=== PATIENT | female | born 1945 | race Caucasian/White ===

== ENCOUNTER → 2017-01-05 | Outpatient (CLI) | payer MEDICARE ==
--- NOTE | 2017-01-07 08:24 | MM ---
Reason for exam: screening (asymptomatic). Last mammogram was performed 1 year ago. History: Patient is postmenopausal. Benign excisional biopsy of the left breast, August 15, 2005. Left Mammotome Panel of the left breast, August 13, 2005. Benign excisional biopsy of the right breast, January 25, 1998. Took hormonal contraceptives for 8 years. Physical Findings: A clinical breast exam by your physician is recommended on an annual basis and results should be correlated with mammographic findings. MG Screening Mammo w CAD Bilateral CC and MLO view(s) were taken. Prior study comparison: December 28, 2015, bilateral MG screening mammo w CAD. December 27, 2014, bilateral MG screening mammo w CAD. December 26, 2013, CAD bilateral diagnostic mammogram. December 08, 2012, bilateral digital screening mammo w/CAD. November 26, 2011, bilateral digital screening mammo w/CAD. There are scattered fibroglandular densities. There is chronic nodularity in the left breast. Nodularity on the right MLO view appears more defined but circumscribed. A benign etiology is suspected, 6 month follow up recommended. ASSESSMENT: Probably benign, BI-RAD 3 RECOMMENDATION: Follow-up diagnostic mammogram of the right breast in 6 months.
== END | disposition home or self-care (01) ==
LOC: RADMAMWWP 13:21
PROVIDERS: ATTEND Family Medicine
DX: Z12.31 Encounter for screening mammogram for malignant neoplasm of breast (principal)

== ENCOUNTER → 2017-05-06 | Outpatient (CLI) | payer MEDICARE ==
[2017-05-06 17:00] LABS: Creatine Kinase 82 U/L (30-135)
[2017-05-06 17:04] LABS: Rheumatoid Factor, Qnt <9 IU/mL (<12)
[2017-05-06 17:50] LABS: Vitamin B12 420 pg/mL
[2017-05-06 22:03] LABS: Hemoglobin A1C 6.4 % (4.2-6.1)
[2017-05-07 00:59] LABS: ANA w/Reflex to Titer NEGATIVE (NEGATIVE)
[2017-05-08 14:13] LABS: Lyme IgG/IgM 0.1 Index; Lyme IgG/IgM Interp NEGATIVE (NEGATIVE)
== END | disposition home or self-care (01) ==
LOC: LABWHC1 15:50
PROVIDERS: ATTEND Psychiatry & Neurology Neurology
DX: G62.9 Polyneuropathy, unspecified (principal)
CPT/HCPCS: 36415; 82550; 82607; 82747; 83036; 84165; 84439; 84443; 85652; 86038; 86431; 86618

== ENCOUNTER → 2017-05-06 | Outpatient (CLI) | payer MEDICARE ==
--- NOTE | 2017-05-07 09:08 | US ---
EXAMINATION TYPE: US thyroid st tissue head/neck DATE OF EXAM: 05/06/2017 COMPARISON: NONE CLINICAL HISTORY: E04.2 thyroid goiter. Multinodular goiter, history of thyroid biopsy GLAND SIZE: Right Lobe: 5.7 x 2.9 x 3.0 cm Overall Parenchyma: heterogenous Left Lobe: 5.5 x 2.6 x 2.0 cm Overall Parenchyma: heterogeneous Isthmus Thickness: 0.5 cm NODULES RIGHT: # of nodules measured on right: 1 1. 3.3 X 1.9 x 2.8 cm hypoechoic solid nodule at the lower pole with poorly defined margins. This n odule is wider than tall and shows intranodular vascularity. Prior size: 2.5 x 1.9 x 2.9 cm LEFT: # of nodules measured on left: 2 1. 1.3 X 1.0 x 1.3 cm hypoechoic solid nodule at the lower pole with poorly defined margins. This n odule is wider than tall and shows intranodular vascularity. Prior size: 1.4 x 2.0 x 0.9 cm 2. 0.9 X 0.7 x 0.8 cm hypoechoic cystic nodule at the mid pole with well-defined margins. This nodul e is wider than tall and shows no intranodular vascularity. Prior size: no previous ISTHMUS: # of nodules measured in the isthmus: 0 Bilateral neck scanned, no evidence of lymphadenopathy. Enlarged heterogeneous thyroid with bilateral nodules described above. IMPRESSION: 1. Bilateral thyroid nodules. 2. Right lobe thyroid nodules enlarged from prior study.
== END | disposition home or self-care (01) ==
LOC: RADUSWWP 16:22
PROVIDERS: ATTEND Internal Medicine Endocrinology, Diabetes & Metabolism
DX: E04.2 Nontoxic multinodular goiter (principal)
CPT/HCPCS: 76536

== ENCOUNTER → 2017-08-05 | Outpatient (CLI) | payer MEDICARE ==
--- NOTE | 2017-08-05 14:23 | MM ---
Reason for exam: follow-up at short interval from prior study. Last mammogram was performed 7 months ago. History: Patient is postmenopausal. Benign excisional biopsy of the left breast, August 15, 2005. Left Mammotome Panel of the left breast, August 13, 2005. Benign excisional biopsy of the right breast, January 25, 1998. Took hormonal contraceptives for 8 years. Physical Findings: Nurse did not find any significant physical abnormalities on exam. MG Diagnostic Mammo RT w CAD CC and MLO view(s) were taken of the right breast. Prior study comparison: January 05, 2017, bilateral MG screening mammo w CAD. December 28, 2015, bilateral MG screening mammo w CAD. December 27, 2014, bilateral MG screening mammo w CAD. The breast tissue is heterogeneously dense. This may lower the sensitivity of mammography. Finding: There are typically benign vascular, round, diffuse and grouped calcifications in the right breast. There is a chronic nodularity in the right breast. There is no new dominant lesion. Skin lesion in the right breast marked by tech. These results were verbally communicated with the patient and result sheet given to the patient on 08/05/17. ASSESSMENT: Benign, BI-RAD 2 RECOMMENDATION: Return to routine screening mammogram schedule for both breasts. Back on schedule.
--- NOTE | 2017-08-06 09:11 | BD ---
EXAMINATION TYPE: MG DEXA axial skeleton. DATE OF EXAM: 08/05/2017 COMPARISON: 2013 CLINICAL HISTORY: 71-year-old female screening osteoporosis Height: 5'4 3/4 Weight: 228 FRAX RISK QUESTIONS: Alcohol (3 or more units per day): no Family History (Parent hip fracture): no Glucocorticoids (More than 3mos): no (Ex: prednisone, prednisolone, methylprednisolone, dexamethasone, and hydrocortisone). History of Fracture in Adulthood: no Secondary Osteoporosis: 1. Type 1 Diabetes: no 2. Hyperthyroidism: no 3. Menopause before 45: yes 4. Malnutrition: no 5. Chronic liver disease: no Rheumatoid Arthritis: no Current Tobacco Use: no RISK FACTORS HISTORY OF: Surgery to Spine When: age 32 Family History of Osteoporosis: Active: Postmenopausal woman: MEDICATIONS: Additional Medications: blood pressure, cholesterol, Plavix Additional History: EXAM MEASUREMENTS: Bone mineral densitometry was performed using the [employer]. Bone mineral density as measured about the Lumbar spine is: ----- L1-L4(G/cm2): 1.566 T Score Values are as follows: ----- L2: 3.1 ----- L3: 4.1 ----- L4: 3.1 ----- L1-L4: 4:3.2 Bone mineral density about the R hip (g/cm2): 1.013 Bone mineral density about the L hip (g/cm2): 1.025 T Score values are as follows: -----R Neck: -0.2 -----L Neck: -0.1 -----R Total: 1.3 -----L Total: 1.5 Bone mineral density has: Increased 0.6% since study of: 10/21/2014 IMPRESSION: Normal (Values between +1 and -1 indicate normal bone mass). Consider repeating this study in 5 year s or sooner if there is some new clinical indication. NOTE: T-SCORE=SD OF THE YOUNG ADULT MEAN.
== END | disposition home or self-care (01) ==
LOC: RADMAMWWP 13:26
PROVIDERS: ATTEND Family Medicine
DX: R92.8 Other abnormal and inconclusive findings on diagnostic imaging of breast (principal); Z13.820 Encounter for screening for osteoporosis
CPT/HCPCS: 77080; G0206

== ENCOUNTER → 2017-12-15 | Outpatient (CLI) | payer MEDICARE ==
--- NOTE | 2017-12-15 15:15 | US ---
EXAMINATION TYPE: US thyroid st tissue head/neck DATE OF EXAM: 12/15/2017 COMPARISON: US 04/28/2017 CLINICAL HISTORY: E04.2 NONTOXIC MULTINODULAR GOITER. GLAND SIZE: Right Lobe: 7.0 x 3.3 x 3.2 cm Overall Parenchyma: heterogenous Left Lobe: 5.3 x 2.2 x 2.5 cm Overall Parenchyma: heterogeneous Isthmus Thickness: 0.6 cm NODULES RIGHT: # of nodules measured on right: 1 1. 3.1 X 2.1 x 2.9 cm isoechoic solid nodule at the lower pole with poorly defined margins; . This nodule is wider than tall and shows intranodular vascularity. Prior size: 3.3 x 1.9 x 2.8 cm LEFT: # of nodules measured on left: 0 gland is diffusely heterogeneous, unable to discern any definite nodules. ISTHMUS: # of nodules measured in the isthmus: 0 Bilateral neck scanned, no evidence of lymphadenopathy. gland is bilaterally heterogenous and enlarged. IMPRESSION: 1. Diffuse nonspecific glandular heterogeneity and nodularity.
== END | disposition home or self-care (01) ==
LOC: RADUSWWP 13:27
PROVIDERS: ATTEND Internal Medicine Endocrinology, Diabetes & Metabolism
DX: E04.2 Nontoxic multinodular goiter (principal)
CPT/HCPCS: 76536

== ENCOUNTER → 2018-01-06 | Outpatient (CLI) | payer MEDICARE ==
--- NOTE | 2018-01-07 09:12 | MM ---
Reason for exam: screening (asymptomatic). Last mammogram was performed 5 months ago. History: Patient is postmenopausal. Benign excisional biopsy of the left breast, August 15, 2005. Left Mammotome Panel of the left breast, August 13, 2005. Benign excisional biopsy of the right breast, January 25, 1998. Took hormonal contraceptives for 8 years. Physical Findings: A clinical breast exam by your physician is recommended on an annual basis and results should be correlated with mammographic findings. MG 3D Screening Mammo W/Cad Bilateral CC and MLO view(s) were taken. Prior study comparison: August 05, 2017, right breast MG diagnostic mammo RT w CAD. January 05, 2017, bilateral MG screening mammo w CAD. The breast tissue is heterogeneously dense. This may lower the sensitivity of mammography. Focal asymmetry upper outer right breast 7-8cm from nipple. This finding is changed when compared with previous exams. ASSESSMENT: Incomplete: need additional imaging evaluation, BI-RAD 0 RECOMMENDATION: Special view mammogram of the right breast. If lesion persists on supplemental views, image directed ultrasound is recommended. [facility] will attempt to contact patient to return for supplemental views and ultrasound if indicated.
== END | disposition home or self-care (01) ==
LOC: RADMAMWWP 07:21
PROVIDERS: ATTEND Family Medicine
DX: Z12.31 Encounter for screening mammogram for malignant neoplasm of breast (principal)
CPT/HCPCS: 77063; 77067

== ENCOUNTER → 2018-01-11 | Outpatient (CLI) | payer MEDICARE ==
--- NOTE | 2018-01-11 15:05 | MM ---
Reason for exam: additional evaluation requested from abnormal screening. Last mammogram was performed less than 1 month ago. History: Patient is postmenopausal. Benign excisional biopsy of the left breast, August 15, 2005. Left Mammotome Panel of the left breast, August 13, 2005. Benign excisional biopsy of the right breast, January 25, 1998. Took hormonal contraceptives for 8 years. Physical Findings: Nurse did not find any significant physical abnormalities on exam. MG 3D Work Up W/Cad RT Spot compression CC, spot compression MLO, and ML view(s) were taken of the right breast. Prior study comparison: January 06, 2018, bilateral MG 3d screening mammo w/cad. August 05, 2017, right breast MG diagnostic mammo RT w CAD. Finding: There is a 4 mm circumscribed oval mass in the upper outer quadrant of the right breast persists. These results were verbally communicated with the patient and result sheet given to the patient on 01/11/18. ASSESSMENT: Incomplete: need additional imaging evaluation, BI-RAD 0 RECOMMENDATION: Ultrasound of the right breast.
--- NOTE | 2018-01-11 15:06 | USB ---
Reason for exam: additional evaluation requested from abnormal screening. History: Patient is postmenopausal. Benign excisional biopsy of the left breast, August 15, 2005. Left Mammotome Panel of the left breast, August 13, 2005. Benign excisional biopsy of the right breast, January 25, 1998. Took hormonal contraceptives for 8 years. US Breast Workup Limited RT Right breast ultrasound demonstrates a 0.5 x 0.4 x 0.5cm lesion too small to characterize at 11 o'clock and a 1.3cm node at the axilla tail. These results were verbally communicated with the patient and result sheet given to the patient on 01/11/18. ASSESSMENT: Probably benign, BI-RAD 3 RECOMMENDATION: Follow-up diagnostic mammogram and ultrasound of the right breast in 6 months.
== END | disposition home or self-care (01) ==
LOC: RADMAMWWP 12:47
PROVIDERS: ATTEND Family Medicine
DX: R92.8 Other abnormal and inconclusive findings on diagnostic imaging of breast (principal)
CPT/HCPCS: 77065; 76642; G0279

== ENCOUNTER → 2018-05-19 | Outpatient (CLI) | payer MEDICARE | END | disposition home or self-care (01) | LOC: LABWHC1 08:46 | PROVIDERS: ATTEND Psychiatry & Neurology Neurology | DX: R53.82 Chronic fatigue, unspecified (principal) | CPT/HCPCS: 36415; 82306; 83036 ==

== ENCOUNTER → 2018-07-21 | Outpatient (CLI) | payer MEDICARE ==
--- NOTE | 2018-07-21 13:44 | MM ---
Reason for exam: follow-up at short interval from prior study. Last mammogram was performed 6 months ago. History: Patient is postmenopausal. Benign excisional biopsy of the left breast, August 15, 2005. Left Mammotome Panel of the left breast, August 13, 2005. Benign excisional biopsy of the right breast, January 25, 1998. Took hormonal contraceptives for 8 years. Physical Findings: Nurse did not find any significant physical abnormalities on exam. MG 3D Diag Mammo W/Cad RT CC, MLO, and ML view(s) were taken of the right breast. Prior study comparison: January 11, 2018, right breast MG 3d work up w/cad RT. January 06, 2018, bilateral MG 3d screening mammo w/cad. There are scattered fibroglandular densities. Previous mammotome biopsy in the right breast. Stable grouped punctate calcifications lower inner quadrant. The questioned asymmetric density laterally and posteriorly is less defined and has an appearance unchanged from 2016. These results were verbally communicated with the patient and result sheet given to the patient on 07/21/18. ASSESSMENT: Benign, BI-RAD 2 RECOMMENDATION: Return to routine screening mammogram schedule for both breasts.
== END | disposition home or self-care (01) ==
LOC: RADMAMWWP 13:08
PROVIDERS: ATTEND Family Medicine
DX: R92.8 Other abnormal and inconclusive findings on diagnostic imaging of breast (principal)
CPT/HCPCS: 77065; G0279; 77061

== ENCOUNTER → 2018-09-07 | Outpatient (CLI) | payer MEDICARE ==
[2018-09-07 19:31] LABS: Albumin 4.7 g/dL (3.80-4.90); Albumin/Globulin Ratio 2.47 (1.20-2.10); Anion Gap 12.5 mmol/L (4.00-12.00); Calcium 9.7 mg/dL (8.7-10.3); Carbon Dioxide 23.5 mmol/L (21.6-31.8); Globulin 1.9 g/dL (2.1-3.7); Potassium 4.4 mmol/L (3.5-5.5); Total Bilirubin 0.5 mg/dL (0.2-1.2); Total Protein 6.6 g/dL (6.2-8.2)
== END | disposition home or self-care (01) ==
LOC: LABWHC1 13:58
PROVIDERS: ATTEND Psychiatry & Neurology Neurology
DX: E11.40 Type 2 diabetes mellitus with diabetic neuropathy, unspecified (principal); R25.2 Cramp and spasm
CPT/HCPCS: 36415; 80053; 82550; 82607; 82747

== ENCOUNTER → 2018-12-22 | Outpatient (CLI) | payer MEDICARE ==
--- NOTE | 2019-01-10 10:31 | ENG ---
ELECTRONYSTAGMOGRAM REPORT VNG REPORT: INDICATION: Dizziness. VNG FINDINGS: Saccades shows intact peak velocities, accuracies, and latencies. Gaze with fixation shows no nystagmus in any of the directions of gaze including centrally with vision denied. Tracking shows mild break-ups. OPK not done due to patient unable to follow instructions. Static position testing in seated, supine, head right and head left position shows no nystagmus in any of the positions, eyes opened or with vision denied. Chriss-Hallpike is not able to be done due to patient's condition. Caloric testing shows a 14% unilateral right caloric weakness which is within normal limits. IMPRESSION: Mild break ups and tracking favor central nervous system etiology. There is partial redundancy with optokinetic nystagmus. However, patient unable to follow directions for 0PK. There is borderline bilateral caloric weakness. No evidence for vestibulopathy. Clinical correlation necessary. TOSHA / MAYTE: [id number] /
== END | disposition home or self-care (01) ==
LOC: NEUROMAIN 13:10
PROVIDERS: ATTEND Psychiatry & Neurology Neurology
DX: H55.09 Other forms of nystagmus (principal); R42 Dizziness and giddiness
CPT/HCPCS: 92537; 92540

== ENCOUNTER → 2019-01-26 | Outpatient (CLI) | payer MEDICARE ==
--- NOTE | 2019-01-28 10:10 | MM ---
Reason for exam: screening (asymptomatic). Last mammogram was performed 6 months ago. History: Patient is postmenopausal. Benign excisional biopsy of the left breast, August 15, 2005. Left Mammotome Panel of the left breast, August 13, 2005. Benign excisional biopsy of the right breast, January 25, 1998. Took hormonal contraceptives for 8 years. Physical Findings: A clinical breast exam by your physician is recommended on an annual basis and results should be correlated with mammographic findings. MG 3D Screening Mammo W/Cad Bilateral CC and MLO view(s) were taken. Prior study comparison: July 21, 2018, right breast MG 3d diag mammo w/cad RT. January 06, 2018, bilateral MG 3d screening mammo w/cad. January 05, 2017, bilateral MG screening mammo w CAD. There are scattered fibroglandular densities. There is chronic nodularity in the left breast. No significant changes when compared with prior studies. ASSESSMENT: Benign, BI-RAD 2 RECOMMENDATION: Routine screening mammogram of both breasts in 1 year.
== END | disposition home or self-care (01) ==
LOC: RADMAMWWP 14:46
PROVIDERS: ATTEND Family Medicine
DX: Z12.31 Encounter for screening mammogram for malignant neoplasm of breast (principal)
CPT/HCPCS: 77063; 77067

== ENCOUNTER → 2019-03-15 | Outpatient (CLI) | payer MEDICARE ==
--- NOTE | 2019-03-15 16:40 | US ---
EXAMINATION TYPE: US thyroid st tissue head/neck DATE OF EXAM: 03/15/2019 COMPARISON: 12/15/2017 CLINICAL HISTORY: E04.1 Thyroid Nodule. Goiter GLAND SIZE: Right Lobe: 5.6 x 3.3 x 3.3 cm Overall Parenchyma: heterogenous Left Lobe: 5.5 x 3.1 x 2.4 cm Overall Parenchyma: heterogeneous Isthmus Thickness: 0.9 cm NODULES RIGHT: # of nodules measured on right: 1 1. 2.4 X 1.8 x 3.0 cm isoechoic solid nodule at the lower pole with poorly defined margins; . This nodule is wider than tall and shows intranodular vascularity. Prior size: 3.1 x 2.1 x 2.9 cm LEFT: # of nodules measured on left: 0 ISTHMUS: # of nodules measured in the isthmus: 0 Bilateral neck scanned, no evidence of lymphadenopathy. IMPRESSION: 1. Right thyroid lobe nodules smaller than the comparison study.
== END | disposition home or self-care (01) ==
LOC: RADUSWWP 12:25
PROVIDERS: ATTEND Internal Medicine Endocrinology, Diabetes & Metabolism
DX: E04.1 Nontoxic single thyroid nodule (principal)
CPT/HCPCS: 76536

== ENCOUNTER → 2020-05-09 | Outpatient (CLI) | payer MEDICARE ==
--- NOTE | 2020-05-10 11:17 | MM ---
Reason for exam: screening (asymptomatic). Last mammogram was performed 1 year and 3 months ago. History: Patient is postmenopausal. Benign excisional biopsy of the left breast, August 15, 2005. Left Mammotome Panel of the left breast, August 13, 2005. Benign excisional biopsy of the right breast, January 25, 1998. Took hormonal contraceptives for 8 years. Physical Findings: A clinical breast exam by your physician is recommended on an annual basis and results should be correlated with mammographic findings. MG 3D Screening Mammo W/Cad Bilateral CC and MLO view(s) were taken. Prior study comparison: January 26, 2019, bilateral MG 3d screening mammo w/cad. July 21, 2018, right breast MG 3d diag mammo w/cad RT. The breast tissue is heterogeneously dense. This may lower the sensitivity of mammography. Stable benign calcifications. There is chronic nodularity bilaterally. No significant changes when compared with prior studies. ASSESSMENT: Benign, BI-RAD 2 RECOMMENDATION: Routine screening mammogram of both breasts in 1 year.
== END | disposition home or self-care (01) ==
LOC: RADMAMWWP 11:17
PROVIDERS: ATTEND Family Medicine
DX: Z12.39 Encounter for other screening for malignant neoplasm of breast (principal)
CPT/HCPCS: 77063; 77067

== ENCOUNTER 2020-10-12 13:21 | Emergency (ER) | payer MEDICARE ==
[2020-10-12 13:38] VITALS: RESP 18; TEMP 99.9
--- NOTE | 2020-10-12 14:44 | ED ---
General Adult HPI - General Chief complaint: Weakness Stated complaint: Altered Mental Status Time Seen by Provider: 10/12/20 14:25 Source: patient, family Mode of arrival: wheelchair Limitations: no limitations - History of Present Illness Initial comments: Dictation was produced using happyview dictation software. please excuse any grammatical, word or spelling errors. This patient was cared for during a federal and state declared state of emerg ency secondary to Covid 19 Chief Complaint: 74-year-old female presents with 5 days of cough, shortness of breath, sore throat, generalized weakness. History of Present Illness: She is 74-year-old female she was brought in by her . Patient states for the last 5 days she's been having worsening weakness, fatigue, cough, shortness of breath. Chest had one episode of diarrhea has not does not bloody. Patient does not know any obvious exposure to anybody with coronavirus. She has past medical history of stroke, diabetes, dyslipidemia and hypertension. Patient does have mild sore throat. She also has abdominal pain. The ROS documented in this emergency department record has been reviewed and confirmed by me. Those systems with pertinent positive or negative responses have been documented in the HPI. All other systems are other negative and/or noncontributory. PHYSICAL EXAM: General Impression: Alert and oriented x3, not in acute distress, coughing HEENT: Normocephalic atraumatic, extra-ocular movements intact, pupils equal and reactive to light bilaterally, mucous membranes moist. Cardiovascular: Heart regular rate and rhythm Chest: Able to complete full sentences, no retractions, no tachypnea Abdomen: abdomen soft, tenderness to the right abdomen, positive Laguerre sign, non-distended, no organomegaly Musculoskeletal: Pulses present and equal in all extremities, no peripheral edema Motor: no focal deficits noted Neurological: CN II-XII grossly intact, no focal motor or sensory deficits noted Skin: Intact with no visualized rashes Psych: Normal affect and mood ED course: 74-year-old female presents with URI-type symptoms and abdominal pain. Signs upon arrival shows temperature of 99.9, worse vital signs within acceptable limits. Patient is not hypoxic. Laboratory evaluation obtained. CBC unremarkable. Coag panel d-dimer is within acceptable limits. Metabolic panel is negative. CRP 60.1. Coronavirus testing is positive.Chest x-ray shows bibasilar density. Gallbladder ultrasound shows underlying hepatocellular disease, hepatic steatosis. Patient given Decadron. Patient observed in emergency department for 3 hours and 30 minutes with no acute changes. She's not showing any signs or respiratory distress. Patient closely stable for discharge. She is notified of her results. She is agreeable. She is given to Covid 19 return precautions. Patient is agreeable for discharge. - Related Data Home Medications Medication Instructions Recorded Confirmed Gabapentin 600 mg PO BID 01/02/15 10/12/20 Losartan Potassium 50 mg PO DAILY 01/02/15 10/12/20 Meloxicam 7.5 mg PO DAILY 01/02/15 10/12/20 Ascorbic Acid [Vitamin C] 500 mg PO DAILY 01/03/15 10/12/20 Calcium Carbonate/Vitamin D3 1 tab PO DAILY 01/03/15 10/12/20 [Calcium 600-Vit D3 400 Tablet] Calcium Polycarbophil [Fibercon] 625 mg PO DAILY 01/03/15 10/12/20 Docusate Sodium [Dulcolax Stool 100 mg PO BID 01/03/15 10/12/20 Softener] Multivitamins, Thera [Multivitamin 1 tab PO DAILY 01/03/15 10/12/20 (formulary)] Dierks-3 Fatty Acids/Fish Oil [Fish 1 cap PO DAILY 01/03/15 10/12/20 Oil 1,000 mg Softgel] metFORMIN HCL [Glucophage] 500 mg PO BID 07/06/18 10/12/20 Biotin 5 mg PO DAILY 10/12/20 10/12/20 Turmeric Root Extract [Turmeric] 500 mg PO DAILY 10/12/20 10/12/20 Previous Rx's Medication Instructions Recorded Atorvastatin Calcium [Lipitor] 40 mg PO DAILY #30 tab 01/03/15 Clopidogrel [Plavix] 75 mg PO DAILY tab 01/03/15 Allergies Allergy/AdvReac Type Severity Reaction Status Date / Time No Known Allergies Allergy Verified 10/12/20 15:04 Review of Systems ROS Statement: Those systems with pertinent positive or pertinent negative responses have been documented in the HPI. ROS Other: All systems not noted in ROS Statement are negative. Past Medical History Past Medical History: CVA/TIA, Diabetes Mellitus, Hyperlipidemia, Hypertension Additional Past Medical History / Comment(s): CVA one month ago symptoms=numbness in hand and arm History of Any Multi-Drug Resistant Organisms: None Reported Past Surgical History: Back Surgery, Orthopedic Surgery Additional Past Surgical History / Comment(s): both knees total, rotor cuff repair Past Anesthesia/Blood Transfusion Reactions: No Reported Reaction Past Psychological History: No Psychological Hx Reported Past Alcohol Use History: Occasional Past Drug Use History: None Reported - Past Family History Son(s) Additional Family Medical History / Comment(s): gout General Exam Limitations: no limitations Course Vital Signs 10/12/20 10/12/20 10/12/20 13:32 14:54 14:55 Temperature 99.9 F H Pulse Rate 84 84 Respiratory 18 18 18 Rate Blood Pressure 139/80 153/81 O2 Sat by Pulse 95 91 L Oximetry 10/12/20 16:18 Temperature Pulse Rate 86 Respiratory 18 Rate Blood Pressure 131/78 O2 Sat by Pulse 95 Oximetry Medical Decision Making - Lab Data Result diagrams: 10/12/20 14:18 10/12/20 14:18 Lab Results 10/12/20 10/12/20 10/12/20 Range/Units 14:18 14:18 14:18 WBC 5.2 (3.8-10.6) k/uL RBC 4.69 (3.80-5.40) m/uL Hgb 14.2 (11.4-16.0) gm/dL Hct 43.1 (34.0-46.0) % MCV 91.9 (80.0-100.0) fL MCH 30.3 (25.0-35.0) pg MCHC 32.9 (31.0-37.0) g/dL RDW 14.1 (11.5-15.5) % Plt Count 149 L (150-450) k/uL MPV 7.3 Neutrophils % 72 % Lymphocytes % 21 % Monocytes % 5 % Eosinophils % 1 % Basophils % 0 % Neutrophils # 3.8 (1.3-7.7) k/uL Lymphocytes # 1.1 (1.0-4.8) k/uL Monocytes # 0.3 (0-1.0) k/uL Eosinophils # 0.1 (0-0.7) k/uL Basophils # 0.0 (0-0.2) k/uL PT 9.8 (9.0-12.0) sec INR 0.9 (<1.2) APTT 25.3 (22.0-30.0) sec D-Dimer (<0.60) mg/L FEU Sodium 139 (137-145) mmol/L Potassium 4.3 (3.5-5.1) mmol/L Chloride 104 (98-107) mmol/L Carbon Dioxide 26 (22-30) mmol/L Anion Gap 9 mmol/L BUN 21 H (7-17) mg/dL Creatinine 0.78 (0.52-1.04) mg/dL Est GFR (CKD-EPI)AfAm 88 (>60 ml/min/1.73 sqM) Est GFR (CKD-EPI)NonAf 77 (>60 ml/min/1.73 sqM) Glucose 174 H (74-99) mg/dL Plasma Lactic Acid Charles (0.7-2.0) mmol/L Calcium 9.1 (8.4-10.2) mg/dL Magnesium (1.6-2.3) mg/dL Total Bilirubin 0.8 (0.2-1.3) mg/dL AST 101 H (14-36) U/L ALT 66 H (4-34) U/L Alkaline Phosphatase 46 (38-126) U/L Troponin I (0.000-0.034) ng/mL C-Reactive Protein (<10.0) mg/L Total Protein 7.4 (6.3-8.2) g/dL Albumin 4.1 (3.5-5.0) g/dL Lipase (23-300) U/L Coronavirus (PCR) (Not Detectd) 10/12/20 10/12/20 10/12/20 Range/Units 14:18 14:18 14:18 WBC (3.8-10.6) k/uL RBC (3.80-5.40) m/uL Hgb (11.4-16.0) gm/dL Hct (34.0-46.0) % MCV (80.0-100.0) fL MCH (25.0-35.0) pg MCHC (31.0-37.0) g/dL RDW (11.5-15.5) % Plt Count (150-450) k/uL MPV Neutrophils % % Lymphocytes % % Monocytes % % Eosinophils % % Basophils % % Neutrophils # (1.3-7.7) k/uL Lymphocytes # (1.0-4.8) k/uL Monocytes # (0-1.0) k/uL Eosinophils # (0-0.7) k/uL Basophils # (0-0.2) k/uL PT (9.0-12.0) sec INR (<1.2) APTT (22.0-30.0) sec D-Dimer (<0.60) mg/L FEU Sodium (137-145) mmol/L Potassium (3.5-5.1) mmol/L Chloride (98-107) mmol/L Carbon Dioxide (22-30) mmol/L Anion Gap mmol/L BUN (7-17) mg/dL Creatinine (0.52-1.04) mg/dL Est GFR (CKD-EPI)AfAm (>60 ml/min/1.73 sqM) Est GFR (CKD-EPI)NonAf (>60 ml/min/1.73 sqM) Glucose (74-99) mg/dL Plasma Lactic Acid Charles 1.2 (0.7-2.0) mmol/L Calcium (8.4-10.2) mg/dL Magnesium 1.8 (1.6-2.3) mg/dL Total Bilirubin (0.2-1.3) mg/dL AST (14-36) U/L ALT (4-34) U/L Alkaline Phosphatase (38-126) U/L Troponin I <0.012 (0.000-0.034) ng/mL C-Reactive Protein 60.1 H (<10.0) mg/L Total Protein (6.3-8.2) g/dL Albumin (3.5-5.0) g/dL Lipase 262 (23-300) U/L Coronavirus (PCR) (Not Detectd) 10/12/20 10/12/20 Range/Units 14:18 14:52 WBC (3.8-10.6) k/uL RBC (3.80-5.40) m/uL Hgb (11.4-16.0) gm/dL Hct (34.0-46.0) % MCV (80.0-100.0) fL MCH (25.0-35.0) pg MCHC (31.0-37.0) g/dL RDW (11.5-15.5) % Plt Count (150-450) k/uL MPV Neutrophils % % Lymphocytes % % Monocytes % % Eosinophils % % Basophils % % Neutrophils # (1.3-7.7) k/uL Lymphocytes # (1.0-4.8) k/uL Monocytes # (0-1.0) k/uL Eosinophils # (0-0.7) k/uL Basophils # (0-0.2) k/uL PT (9.0-12.0) sec INR (<1.2) APTT (22.0-30.0) sec D-Dimer 0.80 H (<0.60) mg/L FEU Sodium (137-145) mmol/L Potassium (3.5-5.1) mmol/L Chloride (98-107) mmol/L Carbon Dioxide (22-30) mmol/L Anion Gap mmol/L BUN (7-17) mg/dL Creatinine (0.52-1.04) mg/dL Est GFR (CKD-EPI)AfAm (>60 ml/min/1.73 sqM) Est GFR (CKD-EPI)NonAf (>60 ml/min/1.73 sqM) Glucose (74-99) mg/dL Plasma Lactic Acid Charles (0.7-2.0) mmol/L Calcium (8.4-10.2) mg/dL Magnesium (1.6-2.3) mg/dL Total Bilirubin (0.2-1.3) mg/dL AST (14-36) U/L ALT (4-34) U/L Alkaline Phosphatase (38-126) U/L Troponin I (0.000-0.034) ng/mL C-Reactive Protein (<10.0) mg/L Total Protein (6.3-8.2) g/dL Albumin (3.5-5.0) g/dL Lipase (23-300) U/L Coronavirus (PCR) Detected A (Not Detectd) Disposition Clinical Impression: COVID-19 Disposition: HOME SELF-CARE Condition: Fair Instructions (If sedation given, give patient instructions): Viral Pneumonia (ED) Additional Instructions: Today you were evaluated for symptoms consistent with upper respiratory infection. There is concern that perhaps your symptomatology may represent Covid 19. Your are stable for discharge, however it is instructed to to seek immediate medical attention especially if you develop worsening symptoms especially respiratory distress. In the meantime please remain in quarantine for 14 days. For any other questions please contact Gil for here in emergency department or [facility] at [phone] Is patient prescribed a controlled substance at d/c from ED?: No Referrals: Marcin Reynoso DO [Primary Care Provider] - 1-2 days Time of Disposition: 16:58
[2020-10-12 14:52] LABS: Basophils % (A) 0 %; Eosinophils # (A) 0.1 k/uL (0-0.7); Eosinophils % (A) 1 %; HCT 43.1 % (34.0-46.0); HGB 14.2 gm/dL (11.4-16.0); Lymphocytes # (A) 1.1 k/uL (1.0-4.8); Lymphocytes % (A) 21 %; MCH 30.3 pg (25.0-35.0); MCHC 32.9 g/dL (31.0-37.0); MCV 91.9 fL (80.0-100.0); Mean Platelet Volume 7.3; Monocytes # (A) 0.3 k/uL (0-1.0); Monocytes % (A) 5 %; Neutrophils # (A) 3.8 k/uL (1.3-7.7); Neutrophils % (A) 72 %; Platelet Count 149 k/uL (150-450); RBC 4.69 m/uL (3.80-5.40); RDW 14.1 % (11.5-15.5); WBC 5.2 k/uL (3.8-10.6)
[2020-10-12 15:00] LABS: INR 0.9 (<1.2); Partial Thromboplastin Time 25.3 sec (22.0-30.0); Prothrombin Time 9.8 sec (9.0-12.0)
[2020-10-12 15:06] LABS: Albumin 4.1 g/dL (3.5-5.0); Calcium 9.1 mg/dL (8.4-10.2); Potassium 4.3 mmol/L (3.5-5.1); Total Bilirubin 0.8 mg/dL (0.2-1.3); Total Protein 7.4 g/dL (6.3-8.2)
[2020-10-12 15:42] LABS: C Reactive Protein 60.1 mg/L (<10.0); Magnesium 1.8 mg/dL (1.6-2.3)
[2020-10-12] MEDS ORDERED: DEXAMETHASONE SOD PHOSPHATE 10 MG/ML 1 ML VIAL IV STA (16:08)
--- NOTE | 2020-10-12 16:22 | US ---
EXAMINATION TYPE: US gallbladder DATE OF EXAM: 10/12/2020 COMPARISON: NONE CLINICAL HISTORY: ruq abdominal pain. Pain, poor historian EXAM MEASUREMENTS: Liver Length: 18.6 cm Gallbladder Wall: 0.1 cm CBD: 0.4 cm Right Kidney: 12.0 x 4.7 x 5.8 cm Pt moving during exam and unable to take breath in and hold it Pancreas: wnl, tail obscured by overlying bowel gas Liver: Enlarged, heterogeneous Gallbladder: wnl Evidence for sonographic Laguerre's sign: Yes CBD: wnl Right Kidney: wnl IMPRESSION: There may be underlying hepatocellular disease, hepatic steatosis. Liver is likely enlarg ed. The minute exam.
--- NOTE | 2020-10-12 16:23 | XR ---
EXAMINATION TYPE: XR chest 1V portable DATE OF EXAM: 10/12/2020 COMPARISON: Prior chest x-ray 04/17/2015 HISTORY: Covid, weakness, fatigue, abnormal chest x-ray TECHNIQUE: Single frontal view of the chest is obtained. FINDINGS: Patchy bibasilar density is noted. There is no pneumothorax or pleural effusion. There is a scoliotic curvature to the spine. Cardiac mediastinal silhouette, pulmonary vascularity and valerio ar e unchanged. Pulmonary artery appears prominently. Postop changes are noted to the distal right clavi clare. IMPRESSION: Correlate for pneumonia, follow-up suggested. Possible pulmonary artery hypertension.
[2020-10-12 17:25] VITALS: BP 128/90; PULSE 87
== END 2020-10-12 17:26 | disposition home or self-care (01) ==
LOC: EC 13:21
DX: U07.1 COVID-19 (principal); K76.0 Fatty (change of) liver, not elsewhere classified; E11.9 Type 2 diabetes mellitus without complications; E78.5 Hyperlipidemia, unspecified; I10 Essential (primary) hypertension; Z79.1 Long term (current) use of non-steroidal anti-inflammatories (NSAID); Z79.84 Long term (current) use of oral hypoglycemic drugs; Z79.899 Other long term (current) drug therapy; Z86.73 Personal history of transient ischemic attack (TIA), and cerebral infarction without residual deficits
CPT/HCPCS: 36415; 93005; 85379; 80053; 83605; 83690; 83735; 84484; 85025; 85610; 85730; 86140; 87635; 71045; 76705; 99285; 96374; J1100

== ENCOUNTER 2020-10-16 13:33 | Inpatient (IN) | payer MEDICARE ==
[2020-10-16] MEDS ORDERED: ACETAMINOPHEN TAB 500 MG TAB PO STA (13:42)
[2020-10-16] MEDS ORDERED: ALBUTEROL HFA INHALER INHALATION STA (13:42)
[2020-10-16] MEDS ORDERED: dexAMETHasone 2 MG TAB PO STA (13:52)
[2020-10-16 14:11] LABS: Basophils # (A) 0.1 k/uL (0-0.2); Basophils % (A) 1 %; Eosinophils % (A) 0 %; HCT 44.1 % (34.0-46.0); HGB 15.1 gm/dL (11.4-16.0); Lymphocytes # (A) 0.7 k/uL (1.0-4.8); Lymphocytes % (A) 9 %; MCH 31.7 pg (25.0-35.0); MCHC 34.2 g/dL (31.0-37.0); MCV 92.6 fL (80.0-100.0); Mean Platelet Volume 7.3; Monocytes # (A) 0.3 k/uL (0-1.0); Monocytes % (A) 4 %; Neutrophils # (A) 6.4 k/uL (1.3-7.7); Neutrophils % (A) 84 %; Platelet Count 279 k/uL (150-450); RBC 4.76 m/uL (3.80-5.40); RDW 13.5 % (11.5-15.5); WBC 7.6 k/uL (3.8-10.6)
--- NOTE | 2020-10-16 14:11 | ED ---
General Adult HPI - General Chief complaint: Altered Mental Status Stated complaint: +COVID,Altered Time Seen by Provider: 10/16/20 13:40 Source: patient, EMS, RN notes reviewed, old records reviewed Mode of arrival: EMS Limitations: no limitations - History of Present Illness Initial comments: This is a 74-year-old female who presents emergency Department after having been seen and diagnosed with COVID On Thursday. Patient was sent in today because she was having a more difficult time breathing home and also altered. Patient is alert and oriented 4 normally but today she is alert and oriented 1. Patient cannot give any further history. however stated that she has been getting progressively worse since Thursday. He states he is unable to take care of her at this point. - Related Data Home Medications Medication Instructions Recorded Confirmed Gabapentin 600 mg PO BID 01/02/15 10/16/20 Losartan Potassium 50 mg PO DAILY 01/02/15 10/16/20 Meloxicam 7.5 mg PO DAILY 01/02/15 10/16/20 Ascorbic Acid [Vitamin C] 500 mg PO DAILY 01/03/15 10/16/20 Calcium Carbonate/Vitamin D3 1 tab PO DAILY 01/03/15 10/16/20 [Calcium 600-Vit D3 400 Tablet] Calcium Polycarbophil [Fibercon] 625 mg PO DAILY 01/03/15 10/16/20 Docusate Sodium [Dulcolax Stool 100 mg PO BID 01/03/15 10/16/20 Softener] Multivitamins, Thera [Multivitamin 1 tab PO DAILY 01/03/15 10/16/20 (formulary)] Amenia-3 Fatty Acids/Fish Oil [Fish 1 cap PO DAILY 01/03/15 10/16/20 Oil 1,000 mg Softgel] metFORMIN HCL [Glucophage] 500 mg PO BID 07/06/18 10/16/20 Biotin 5 mg PO DAILY 10/12/20 10/16/20 Turmeric Root Extract [Turmeric] 500 mg PO DAILY 10/12/20 10/16/20 Metoprolol Tartrate [Lopressor] 25 mg PO BID 10/16/20 10/16/20 Previous Rx's Medication Instructions Recorded Atorvastatin Calcium [Lipitor] 40 mg PO DAILY #30 tab 01/03/15 Clopidogrel [Plavix] 75 mg PO DAILY tab 01/03/15 Allergies Allergy/AdvReac Type Severity Reaction Status Date / Time No Known Allergies Allergy Verified 10/16/20 14:18 Review of Systems ROS Statement: Those systems with pertinent positive or pertinent negative responses have been documented in the HPI. ROS Other: All systems not noted in ROS Statement are negative. Past Medical History Past Medical History: CVA/TIA, Diabetes Mellitus, Hyperlipidemia, Hypertension Additional Past Medical History / Comment(s): CVA one month ago symptoms=numbness in hand and arm History of Any Multi-Drug Resistant Organisms: None Reported Past Surgical History: Back Surgery, Orthopedic Surgery Additional Past Surgical History / Comment(s): both knees total, rotor cuff repair Past Anesthesia/Blood Transfusion Reactions: No Reported Reaction Past Psychological History: No Psychological Hx Reported Smoking Status: Unknown if ever smoked Past Alcohol Use History: Occasional Past Drug Use History: None Reported - Past Family History Son(s) Additional Family Medical History / Comment(s): gout General Exam - General Exam Comments Initial Comments: GENERAL: Patient is well-developed and well-nourished. Patient is nontoxic and well- hydrated and is in mild distress. ENT: Neck is soft and supple. No significant lymphadenopathy is noted. Oropharynx is clear. Moist mucous membranes. Neck has full range of motion without eliciting any pain. EYES: The sclera were anicteric and conjunctiva were pink and moist. Extraocular movements were intact and pupils were equal round and reactive to light. Eyelids were unremarkable. PULMONARY: Patient is labored respirations. Patient has crackles bilaterally CARDIOVASCULAR: There is a regular rate and rhythm without any murmurs gallops or rubs. ABDOMEN: Soft and nontender with normal bowel sounds. SKIN: Skin is clear with no lesions or rashes and otherwise unremarkable. NEUROLOGIC: Patient is alert and oriented 1. Cranial nerves II through XII are grossly intact. Patient is able to move all 4 extremities MUSCULOSKELETAL: Normal extremities with adequate strength and full range of motion. No lower extremity swelling or edema. No calf tenderness. LYMPHATICS: No significant lymphadenopathy is noted PSYCHIATRIC: Unable to assess Limitations: no limitations Course Vital Signs 10/16/20 10/16/20 10/16/20 13:36 14:15 14:34 Temperature 101.8 F H Pulse Rate 97 98 Respiratory 18 18 18 Rate Blood Pressure 136/82 141/86 O2 Sat by Pulse 91 L 92 L Oximetry 10/16/20 15:43 Temperature 98.2 F Pulse Rate 84 Respiratory 18 Rate Blood Pressure 136/79 O2 Sat by Pulse 94 L Oximetry Medical Decision Making - Medical Decision Making EKG shows normal sinus rhythm at 95 bpm NE interval 282 QRS is 98 QT interval 328 QTC is 412. Patient's EKG shows no ST segment elevation or depression. X-ray shows bilateral infiltrates consistent difficulty pneumonia. Patient was started on Decadron immediately. Patient was given a prophylactic dose of Rocephin. Patient did remain altered while in the emergency department. I spoke with Dr. Mejia about the patient he did see the patient in the emergency department. I spoke with Dr. Carlson he agreed to admit the patient admitted the patient wrote admitting orders. - Lab Data Result diagrams: 10/16/20 13:54 10/16/20 13:54 Lab Results 10/16/20 10/16/20 10/16/20 Range/Units 13:54 13:54 13:54 WBC 7.6 (3.8-10.6) k/uL RBC 4.76 (3.80-5.40) m/uL Hgb 15.1 (11.4-16.0) gm/dL Hct 44.1 (34.0-46.0) % MCV 92.6 (80.0-100.0) fL MCH 31.7 (25.0-35.0) pg MCHC 34.2 (31.0-37.0) g/dL RDW 13.5 (11.5-15.5) % Plt Count 279 (150-450) k/uL MPV 7.3 Neutrophils % 84 % Lymphocytes % 9 % Monocytes % 4 % Eosinophils % 0 % Basophils % 1 % Neutrophils # 6.4 (1.3-7.7) k/uL Lymphocytes # 0.7 L (1.0-4.8) k/uL Monocytes # 0.3 (0-1.0) k/uL Eosinophils # 0.0 (0-0.7) k/uL Basophils # 0.1 (0-0.2) k/uL PT 9.9 (9.0-12.0) sec INR 0.9 (<1.2) APTT 28.4 (22.0-30.0) sec D-Dimer 1.27 H (<0.60) mg/L FEU Sodium 146 H (137-145) mmol/L Potassium 4.0 (3.5-5.1) mmol/L Chloride 109 H (98-107) mmol/L Carbon Dioxide 26 (22-30) mmol/L Anion Gap 11 mmol/L BUN 30 H (7-17) mg/dL Creatinine 1.12 H (0.52-1.04) mg/dL Est GFR (CKD-EPI)AfAm 57 (>60 ml/min/1.73 sqM) Est GFR (CKD-EPI)NonAf 49 (>60 ml/min/1.73 sqM) Glucose 189 H (74-99) mg/dL Plasma Lactic Acid Charles (0.7-2.0) mmol/L Calcium 9.3 (8.4-10.2) mg/dL Magnesium 2.3 (1.6-2.3) mg/dL Total Bilirubin 1.1 (0.2-1.3) mg/dL AST 112 H (14-36) U/L ALT 64 H (4-34) U/L Alkaline Phosphatase 48 (38-126) U/L Lactate Dehydrogenase 1735 H (313-618) U/L C-Reactive Protein 189.9 H (<10.0) mg/L Total Protein 7.6 (6.3-8.2) g/dL Albumin 4.0 (3.5-5.0) g/dL Influenza Type A RNA (Not Detectd) Influenza Type B (PCR) (Not Detectd) 10/16/20 10/16/20 Range/Units 13:54 14:07 WBC (3.8-10.6) k/uL RBC (3.80-5.40) m/uL Hgb (11.4-16.0) gm/dL Hct (34.0-46.0) % MCV (80.0-100.0) fL MCH (25.0-35.0) pg MCHC (31.0-37.0) g/dL RDW (11.5-15.5) % Plt Count (150-450) k/uL MPV Neutrophils % % Lymphocytes % % Monocytes % % Eosinophils % % Basophils % % Neutrophils # (1.3-7.7) k/uL Lymphocytes # (1.0-4.8) k/uL Monocytes # (0-1.0) k/uL Eosinophils # (0-0.7) k/uL Basophils # (0-0.2) k/uL PT (9.0-12.0) sec INR (<1.2) APTT (22.0-30.0) sec D-Dimer (<0.60) mg/L FEU Sodium (137-145) mmol/L Potassium (3.5-5.1) mmol/L Chloride (98-107) mmol/L Carbon Dioxide (22-30) mmol/L Anion Gap mmol/L BUN (7-17) mg/dL Creatinine (0.52-1.04) mg/dL Est GFR (CKD-EPI)AfAm (>60 ml/min/1.73 sqM) Est GFR (CKD-EPI)NonAf (>60 ml/min/1.73 sqM) Glucose (74-99) mg/dL Plasma Lactic Acid Charles 1.8 (0.7-2.0) mmol/L Calcium (8.4-10.2) mg/dL Magnesium (1.6-2.3) mg/dL Total Bilirubin (0.2-1.3) mg/dL AST (14-36) U/L ALT (4-34) U/L Alkaline Phosphatase (38-126) U/L Lactate Dehydrogenase (313-618) U/L C-Reactive Protein (<10.0) mg/L Total Protein (6.3-8.2) g/dL Albumin (3.5-5.0) g/dL Influenza Type A RNA Not Detected (Not Detectd) Influenza Type B (PCR) Not Detected (Not Detectd) Critical Care Time Critical Care Time: Yes Total Critical Care Time: 35 Disposition Clinical Impression: Altered mental status, Pneumonia due to COVID-19 virus Disposition: ADMITTED IP TO THIS HOSP Referrals: Marcin Reynoso DO [Primary Care Provider] - 1-2 days Time of Disposition: 17:01
[2020-10-16] MEDS ORDERED: IBUPROFEN 600 MG TAB PO STA (14:12)
[2020-10-16 14:27] LABS: Calcium 9.3 mg/dL (8.4-10.2); Magnesium 2.3 mg/dL (1.6-2.3); Total Bilirubin 1.1 mg/dL (0.2-1.3); Total Protein 7.6 g/dL (6.3-8.2)
[2020-10-16 14:32] LABS: INR 0.9 (<1.2); Partial Thromboplastin Time 28.4 sec (22.0-30.0); Prothrombin Time 9.9 sec (9.0-12.0)
[2020-10-16 14:40] LABS: D-Dimer 1.27 mg/L FEU (<0.60)
[2020-10-16 14:48] LABS: C Reactive Protein 189.9 mg/L (<10.0)
--- NOTE | 2020-10-16 15:20 | XR ---
EXAMINATION TYPE: XR chest 1V portable DATE OF EXAM: 10/16/2020 COMPARISON: Chest x-ray 4 days ago. CTA chest April 17, 2015. HISTORY: Weakness and fatigue. Suspected covid pneumonia. TECHNIQUE: Single AP portable frontal upright view of the chest is obtained. FINDINGS: The osseous structures remain demineralized. Persistent cardiomegaly. Increased peripheral and basilar opacities remain present. No pleural effusion or pneumothorax seen bilaterally. IMPRESSION: Cardiomegaly with persistent bilateral peripheral mid lung and basilar opacities consist ent with covid 19 infection. No significant change from most recent x-ray.
--- NOTE | 2020-10-16 15:53 | P.CNPUL ---
History of Present Illness Consult date: 10/16/20 Reason for consult: dyspnea History of present illness: 74-year-old female patient, came into the ED with generalized weakness, fatigue, altered mentation, confusion and difficulty breathing. This is not typical for the patient. The patient has been progressively getting sick over this past few days. She was not able to give adequate history in the emergency department. She was hypoxic. She was placed on 5 L of oxygen by nasal cannula and she was brought up to 90%. Apparently her condition was getting worse progressively over the past 3 days. She had diminished oral intake. She had fever. The patient is a known case of coronavirus, COVID 19 infection. The patient was in the burst department on 10/12/2020. At that time, the patient had her positive for the same infection. She was complaining of weakness and fatigue and shortness of breath and cough. She had a chest x-ray that showed bilateral pulmonary infiltrates consistent with Covid 19 related pneumonia. The patient had no significant hypoxemia. The patient was discharged home on oral Decadron and since then her condition decompensated. No focal neurological deficit. During her emergency stay, the patient's mentation was gradually improving and the patient was able to answer questions better. Denied having any headache. She was moving all 4 extremities without any limitation. Note that the repeat chest x-ray was done today in emergency department showed cardiomegaly and persistent bilateral pulmonary infiltrates in the midlung and the basilar opacities consistent with infection. No major significant change compared to the earlier chest x-ray from 10/12/2020. Nevertheless, the patient become more hypoxemic. Computed tomography scan of the chest showed peripheral pulmonary infiltration in the mid and lower lung de anda bilaterally. No evidence of any pulmonary embolism. Review of Systems Constitutional: Reports fatigue, Reports fever, Reports lethargy, Reports weakness, Reports weight loss Ears: deny: decreased hearing, ear discharge, earache, tinnitus Ears, nose, mouth and throat: Reports as per HPI Breasts: absent: as per HPI, change in shape, gynecomastia, masses, nipple discharge, pain, skin changes, swelling Cardiovascular: Reports decreased exercise tolerance, Reports dyspnea on exertion Respiratory: Reports cough, Reports dyspnea Gastrointestinal: Reports as per HPI Genitourinary: Reports as per HPI Menstruation: Reports as per HPI Musculoskeletal: Reports as per HPI Musculoskeletal: absent: ankle pain, ankle stiffness, ankle swelling Integumentary: Reports as per HPI Neurological: Reports as per HPI, Reports change in mentation, Reports weakness Psychiatric: Reports as per HPI Endocrine: Reports as per HPI, Reports fatigue Hematologic/Lymphatic: Reports as per HPI Allergic/Immunologic: Reports as per HPI Past Medical History Past Medical History: CVA/TIA, Diabetes Mellitus, Hyperlipidemia, Hypertension Additional Past Medical History / Comment(s): CVA one month ago symptoms=numbness in hand and arm History of Any Multi-Drug Resistant Organisms: None Reported Past Surgical History: Back Surgery, Orthopedic Surgery Additional Past Surgical History / Comment(s): both knees total, rotor cuff repair Past Anesthesia/Blood Transfusion Reactions: No Reported Reaction Past Psychological History: No Psychological Hx Reported Smoking Status: Unknown if ever smoked Past Alcohol Use History: Occasional Past Drug Use History: None Reported - Past Family History Son(s) Additional Family Medical History / Comment(s): gout Medications and Allergies Home Medications Medication Instructions Recorded Confirmed Type Gabapentin 600 mg PO BID 01/02/15 10/16/20 History Losartan Potassium 50 mg PO DAILY 01/02/15 10/16/20 History Meloxicam 7.5 mg PO DAILY 01/02/15 10/16/20 History Ascorbic Acid [Vitamin C] 500 mg PO DAILY 01/03/15 10/16/20 History Atorvastatin Calcium [Lipitor] 40 mg PO DAILY #30 tab 01/03/15 10/16/20 Rx Calcium Carbonate/Vitamin D3 1 tab PO DAILY 01/03/15 10/16/20 History [Calcium 600-Vit D3 400 Tablet] Calcium Polycarbophil [Fibercon] 625 mg PO DAILY 01/03/15 10/16/20 History Clopidogrel [Plavix] 75 mg PO DAILY tab 01/03/15 10/16/20 Rx Docusate Sodium [Dulcolax Stool 100 mg PO BID 01/03/15 10/16/20 History Softener] Multivitamins, Thera [Multivitamin 1 tab PO DAILY 01/03/15 10/16/20 History (formulary)] [place]-3 Fatty Acids/Fish Oil [Fish 1 cap PO DAILY 01/03/15 10/16/20 History Oil 1,000 mg Softgel] metFORMIN HCL [Glucophage] 500 mg PO BID 07/06/18 10/16/20 History Biotin 5 mg PO DAILY 10/12/20 10/16/20 History Turmeric Root Extract [Turmeric] 500 mg PO DAILY 10/12/20 10/16/20 History Metoprolol Tartrate [Lopressor] 25 mg PO BID 10/16/20 10/16/20 History Allergies Allergy/AdvReac Type Severity Reaction Status Date / Time No Known Allergies Allergy Verified 10/16/20 14:18 Physical Exam Vitals: Vital Signs Temp Pulse Resp BP Pulse Ox 10/16/20 14:34 98 18 141/86 92 L 10/16/20 14:15 18 10/16/20 13:36 101.8 F H 97 18 136/82 91 L Intake and Output 10/16/20 10/16/20 10/16/20 06:59 14:59 22:59 Other: Weight 99.79 kg General Impression: Alert and oriented x1-2, not in acute distress, coughing, the patient was quite confused when she arrived. Subsequently her mentation gradually started improving. HEENT: Normocephalic atraumatic, extra-ocular movements intact, pupils equal and reactive to light bilaterally, mucous membranes moist. Cardiovascular: Heart regular rate and rhythm Chest: Able to complete full sentences, no retractions, no tachypnea, crackles in lung bases bilaterally. No significant wheezes Abdomen: abdomen soft, tenderness to the right abdomen, positive Laguerre sign, non-distended, no organomegaly Musculoskeletal: Pulses present and equal in all extremities, no peripheral edema Motor: no focal deficits noted Neurological: CN II-XII grossly intact, no focal motor or sensory deficits noted, no facial asymmetry, pupils equal and reactive to light. The patient otherwise has altered mentation and she was oriented 1-2. Skin: Intact with no visualized rashes Psych: Unable to complete Results - Laboratory Findings CBC and BMP: 10/16/20 13:54 10/16/20 13:54 ABG WBC 7.6 k/uL (3.8-10.6) 10/16/20 13:54 RBC 4.76 m/uL (3.80-5.40) 10/16/20 13:54 Hgb 15.1 gm/dL (11.4-16.0) 10/16/20 13:54 Hct 44.1 % (34.0-46.0) 10/16/20 13:54 MCV 92.6 fL (80.0-100.0) 10/16/20 13:54 MCH 31.7 pg (25.0-35.0) 10/16/20 13:54 MCHC 34.2 g/dL (31.0-37.0) 10/16/20 13:54 RDW 13.5 % (11.5-15.5) 10/16/20 13:54 Plt Count 279 k/uL (150-450) 10/16/20 13:54 MPV 7.3 10/16/20 13:54 Neutrophils % 84 % 10/16/20 13:54 Lymphocytes % 9 % 10/16/20 13:54 Monocytes % 4 % 10/16/20 13:54 Eosinophils % 0 % 10/16/20 13:54 Basophils % 1 % 10/16/20 13:54 Neutrophils # 6.4 k/uL (1.3-7.7) 10/16/20 13:54 Lymphocytes # 0.7 k/uL (1.0-4.8) L 10/16/20 13:54 Monocytes # 0.3 k/uL (0-1.0) 10/16/20 13:54 Eosinophils # 0.0 k/uL (0-0.7) 10/16/20 13:54 Basophils # 0.1 k/uL (0-0.2) 10/16/20 13:54 PT 9.9 sec (9.0-12.0) 10/16/20 13:54 INR 0.9 (<1.2) 10/16/20 13:54 APTT 28.4 sec (22.0-30.0) 10/16/20 13:54 D-Dimer 1.27 mg/L FEU (<0.60) H 10/16/20 13:54 Sodium 146 mmol/L (137-145) H 10/16/20 13:54 Potassium 4.0 mmol/L (3.5-5.1) 10/16/20 13:54 Chloride 109 mmol/L (98-107) H 10/16/20 13:54 Carbon Dioxide 26 mmol/L (22-30) 10/16/20 13:54 Anion Gap 11 mmol/L 10/16/20 13:54 BUN 30 mg/dL (7-17) H 10/16/20 13:54 Creatinine 1.12 mg/dL (0.52-1.04) H 10/16/20 13:54 Est GFR (CKD-EPI)AfAm 57 (>60 ml/min/1.73 sqM) 10/16/20 13:54 Est GFR (CKD-EPI)NonAf 49 (>60 ml/min/1.73 sqM) 10/16/20 13:54 Glucose 189 mg/dL (74-99) H 10/16/20 13:54 Plasma Lactic Acid Charles 1.8 mmol/L (0.7-2.0) 10/16/20 13:54 Calcium 9.3 mg/dL (8.4-10.2) 10/16/20 13:54 Magnesium 2.3 mg/dL (1.6-2.3) 10/16/20 13:54 Total Bilirubin 1.1 mg/dL (0.2-1.3) 10/16/20 13:54 AST 112 U/L (14-36) H 10/16/20 13:54 ALT 64 U/L (4-34) H 10/16/20 13:54 Alkaline Phosphatase 48 U/L (38-126) 10/16/20 13:54 Lactate Dehydrogenase 1735 U/L (313-618) H 10/16/20 13:54 C-Reactive Protein 189.9 mg/L (<10.0) H 10/16/20 13:54 Total Protein 7.6 g/dL (6.3-8.2) 10/16/20 13:54 Albumin 4.0 g/dL (3.5-5.0) 10/16/20 13:54 PT/INR, D-dimer PT 9.9 sec (9.0-12.0) 10/16/20 13:54 INR 0.9 (<1.2) 10/16/20 13:54 D-Dimer 1.27 mg/L FEU (<0.60) H 10/16/20 13:54 Abnormal lab findings: Abnormal Labs 10/16/20 10/16/20 10/16/20 13:54 13:54 13:54 Lymphocytes # 0.7 L D-Dimer 1.27 H Sodium 146 H Chloride 109 H BUN 30 H Creatinine 1.12 H Glucose 189 H AST 112 H ALT 64 H Lactate Dehydrogenase 1735 H C-Reactive Protein 189.9 H - Diagnostic Findings Chest x-ray: image reviewed CT scan - chest: image reviewed Assessment and Plan Plan: 1 acute Covid 19 related pneumonia. Diagnosis established on 10/12/2020. The patient has been symptomatic for less than a week 2 acute hypoxic respiratory failure currently on 5 L of oxygen by nasal cannula. The patient's condition has progressed and the patient has become progressively more fatigued, altered mentally and more short of breath over the past few days. CAT scan of the chest shows no evidence of pulmonary embolism and there is quite extensive groundglass changes in lung bases extending to the patient's hypoxemia. 3 altered mentation, improving, consider encephalopathy secondary to above 4 previous history of CVA 5 diabetes mellitus 6 hypertension 7 hyperlipidemia. 8 obesity Plan We'll start the patient a combination of Decadron 6 mg by mouth daily, Remdesivir a total of 5 day course, Lovenox 40 mg subcu for DVT prophylaxis in addition to routine supplement with vitamin C, vitamin D, melatonin, Pepcid and zinc. We will monitor the patient's oxygenation. Currently she is on 5 L about 2 by nasal cannula. We'll monitor the patient's mental status. We'll monitor the patient's blood sugar and use a sliding scale coverage. We'll initiate enteral resume her home medication. We'll continue to follow.
--- NOTE | 2020-10-16 15:54 | CT ---
EXAMINATION TYPE: CT chest angio for PE DATE OF EXAM: 10/16/2020 COMPARISON: Chest x-ray earlier today an older studies HISTORY: pulmonary embolus CT DLP: 466.6 mGycm Automated exposure control for dose reduction was used. CONTRAST: CT Chest for pulmonary embolism performed with with IV Contrast, patient injected with 80 mL of Isovu e 370. FINDINGS: LUNGS: Exam is suboptimal as patient unable to hold breath. Groundglass and reticular opacities are i dentified in the periphery of the upper to mid lungs and more diffusely in the lung bases. No pleural effusion or pneumothorax. No suspicious masses. MEDIASTINUM: There is heterogeneity of bolus with near equal contrast in the right and left heart sys tems, no large central saddle pulmonary embolism. Cannot exclude smaller segmental and subsegmental PE on this exam. There are no greater than 1 cm mediastinal lymph nodes. Some prominent bilateral hil ar lymph nodes on current study. Cardiomegaly is present. There is at least moderate coronary artery calcification in the LAD distribution. No thoracic aortic aneurysm or dissection. Bovine type arch w hich is normal variant. There is 2.5 cm lower pole left thyroid low-density nodule coronal image 74 OTHER: Visualized liver is low dense suggesting diffuse fatty infiltration. Exaggerated thoracic kyp hosis with moderate multilevel disc space narrowing and moderate multilevel anterior and lateral spur ring. IMPRESSION: Suboptimal study without central saddle pulmonary embolism. Cannot exclude smaller subseg mental and subsegmental PE in this study. Peripheral and basilar infiltrates correlate with covid-19 infection. Component of interstitial edema difficult to exclude on background cardiomegaly.
[2020-10-16] MEDS ORDERED: REMDESIVIR 200 MG in SODIUM CHLORIDE 0.9% 250 ML IVPB ONE (16:00)
[2020-10-16] MEDS ORDERED: SODIUM CHLORIDE 0.9% 1,000 ML IV ONE (17:02)
[2020-10-16 17:37] LABS: Appearance,Urine Cloudy (Clear); Bacteria,Urine Rare /hpf; Bilirubin,Urine Negative (Negative); Blood,Urine Small (Negative); Color,Urine Yellow; Glucose,Urine (UA) Negative (Negative); Ketones,Urine Negative (Negative); Leukocyte Esterase,Urine Negative (Negative); Mucus,Urine Rare /hpf; Nitrite,Urine Negative (Negative); PH, Urine 5.5 (5.0-8.0); Protein,Urine 2+ (Negative); RBC,Urine 10 /hpf (0-5); Specific Gravity,Urine >1.050 (1.001-1.035); Squamous Epithelial Cell,Urine 3 /hpf (0-4); Urobilinogen,Urine <2.0 mg/dL (<2.0); WBC,Urine 3 /hpf (0-5)
--- NOTE | 2020-10-16 18:23 | CT ---
EXAMINATION TYPE: CT brain wo con DATE OF EXAM: 10/16/2020 COMPARISON: None HISTORY: altered mental status CT DLP: 1098.4 mGycm Automated exposure control for dose reduction was used. There is cerebral cortical atrophy. There is no mass effect nor midline shift. There is no sign of in tracranial hemorrhage. Calvarium is intact. There is no evidence of cerebral edema. Skull base is int act. IMPRESSION: Cerebral atrophy. No acute intracranial abnormality.
[2020-10-16] MEDS: METOPROLOL TARTRATE 25 MG TAB PO SCH (22:08)
[2020-10-16] MEDS: DOCUSATE 100 MG CAP PO SCH (22:08)
[2020-10-16] MEDS: GABAPENTIN 300 MG CAP PO SCH (22:09)
[2020-10-16] MEDS: metFORMIN 500 MG TAB PO SCH (22:10)
[2020-10-17 04:06] LABS: Ferritin 1858.8 ng/mL (10.0-291.0)
[2020-10-17 06:10] LABS: Glucose,Whole Blood 300 mg/dL (75-99)
[2020-10-17] MEDS: metFORMIN 500 MG TAB PO SCH ×2 (06:39→17:16)
[2020-10-17] MEDS ORDERED: NON FORMULARY DRUG (Biotin [Biotin] 5 MG Capsule) PO SCH (09:00)
--- NOTE | 2020-10-17 09:06 | P.PN ---
Subjective Progress Note Date: 10/17/20 74-year-old female patient, came into the ED with generalized weakness, fatigue, altered mentation, confusion and difficulty breathing. This is not typical for the patient. The patient has been progressively getting sick over this past few days. She was not able to give adequate history in the emergency department. She was hypoxic. She was placed on 5 L of oxygen by nasal cannula and she was brought up to 90%. Apparently her condition was getting worse progressively over the past 3 days. She had diminished oral intake. She had fever. The patient is a known case of coronavirus, COVID 19 infection. The patient was in the burst department on 10/12/2020. At that time, the patient had her positive for the same infection. She was complaining of weakness and fatigue and shortness of breath and cough. She had a chest x-ray that showed bilateral pulmonary infiltrates consistent with Covid 19 related pneumonia. The patient had no significant hypoxemia. The patient was discharged home on oral Decadron and since then her condition decompensated. No focal neurological deficit. During her emergency stay, the patient's mentation was gradually improving and the patient was able to answer questions better. Denied having any headache. She was moving all 4 extremities without any limitation. Note that the repeat chest x-ray was done today in emergency department showed cardiomegaly and persistent bilateral pulmonary infiltrates in the midlung and the basilar opacities consistent with infection. No major significant change compared to the earlier chest x-ray from 10/12/2020. Nevertheless, the patient become more hypoxemic. Computed tomography scan of the chest showed peripheral pulmonary infiltration in the mid and lower lung de anda bilaterally. No evidence of any pulmonary embolism. on 10/17/2020, the patient is still somewhat lethargic and confused. She is still on 5 L of oxygen by nasal cannula. She was started on a combination of Decadron and Remdesivir . She has some limited. No significant sputum production. No chest pain. She is still lethargic and she was oriented to place but she was unable to tell me the year or the day. No nausea. No v omiting. No diarrhea. No focal neurological deficits. Blood work is stable. She is afebrile. Objective - Vital Signs Vital signs: Vital Signs Temp 97.6 F 10/17/20 04:00 Pulse 69 12/09/20 04:00 Resp 20 10/17/20 04:00 BP 145/65 10/17/20 04:00 Pulse Ox 90 L 10/17/20 04:00 Intake & Output 10/16/20 10/17/20 10/17/20 18:59 06:59 18:59 Output Total 1 Balance -1 Weight 99.79 kg 95 kg Output: Urine 1 Other: Voiding Method Bedside Commode # Voids 1 2 # Bowel Movements 1 - Exam General Impression: Alert and oriented x1-2, not in acute distress, coughing, the patient was quite confused when she arrived. Subsequently her mentation gradually started improving. HEENT: Normocephalic atraumatic, extra-ocular movements intact, pupils equal and reactive to light bilaterally, mucous membranes moist. Cardiovascular: Heart regular rate and rhythm Chest: Able to complete full sentences, no retractions, no tachypnea, crackles i n lung bases bilaterally. No significant wheezes Abdomen: abdomen soft, tenderness to the right abdomen, positive Laguerre sign, non-distended, no organomegaly Musculoskeletal: Pulses present and equal in all extremities, no peripheral edema Motor: no focal deficits noted Neurological: CN II-XII grossly intact, no focal motor or sensory deficits noted, no facial asymmetry, pupils equal and reactive to light. The patient otherwise has altered mentation and she was oriented 1-2. Skin: Intact with no visualized rashes Psych: Unable to complete - Labs CBC & Chem 7: 10/16/20 13:54 10/16/20 13:54 Labs: Abnormal Lab Results - Last 24 Hours (Table) 10/16/20 10/16/20 10/16/20 Range/Units 13:54 13:54 13:54 Lymphocytes # 0.7 L (1.0-4.8) k/uL D-Dimer 1.27 H (<0.60) mg/L FEU Sodium 146 H (137-145) mmol/L Chloride 109 H (98-107) mmol/L BUN 30 H (7-17) mg/dL Creatinine 1.12 H (0.52-1.04) mg/dL Glucose 189 H (74-99) mg/dL POC Glucose (mg/dL) (75-99) mg/dL Ferritin 1858.8 H (10.0-291.0) ng/mL AST 112 H (14-36) U/L ALT 64 H (4-34) U/L Lactate Dehydrogenase 1735 H (313-618) U/L C-Reactive Protein 189.9 H (<10.0) mg/L Procalcitonin (0.02-0.09) ng/mL Urine Appearance (Clear) Ur Specific [place] (1.001-1.035) Urine Protein (Negative) Urine Blood (Negative) Urine RBC (0-5) /hpf Urine Bacteria (None) /hpf Urine Mucus (None) /hpf 10/16/20 10/16/20 10/17/20 Range/Units 13:55 17:15 06:09 Lymphocytes # (1.0-4.8) k/uL D-Dimer (<0.60) mg/L FEU Sodium (137-145) mmol/L Chloride (98-107) mmol/L BUN (7-17) mg/dL Creatinine (0.52-1.04) mg/dL Glucose (74-99) mg/dL POC Glucose (mg/dL) 300 H (75-99) mg/dL Ferritin (10.0-291.0) ng/mL AST (14-36) U/L ALT (4-34) U/L Lactate Dehydrogenase (313-618) U/L C-Reactive Protein (<10.0) mg/L Procalcitonin 0.20 H (0.02-0.09) ng/mL Urine Appearance Cloudy H (Clear) Ur Specific [place] [facility] >1.050 H (1.001-1.035) Urine Protein 2+ H (Negative) Urine Blood Small H (Negative) Urine RBC 10 H (0-5) /hpf Urine Bacteria Rare H (None) /hpf Urine Mucus Rare H (None) /hpf Assessment and Plan Plan: 1 acute Covid 19 related pneumonia. Diagnosis established on 10/12/2020. The patient has been symptomatic for less than a week. The patient is currently in patient being treated with a combination of Remdesivir and Decadron 2 acute hypoxic respiratory failure currently on 5 L of oxygen by nasal cannula. The patient's condition has progressed and the patient has become progressively more fatigued, altered mentally and more short of breath over the past few days. CAT scan of the chest shows no evidence of pulmonary embolism and there is quite extensive groundglass changes in lung bases extending to the patient's hypoxemia. 3 altered mentation, improving, consider encephalopathy secondary to above 4 previous history of CVA 5 diabetes mellitus 6 hypertension 7 hyperlipidemia. 8 obesity Plan We'll start the patient a combination of Decadron 6 mg by mouth daily, Remdesivir a total of 5 day course, Lovenox 40 mg subcu for DVT prophylaxis in addition to routine supplement with vitamin C, vitamin D, melatonin, Pepcid and zinc. We will monitor the patient's oxygenation. Currently she is on 5 L about 2 by nasal cannula. the patient is feeling slightly better compared to yesterday. She is still altered mentally. We'll continue the same treatment for now.
[2020-10-17] MEDS: CLOPIDOGREL 75 MG TAB PO SCH (09:21)
[2020-10-17] MEDS: MELOXICAM 7.5 MG TAB PO SCH (09:24)
[2020-10-17] MEDS: dexAMETHasone 2 MG TAB PO SCH (09:24)
[2020-10-17] MEDS: LOSARTAN 50 MG TAB PO SCH (09:24)
[2020-10-17] MEDS: ATORVASTATIN 40 MG TAB PO SCH (09:24)
[2020-10-17] MEDS: GABAPENTIN 300 MG CAP PO SCH ×2 (09:24→21:12)
[2020-10-17] MEDS: DOCUSATE 100 MG CAP PO SCH ×2 (09:25→21:13)
[2020-10-17] MEDS: ASCORBIC ACID 500 MG TAB PO SCH (09:25)
[2020-10-17] MEDS: CALCIUM CARB-VIT D 500MG-200UN 1 EACH TAB PO SCH (09:25)
[2020-10-17] MEDS: MULTIVITAMINS, THERA 1 EACH TAB PO SCH (09:25)
[2020-10-17] MEDS: METOPROLOL TARTRATE 25 MG TAB PO SCH ×2 (09:25→21:12)
[2020-10-17] MEDS: INSULIN ASPART (NovoLOG) 100 UNIT/ML VIAL SQ SCH ×4 (09:30→21:12)
[2020-10-17 12:00] LABS: Glucose,Whole Blood 126 mg/dL (75-99)
[2020-10-17] MEDS: ACETAMINOPHEN TAB 500 MG TAB PO PRN (15:51)
[2020-10-17] MEDS: REMDESIVIR 100 MG in SODIUM CHLORIDE 0.9% 250 ML IVPB SCH (15:51)
[2020-10-17 16:24] LABS: Glucose,Whole Blood 209 mg/dL (75-99)
[2020-10-17 20:11] LABS: Glucose,Whole Blood 322 mg/dL (75-99)
--- NOTE | 2020-10-17 23:12 | P.HPIM ---
History of Present Illness H&P Date: 10/17/20 Chief Complaint: Short of breath, confused History of presenting complaint: This is a 74-year-old patient of . Patient was diagnosed with COVID on Thursday that is 6 days ago. Patient came in today because she was becoming more short of breath also becoming confused. Brought in by the of the ER was also getting symptoms also admitted to the hospital with COVID. Overnight patient has done a bit better. Less short of breath. Less cough. Did eat some food. Tired. Chronic stable medical conditions include diabetes, hyperlipidemia, hypertension, stroke causing some numbness in the hands and arm. Review of systems: GEN.: Tired EYES: None HEENT: None NECK: None RESPIRATORY: As above CARDIOVASCULAR: None GASTROINTESTINAL: None GENITOURINARY: None MUSCULOSKELETAL: None LYMPHATICS: None HEMATOLOGICAL: None PSYCHIATRY: Was confused now clearing up NEUROLOGICAL: None Past medical history to include: Stroke, diabetes, hypertension, hyperlipidemia Social history: No smoking. Alcohol occasionally. Physical examination: VITAL SIGNS: 101.8, 97, 18, 1 36/82, 91% on 6 L-upon presentation GENERAL: BMI 31.8, laying in bed, tired awake. EYES: Pupils equal. Conjunctiva normal. HEENT: External appearance of nose and ears normal, oral cavity grossly normal. NECK: JVD not raised; masses not palpable. HEART: First and second heart sounds are normal; no edema. LUNGS: Respiratory rate increased, decreased breath sounds. ABDOMEN: Soft, nontender, liver spleen not palpable, no masses palpable. PSYCH: Able to answer questionsl. NEUROLOGICAL: Cranial nerves grossly intact; no facial asymmetry, power and sensation grossly intact. LYMPHATICS: No lymph nodes palpable in the axilla and neck INVESTIGATIONS, reviewed in the clinical context: White count 7.6 hemoglobin 15.1 lymphocyte 0.7 D-dimer 1.27 potassium 4.0 bun 30 creatinine 1.12 CRP 189 pro-calcitonin 0.20 glucose 189 300 Influenza type A and type B both negative EKG tracing personally reviewed by me-normal sinus rhythm Chest x-ray film personally reviewed by me-portable bilateral infiltrates CT chest no obvious PE. Peripheral and basilar infiltrates Assessment: -Patient diagnosed with Coronavirus 6 days ago. Note admitted with bilateral COVID 19 pneumonia -Acute hypoxic respiratory failure from above -Acute metabolic encephalopathy and acute delirium from above upon presentation -Diabetes mellitus type 2 uncontrolled with hyperglycemia -Essential hypertension -Hyperlipidemia -Obesity BMI 31.8 Plan: Patient started on dexamethasone, Remdesivir, Lovenox. Accu-Cheks will be followed. Pulmonary and ID consulted. Past Medical History Past Medical History: CVA/TIA, Diabetes Mellitus, Hyperlipidemia, Hypertension Additional Past Medical History / Comment(s): CVA 2012 = numbness in hand and arm History of Any Multi-Drug Resistant Organisms: None Reported Past Surgical History: Back Surgery, Orthopedic Surgery Additional Past Surgical History / Comment(s): both knees total, rotor cuff repair Past Anesthesia/Blood Transfusion Reactions: No Reported Reaction Past Psychological History: No Psychological Hx Reported Smoking Status: Never smoker, Unknown if ever smoked Past Alcohol Use History: Occasional Past Drug Use History: None Reported - Past Family History Son(s) Additional Family Medical History / Comment(s): gout Medications and Allergies Home Medications Medication Instructions Recorded Confirmed Type Gabapentin 600 mg PO BID 01/02/15 10/16/20 History Losartan Potassium 50 mg PO DAILY 01/02/15 10/16/20 History Meloxicam 7.5 mg PO DAILY 01/02/15 10/16/20 History Ascorbic Acid [Vitamin C] 500 mg PO DAILY 01/03/15 10/16/20 History Atorvastatin Calcium [Lipitor] 40 mg PO DAILY #30 tab 01/03/15 10/16/20 Rx Calcium Carbonate/Vitamin D3 1 tab PO DAILY 01/03/15 10/16/20 History [Calcium 600-Vit D3 400 Tablet] Calcium Polycarbophil [Fibercon] 625 mg PO DAILY 01/03/15 10/16/20 History Clopidogrel [Plavix] 75 mg PO DAILY tab 01/03/15 10/16/20 Rx Docusate Sodium [Dulcolax Stool 100 mg PO BID 01/03/15 10/16/20 History Softener] Multivitamins, Thera [Multivitamin 1 tab PO DAILY 01/03/15 10/16/20 History (formulary)] [place]-3 Fatty Acids/Fish Oil [Fish 1 cap PO DAILY 01/03/15 10/16/20 History Oil 1,000 mg Softgel] metFORMIN HCL [Glucophage] 500 mg PO BID 07/06/18 10/16/20 History Biotin 5 mg PO DAILY 10/12/20 10/16/20 History Turmeric Root Extract [Turmeric] 500 mg PO DAILY 10/12/20 10/16/20 History Metoprolol Tartrate [Lopressor] 25 mg PO BID 10/16/20 10/16/20 History Allergies Allergy/AdvReac Type Severity Reaction Status Date / Time No Known Allergies Allergy Verified 10/16/20 14:18 Physical Exam Vitals: Vital Signs Temp Pulse Pulse Resp BP BP Pulse Ox 10/17/20 09:41 20 89 L 10/17/20 09:20 87 L 10/17/20 09:15 97.5 F L 74 22 143/73 84 L 10/17/20 04:00 97.6 F 69 20 145/65 90 L 10/17/20 02:00 18 10/17/20 00:00 97.8 F 62 18 138/64 91 L 10/16/20 20:00 97.9 F 78 18 154/72 90 L 10/16/20 18:38 98.8 F 82 18 145/75 94 L 10/16/20 15:43 98.2 F 84 18 136/79 94 L 10/16/20 14:34 98 18 141/86 92 L 10/16/20 14:15 18 10/16/20 13:36 101.8 F H 97 18 136/82 91 L Intake and Output 10/16/20 10/17/20 10/17/20 22:59 06:59 14:59 Output Total 1 Balance -1 Output: Urine 1 Other: Voiding Method Bedside Commode Bedside Commode # Voids 1 2 # Bowel Movements 1 Weight 99.79 kg 95 kg Results CBC & Chem 7: 10/16/20 13:54 10/16/20 13:54 Labs: Abnormal Lab Results - Last 24 Hours (Table) 10/16/20 10/16/20 10/16/20 Range/Units 13:54 13:54 13:54 Lymphocytes # 0.7 L (1.0-4.8) k/uL D-Dimer 1.27 H (<0.60) mg/L FEU Sodium 146 H (137-145) mmol/L Chloride 109 H (98-107) mmol/L BUN 30 H (7-17) mg/dL Creatinine 1.12 H (0.52-1.04) mg/dL Glucose 189 H (74-99) mg/dL POC Glucose (mg/dL) (75-99) mg/dL Ferritin 1858.8 H (10.0-291.0) ng/mL AST 112 H (14-36) U/L ALT 64 H (4-34) U/L Lactate Dehydrogenase 1735 H (313-618) U/L C-Reactive Protein 189.9 H (<10.0) mg/L Procalcitonin (0.02-0.09) ng/mL Urine Appearance (Clear) Ur Specific [place] (1.001-1.035) Urine Protein (Negative) Urine Blood (Negative) Urine RBC (0-5) /hpf Urine Bacteria (None) /hpf Urine Mucus (None) /hpf 10/16/20 10/16/20 10/17/20 Range/Units 13:55 17:15 06:09 Lymphocytes # (1.0-4.8) k/uL D-Dimer (<0.60) mg/L FEU Sodium (137-145) mmol/L Chloride (98-107) mmol/L BUN (7-17) mg/dL Creatinine (0.52-1.04) mg/dL Glucose (74-99) mg/dL POC Glucose (mg/dL) 300 H (75-99) mg/dL Ferritin (10.0-291.0) ng/mL AST (14-36) U/L ALT (4-34) U/L Lactate Dehydrogenase (313-618) U/L C-Reactive Protein (<10.0) mg/L Procalcitonin 0.20 H (0.02-0.09) ng/mL Urine Appearance Cloudy H (Clear) Ur Specific [place] >1.050 H (1.001-1.035) Urine Protein 2+ H (Negative) Urine Blood Small H (Negative) Urine RBC 10 H (0-5) /hpf Urine Bacteria Rare H (None) /hpf Urine Mucus Rare H (None) /hpf
--- NOTE | 2020-10-17 23:40 | P.CONS ---
History of Present Illness - Reason for Consult Consult date: 10/17/20 covid Requesting physician: Cedrick Carlson - Chief Complaint shortness of breath x few days - History of Present Illness Patient is a 74-year female presenting to the ER at [facility] yesterday for evaluation of increasing shortness of breath and cough the patient symptom has been going on since and this patient apparently was diagnosed with Covid on Thursday that is 3 days prior to presentation to the hospital patient complaining of increasing shortness of breath on minimal exertion She also have a cough which is moderate intensity not bringing any sputum no URI symptoms no nausea no vomiting no abdominal pain, the patient did have some diarrhea, on presentation to the hospital he did have a fever of 101.18 for right patient was hypoxic with O2 sats of 91% initially started on room air 88% and is currently 90% on 4 L nasal cannula patient did have a normal white count with lymphopenia D-dimer was mildly elevated creatinine is 1.12 ferritin LDH CRP and procalcitonin are all elevated urine was not significantly positive influenza PCR negative patient did have a chest x-ray cardiomegaly with persistent bilateral peripheral midlung infiltrate patient also have a CT angiogram of the chest reviewed shows peripheral and basilar infiltrate patient was admitted to the hospital patient be started on dexamethasone remdesivir ,Zinc infectious disease was consulted for further management. Review of Systems Positive point has been mentioned in HPI rest of the systems are negative All systems: negative Constitutional: Denies chills, Denies fever Eyes: denies blurred vision, denies pain Ears, nose, mouth and throat: Denies headache, Denies sore throat Cardiovascular: Denies chest pain, Denies shortness of breath Respiratory: Denies cough Gastrointestinal: Denies abdominal pain, Denies diarrhea, Denies nausea, Denies vomiting Genitourinary: Denies dysuria, Denies hematuria Musculoskeletal: Denies myalgias Integumentary: Denies pruritus, Denies rash Neurological: Denies numbness, Denies weakness Psychiatric: Denies anxiety, Denies depression Endocrine: Denies fatigue, Denies weight change Past Medical History Past Medical History: CVA/TIA, Diabetes Mellitus, Hyperlipidemia, Hypertension Additional Past Medical History / Comment(s): CVA 2012 = numbness in hand and arm History of Any Multi-Drug Resistant Organisms: None Reported Past Surgical History: Back Surgery, Orthopedic Surgery Additional Past Surgical History / Comment(s): both knees total, rotor cuff repair Past Anesthesia/Blood Transfusion Reactions: No Reported Reaction Past Psychological History: No Psychological Hx Reported Smoking Status: Never smoker, Unknown if ever smoked Past Alcohol Use History: Occasional Past Drug Use History: None Reported - Past Family History Son(s) Additional Family Medical History / Comment(s): gout Medications and Allergies Home Medications Medication Instructions Recorded Confirmed Type Gabapentin 600 mg PO BID 01/02/15 10/16/20 History Losartan Potassium 50 mg PO DAILY 01/02/15 10/16/20 History Meloxicam 7.5 mg PO DAILY 01/02/15 10/16/20 History Ascorbic Acid [Vitamin C] 500 mg PO DAILY 01/03/15 10/16/20 History Atorvastatin Calcium [Lipitor] 40 mg PO DAILY #30 tab 01/03/15 10/16/20 Rx Calcium Carbonate/Vitamin D3 1 tab PO DAILY 01/03/15 10/16/20 History [Calcium 600-Vit D3 400 Tablet] Calcium Polycarbophil [Fibercon] 625 mg PO DAILY 01/03/15 10/16/20 History Clopidogrel [Plavix] 75 mg PO DAILY tab 01/03/15 10/16/20 Rx Docusate Sodium [Dulcolax Stool 100 mg PO BID 01/03/15 10/16/20 History Softener] Multivitamins, Thera [Multivitamin 1 tab PO DAILY 01/03/15 10/16/20 History (formulary)] [place]-3 Fatty Acids/Fish Oil [Fish 1 cap PO DAILY 01/03/15 10/16/20 History Oil 1,000 mg Softgel] metFORMIN HCL [Glucophage] 500 mg PO BID 07/06/18 10/16/20 History Biotin 5 mg PO DAILY 10/12/20 10/16/20 History Turmeric Root Extract [Turmeric] 500 mg PO DAILY 10/12/20 10/16/20 History Metoprolol Tartrate [Lopressor] 25 mg PO BID 10/16/20 10/16/20 History Allergies Allergy/AdvReac Type Severity Reaction Status Date / Time No Known Allergies Allergy Verified 10/16/20 14:18 Physical Exam Vitals: Vital Signs Temp Pulse Pulse Resp BP BP Pulse Ox 10/17/20 13:15 62 18 10/17/20 11:05 62 18 106/53 97 10/17/20 09:41 20 89 L 10/17/20 09:20 87 L 10/17/20 09:15 97.5 F L 74 20 143/73 84 L 10/17/20 04:00 97.6 F 69 20 145/65 90 L 10/17/20 02:00 18 10/17/20 00:00 97.8 F 62 18 138/64 91 L 10/16/20 20:00 97.9 F 78 18 154/72 90 L 10/16/20 18:38 98.8 F 82 18 145/75 94 L 10/16/20 15:43 98.2 F 84 18 136/79 94 L Intake and Output 10/16/20 10/17/20 10/17/20 22:59 06:59 14:59 Intake Total 125 Output Total 1 200 Balance -1 -75 Intake: Oral 125 Output: Urine 1 200 Other: Voiding Method Bedside Commode Bedside Commode Bedside Commode # Voids 1 2 # Bowel Movements 1 Weight 99.79 kg 95 kg GENERAL DESCRIPTION: Elderly female lying in bed, no distress. No tachypnea or accessory muscle of respiration use. HEENT: Shows Pallor , no scleral icterus. Oral mucous membrane is dry. NECK: Trachea central, no thyromegaly. LUNGS: Unlabored breathing. Decreased breath sound at the base. No wheeze or crackle. HEART: S1, S2, regular rate and rhythm. ABDOMEN: Soft, no tenderness , guarding or rigidity EXTREMITIES: No edema of feet. SKIN: No rash, no masses palpable. NEUROLOGICAL: The patient is awake, alert, oriented x3, mood and affect normal. Results CBC & Chem 7: 10/16/20 13:54 10/16/20 13:54 Labs: Abnormal Lab Results - Last 24 Hours (Table) 10/16/20 10/16/20 10/16/20 Range/Units 13:54 13:55 17:15 POC Glucose (mg/dL) (75-99) mg/dL Ferritin 1858.8 H (10.0-291.0) ng/mL Procalcitonin 0.20 H (0.02-0.09) ng/mL Urine Appearance Cloudy H (Clear) Ur Specific [place] >1.050 H (1.001-1.035) Urine Protein 2+ H (Negative) Urine Blood Small H (Negative) Urine RBC 10 H (0-5) /hpf Urine Bacteria Rare H (None) /hpf Urine Mucus Rare H (None) /hpf 10/17/20 10/17/20 Range/Units 06:09 11:58 POC Glucose (mg/dL) 300 H 126 H (75-99) mg/dL Ferritin (10.0-291.0) ng/mL Procalcitonin (0.02-0.09) ng/mL Urine Appearance (Clear) Ur Specific [place] (1.001-1.035) Urine Protein (Negative) Urine Blood (Negative) Urine RBC (0-5) /hpf Urine Bacteria (None) /hpf Urine Mucus (None) /hpf Assessment and Plan Assessment: 1-patient presented to hospital with increased shortness of breath some mental status changes and cough with evidence of bilateral infiltrate secondary acute COVID-19 pneumonia, clinical suspicion of underlying bacterial infection though she did have mild elevated procalcitonin need to monitor closely (1) Pneumonia due to COVID-19 virus Current Visit: Yes Status: Acute Code(s): U07.1 - COVID-19; J12.89 - OTHER VIRAL PNEUMONIA SNOMED Code(s): 611044671128050444 Plan: 1-patient has been started on remdesivir 200 mg day 1 followed by 100 milligrams daily x4 more doses 2-dexamethasone 6 mg daily along with zinc sulfate, however we need to add Lovenox 3-droplet isolation and respiratory support We will follow on clinical condition and cultures to further adjust medication if needed Thank you for this consultation we will follow the patient along with you Time with Patient: Greater than 30
[2020-10-18] MEDS: ENOXAPARIN 40 MG/0.4 ML SYRINGE SQ SCH ×2 (04:18→09:28)
[2020-10-18 06:08] LABS: Glucose,Whole Blood 211 mg/dL (75-99)
[2020-10-18] MEDS: metFORMIN 500 MG TAB PO SCH ×2 (06:50→16:13)
[2020-10-18] MEDS: INSULIN ASPART (NovoLOG) 100 UNIT/ML VIAL SQ SCH ×4 (06:50→20:46)
[2020-10-18] MEDS: GABAPENTIN 300 MG CAP PO SCH ×2 (09:28→20:45)
[2020-10-18] MEDS: CLOPIDOGREL 75 MG TAB PO SCH (09:28)
[2020-10-18] MEDS: dexAMETHasone 2 MG TAB PO SCH (09:28)
[2020-10-18] MEDS: ATORVASTATIN 40 MG TAB PO SCH (09:28)
[2020-10-18] MEDS: MULTIVITAMINS, THERA 1 EACH TAB PO SCH (09:28)
[2020-10-18] MEDS: METOPROLOL TARTRATE 25 MG TAB PO SCH ×2 (09:28→20:45)
[2020-10-18] MEDS: DOCUSATE 100 MG CAP PO SCH ×2 (09:28→20:45)
[2020-10-18] MEDS: MELOXICAM 7.5 MG TAB PO SCH (09:29)
[2020-10-18] MEDS: ASCORBIC ACID 500 MG TAB PO SCH (09:29)
[2020-10-18] MEDS: CALCIUM CARB-VIT D 500MG-200UN 1 EACH TAB PO SCH (09:29)
[2020-10-18] MEDS: FAMOTIDINE 20 MG TAB PO SCH ×2 (09:29→20:45)
[2020-10-18] MEDS: ZINC SULFATE 220 MG CAP PO SCH (09:29)
[2020-10-18] MEDS: LOSARTAN 50 MG TAB PO SCH (09:29)
--- NOTE | 2020-10-18 09:40 | P.PN ---
Subjective Progress Note Date: 10/18/20 74-year-old female patient, came into the ED with generalized weakness, fatigue, altered mentation, confusion and difficulty breathing. This is not typical for the patient. The patient has been progressively getting sick over this past few days. She was not able to give adequate history in the emergency department. She was hypoxic. She was placed on 5 L of oxygen by nasal cannula and she was brought up to 90%. Apparently her condition was getting worse progressively over the past 3 days. She had diminished oral intake. She had fever. The patient is a known case of coronavirus, COVID 19 infection. The patient was in the burst department on 10/12/2020. At that time, the patient had her positive for the same infection. She was complaining of weakness and fatigue and shortness of breath and cough. She had a chest x-ray that showed bilateral pulmonary infiltrates consistent with Covid 19 related pneumonia. The patient had no significant hypoxemia. The patient was discharged home on oral Decadron and since then her condition decompensated. No focal neurological deficit. During her emergency stay, the patient's mentation was gradually improving and the patient was able to answer questions better. Denied having any headache. She was moving all 4 extremities without any limitation. Note that the repeat chest x-ray was done today in emergency department showed cardiomegaly and persistent bilateral pulmonary infiltrates in the midlung and the basilar opacities consistent with infection. No major significant change compared to the earlier chest x-ray from 10/12/2020. Nevertheless, the patient become more hypoxemic. Computed tomography scan of the chest showed peripheral pulmonary infiltration in the mid and lower lung de anda bilaterally. No evidence of any pulmonary embolism. on 10/17/2020, the patient is still somewhat lethargic and confused. She is still on 5 L of oxygen by nasal cannula. She was started on a combination of Decadron and Remdesivir . She has some limited. No significant sputum production. No chest pain. She is still lethargic and she was oriented to place but she was unable to tell me the year or the day. No nausea. No v omiting. No diarrhea. No focal neurological deficits. Blood work is stable. She is afebrile. On 10/18/2020, the patient reports that she is clinically better. However, her x-ray showing worsening the bilateral pulmonary infiltrates. Her oxygen requirements have also gone up and she is currently on 10 L of oxygen by nasal cannula. She is completing her treatment for now. She is on steroids with Decadron. She is on day #3 for Remdesivir. She is having some loose diarrhea. No nausea. No vomiting. She is tolerating her diet. She is currently on 10 L of oxygen by nasal cannula. Objective - Vital Signs Vital signs: Vital Signs Temp 97.5 F L 10/18/20 04:00 Pulse 51 L 10/18/20 04:00 Resp 18 10/18/20 04:00 BP 142/63 10/18/20 04:00 Pulse Ox 92 L 10/18/20 04:00 Intake & Output 10/17/20 10/18/20 10/18/20 18:59 06:59 18:59 Intake Total 125 Output Total 200 Balance -75 Weight 96 kg Intake: Oral 125 Output: Urine 200 Other: Voiding Method Bedside Commode Bedside Commode # Voids 2 # Bowel Movements 3 1 - Exam General Impression: Alert and oriented 3 not in acute distress, coughing, the patient was quite confused when she arrived. Subsequently her mentation gradually started improving. HEENT: Normocephalic atraumatic, extra-ocular movements intact, pupils equal and reactive to light bilaterally, mucous membranes moist. Cardiovascular: Heart regular rate and rhythm Chest: Able to complete full sentences, no retractions, no tachypnea, crackles in lung bases bilaterally. No significant wheezes Abdomen: abdomen soft, tenderness to the right abdomen, positive Laguerre sign, non-distended, no organomegaly Musculoskeletal: Pulses present and equal in all extremities, no peripheral edema Motor: no focal deficits noted Neurological: CN II-XII grossly intact, no focal motor or sensory deficits noted, no facial asymmetry, pupils equal and reactive to light. The patient otherwise has altered mentation and she was oriented 3 Skin: Intact with no visualized rashes Psych: normal - Labs CBC & Chem 7: 10/16/20 13:54 10/16/20 13:54 Labs: Abnormal Lab Results - Last 24 Hours (Table) 10/17/20 10/17/20 10/17/20 Range/Units 11:58 16:23 20:06 D-Dimer (<0.60) mg/L FEU POC Glucose (mg/dL) 126 H 209 H 322 H (75-99) mg/dL C-Reactive Protein (<10.0) mg/L 10/18/20 10/18/20 10/18/20 Range/Units 06:07 07:43 07:43 D-Dimer 2.30 H (<0.60) mg/L FEU POC Glucose (mg/dL) 211 H (75-99) mg/dL C-Reactive Protein 60.6 H (<10.0) mg/L Microbiology - Last 24 Hours (Table) 10/16/20 13:52 Blood Culture - Preliminary Blood No Growth after 24 hours Assessment and Plan Plan: 1 acute Covid 19 related pneumonia. Diagnosis established on 10/12/2020. The patient has been symptomatic for less than a week. The patient is currently in patient being treated with a combination of Remdesivir and Decadron day #4. Clinically she is reporting improvement. Nevertheless, there is worsening in her oxygenation. Mental status is improved. 2 acute hypoxic respiratory failure currently on 10 L of oxygen by nasal cannula. CAT scan of the chest shows no evidence of pulmonary embolism and there is quite extensive groundglass changes in lung bases extending to the patient's hypoxemia. tthe patient has gotten worse in terms of her oxygenation. On examination, she has coarse crackles in the lung bases. We'll going to follow. 3 altered mentation, improving, consider encephalopathy secondary to above, improved and recovered. 4 previous history of CVA 5 diabetes mellitus 6 hypertension 7 hyperlipidemia. 8 obesity Plan We'll start the patient a combination of Decadron 6 mg by mouth daily, Remdesivir a total of 5 day course, Lovenox 40 mg subcu for DVT prophylaxis in addition to routine supplement with vitamin C, vitamin D, melatonin, Pepcid and zinc. We will monitor the patient's oxygenation. Currently she is on 10 L about by nasal cannula. the patient is feeling slightly better compared to yesterday. mental status is improved. The CRP is also improved. We'll continue to follow.
--- NOTE | 2020-10-18 10:52 | XR ---
EXAMINATION TYPE: XR chest 1V portable DATE OF EXAM: 10/18/2020 COMPARISON: 10/16/2020 HISTORY: Shortness of breath TECHNIQUE: Single frontal view of the chest is obtained. FINDINGS: Heart is enlarged and there is patchy bilateral infiltrate with small effusion on the righ t. No pneumothorax. Nodularity left upper lobe not excluded. Hypertrophic and degenerative change of the spine. Chronic changes involving the shoulder and AC joints. IMPRESSION: 1. Bilateral patchy infiltrate demonstrates mild progression relative to the prior exam. Correlate fo r multifocal pneumonia.
[2020-10-18 11:48] LABS: Glucose,Whole Blood 175 mg/dL (75-99)
[2020-10-18] MEDS: REMDESIVIR 100 MG in SODIUM CHLORIDE 0.9% 250 ML IVPB SCH (16:13)
[2020-10-18 16:52] LABS: Glucose,Whole Blood 284 mg/dL (75-99)
[2020-10-18 20:23] LABS: Glucose,Whole Blood 304 mg/dL (75-99)
[2020-10-18] MEDS: ACETAMINOPHEN TAB 500 MG TAB PO PRN (20:45)
--- NOTE | 2020-10-18 21:04 | P.PN ---
Progress Note - Text Progress Note Date: 10/18/20 Chief Complaint: Short of breath, confused History of presenting complaint: This is a 74-year-old patient of . Patient was diagnosed with COVID on Thursday that is 6 days ago. Patient came in today because she was becoming more short of breath also becoming confused. Brought in by the of the ER was also getting symptoms also admitted to the hospital with COVID. Overnight patient has done a bit better. Less short of breath. Less cough. Did eat some food. Tired. Chronic stable medical conditions include diabetes, hyperlipidemia, hypertension, stroke causing some numbness in the hands and arm. Admitted with bilateral COVID 19 pneumonia, acute hypoxic respiratory failure, acute metabolic breath and delirium. Patient started on dexamethasone, Remdesivir, Lovenox. Oxygen supplementation. Today-doing much better. Awake. Answering questions. A bit tired. Eating about 50% of her meals. Review of systems: Was done for constitutional, cardiovascular, GI, pulmonary. relevant finding as above Active Medications Acetaminophen (Acetaminophen Tab 500 Mg Tab) 500 mg PO Q4HR PRN PRN Reason: Fever and/ or Pain Last Admin: 10/18/20 20:45 Dose: 500 mg Documented by: Ascorbic Acid (Ascorbic Acid 500 Mg Tab) 500 mg PO DAILY [facility] Last Admin: 10/18/20:29 Dose: 500 mg Documented by: Atorvastatin Calcium (Atorvastatin 40 Mg Tab) 40 mg PO DAILY [facility] Last Admin: 10/18/20:28 Dose: 40 mg Documented by: Calcium Carbonate (Calcium Carb-Vit D 500mg-200un 1 Each Tab) 1 each PO DAILY [facility] Last Admin: 10/18/20: Dose: 1 each Documented by: Calcium Polycarbophil (Calcium Polycarbophil 625 Mg Tab) 625 mg PO DAILY [facility] Last Admin: 10/18/20:28 Dose: 625 mg Documented by: Clopidogrel Bisulfate (Clopidogrel 75 Mg Tab) 75 mg PO DAILY [facility] Last Admin: 10/18/20: Dose: 75 mg Documented by: Dexamethasone (Dexamethasone 2 Mg Tab) 6 mg PO DAILY [facility] Last Admin: 10/18/20:28 Dose: 6 mg Documented by: Docusate Sodium (Docusate 100 Mg Cap) 100 mg PO BID [facility] Last Admin: 10/18/20 20:45 Dose: 100 mg Documented by: Enoxaparin Sodium (Enoxaparin 40 Mg/0.4 Ml Syringe) 40 mg SQ DAILY [facility] Last Admin: 10/18/20 09:28 Dose: 40 mg Documented by: Famotidine (Famotidine 20 Mg Tab) 20 mg PO BID [facility] Last Admin: 10/18/20 20:45 Dose: 20 mg Documented by: Gabapentin (Gabapentin 300 Mg Cap) 600 mg PO BID [facility] Last Admin: 10/18/20 20:45 Dose: 600 mg Documented by: Remdesivir 100 mg/ Sodium (Chloride) 250 mls @ 250 mls/hr IVPB DAILY@1600 [facility] Stop: 10/20/20 16:59 Last Admin: 10/18/20 16:13 Dose: 250 mls/hr Documented by: Insulin Aspart (Insulin Aspart (Novolog) 100 Unit/Ml Vial) 0 unit SQ ACHS [facility]; Protocol Last Admin: 10/18/20 20:46 Dose: 5 unit Documented by: Losartan Potassium (Losartan 50 Mg Tab) 50 mg PO DAILY [facility] Last Admin: 10/18/20 09:29 Dose: 50 mg Documented by: Meloxicam (Meloxicam 7.5 Mg Tab) 7.5 mg PO DAILY [facility] Last Admin: 10/18/20 09:29 Dose: 7.5 mg Documented by: Metformin HCl (Metformin 500 Mg Tab) 500 mg PO BID-W/MEALS [facility] Last Admin: 10/18/20 16:13 Dose: 500 mg Documented by: Metoprolol Tartrate (Metoprolol Tartrate 25 Mg Tab) 25 mg PO BID [facility] Last Admin: 10/18/20 20:45 Dose: 25 mg Documented by: Multivitamins (Multivitamins, Thera 1 Each Tab) 1 each PO DAILY [facility] Last Admin: 10/18/20 09:28 Dose: 1 each Documented by: Zinc Sulfate (Zinc Sulfate 220 Mg Cap) 220 mg PO DAILY [facility] Last Admin: 10/18/20 09:29 Dose: 220 mg Documented by: Physical examination: VITAL SIGNS: 97.9, 56, 20, 143/67, 97% on 13L GENERAL: Laying in bed, more awake PSYCH: Answering questions NEUROLOGICAL: Cranial nerves grossly intact; no facial asymmetry, moving limbs. Rest of exam as per nursing pulmonary INVESTIGATIONS, reviewed in the clinical context: October 18: D-dimer 2.3 CRP 60.6. Chest x-ray film, personally reviewed by me- worsening infiltrate White count 7.6 hemoglobin 15.1 lymphocyte 0.7 D-dimer 1.27 potassium 4.0 bun 30 creatinine 1.12 CRP 189 pro-calcitonin 0.20 glucose 189 300 Influenza type A and type B both negative EKG tracing personally reviewed by me-normal sinus rhythm Chest x-ray film personally reviewed by me-portable bilateral infiltrates CT chest no obvious PE. Peripheral and basilar infiltrates Assessment: -Patient diagnosed with Coronavirus 6 days ago. admitted with bilateral COVID 19 pneumonia -Acute hypoxic respiratory failure from above-worsening patient on 13 L of oxygen -Acute metabolic encephalopathy and acute delirium from above upon presentation -Diabetes mellitus type 2 uncontrolled with hyperglycemia -Essential hypertension -Hyperlipidemia -Obesity BMI 31.8 Plan: Given the worsening chest x-ray, increased oxygen requirement, increasing d- dimer . We will use therapeutic dose of steroids and Lovenox. Have the patient sit up in a chair. Discussed with the patient
[2020-10-18] MEDS: ENOXAPARIN 100 MG/ML SYRINGE SQ SCH (21:27)
--- NOTE | 2020-10-18 22:11 | PN ---
PROGRESS NOTE DATE OF SERVICE: 10/18/2020 REASON FOR FOLLOWUP: Acute COVID-19 pneumonia. INTERVAL HISTORY: The patient is currently afebrile. The patient is feeling better today. She is breathing more comfortably. The patient denies having any chest pain. Minimal cough. No nausea. No vomiting. No abdominal pain or diarrhea. PHYSICAL EXAMINATION: Blood pressure 125/60 with a pulse of 52, temperature 97.8. She is 92% on 10 L nasal cannula. General description is an elderly female lying in bed in no distress. RESPIRATORY SYSTEM: Unlabored breathing with decreased intensity of breath sounds. No wheeze. HEART: S1, S2. Regular rate and rhythm. ABDOMEN: Soft. No tenderness. LABS: D-dimer is 2.30. CRP of 60.6, down from 189. Procalcitonin is 0.20. DIAGNOSTIC IMPRESSION AND PLAN: Patient with acute COVID-19 pneumonia in this patient who seems to have had some clinical response to the current treatment of Lovenox, Solu-Medrol, remdesivir and zinc; to continue along with the respiratory support. Monitor clinical course closely. MMODL / IJN: [id number] /
[2020-10-19] MEDS: methylPREDNISolone SOD SUCCI 40 MG/ML 1 ML VIAL IV SCH ×4 (00:53→23:06)
[2020-10-19 06:00] LABS: Glucose,Whole Blood 162 mg/dL (75-99)
[2020-10-19] MEDS: INSULIN ASPART (NovoLOG) 100 UNIT/ML VIAL SQ SCH ×4 (06:11→20:55)
[2020-10-19] MEDS: metFORMIN 500 MG TAB PO SCH ×2 (06:14→16:32)
[2020-10-19] MEDS: METOPROLOL TARTRATE 25 MG TAB PO SCH ×2 (09:43→20:55)
[2020-10-19] MEDS: DOCUSATE 100 MG CAP PO SCH ×2 (09:43→20:55)
[2020-10-19] MEDS: MULTIVITAMINS, THERA 1 EACH TAB PO SCH (09:43)
[2020-10-19] MEDS: ZINC SULFATE 220 MG CAP PO SCH (09:43)
[2020-10-19] MEDS: CLOPIDOGREL 75 MG TAB PO SCH (09:43)
[2020-10-19] MEDS: ASCORBIC ACID 500 MG TAB PO SCH (09:44)
[2020-10-19] MEDS: CALCIUM CARB-VIT D 500MG-200UN 1 EACH TAB PO SCH (09:44)
[2020-10-19] MEDS: GABAPENTIN 300 MG CAP PO SCH ×2 (09:44→20:54)
[2020-10-19] MEDS: LOSARTAN 50 MG TAB PO SCH (09:44)
[2020-10-19] MEDS: FAMOTIDINE 20 MG TAB PO SCH ×2 (09:44→20:55)
[2020-10-19] MEDS: MELOXICAM 7.5 MG TAB PO SCH (09:44)
[2020-10-19] MEDS: ATORVASTATIN 40 MG TAB PO SCH (09:44)
[2020-10-19] MEDS: ENOXAPARIN 100 MG/ML SYRINGE SQ SCH ×2 (09:47→20:55)
[2020-10-19 11:48] LABS: Glucose,Whole Blood 215 mg/dL (75-99)
[2020-10-19] MEDS: REMDESIVIR 100 MG in SODIUM CHLORIDE 0.9% 250 ML IVPB SCH (16:32)
[2020-10-19 16:56] LABS: Glucose,Whole Blood 225 mg/dL (75-99)
--- NOTE | 2020-10-19 17:02 | P.PN ---
Subjective Progress Note Date: 10/19/20 74-year-old female patient, came into the ED with generalized weakness, fatigue, altered mentation, confusion and difficulty breathing. This is not typical for the patient. The patient has been progressively getting sick over this past few days. She was not able to give adequate history in the emergency department. She was hypoxic. She was placed on 5 L of oxygen by nasal cannula and she was brought up to 90%. Apparently her condition was getting worse progressively over the past 3 days. She had diminished oral intake. She had fever. The patient is a known case of coronavirus, COVID 19 infection. The patient was in the burst department on 10/12/2020. At that time, the patient had her positive for the same infection. She was complaining of weakness and fatigue and shortness of breath and cough. She had a chest x-ray that showed bilateral pulmonary infiltrates consistent with Covid 19 related pneumonia. The patient had no significant hypoxemia. The patient was discharged home on oral Decadron and since then her condition decompensated. No focal neurological deficit. During her emergency stay, the patient's mentation was gradually improving and the patient was able to answer questions better. Denied having any headache. She was moving all 4 extremities without any limitation. Note that the repeat chest x-ray was done today in emergency department showed cardiomegaly and persistent bilateral pulmonary infiltrates in the midlung and the basilar opacities consistent with infection. No major significant change compared to the earlier chest x-ray from 10/12/2020. Nevertheless, the patient become more hypoxemic. Computed tomography scan of the chest showed peripheral pulmonary infiltration in the mid and lower lung de anda bilaterally. No evidence of any pulmonary embolism. on 10/17/2020, the patient is still somewhat lethargic and confused. She is still on 5 L of oxygen by nasal cannula. She was started on a combination of Decadron and Remdesivir . She has some limited. No significant sputum production. No chest pain. She is still lethargic and she was oriented to place but she was unable to tell me the year or the day. No nausea. No v omiting. No diarrhea. No focal neurological deficits. Blood work is stable. She is afebrile. On 10/18/2020, the patient reports that she is clinically better. However, her x-ray showing worsening the bilateral pulmonary infiltrates. Her oxygen requirements have also gone up and she is currently on 10 L of oxygen by nasal cannula. She is completing her treatment for now. She is on steroids with Decadron. She is on day #3 for Remdesivir. She is having some loose diarrhea. No nausea. No vomiting. She is tolerating her diet. She is currently on 10 L of oxygen by nasal cannula. On 10/18/2020, the patient is being seen in follow-up in regards to her coronavirus/Covid 19 related pneumonia. The patient remains on Solu-Medrol the patient is on day #4 for Remdesivir. The patient has been doing well. The patient is currently on 10 L of oxygen by nasal cannula. The d-dimer is down to 1.5. The patient's CRP is down to 36.8. The patient is afebrile.Chest x-rays revealing dense bilateral pulmonary infiltrates and consolidation mainly in the lung peripheries more so on the left compared to the right. Lung volumes are small. No nausea. No vomiting. No diarrhea. No worsening in her oxygenation. Objective - Vital Signs Vital signs: Vital Signs Temp 97.6 F 10/19/20 08:00 Pulse 67 10/19/20 08:00 Resp 20 10/19/20 08:00 BP 127/60 10/19/20 08:00 Pulse Ox 90 L 10/19/20 08:00 Intake & Output 10/18/20 10/19/20 10/19/20 18:59 06:59 18:59 Intake Total 660 490 600 Output Total 500 Balance 660 -10 600 Weight 94.5 kg Intake: Intake, IV Titration 250 Amount Remdesivir 100 mg In 250 Sodium Chloride 0.9% 250 ml @ 250 mls/hr IVPB DAILY@1600 [facility] Rx#: [id number] Oral 660 240 600 Output: Urine 500 Other: Voiding Method Bedside Commode # Voids 1 2 3 # Bowel Movements 1 - Exam General Impression: Alert and oriented 3 not in acute distress, coughing, the patient currently on 10 L of oxygen by nasal cannula HEENT: Normocephalic atraumatic, extra-ocular movements intact, pupils equal and reactive to light bilaterally, mucous membranes moist. Cardiovascular: Heart regular rate and rhythm Chest: Able to complete full sentences, no retractions, no tachypnea, crackles in lung bases bilaterally. No significant wheezes Abdomen: abdomen soft, tenderness to the right abdomen, positive Laguerre sign, non-distended, no organomegaly Musculoskeletal: Pulses present and equal in all extremities, no peripheral edema Motor: no focal deficits noted Neurological: CN II-XII grossly intact, no focal motor or sensory deficits noted, no facial asymmetry, pupils equal and reactive to light. The patient otherwise has altered mentation and she was oriented 3 Skin: Intact with no visualized rashes Psych: normal - Labs CBC & Chem 7: 10/16/20 13:54 10/16/20 13:54 Labs: Abnormal Lab Results - Last 24 Hours (Table) 10/18/20 10/19/20 10/19/20 Range/Units 20:20 05:57 09:28 D-Dimer 1.57 H (<0.60) mg/L FEU POC Glucose (mg/dL) 304 H 162 H (75-99) mg/dL C-Reactive Protein (<10.0) mg/L 10/19/20 10/19/20 Range/Units 09:28 11:47 D-Dimer (<0.60) mg/L FEU POC Glucose (mg/dL) 215 H (75-99) mg/dL C-Reactive Protein 36.8 H (<10.0) mg/L Microbiology - Last 24 Hours (Table) 10/16/20 13:52 Blood Culture - Preliminary Blood No Growth after 72 hours Assessment and Plan Plan: 1 acute Covid 19 related pneumonia. Diagnosis established on 10/12/2020. The patient has been symptomatic for less than a week. The patient is currently in patient being treated with a combination of Remdesivir and Decadron day #4. Subsequently, the patient was taken off the Decadron and the patient was placed on IV Solu-Medrol. She is currently on 10 L of oxygen by nasal cannula and her oxygenation is essentially unchanged compared to yesterday. Clinically she is reporting improvement. I think her condition essentially the same and probably unchanged compared to yesterday. 2 acute hypoxic respiratory failure currently on 10 L of oxygen by nasal cannula. CAT scan of the chest shows no evidence of pulmonary embolism and there is quite extensive groundglass changes in lung bases . On examination, she has coarse crackles in the lung bases. 3 altered mentation, improving, consider encephalopathy secondary to above, improved and recovered. 4 previous history of CVA 5 diabetes mellitus 6 hypertension 7 hyperlipidemia. 8 obesity Plan We'll start the patient a combination of IV Solu-Medrol, Remdesivir a total of 5 day course, Lovenox 40 mg subcu for DVT prophylaxis in addition to routine supplement with vitamin C, vitamin D, melatonin, Pepcid and zinc. We will monitor the patient's oxygenation. Currently she is on 10 L about by nasal cannula. the patient is feeling slightly better compared to yesterday. mental status is improved. The CRP is also improved. We'll continue to follow.
[2020-10-19 20:35] LABS: Glucose,Whole Blood 309 mg/dL (75-99)
--- NOTE | 2020-10-19 22:43 | P.PN ---
Progress Note - Text Progress Note Date: 10/19/20 Chief Complaint: Short of breath, confused History of presenting complaint: This is a 74-year-old patient of . Patient was diagnosed with COVID on Thursday that is 6 days ago. Patient came in today because she was becoming more short of breath also becoming confused. Brought in by the of the ER was also getting symptoms also admitted to the hospital with COVID. Overnight patient has done a bit better. Less short of breath. Less cough. Did eat some food. Tired. Chronic stable medical conditions include diabetes, hyperlipidemia, hypertension, stroke causing some numbness in the hands and arm. Admitted with bilateral COVID 19 pneumonia, acute hypoxic respiratory failure, acute metabolic breath and delirium. Patient started on dexamethasone, Remdesivir, Lovenox. Oxygen supplementation. Today-doing better. On 10 L nasal cannula. Tired. Oral intake better. Did have the patient sit up in a chair. Review of systems: Was done for constitutional, cardiovascular, GI, pulmonary. relevant finding as above Active Medications Acetaminophen (Acetaminophen Tab 500 Mg Tab) 500 mg PO Q4HR PRN PRN Reason: Fever and/ or Pain Last Admin: 10/18/20 20:45 Dose: 500 mg Documented by: Ascorbic Acid (Ascorbic Acid 500 Mg Tab) 500 mg PO DAILY [facility] Last Admin: 10/19/20 09:44 Dose: 500 mg Documented by: Atorvastatin Calcium (Atorvastatin 40 Mg Tab) 40 mg PO DAILY [facility] Last Admin: 10/19/20 09:44 Dose: 40 mg Documented by: Calcium Carbonate (Calcium Carb-Vit D 500mg-200un 1 Each Tab) 1 each PO DAILY [facility] Last Admin: 10/19/20 09:44 Dose: 1 each Documented by: Calcium Polycarbophil (Calcium Polycarbophil 625 Mg Tab) 625 mg PO DAILY [facility] Last Admin: 10/19/20 09:44 Dose: 625 mg Documented by: Clopidogrel Bisulfate (Clopidogrel 75 Mg Tab) 75 mg PO DAILY [facility] Last Admin: 10/19/20 09:43 Dose: 75 mg Documented by: Docusate Sodium (Docusate 100 Mg Cap) 100 mg PO BID [facility] Last Admin: 10/19/20 20:55 Dose: 100 mg Documented by: Enoxaparin Sodium (Enoxaparin 100 Mg/Ml Syringe) 100 mg SQ Q12HR [facility] Last Admin: 10/19/20 20:55 Dose: 100 mg Documented by: Famotidine (Famotidine 20 Mg Tab) 20 mg PO BID [facility] Last Admin: 10/19/20 20:55 Dose: 20 mg Documented by: Gabapentin (Gabapentin 300 Mg Cap) 600 mg PO BID [facility] Last Admin: 10/19/20 20:54 Dose: 600 mg Documented by: Remdesivir 100 mg/ Sodium (Chloride) 250 mls @ 250 mls/hr IVPB DAILY@1600 [facility] Stop: 10/20/20 16:59 Last Admin: 10/19/20 16:32 Dose: 250 mls/hr Documented by: Insulin Aspart (Insulin Aspart (Novolog) 100 Unit/Ml Vial) 0 unit SQ ACHS [facility]; Protocol Last Admin: 10/19/20 20:55 Dose: 5 unit Documented by: Losartan Potassium (Losartan 50 Mg Tab) 50 mg PO DAILY [facility] Last Admin: 10/19/20 09:44 Dose: 50 mg Documented by: Meloxicam (Meloxicam 7.5 Mg Tab) 7.5 mg PO DAILY [facility] Last Admin: 10/19/20 09:44 Dose: 7.5 mg Documented by: Metformin HCl (Metformin 500 Mg Tab) 500 mg PO BID-W/MEALS [facility] Last Admin: 10/19/20 16:32 Dose: 500 mg Documented by: Methylprednisolone Sodium Succinate (Methylprednisolone Sod Succi 40 Mg/Ml 1 Ml Vial) 40 mg IV Q8HR [facility] Last Admin: 10/19/20 16:32 Dose: 40 mg Documented by: Metoprolol Tartrate (Metoprolol Tartrate 25 Mg Tab) 25 mg PO BID [facility] Last Admin: 10/19/20 20:55 Dose: 25 mg Documented by: Multivitamins (Multivitamins, Thera 1 Each Tab) 1 each PO DAILY [facility] Last Admin: 10/19/20 09:43 Dose: 1 each Documented by: Zinc Sulfate (Zinc Sulfate 220 Mg Cap) 220 mg PO DAILY [facility] Last Admin: 10/19/20 09:43 Dose: 220 mg Documented by: Physical examination: VITAL SIGNS: 97.1, 62, 20, 143.69, 90% on 10 L GENERAL: Laying in bed, more awake PSYCH: Answering questions appropriately NEUROLOGICAL: Cranial nerves grossly intact; no facial asymmetry, moving limbs. Rest of exam as per nursing pulmonary INVESTIGATIONS, reviewed in the clinical context: October 19: D-dimer 1.57 CRP 36.8. Accu-Cheks to , October 18: D-dimer 2.3 CRP 60.6. Chest x-ray film, personally reviewed by me- worsening infiltrate White count 7.6 hemoglobin 15.1 lymphocyte 0.7 D-dimer 1.27 potassium 4.0 bun 30 creatinine 1.12 CRP 189 pro-calcitonin 0.20 glucose 189 300 Influenza type A and type B both negative EKG tracing personally reviewed by me-normal sinus rhythm Chest x-ray film personally reviewed by me-portable bilateral infiltrates CT chest no obvious PE. Peripheral and basilar infiltrates Assessment: -Patient diagnosed with Coronavirus 6 days ago. admitted with bilateral COVID 19 pneumonia -Acute hypoxic respiratory failure from slow to respond on 10 L of oxygen -Acute metabolic encephalopathy and acute delirium from above upon presentation- improved -Diabetes mellitus type 2 uncontrolled with hyperglycemia -Essential hypertension -Hyperlipidemia -Obesity BMI 31.8 Plan: Continue with steroids and Lovenox. Remdesivir. She does sit up in a chair, use incentive spirometry. Discussed.
--- NOTE | 2020-10-19 23:06 | PN ---
PROGRESS NOTE DATE OF SERVICE: 10/19/2020 REASON FOR FOLLOWUP: Acute COVID-19 pneumonia. INTERVAL HISTORY: The patient is currently afebrile. The patient is breathing more comfortably. However, she is still requiring high-flow nasal cannula oxygen. Denies having any chest pain. Minimal cough. No nausea. No vomiting. No abdominal pain or diarrhea. PHYSICAL EXAMINATION: Blood pressure 141/67, pulse of 54, temperature 97.1. She is 93% on 10 L nasal cannula. General description is an elderly female lying in bed in no distress. RESPIRATORY SYSTEM: Unlabored breathing. Clear to auscultation anteriorly. HEART: S1, S2. Regular rate and rhythm. ABDOMEN: Soft. No tenderness. LABS: D-dimer is 1.57, which has come down, and CRP is 36.8. Blood culture negative. DIAGNOSTIC IMPRESSION AND PLAN: Patient with acute COVID-19 pneumonia in this patient with overall clinical improvement. She has been currently covered with remdesivir, Lovenox, Solu-Medrol and zinc sulfate; to continue along with respiratory support and slowly wean off her oxygen. Continue with supportive care. MMODL / IJN: [id number] /
[2020-10-20 06:26] LABS: Glucose,Whole Blood 252 mg/dL (75-99)
[2020-10-20] MEDS: INSULIN ASPART (NovoLOG) 100 UNIT/ML VIAL SQ SCH ×4 (06:34→21:40)
[2020-10-20] MEDS: metFORMIN 500 MG TAB PO SCH ×2 (06:34→17:56)
[2020-10-20] MEDS: DOCUSATE 100 MG CAP PO SCH ×2 (09:12→21:41)
[2020-10-20] MEDS: LOSARTAN 50 MG TAB PO SCH (09:12)
[2020-10-20] MEDS: ASCORBIC ACID 500 MG TAB PO SCH (09:13)
[2020-10-20] MEDS: CLOPIDOGREL 75 MG TAB PO SCH (09:13)
[2020-10-20] MEDS: METOPROLOL TARTRATE 25 MG TAB PO SCH ×2 (09:13→21:41)
[2020-10-20] MEDS: MULTIVITAMINS, THERA 1 EACH TAB PO SCH (09:13)
[2020-10-20] MEDS: CALCIUM CARB-VIT D 500MG-200UN 1 EACH TAB PO SCH (09:13)
[2020-10-20] MEDS: FAMOTIDINE 20 MG TAB PO SCH ×2 (09:13→21:41)
[2020-10-20] MEDS: ATORVASTATIN 40 MG TAB PO SCH (09:13)
[2020-10-20] MEDS: GABAPENTIN 300 MG CAP PO SCH ×2 (09:14→21:41)
[2020-10-20] MEDS: ZINC SULFATE 220 MG CAP PO SCH (09:14)
[2020-10-20] MEDS: MELOXICAM 7.5 MG TAB PO SCH (09:14)
[2020-10-20] MEDS: ENOXAPARIN 100 MG/ML SYRINGE SQ SCH ×2 (09:15→21:40)
[2020-10-20] MEDS: methylPREDNISolone SOD SUCCI 40 MG/ML 1 ML VIAL IV SCH ×2 (09:29→16:34)
--- NOTE | 2020-10-20 10:30 | P.PN ---
Subjective Progress Note Date: 10/20/20 74-year-old female patient, came into the ED with generalized weakness, fatigue, altered mentation, confusion and difficulty breathing. This is not typical for the patient. The patient has been progressively getting sick over this past few days. She was not able to give adequate history in the emergency department. She was hypoxic. She was placed on 5 L of oxygen by nasal cannula and she was brought up to 90%. Apparently her condition was getting worse progressively over the past 3 days. She had diminished oral intake. She had fever. The patient is a known case of coronavirus, COVID 19 infection. The patient was in the burst department on 10/12/2020. At that time, the patient had her positive for the same infection. She was complaining of weakness and fatigue and shortness of breath and cough. She had a chest x-ray that showed bilateral pulmonary infiltrates consistent with Covid 19 related pneumonia. The patient had no significant hypoxemia. The patient was discharged home on oral Decadron and since then her condition decompensated. No focal neurological deficit. During her emergency stay, the patient's mentation was gradually improving and the patient was able to answer questions better. Denied having any headache. She was moving all 4 extremities without any limitation. Note that the repeat chest x-ray was done today in emergency department showed cardiomegaly and persistent bilateral pulmonary infiltrates in the midlung and the basilar opacities consistent with infection. No major significant change compared to the earlier chest x-ray from 10/12/2020. Nevertheless, the patient become more hypoxemic. Computed tomography scan of the chest showed peripheral pulmonary infiltration in the mid and lower lung de anda bilaterally. No evidence of any pulmonary embolism. on 10/17/2020, the patient is still somewhat lethargic and confused. She is still on 5 L of oxygen by nasal cannula. She was started on a combination of Decadron and Remdesivir . She has some limited. No significant sputum production. No chest pain. She is still lethargic and she was oriented to place but she was unable to tell me the year or the day. No nausea. No v omiting. No diarrhea. No focal neurological deficits. Blood work is stable. She is afebrile. On 10/18/2020, the patient reports that she is clinically better. However, her x-ray showing worsening the bilateral pulmonary infiltrates. Her oxygen requirements have also gone up and she is currently on 10 L of oxygen by nasal cannula. She is completing her treatment for now. She is on steroids with Decadron. She is on day #3 for Remdesivir. She is having some loose diarrhea. No nausea. No vomiting. She is tolerating her diet. She is currently on 10 L of oxygen by nasal cannula. On 10/19/2020, the patient is being seen in follow-up in regards to her coronavirus/Covid 19 related pneumonia. The patient remains on Solu-Medrol the patient is on day #4 for Remdesivir. The patient has been doing well. The patient is currently on 10 L of oxygen by nasal cannula. The d-dimer is down to 1.5. The patient's CRP is down to 36.8. The patient is afebrile.Chest x-rays revealing dense bilateral pulmonary infiltrates and consolidation mainly in the lung peripheries more so on the left compared to the right. Lung volumes are small. No nausea. No vomiting. No diarrhea. No worsening in her oxygenation. On 10/20/2020, the patient is completing her treatment with Remdesivir and the patient is also on IV Solu-Medrol. On yesterday's evaluation, the patient was on 10 L of oxygen by nasal cannula. She is weak. She is able to stand up and she is able to move herself the bedside commode. No nausea. No vomiting. No diarrhea. No abdominal pain. She does have some episodic cough. No major change in her condition compared to yesterday. Objective - Vital Signs Vital signs: Vital Signs Temp 97.1 F L 10/19/20 20:00 Pulse 48 L 10/20/20 04:00 Resp 16 10/20/20 04:00 BP 135/70 10/20/20 04:00 Pulse Ox 93 L 10/20/20 04:00 Intake & Output 10/19/20 10/20/20 10/20/20 18:59 06:59 18:59 Intake Total 840 236 Output Total 150 Balance 840 -150 236 Weight 95 kg Intake: Oral 840 236 Output: Urine 150 Other: Voiding Method Bedside Commode # Voids 3 1 - Exam General Impression: Alert and oriented 3 not in acute distress, coughing, the patient currently on 10 L of oxygen by nasal cannula HEENT: Normocephalic atraumatic, extra-ocular movements intact, pupils equal and reactive to light bilaterally, mucous membranes moist. Cardiovascular: Heart regular rate and rhythm Chest: Able to complete full sentences, no retractions, no tachypnea, crackles in lung bases bilaterally. No significant wheezes Abdomen: abdomen soft, tenderness to the right abdomen, positive Laguerre sign, non-distended, no organomegaly Musculoskeletal: Pulses present and equal in all extremities, no peripheral edema Motor: no focal deficits noted Neurological: CN II-XII grossly intact, no focal motor or sensory deficits n oted, no facial asymmetry, pupils equal and reactive to light. The patient otherwise has altered mentation and she was oriented 3 Skin: Intact with no visualized rashes Psych: normal - Labs CBC & Chem 7: 10/16/20 13:54 10/16/20 13:54 Labs: Abnormal Lab Results - Last 24 Hours (Table) 10/19/20 10/19/20 10/19/20 Range/Units 11:47 16:53 20:30 POC Glucose (mg/dL) 215 H 225 H 309 H (75-99) mg/dL 10/20/20 Range/Units 06:22 POC Glucose (mg/dL) 252 H (75-99) mg/dL Microbiology - Last 24 Hours (Table) 10/16/20 13:52 Blood Culture - Preliminary Blood No Growth after 72 hours Assessment and Plan Plan: 1 acute Covid 19 related pneumonia. Diagnosis established on 10/12/2020. The patient has been symptomatic for less than a week. The patient is currently in patient being treated with a combination of Remdesivir day #5 and IV Solu- Medrol. She is currently on 10 L of oxygen by nasal cannula and her oxygenation is essentially unchanged compared to yesterday. 2 acute hypoxic respiratory failure currently on 10 L of oxygen by nasal cannula. CAT scan of the chest shows no evidence of pulmonary embolism and there is quite extensive groundglass changes in lung bases . On examination, she has coarse crackles in the lung bases. 3 altered mentation, improving, consider encephalopathy secondary to above, improved and recovered. 4 previous history of CVA 5 diabetes mellitus 6 hypertension 7 hyperlipidemia. 8 obesity Plan We'll start the patient a combination of IV Solu-Medrol, Remdesivir a total of 5 day course, Lovenox , supplement with vitamin C, vitamin D, melatonin, Pepcid and zinc. We will monitor the patient's oxygenation. Currently she is on 10 L about by nasal cannula. Repeat x-ray attempt to wean down the FiO2. Recommended prophylactic dose of Lovenox. We'll continue to follow.
--- NOTE | 2020-10-20 11:00 | XR ---
EXAMINATION TYPE: XR chest 1V portable DATE OF EXAM: 10/20/2020 COMPARISON: 10/18/2020 INDICATION: Covid pneumonitis TECHNIQUE: Single frontal view of the chest is obtained. FINDINGS: The heart size is normal. The pulmonary vasculature is normal. Bilateral lower and peripheral infiltrates are present. Findings can be compatible with atypical pneu monia. IMPRESSION: 1. Stable bilateral lung infiltrates. Correlate for atypical pneumonia.
[2020-10-20 11:45] LABS: Glucose,Whole Blood 222 mg/dL (75-99)
[2020-10-20] MEDS: REMDESIVIR 100 MG in SODIUM CHLORIDE 0.9% 250 ML IVPB SCH (16:34)
[2020-10-20 16:45] LABS: Glucose,Whole Blood 261 mg/dL (75-99)
--- NOTE | 2020-10-20 17:38 | P.PN ---
Progress Note - Text Progress Note Date: 10/20/20 Chief Complaint: Short of breath, confused History of presenting complaint: This is a 74-year-old patient of . Patient was diagnosed with COVID on Thursday that is 6 days ago. Patient came in today because she was becoming more short of breath also becoming confused. Brought in by the of the ER was also getting symptoms also admitted to the hospital with COVID. Overnight patient has done a bit better. Less short of breath. Less cough. Did eat some food. Tired. Chronic stable medical conditions include diabetes, hyperlipidemia, hypertension, stroke causing some numbness in the hands and arm. Admitted with bilateral COVID 19 pneumonia, acute hypoxic respiratory failure, acute metabolic breath and delirium. Patient started on dexamethasone, Remdesivir, Lovenox. Oxygen supplementation. Today-. On 10 L nasal cannula. Tired. Tolerating diet. Intermittently up to chair Review of systems: Was done for constitutional, cardiovascular, GI, pulmonary. relevant finding as above Active Medications Acetaminophen (Acetaminophen Tab 500 Mg Tab) 500 mg PO Q4HR PRN PRN Reason: Fever and/ or Pain Last Admin: 10/18/20 20:45 Dose: 500 mg Documented by: Ascorbic Acid (Ascorbic Acid 500 Mg Tab) [address] [facility] Last Admin: 10/20/20 09:13 Dose: 500 mg Documented by: Atorvastatin Calcium (Atorvastatin 40 Mg Tab) [address] [facility] Last Admin: 10/20/20 09:13 Dose: 40 mg Documented by: Calcium Carbonate (Calcium Carb-Vit D 500mg-200un 1 Each Tab) [address] [facility] Last Admin: 10/20/20 09:13 Dose: 1 each Documented by: Calcium Polycarbophil (Calcium Polycarbophil 625 Mg Tab) [address] [facility] Last Admin: 10/20/20 09:12 Dose: 625 mg Documented by: Clopidogrel Bisulfate (Clopidogrel 75 Mg Tab) [address] [facility] Last Admin: 10/20/20 09:13 Dose: 75 mg Documented by: Docusate Sodium (Docusate 100 Mg Cap) [address] [facility] Last Admin: 10/20/20 09:12 Dose: 100 mg Documented by: Enoxaparin Sodium (Enoxaparin 100 Mg/Ml Syringe) [address] [facility] Last Admin: 10/20/20 09:15 Dose: 100 mg Documented by: Famotidine (Famotidine 20 Mg Tab) [address] [facility] Last Admin: 10/20/20 09:13 Dose: 20 mg Documented by: Gabapentin (Gabapentin 300 Mg Cap) [address] [facility] Last Admin: 10/20/20 09:14 Dose: 600 mg Documented by: Insulin Aspart (Insulin Aspart (Novolog) 100 Unit/Ml Vial) [address] [facility]; Protocol Last Admin: 10/20/20 12:51 Dose: 3 unit Documented by: Losartan Potassium (Losartan 50 Mg Tab) [address] [facility] Last Admin: 10/20/20 09:12 Dose: 50 mg Documented by: Meloxicam (Meloxicam 7.5 Mg Tab) 7.[address] [facility] Last Admin: 10/20/20 09:14 Dose: 7.5 mg Documented by: Metformin HCl (Metformin 500 Mg Tab) 500 mg PO BID-W/MEALS [facility] Last Admin: 10/20/20 06:34 Dose: 500 mg Documented by: Methylprednisolone Sodium Succinate (Methylprednisolone Sod Succi 40 Mg/Ml 1 Ml Vial) [address] [facility] Last Admin: 10/20/20 16:34 Dose: 40 mg Documented by: Metoprolol Tartrate (Metoprolol Tartrate 25 Mg Tab) [address] [facility] Last Admin: 10/20/20 09:13 Dose: 25 mg Documented by: Multivitamins (Multivitamins, Thera 1 Each Tab) [address] [facility] Last Admin: 10/20/20 09:13 Dose: 1 each Documented by: Zinc Sulfate (Zinc Sulfate 220 Mg Cap) [address] [facility] Last Admin: 10/20/20 09:14 Dose: 220 mg Documented by: Physical examination: VITAL SIGNS: 98.2, 60, 16, 146/77, 90% on 90 L GENERAL: Laying in bed, awake PSYCH: Answering questions appropriately NEUROLOGICAL: Cranial nerves grossly intact; no facial asymmetry, moving limbs. Rest of exam as per nursing pulmonary INVESTIGATIONS, reviewed in the clinical context: October 20: D-dimer 1.15 CRP 39.1 Accu-Cheks to October 19: D-dimer 1.57 CRP 36.8. Accu-Cheks to October 18: D-dimer 2.3 CRP 60.6. Chest x-ray film, personally reviewed by me- worsening infiltrate White count 7.6 hemoglobin 15.1 lymphocyte 0.7 D-dimer 1.27 potassium 4.0 bun 30 creatinine 1.12 CRP 189 pro-calcitonin 0.20 glucose 189 300 Influenza type A and type B both negative EKG tracing personally reviewed by me-normal sinus rhythm Chest x-ray film personally reviewed by me-portable bilateral infiltrates CT chest no obvious PE. Peripheral and basilar infiltrates Assessment: -Diagnosed with Coronavirus 6 days prior to admission. admitted with bilateral COVID 19 pneumonia -Acute hypoxic respiratory failure from slow to respond on L of oxygen -Acute metabolic encephalopathy and acute delirium from above upon presentation- improved -Diabetes mellitus type 2 uncontrolled with hyperglycemia -Essential hypertension -Hyperlipidemia -Obesity BMI 31.8 Plan: Continue with steroids and Lovenox. Remdesivir-completed. Encouraged to sit up and use incentive spirometry.
[2020-10-20 21:16] LABS: Glucose,Whole Blood 237 mg/dL (75-99)
--- NOTE | 2020-10-20 22:48 | PN ---
PROGRESS NOTE DATE OF SERVICE: 10/20/2020 REASON FOR FOLLOWUP: COVID-19 pneumonia. INTERVAL HISTORY: Patient is currently afebrile. The patient is breathing more comfortably. The patient denies having any chest pain or shortness of breath. Minimal cough. Still requiring 9 L of nasal cannula oxygen. No diarrhea. PHYSICAL EXAMINATION: Blood pressure 146/79 with a pulse of 73, temperature 98.2. She is 90% on 9 L nasal cannula. General description is an elderly female lying in bed in no distress. Respiratory system: Unlabored breathing, decreased intense breath sounds. No wheeze or crackle. Heart S1, S2. Regular rate and rhythm. Abdomen soft, no tenderness. LABS: BUN of 39, creatinine is 1.15. Blood culture has been negative. Chest x-ray, stable bilateral lung infiltrate. DIAGNOSTIC IMPRESSION AND PLAN: Patient with acute COVID-19 pneumonia. Patient has completed her 5-day course of Remdesivir, currently on Solu-Medrol, to continue along with respiratory support and her oxygen. Continue supportive care. MMODL / IJN: [id number] /
[2020-10-21] MEDS: methylPREDNISolone SOD SUCCI 40 MG/ML 1 ML VIAL IV SCH ×2 (00:51→10:31)
[2020-10-21] MEDS ORDERED: HALOPERIDOL LACTATE 5 MG/ML 1 ML VIAL IM ONE (06:13)
[2020-10-21 06:28] LABS: Glucose,Whole Blood 216 mg/dL (75-99)
[2020-10-21] MEDS: INSULIN ASPART (NovoLOG) 100 UNIT/ML VIAL SQ SCH ×4 (06:29→21:54)
[2020-10-21] MEDS: metFORMIN 500 MG TAB PO SCH ×2 (06:31→17:40)
[2020-10-21] MEDS: ASCORBIC ACID 500 MG TAB PO SCH (09:15)
[2020-10-21] MEDS: ATORVASTATIN 40 MG TAB PO SCH (09:15)
[2020-10-21] MEDS: CALCIUM CARB-VIT D 500MG-200UN 1 EACH TAB PO SCH (09:15)
[2020-10-21] MEDS: DOCUSATE 100 MG CAP PO SCH ×2 (09:15→21:54)
[2020-10-21] MEDS: ZINC SULFATE 220 MG CAP PO SCH (09:16)
[2020-10-21] MEDS: GABAPENTIN 300 MG CAP PO SCH (09:16)
[2020-10-21] MEDS: MULTIVITAMINS, THERA 1 EACH TAB PO SCH (09:16)
--- NOTE | 2020-10-21 10:28 | P.PN ---
Subjective Progress Note Date: 10/21/20 74-year-old female patient, came into the ED with generalized weakness, fatigue, altered mentation, confusion and difficulty breathing. This is not typical for the patient. The patient has been progressively getting sick over this past few days. She was not able to give adequate history in the emergency department. She was hypoxic. She was placed on 5 L of oxygen by nasal cannula and she was brought up to 90%. Apparently her condition was getting worse progressively over the past 3 days. She had diminished oral intake. She had fever. The patient is a known case of coronavirus, COVID 19 infection. The patient was in the burst department on 10/12/2020. At that time, the patient had her positive for the same infection. She was complaining of weakness and fatigue and shortness of breath and cough. She had a chest x-ray that showed bilateral pulmonary infiltrates consistent with Covid 19 related pneumonia. The patient had no significant hypoxemia. The patient was discharged home on oral Decadron and since then her condition decompensated. No focal neurological deficit. During her emergency stay, the patient's mentation was gradually improving and the patient was able to answer questions better. Denied having any headache. She was moving all 4 extremities without any limitation. Note that the repeat chest x-ray was done today in emergency department showed cardiomegaly and persistent bilateral pulmonary infiltrates in the midlung and the basilar opacities consistent with infection. No major significant change compared to the earlier chest x-ray from 10/12/2020. Nevertheless, the patient become more hypoxemic. Computed tomography scan of the chest showed peripheral pulmonary infiltration in the mid and lower lung de anda bilaterally. No evidence of any pulmonary embolism. on 10/17/2020, the patient is still somewhat lethargic and confused. She is still on 5 L of oxygen by nasal cannula. She was started on a combination of Decadron and Remdesivir . She has some limited. No significant sputum production. No chest pain. She is still lethargic and she was oriented to place but she was unable to tell me the year or the day. No nausea. No v omiting. No diarrhea. No focal neurological deficits. Blood work is stable. She is afebrile. On 10/18/2020, the patient reports that she is clinically better. However, her x-ray showing worsening the bilateral pulmonary infiltrates. Her oxygen requirements have also gone up and she is currently on 10 L of oxygen by nasal cannula. She is completing her treatment for now. She is on steroids with Decadron. She is on day #3 for Remdesivir. She is having some loose diarrhea. No nausea. No vomiting. She is tolerating her diet. She is currently on 10 L of oxygen by nasal cannula. On 10/19/2020, the patient is being seen in follow-up in regards to her coronavirus/Covid 19 related pneumonia. The patient remains on Solu-Medrol the patient is on day #4 for Remdesivir. The patient has been doing well. The patient is currently on 10 L of oxygen by nasal cannula. The d-dimer is down to 1.5. The patient's CRP is down to 36.8. The patient is afebrile.Chest x-rays revealing dense bilateral pulmonary infiltrates and consolidation mainly in the lung peripheries more so on the left compared to the right. Lung volumes are small. No nausea. No vomiting. No diarrhea. No worsening in her oxygenation. On 10/20/2020, the patient is completing her treatment with Remdesivir and the patient is also on IV Solu-Medrol. On yesterday's evaluation, the patient was on 10 L of oxygen by nasal cannula. She is weak. She is able to stand up and she is able to move herself the bedside commode. No nausea. No vomiting. No diarrhea. No abdominal pain. She does have some episodic cough. No major change in her condition compared to yesterday. On 10/23/2020 the patient is being seen for a follow-up. She is a case of coronavirus/Covid 19 related pneumonia. The patient is being treated with IV Solu-Medrol and the patient is on day #5 of Remdesivir and she completed treatment yesterday. The patient is currently on 9 L of oxygen by nasal cannula. On today's evaluation, the patient is anxious and restless and she is all over the place. She is squirming. Nausea. No vomiting. No abdominal pain. Overnight, she had to be placed in restraints and she received Haldol 5 mg IM 1.Chest x-ray from yesterday shows bilateral lower lobe and peripheral pulmonary infiltrates, Objective - Vital Signs Vital signs: Vital Signs Temp 97.6 F 10/20/20 20:00 Pulse 50 L 10/21/20 02:00 Resp 20 10/21/20 02:00 BP 160/74 10/21/20 00:00 Pulse Ox 95 10/21/20 00:00 Intake & Output 10/20/20 10/21/20 10/21/20 18:59 06:59 18:59 Intake Total 492 236 Output Total 1300 Balance 492 -1300 236 Weight 100 kg Intake: Oral 492 236 Output: Urine 1300 Straight 550 Other: Voiding Method Bedside Commode Bedside Commode # Voids 3 1 # Bowel Movements 2 - Exam General Impression: Alert and oriented 3 not in acute distress, coughing, the patient currently on 9 L of oxygen by nasal cannula HEENT: Normocephalic atraumatic, extra-ocular movements intact, pupils equal and reactive to light bilaterally, mucous membranes moist. Cardiovascular: Heart regular rate and rhythm Chest: Able to complete full sentences, no retractions, no tachypnea, crackles in lung bases bilaterally. No significant wheezes Abdomen: abdomen soft, tenderness to the right abdomen, positive Laguerre sign, non-distended, no organomegaly Musculoskeletal: Pulses present and equal in all extremities, no peripheral edema Motor: no focal deficits noted Neurological: CN II-XII grossly intact, no focal motor or sensory deficits no king, no facial asymmetry, pupils equal and reactive to light. The patient otherwise has altered mentation and she was oriented 3 Skin: Intact with no visualized rashes Psych: Increased anxiety - Labs CBC & Chem 7: 10/16/20 13:54 10/16/20 13:54 Labs: Abnormal Lab Results - Last 24 Hours (Table) 10/20/20 10/20/20 10/20/20 Range/Units 10:20 10:20 11:44 D-Dimer 1.15 H (<0.60) mg/L FEU POC Glucose (mg/dL) 222 H (75-99) mg/dL C-Reactive Protein 39.1 H (<10.0) mg/L 10/20/20 10/20/20 10/21/20 Range/Units 16:43 20:51 06:26 D-Dimer (<0.60) mg/L FEU POC Glucose (mg/dL) 261 H 237 H 216 H (75-99) mg/dL C-Reactive Protein (<10.0) mg/L Microbiology - Last 24 Hours (Table) 10/16/20 13:52 Blood Culture - Preliminary Blood No Growth after 96 hours Assessment and Plan Plan: 1 acute Covid 19 related pneumonia. Diagnosis established on 10/12/2020. The patient has been symptomatic for less than a week. The patient is currently in patient being treated with a combination of Remdesivir day #5 and IV Solu- Medrol. She is currently on 10 L of oxygen by nasal cannula and her oxygenation is essentially unchanged compared to yesterday. 2 acute hypoxic respiratory failure currently on 10 L of oxygen by nasal cannula. CAT scan of the chest shows no evidence of pulmonary embolism and there is quite extensive groundglass changes in lung bases . On examination, she has coarse crackles in the lung bases. 3 altered mentation, improving, consider encephalopathy secondary to above, improved and recovered. 4 previous history of CVA 5 diabetes mellitus 6 hypertension 7 hyperlipidemia. 8 obesity 9 altered mentation, consider steroid-induced delirium, consider metabolic enc ephalopathy, consider viral encephalopathy. Neurologic exam is nonfocal. Plan We'll start the patient a combination of IV Solu-Medrol, Remdesivir a total of 5 day course has been completed. Mother the patient is also on Lovenox , supplement with vitamin C, vitamin D, melatonin, Pepcid and zinc. We will monitor the patient's oxygenation. Currently she is on 9 L about by nasal cannula. Repeat x-ray attempt to wean down the FiO2. This continued IV Solu-Medrol and put the patient on 6 mg of Decadron IV on a daily basis repeat chest x-ray in the morning Blood work and inflammatory markers in the morning Haldol 1 mg every 3-4 hours for delirium and agitation, IV Recommended prophylactic dose of Lovenox. We'll continue to follow.
[2020-10-21] MEDS: LOSARTAN 50 MG TAB PO SCH (10:34)
[2020-10-21] MEDS: CLOPIDOGREL 75 MG TAB PO SCH (10:35)
[2020-10-21] MEDS: MELOXICAM 7.5 MG TAB PO SCH (10:35)
[2020-10-21] MEDS: METOPROLOL TARTRATE 25 MG TAB PO SCH ×2 (10:35→21:54)
[2020-10-21] MEDS: ENOXAPARIN 100 MG/ML SYRINGE SQ SCH ×2 (10:36→21:54)
[2020-10-21] MEDS: DEXAMETHASONE SOD PHOSPHATE 10 MG/ML 1 ML VIAL IV SCH (10:38)
[2020-10-21] MEDS: FAMOTIDINE 20 MG TAB PO SCH ×2 (10:44→21:54)
[2020-10-21] MEDS: HALOPERIDOL LACTATE 5 MG/ML 1 ML VIAL IVP PRN ×3 (10:56→22:19)
[2020-10-21 11:48] LABS: Glucose,Whole Blood 195 mg/dL (75-99)
[2020-10-21 16:28] LABS: Glucose,Whole Blood 249 mg/dL (75-99)
--- NOTE | 2020-10-21 19:19 | P.PN ---
Progress Note - Text Progress Note Date: 10/21/20 Chief Complaint: Short of breath, confused History of presenting complaint: This is a 74-year-old patient of . Patient was diagnosed with COVID on Thursday that is 6 days ago. Patient came in today because she was becoming more short of breath also becoming confused. Brought in by the of the ER was also getting symptoms also admitted to the hospital with COVID. Overnight patient has done a bit better. Less short of breath. Less cough. Did eat some food. Tired. Chronic stable medical conditions include diabetes, hyperlipidemia, hypertension, stroke causing some numbness in the hands and arm. Admitted with bilateral COVID 19 pneumonia, acute hypoxic respiratory failure, acute metabolic breath and delirium. Patient started on dexamethasone, Remdesivir, Lovenox. Oxygen supplementation. Today-. Late last night was a bit delirious confuse. Had to be given Haldol. A bit tired this morning. Breathing stable on nasal cannula. Review of systems: Was done for constitutional, cardiovascular, GI, pulmonary. relevant finding as above Physical examination: VITAL SIGNS: 96.5, 70, 18, 161/91, 90% on 9 L GENERAL: Sitting on bed, tired PSYCH: Answering questions slowly. NEUROLOGICAL: Cranial nerves grossly intact; no facial asymmetry, moving limbs. Rest of exam as per nursing pulmonary INVESTIGATIONS, reviewed in the clinical context: October 20: D-dimer 1.15 CRP 39.1 Accu-Cheks to , [id number] October 19: D-dimer 1.57 CRP 36.8. Accu-Cheks to , 309 October 18: D-dimer 2.3 CRP 60.6. Chest x-ray film, personally reviewed by me- worsening infiltrate White count 7.6 hemoglobin 15.1 lymphocyte 0.7 D-dimer 1.27 potassium 4.0 bun 30 creatinine 1.12 CRP 189 pro-calcitonin 0.20 glucose 189 300 Influenza type A and type B both negative EKG tracing personally reviewed by me-normal sinus rhythm Chest x-ray film personally reviewed by me-portable bilateral infiltrates CT chest no obvious PE. Peripheral and basilar infiltrates Assessment: -Diagnosed with Coronavirus 6 days prior to admission. admitted with bilateral COVID 19 pneumonia -Acute hypoxic respiratory failure from slow to respond on 9 L -Acute metabolic encephalopathy and acute delirium from above upon relapsed last night. -Diabetes mellitus type 2 uncontrolled with hyperglycemia -Essential hypertension -Hyperlipidemia -Obesity BMI 31.8 Plan: Remdesivir-completed. Increase with cutting back on steroids. Other medications to continue.
[2020-10-21 20:40] LABS: Glucose,Whole Blood 208 mg/dL (75-99)
[2020-10-21] MEDS ORDERED: methylPREDNISolone SOD SUCCI 40 MG/ML 1 ML VIAL IV SCH (21:00)
--- NOTE | 2020-10-22 02:24 | PN ---
PROGRESS NOTE DATE OF SERVICE: 10/21/2020 REASON FOR FOLLOWUP: COVID-19 infection. INTERVAL HISTORY: The patient is currently afebrile. The patient is breathing comfortably still requiring nasal cannula oxygen. The patient denies having any chest pain. Minimal cough. No nausea, no vomiting. No abdominal pain or diarrhea. PHYSICAL EXAMINATION: Blood pressure 170/90 with a pulse of 76, temperature 98.3. She is 92% on 10 L high- flow oxygen. General description is an elderly female lying in bed in no distress. RESPIRATORY SYSTEM: Unlabored breathing with decreased intensity of breath sounds. No wheeze. HEART: S1, S2. Regular rate and rhythm. ABDOMEN: Soft, no tenderness. LABS: No new labs have been obtained today. DIAGNOSTIC IMPRESSION AND PLAN: Patient with acute COVID-19 infection. Patient completed her remdesivir therapy, currently on steroid, Lovenox, and zinc to continue. Slowly wean off her oxygen. Continue with supportive care. MMODL / IJN: [id number] /
[2020-10-22] MEDS: HALOPERIDOL LACTATE 5 MG/ML 1 ML VIAL IVP PRN (05:17)
[2020-10-22 06:42] LABS: Glucose,Whole Blood 184 mg/dL (75-99)
[2020-10-22] MEDS: INSULIN ASPART (NovoLOG) 100 UNIT/ML VIAL SQ SCH ×4 (06:42→20:26)
[2020-10-22] MEDS: metFORMIN 500 MG TAB PO SCH ×2 (06:42→17:27)
[2020-10-22 07:19] LABS: Basophils % (A) 0 %; Eosinophils # (A) 0.1 k/uL (0-0.7); Eosinophils % (A) 0 %; HCT 44.9 % (34.0-46.0); HGB 15.1 gm/dL (11.4-16.0); Lymphocytes # (A) 1.7 k/uL (1.0-4.8); Lymphocytes % (A) 9 %; MCH 31.1 pg (25.0-35.0); MCHC 33.6 g/dL (31.0-37.0); MCV 92.3 fL (80.0-100.0); Mean Platelet Volume 6.9; Monocytes # (A) 0.6 k/uL (0-1.0); Monocytes % (A) 3 %; Neutrophils # (A) 15.5 k/uL (1.3-7.7); Neutrophils % (A) 86 %; Platelet Count 505 k/uL (150-450); RBC 4.86 m/uL (3.80-5.40); RDW 13.4 % (11.5-15.5); WBC 18.1 k/uL (3.8-10.6)
[2020-10-22 07:30] LABS: Albumin 3.4 g/dL (3.5-5.0); C Reactive Protein 15.8 mg/L (<10.0); Calcium 9.7 mg/dL (8.4-10.2); Potassium 3.9 mmol/L (3.5-5.1); Total Bilirubin 1.2 mg/dL (0.2-1.3); Total Protein 6.6 g/dL (6.3-8.2)
[2020-10-22] MEDS: GABAPENTIN 300 MG CAP PO SCH ×2 (08:56→20:27)
[2020-10-22] MEDS: ZINC SULFATE 220 MG CAP PO SCH (08:56)
[2020-10-22] MEDS: MELOXICAM 7.5 MG TAB PO SCH (08:56)
[2020-10-22] MEDS: ATORVASTATIN 40 MG TAB PO SCH (08:56)
[2020-10-22] MEDS: ASCORBIC ACID 500 MG TAB PO SCH (08:56)
[2020-10-22] MEDS: CALCIUM CARB-VIT D 500MG-200UN 1 EACH TAB PO SCH (08:57)
[2020-10-22] MEDS: LOSARTAN 50 MG TAB PO SCH (08:57)
[2020-10-22] MEDS: CLOPIDOGREL 75 MG TAB PO SCH (08:57)
[2020-10-22] MEDS: METOPROLOL TARTRATE 25 MG TAB PO SCH ×2 (08:57→20:27)
[2020-10-22] MEDS: MULTIVITAMINS, THERA 1 EACH TAB PO SCH (08:57)
[2020-10-22] MEDS: FAMOTIDINE 20 MG TAB PO SCH ×2 (08:57→20:27)
[2020-10-22] MEDS: DEXAMETHASONE SOD PHOSPHATE 10 MG/ML 1 ML VIAL IV SCH (08:58)
[2020-10-22] MEDS: DOCUSATE 100 MG CAP PO SCH ×2 (08:59→20:27)
[2020-10-22] MEDS: ENOXAPARIN 100 MG/ML SYRINGE SQ SCH (08:59)
--- NOTE | 2020-10-22 09:09 | XR ---
EXAMINATION TYPE: XR chest 1V DATE OF EXAM: 10/22/2020 COMPARISON: 10/20/2020 HISTORY: Abnormal x-ray TECHNIQUE: Single frontal view of the chest is obtained. FINDINGS: Bilateral multifocal infiltrates are stable. No pleural effusion or pneumothorax. Arthropa thy of the shoulders. Heart size stable. Hypertrophic and degenerative change of the spine. IMPRESSION: Stable bilateral pneumonia
[2020-10-22 11:37] LABS: Glucose,Whole Blood 216 mg/dL (75-99)
[2020-10-22 17:01] LABS: Glucose,Whole Blood 302 mg/dL (75-99)
--- NOTE | 2020-10-22 17:04 | P.PN ---
Subjective Progress Note Date: 10/22/20 Principal diagnosis: Acute quit 19 related pneumonia 74-year-old female patient, came into the ED with generalized weakness, fatigue, altered mentation, confusion and difficulty breathing. This is not typical for the patient. The patient has been progressively getting sick over this past few days. She was not able to give adequate history in the emergency department. She was hypoxic. She was placed on 5 L of oxygen by nasal cannula and she was brought up to 90%. Apparently her condition was getting worse progressively over the past 3 days. She had diminished oral intake. She had fever. The patient is a known case of coronavirus, COVID 19 infection. The patient was in the burst department on 10/12/2020. At that time, the patient had her positive for the same infection. She was complaining of weakness and fatigue and shortness of breath and cough. She had a chest x-ray that showed bilateral pulmonary infiltrates consistent with Covid 19 related pneumonia. The patient had no significant hypoxemia. The patient was discharged home on oral Decadron and since then her condition decompensated. No focal neurological deficit. During her emergency stay, the patient's mentation was gradually improving and the patient was able to answer questions better. Denied having any headache. She was moving all 4 extremities without any limitation. Note that the repeat chest x-ray was done today in emergency department showed cardiomegaly and persistent bilateral pulmonary infiltrates in the midlung and the basilar opacities consistent with infection. No major significant change compared to the earlier chest x-ray from 10/12/2020. Nevertheless, the patient become more hypoxemic. Computed tomography scan of the chest showed peripheral pulmonary infiltration in the mid and lower lung de anda bilaterally. No evidence of any pulmonary embolism. on 10/17/2020, the patient is still somewhat lethargic and confused. She is still on 5 L of oxygen by nasal cannula. She was started on a combination of Decadron and Remdesivir . She has some limited. No significant sputum production. No chest pain. She is still lethargic and she was oriented to place but she was unable to tell me the year or the day. No nausea. No vomiting. No diarrhea. No focal neurological deficits. Blood work is stable. She is afebrile. On 10/18/2020, the patient reports that she is clinically better. However, her x-ray showing worsening the bilateral pulmonary infiltrates. Her oxygen requirements have also gone up and she is currently on 10 L of oxygen by nasal cannula. She is completing her treatment for now. She is on steroids with Decadron. She is on day #3 for Remdesivir. She is having some loose diarrhea. No nausea. No vomiting. She is tolerating her diet. She is currently on 10 L of oxygen by nasal cannula. On 10/19/2020, the patient is being seen in follow-up in regards to her coronavirus/Covid 19 related pneumonia. The patient remains on Solu-Medrol the patient is on day #4 for Remdesivir. The patient has been doing well. The patient is currently on 10 L of oxygen by nasal cannula. The d-dimer is down to 1.5. The patient's CRP is down to 36.8. The patient is afebrile.Chest x-rays revealing dense bilateral pulmonary infiltrates and consolidation mainly in the lung peripheries more so on the left compared to the right. Lung volumes are small. No nausea. No vomiting. No diarrhea. No worsening in her oxygenation. On 10/20/2020, the patient is completing her treatment with Remdesivir and the patient is also on IV Solu-Medrol. On yesterday's evaluation, the patient was on 10 L of oxygen by nasal cannula. She is weak. She is able to stand up and she is able to move herself the bedside commode. No nausea. No vomiting. No diarrhea. No abdominal pain. She does have some episodic cough. No major angel nge in her condition compared to yesterday. On 10/23/2020 the patient is being seen for a follow-up. She is a case of coronavirus/Covid 19 related pneumonia. The patient is being treated with IV So farooq-Medrol and the patient is on day #5 of Remdesivir and she completed treatment yesterday. The patient is currently on 9 L of oxygen by nasal cannula. On today's evaluation, the patient is anxious and restless and she is all over the place. She is squirming. Nausea. No vomiting. No abdominal pain. Overnight, she had to be placed in restraints and she received Haldol 5 mg IM 1.Chest x- ray from yesterday shows bilateral lower lobe and peripheral pulmonary infiltrates, On 10/22/2020 patient seen in follow-up on selective care unit, she completed her Remdesivir course, she remains on IV Decadron, 6 mg daily, she is on therapeutic doses of Lovenox at 100 mg every 12 hours, Pepcid. Patient was still requiring high flow oxygen at 10 L, however this afternoon her FiO2 was weaned down to 4 L and patient is satting about 91%, seems very comfortable resting in bed, she is afebrile, hemodynamically she stable, she appears to be encephalopathic, she is slow to respond, she is confused, she states she still coughing, but appears to be breathing comfortably at the moment, his labs have been reviewed, showing white blood cell count of 18.1, hemoglobin of 15.1, follow d-dimer is trending down, 1.04, sodium is 142, potassium is 3.9, chloride is 111, B1 is 27, creatinine is 0.82, LDH is 1530, and CRP is down to 15.8. Her culture has shown no growth Objective - Vital Signs Vital signs: Vital Signs Temp 98.8 F 10/22/20 16:34 Pulse 98 10/22/20 16:34 Resp 20 10/22/20 16:34 BP 147/79 10/22/20 16:34 Pulse Ox 91 L 10/22/20 16:34 Intake & Output 10/21/20 10/22/20 10/22/20 18:59 06:59 18:59 Intake Total 236 365 Output Total 150 Balance 236 -150 365 Weight 96 kg Intake: Oral 236 365 Output: Urine 150 Other: Voiding Method Bedside Commode Bedside Commode # Voids 3 2 - Exam GENERAL EXAM: 74-year-old white female, 2 L oxygen with pulse ox of 93%, appears sleepy, confused, slow to respond, encephalopathic, comfortable, comfortable in no apparent distress. HEAD: Normocephalic/atraumatic. EYES: Normal reaction of pupils, equal size. Conjunctiva pink, sclera white. NOSE: Clear with pink turbinates. THROAT: No erythema or exudates. NECK: No masses, no JVD, no thyroid enlargement, no adenopathy. CHEST: No chest wall deformity. Symmetrical expansion. LUNGS: Equal air entry with bibasilar crackles, wheeze, rhonchi or dullness. CVS: Regular rate and rhythm, normal S1 and S2, no gallops, no murmurs, no rubs ABDOMEN: Soft, nontender. No hepatosplenomegaly, normal bowel sounds, no guarding or rigidity. EXTREMITIES: No clubbing, no edema, no cyanosis, 2+ pulses and upper and lower extremities. MUSCULOSKELETAL: Muscle strength and tone normal. SPINE: No scoliosis or deformity SKIN: No rashes CENTRAL NERVOUS SYSTEM: Sleepy, but arousable, confused, No focal deficits, tone is normal in all 4 extremities. - Labs CBC & Chem 7: 10/22/20 06:59 10/22/20 06:59 Labs: Abnormal Lab Results - Last 24 Hours (Table) 10/21/20 10/22/20 10/22/20 Range/Units 20:33 06:29 06:59 WBC 18.1 H (3.8-10.6) k/uL Plt Count 505 H (150-450) k/uL Neutrophils # 15.5 H (1.3-7.7) k/uL D-Dimer (<0.60) mg/L FEU Chloride (98-107) mmol/L BUN (7-17) mg/dL Glucose (74-99) mg/dL POC Glucose (mg/dL) 208 H 184 H (75-99) mg/dL AST (14-36) U/L ALT (4-34) U/L Lactate Dehydrogenase (313-618) U/L C-Reactive Protein (<10.0) mg/L Albumin (3.5-5.0) g/dL 10/22/20 10/22/20 10/22/20 Range/Units 06:59 06:59 11:36 WBC (3.8-10.6) k/uL Plt Count (150-450) k/uL Neutrophils # (1.3-7.7) k/uL D-Dimer 1.04 H (<0.60) mg/L FEU Chloride 111 H (98-107) mmol/L BUN 27 H (7-17) mg/dL Glucose 186 H (74-99) mg/dL POC Glucose (mg/dL) 216 H (75-99) mg/dL AST 159 H (14-36) U/L ALT 89 H (4-34) U/L Lactate Dehydrogenase 1530 H (313-618) U/L C-Reactive Protein 15.8 H (<10.0) mg/L Albumin 3.4 L (3.5-5.0) g/dL Microbiology - Last 24 Hours (Table) 10/16/20 13:52 Blood Culture - Final Blood No Growth after 144 hours Assessment and Plan Plan: Assessment: 1 acute Covid 19 related pneumonia. Diagnosis established on 10/12/2020. The patient has been symptomatic for less than a week. The patient is currently in patient being treated with a combination of Remdesivir day #5 and IV Solu- Medrol. She is currently on 10 L of oxygen by nasal cannula and her oxygenation is essentially unchanged compared to yesterday. 2 acute hypoxic respiratory failure currently on 10 L of oxygen by nasal cannu la. CAT scan of the chest shows no evidence of pulmonary embolism and there is quite extensive groundglass changes in lung bases . On examination, she has coarse crackles in the lung bases. 3 altered mentation, improving, consider encephalopathy secondary to above, improved and recovered. 4 previous history of CVA 5 diabetes mellitus 6 hypertension 7 hyperlipidemia. 8 obesity 9 altered mentation, consider steroid-induced delirium, consider metabolic encephalopathy, consider viral encephalopathy. Neurologic exam is nonfocal. Plan: The current dose of dexamethasone, d-dimer level is trending down, we'll adjust the Lovenox dose to 40 mg twice daily, continue with Pepcid, patient has completed a course of Remdesivir, continue with vitamin C, zinc supplement, vitamin D, maintain aspiration precautions, patient is still confused and encephalopathic, continue weaning FiO2, use Haldol as needed for restlessness, confusion, delirium and agitation. We'll continue to closely follow I performed a history & physical examination of the patient and discussed their management with my nurse practitioner, Leelee Almaguer. I reviewed the nurse practitioner's note and agree with the documented findings and plan of care. Lung sounds are positive for minimal basilar crackles The findings and the impression was discussed with the patient. I attest to the documentation by the nurse practitioner. Time with Patient: Less than 30
[2020-10-22 19:59] LABS: Glucose,Whole Blood 189 mg/dL (75-99)
[2020-10-22] MEDS: ENOXAPARIN 40 MG/0.4 ML SYRINGE SQ SCH (20:27)
--- NOTE | 2020-10-22 21:24 | P.PN ---
Progress Note - Text Progress Note Date: 10/22/20 Chief Complaint: Short of breath, confused History of presenting complaint: This is a 74-year-old patient of . Patient was diagnosed with COVID on Thursday that is 6 days ago. Patient came in today because she was becoming more short of breath also becoming confused. Brought in by the of the ER was also getting symptoms also admitted to the hospital with COVID. Overnight patient has done a bit better. Less short of breath. Less cough. Did eat some food. Tired. Chronic stable medical conditions include diabetes, hyperlipidemia, hypertension, stroke causing some numbness in the hands and arm. Admitted with bilateral COVID 19 pneumonia, acute hypoxic respiratory failure, acute metabolic encephalopathy and delirium. Patient started on dexamethasone, Remdesivir, Lovenox. Oxygen supplementation. Today-. Tired. Patient was on 10 L nasal cannula. But mouth breathing. I did drop it down to 4 L. Patient has been pulse oxing about 90%. Decreased oral intake. Anyway from 25-50% Review of systems: Attempted for constitutional, cardiovascular, GI, pulmonary. relevant finding as above Active Medications Acetaminophen (Acetaminophen Tab 500 Mg Tab) 500 mg PO Q4HR PRN PRN Reason: Fever and/ or Pain Last Admin: 10/18/20 20:45 Dose: 500 mg Documented by: Ascorbic Acid (Ascorbic Acid 500 Mg Tab) 500 mg PO DAILY [facility] Last Admin: 10/22/20 08:56 Dose: 500 mg Documented by: Atorvastatin Calcium (Atorvastatin 40 Mg Tab) 40 mg PO DAILY [facility] Last Admin: 10/22/20 08:56 Dose: 40 mg Documented by: Calcium Carbonate (Calcium Carb-Vit D 500mg-200un 1 Each Tab) 1 each PO DAILY [facility] Last Admin: 10/22/20 08:57 Dose: 1 each Documented by: Calcium Polycarbophil (Calcium Polycarbophil 625 Mg Tab) 625 mg PO DAILY [facility] Last Admin: 10/22/20 08:56 Dose: 625 mg Documented by: Clopidogrel Bisulfate (Clopidogrel 75 Mg Tab) 75 mg PO DAILY [facility] Last Admin: 10/22/20 08:57 Dose: 75 mg Documented by: Dexamethasone Sodium Phosphate (Dexamethasone Sod Phosphate 10 Mg/Ml 1 Ml Vial) 6 mg IV DAILY [facility] Last Admin: 10/22/20 08:58 Dose: 6 mg Documented by: Docusate Sodium (Docusate 100 Mg Cap) 100 mg PO BID [facility] Last Admin: 10/22/20 20:27 Dose: 100 mg Documented by: Enoxaparin Sodium (Enoxaparin 40 Mg/0.4 Ml Syringe) 40 mg SQ Q12HR [facility] Last Admin: 10/22/20 20:27 Dose: 40 mg Documented by: Famotidine (Famotidine 20 Mg Tab) 20 mg PO BID [facility] Last Admin: 10/22/20 20:27 Dose: 20 mg Documented by: Gabapentin (Gabapentin 300 Mg Cap) 300 mg PO BID [facility] Last Admin: 10/22/20 20:27 Dose: 300 mg Documented by: Haloperidol Lactate (Haloperidol Lactate 5 Mg/Ml 1 Ml Vial) 1 mg IVP Q3HR PRN PRN Reason: Agitation or Acute Psychosis Last Admin: 10/22/20 05:17 Dose: 1 mg Documented by: Insulin Aspart (Insulin Aspart (Novolog) 100 Unit/Ml Vial) 0 unit SQ ACHS [facility]; Protocol Last Admin: 10/22/20 20:26 Dose: 2 unit Documented by: Losartan Potassium (Losartan 50 Mg Tab) 50 mg PO DAILY [facility] Last Admin: 10/22/20 08:57 Dose: 50 mg Documented by: Meloxicam (Meloxicam 7.5 Mg Tab) 7.5 mg PO DAILY [facility] Last Admin: 10/22/20 08:56 Dose: 7.5 mg Documented by: Metformin HCl (Metformin 500 Mg Tab) 500 mg PO BID-W/MEALS [facility] Last Admin: 10/22/20 17:27 Dose: 500 mg Documented by: Metoprolol Tartrate (Metoprolol Tartrate 25 Mg Tab) 25 mg PO BID [facility] Last Admin: 10/22/20 20:27 Dose: 25 mg Documented by: Multivitamins (Multivitamins, Thera 1 Each Tab) 1 each PO DAILY [facility] Last Admin: 10/22/20 08:57 Dose: 1 each Documented by: Zinc Sulfate (Zinc Sulfate 220 Mg Cap) 220 mg PO DAILY [facility] Last Admin: 10/22/20 08:56 Dose: 220 mg Documented by: Physical examination: VITAL SIGNS: 98.4, 90, 20, 155/81, 91% on 4 L GENERAL: Sitting on bed, tired, lethargic PSYCH: Answering questions slowly. NEUROLOGICAL: Cranial nerves grossly intact; no facial asymmetry, moving limbs. Rest of exam as per nursing pulmonary INVESTIGATIONS, reviewed in the clinical context: October 22: White count 18.1 hemoglobin 15.1 potassium 3.9 creatinine 0.82 CRP 15.8 October 20: D-dimer 1.15 CRP 39.1 Accu-Cheks to October 19: D-dimer 1.57 CRP 36.8. Accu-Cheks to October 18: D-dimer 2.3 CRP 60.6. Chest x-ray film, personally reviewed by me- worsening infiltrate White count 7.6 hemoglobin 15.1 lymphocyte 0.7 D-dimer 1.27 potassium 4.0 bun 30 creatinine 1.12 CRP 189 pro-calcitonin 0.20 glucose 189 300 Influenza type A and type B both negative EKG tracing personally reviewed by me-normal sinus rhythm Chest x-ray film personally reviewed by me-portable bilateral infiltrates CT chest no obvious PE. Peripheral and basilar infiltrates Assessment: -Diagnosed with Coronavirus 6 days prior to admission. admitted with bilateral COVID 19 pneumonia -Acute hypoxic respiratory failure from down to 4 L -Acute metabolic encephalopathy and acute delirium from above upon relapsed last night. -Diabetes mellitus type 2 uncontrolled with hyperglycemia -Essential hypertension -Hyperlipidemia -Obesity BMI 31.8 Plan: Remdesivir-completed. On Decadron 6 mg. Subcu Lovenox. Will decrease Neurontin to 300 mg daily at bedtime. If this is causing any lethargy component.
[2020-10-22] MEDS ORDERED: LORazepam 2 MG/ML INJ IV PRN (21:25)
--- NOTE | 2020-10-23 00:01 | PN ---
PROGRESS NOTE DATE OF SERVICE: 10/22/2020 REASON FOR FOLLOWUP: COVID-19 infection. INTERVAL HISTORY: The patient is currently afebrile. She is breathing comfortably. FiO2 is currently down to 4 L. Denies having any chest pain, shortness of breath. Minimal cough. No nausea, no vomiting. No abdominal pain or diarrhea. PHYSICAL EXAMINATION: Blood pressure 156/85, pulse of 62, temperature 97.6. She is 100% 4 L nasal cannula. General description is an elderly female lying in bed in no distress. RESPIRATORY SYSTEM: Unlabored breathing with decreased intensity of breath sounds. HEART: S1, S2. Regular rate and rhythm. ABDOMEN: Soft, no tenderness. LABS: Hemoglobin is 15.1, white count 18.1. D-dimer is 1.04. Liver enzymes elevated. CRP down to 15.8. DIAGNOSTIC IMPRESSION AND PLAN: Patient with acute COVID-19 infection in this patient has completed a 5-day course of remdesivir; currently on dexamethasone, Lovenox and zinc to continue. Slowly wean off the oxygen. Continue with supportive care. MMODL / IJN: [id number] /
[2020-10-23 07:07] LABS: Glucose,Whole Blood 195 mg/dL (75-99)
[2020-10-23] MEDS: INSULIN ASPART (NovoLOG) 100 UNIT/ML VIAL SQ SCH ×4 (07:59→22:17)
[2020-10-23] MEDS: ENOXAPARIN 40 MG/0.4 ML SYRINGE SQ SCH ×2 (08:00→22:17)
[2020-10-23] MEDS: CLOPIDOGREL 75 MG TAB PO SCH (08:01)
[2020-10-23] MEDS: MELOXICAM 7.5 MG TAB PO SCH (08:01)
[2020-10-23] MEDS: LOSARTAN 50 MG TAB PO SCH (08:01)
[2020-10-23] MEDS: dexAMETHasone 2 MG TAB PO SCH (08:01)
[2020-10-23] MEDS: CALCIUM CARB-VIT D 500MG-200UN 1 EACH TAB PO SCH (08:01)
[2020-10-23] MEDS: ASCORBIC ACID 500 MG TAB PO SCH (08:02)
[2020-10-23] MEDS: ATORVASTATIN 40 MG TAB PO SCH (08:02)
[2020-10-23] MEDS: ZINC SULFATE 220 MG CAP PO SCH (08:02)
[2020-10-23] MEDS: FAMOTIDINE 20 MG TAB PO SCH ×2 (08:02→22:17)
[2020-10-23] MEDS: MULTIVITAMINS, THERA 1 EACH TAB PO SCH (08:02)
[2020-10-23] MEDS: metFORMIN 500 MG TAB PO SCH ×2 (08:02→17:42)
[2020-10-23] MEDS: METOPROLOL TARTRATE 25 MG TAB PO SCH ×2 (08:02→22:17)
[2020-10-23 11:59] LABS: Glucose,Whole Blood 272 mg/dL (75-99)
--- NOTE | 2020-10-23 12:59 | CT ---
EXAMINATION TYPE: CT brain wo con DATE OF EXAM: 10/23/2020 COMPARISON: 10/16/2020 INDICATION: Acute mental status changes DLP: 1135.4 mGycm, Automated exposure control for dose reduction was used. CONTRAST: None CT of the brain is performed utilizing 3 mm thick sections through the posterior fossa and 3 mm thick sections through the remaining calvarium. Study is not performed within 24 hours of arrival to the hospital. No abnormal hyperdensity is present to suggest an acute intracranial hemorrhage. No mass lesion is evident. No acute infarcts are evident. Mild periventricular white matter hypodensity is present, compatible w ith chronic white matter ischemic changes. Ventricles and sulci are prominent for the patient age. There is prominence of the extra-axial space s anterior to the temporal lobes within the middle cranial fossa. This is stable from comparison. Und erlying arachnoid cyst could be considered. This could be related atrophy. Paranasal sinuses and mastoid air cells within the [id number] are clear. IMPRESSIONS: 1. Atrophy with chronic appearing periventricular white matter ischemic changes.
--- NOTE | 2020-10-23 13:20 | P.PN ---
Subjective Progress Note Date: 10/23/20 Principal diagnosis: Acute quit 19 related pneumonia 74-year-old female patient, came into the ED with generalized weakness, fatigue, altered mentation, confusion and difficulty breathing. This is not typical for the patient. The patient has been progressively getting sick over this past few days. She was not able to give adequate history in the emergency department. She was hypoxic. She was placed on 5 L of oxygen by nasal cannula and she was brought up to 90%. Apparently her condition was getting worse progressively over the past 3 days. She had diminished oral intake. She had fever. The patient is a known case of coronavirus, COVID 19 infection. The patient was in the burst department on 10/12/2020. At that time, the patient had her positive for the same infection. She was complaining of weakness and fatigue and shortness of breath and cough. She had a chest x-ray that showed bilateral pulmonary infiltrates consistent with Covid 19 related pneumonia. The patient had no significant hypoxemia. The patient was discharged home on oral Decadron and since then her condition decompensated. No focal neurological deficit. During her emergency stay, the patient's mentation was gradually improving and the patient was able to answer questions better. Denied having any headache. She was moving all 4 extremities without any limitation. Note that the repeat chest x-ray was done today in emergency department showed cardiomegaly and persistent bilateral pulmonary infiltrates in the midlung and the basilar opacities consistent with infection. No major significant change compared to the earlier chest x-ray from 10/12/2020. Nevertheless, the patient become more hypoxemic. Computed tomography scan of the chest showed peripheral pulmonary infiltration in the mid and lower lung de anda bilaterally. No evidence of any pulmonary embolism. on 10/17/2020, the patient is still somewhat lethargic and confused. She is still on 5 L of oxygen by nasal cannula. She was started on a combination of Decadron and Remdesivir . She has some limited. No significant sputum production. No chest pain. She is still lethargic and she was oriented to place but she was unable to tell me the year or the day. No nausea. No vomiting. No diarrhea. No focal neurological deficits. Blood work is stable. She is afebrile. On 10/18/2020, the patient reports that she is clinically better. However, her x-ray showing worsening the bilateral pulmonary infiltrates. Her oxygen requirements have also gone up and she is currently on 10 L of oxygen by nasal cannula. She is completing her treatment for now. She is on steroids with Decadron. She is on day #3 for Remdesivir. She is having some loose diarrhea. No nausea. No vomiting. She is tolerating her diet. She is currently on 10 L of oxygen by nasal cannula. On 10/19/2020, the patient is being seen in follow-up in regards to her coronavirus/Covid 19 related pneumonia. The patient remains on Solu-Medrol the patient is on day #4 for Remdesivir. The patient has been doing well. The patient is currently on 10 L of oxygen by nasal cannula. The d-dimer is down to 1.5. The patient's CRP is down to 36.8. The patient is afebrile.Chest x-rays revealing dense bilateral pulmonary infiltrates and consolidation mainly in the lung peripheries more so on the left compared to the right. Lung volumes are small. No nausea. No vomiting. No diarrhea. No worsening in her oxygenation. On 10/20/2020, the patient is completing her treatment with Remdesivir and the patient is also on IV Solu-Medrol. On yesterday's evaluation, the patient was on 10 L of oxygen by nasal cannula. She is weak. She is able to stand up and she is able to move herself the bedside commode. No nausea. No vomiting. No diarrhea. No abdominal pain. She does have some episodic cough. No major angel nge in her condition compared to yesterday. On 10/23/2020 the patient is being seen for a follow-up. She is a case of coronavirus/Covid 19 related pneumonia. The patient is being treated with IV So farooq-Medrol and the patient is on day #5 of Remdesivir and she completed treatment yesterday. The patient is currently on 9 L of oxygen by nasal cannula. On today's evaluation, the patient is anxious and restless and she is all over the place. She is squirming. Nausea. No vomiting. No abdominal pain. Overnight, she had to be placed in restraints and she received Haldol 5 mg IM 1.Chest x- ray from yesterday shows bilateral lower lobe and peripheral pulmonary infiltrates, On 10/22/2020 patient seen in follow-up on selective care unit, she completed her Remdesivir course, she remains on IV Decadron, 6 mg daily, she is on therapeutic doses of Lovenox at 100 mg every 12 hours, Pepcid. Patient was still requiring high flow oxygen at 10 L, however this afternoon her FiO2 was weaned down to 4 L and patient is satting about 91%, seems very comfortable resting in bed, she is afebrile, hemodynamically she stable, she appears to be encephalopathic, she is slow to respond, she is confused, she states she still coughing, but appears to be breathing comfortably at the moment, his labs have been reviewed, showing white blood cell count of 18.1, hemoglobin of 15.1, follow d-dimer is trending down, 1.04, sodium is 142, potassium is 3.9, chloride is 111, B1 is 27, creatinine is 0.82, LDH is 1530, and CRP is down to 15.8. Her culture has shown no growth On 10/23/2020 patient seen in follow-up on medical surgical floor, she is currently on 4 L of oxygen with a pulse ox of 93%, she still very sleepy, encephalopathic, but appears to be breathing comfortably, she had a brain CT back on 10/16/2020 which showed no acute intracranial process. She's been afebrile. Repeat. Skin with him, showing atrophy with chronic appearing periventricular white matter ischemic changes. In the neurology consultation was requested, patient continues on oral Decadron, 6 mg daily, she is on the Lovenox at 40 mg every 12 hours, she is on oral Pepcid, vitamin C, zinc supplement. No new blood work today, no new chest x-ray. From a cardiology culture has been reviewed, blood cultures have shown no growth Objective - Vital Signs Vital signs: Vital Signs Temp 99.0 F 10/23/20 08:00 Pulse 87 10/23/20 08:00 Resp 18 10/23/20 08:00 BP 128/82 10/23/20 08:00 Pulse Ox 93 L 10/23/20 08:00 Intake & Output 10/22/20 10/23/20 10/23/20 18:59 06:59 18:59 Intake Total 365 Balance 365 Weight 86 kg Intake: Oral 365 Other: Voiding Method Diaper Diaper Incontinent Incontinent # Voids 2 2 - Exam GENERAL EXAM: 74-year-old white female, 4 L oxygen with pulse ox of 93%, appears sleepy, confused, slow to respond, encephalopathic, comfortable, comfortable in no apparent distress. HEAD: Normocephalic/atraumatic. EYES: Normal reaction of pupils, equal size. Conjunctiva pink, sclera white. NOSE: Clear with pink turbinates. THROAT: No erythema or exudates. NECK: No masses, no JVD, no thyroid enlargement, no adenopathy. CHEST: No chest wall deformity. Symmetrical expansion. LUNGS: Equal air entry with bibasilar crackles, wheeze, rhonchi or dullness. CVS: Regular rate and rhythm, normal S1 and S2, no gallops, no murmurs, no rubs ABDOMEN: Soft, nontender. No hepatosplenomegaly, normal bowel sounds, no guarding or rigidity. EXTREMITIES: No clubbing, no edema, no cyanosis, 2+ pulses and upper and lower extremities. MUSCULOSKELETAL: Muscle strength and tone normal. SPINE: No scoliosis or deformity SKIN: No rashes CENTRAL NERVOUS SYSTEM: Sleepy, but arousable, confused, No focal deficits, tone is normal in all 4 extremities. - Labs CBC & Chem 7: 10/22/20 06:59 10/22/20 06:59 Labs: Abnormal Lab Results - Last 24 Hours (Table) 10/22/20 10/22/20 10/22/20 Range/Units 06:59 16:59 19:58 POC Glucose (mg/dL) 302 H 189 H (75-99) mg/dL Ferritin 1329.0 H (10.0-291.0) ng/mL 10/23/20 10/23/20 Range/Units 07:06 11:55 POC Glucose (mg/dL) 195 H 272 H (75-99) mg/dL Ferritin (10.0-291.0) ng/mL Microbiology - Last 24 Hours (Table) 10/16/20 13:52 Blood Culture - Final Blood No Growth after 144 hours Assessment and Plan Plan: Assessment: 1 acute Covid 19 related pneumonia. Diagnosis established on 10/12/2020. The patient has been symptomatic for less than a week. The patient is currently in patient being treated with a combination of Remdesivir day #5 and IV Solu- Medrol. She is currently on 10 L of oxygen by nasal cannula and her oxygenation is essentially unchanged compared to yesterday. 2 acute hypoxic respiratory failure currently on 10 L of oxygen by nasal cannula. CAT scan of the chest shows no evidence of pulmonary embolism and there is quite extensive groundglass changes in lung bases . On examination, she has coarse crackles in the lung bases. 3 altered mentation, improving, consider encephalopathy secondary to above, improved and recovered. 4 previous history of CVA 5 diabetes mellitus 6 hypertension 7 hyperlipidemia. 8 obesity 9 altered mentation, consider steroid-induced delirium, consider metabolic encephalopathy, consider viral encephalopathy. Neurologic exam is nonfocal. Plan: Present CT was obtained and reviewed, showing no acute findings, patient remains very lethargic, and encephalopathic, we'll discontinue Ativan, she is very slow to respond, will request neurology evaluation, continue current dose Lovenox, continue oral Decadron, maintain aspiration precautions, continue supplements, follow-up chest x-ray in the morning, follow-up blood work including d-dimer, and inflammatory markers I performed a history & physical examination of the patient and discussed their management with my nurse practitioner, Leelee Almaguer. I reviewed the nurse practitioner's note and agree with the documented findings and plan of care. Lung sounds are positive for minimal basilar crackles The findings and the impression was discussed with the patient. I attest to the documentation by the nurse practitioner. Time with Patient: Less than 30
--- NOTE | 2020-10-23 14:03 | XR ---
EXAMINATION TYPE: XR chest 1V portable DATE OF EXAM: 10/23/2020 COMPARISON: 10/22/2020 HISTORY: Shortness of breath TECHNIQUE: Single frontal view of the chest is obtained. FINDINGS: Bilateral patchy infiltrate stable. Heart size stable. Hypertrophic and degenerative minor e of the spine. Arthropathy of the shoulders. IMPRESSION: Stable patchy bilateral infiltrate.
[2020-10-23 14:39] LABS: HGB 14.7 gm/dL (11.4-16.0); MCH 30.3 pg (25.0-35.0); MCHC 32.6 g/dL (31.0-37.0); Mean Platelet Volume 7.1; Platelet Count 437 k/uL (150-450); RBC 4.84 m/uL (3.80-5.40); WBC 10.3 k/uL (3.8-10.6)
--- NOTE | 2020-10-23 17:18 | P.CNNES ---
History of Present Illness Consult date: 10/23/20 Requesting physician: Pauline Freire Reason for Consult: Encephalopathy History of Present Illness: Patient is a 74-year-old female came to the hospital on 10/16/2020, after she was diagnosed with COVID on 10/12/2020. She was having more difficulty breathing with altered mental status. Patient at baseline is alert and oriented 4, but on admission was alert and oriented 1. Her vital signs on arrival was blood pressure 136/82, pulse rate 97, temperature 101.8. Patient's chest x-ray showed cardiomegaly with persistent bilateral peripheral mid lung and basilar opacities consistent with covid-[address] head showed cerebral atrophy, no acute process. Repeat chest x-ray from today showed stable patchy bilateral infiltrates. Repeat computed tomography scan of head showed atrophy with chronic appearing periventricular white matter ischemic changes. Patient has received treatment with Remdesivir 200 mg on day 1 followed by 100 mg daily for 4 more days. She also received dexamethasone 6 mg daily along with zinc sulfate. Patient currently is on 4 L oxygen with pulse ox of 93%. She still very sleepy, encephalopathic, but appears to be breathing comfortably. Patient continues to be on Decadron orally 6 mg daily and Lovenox 40 mg every 12 hours. She is also on Pepcid, vitamin C, zinc. Patient not able to provide any history. He is referred to examination below. Review of Systems ROS unobtainable: due to mental status Past Medical History Past Medical History: CVA/TIA, Diabetes Mellitus, Hyperlipidemia, Hypertension Additional Past Medical History / Comment(s): CVA 2012 = numbness in hand and arm History of Any Multi-Drug Resistant Organisms: None Reported Past Surgical History: Back Surgery, Orthopedic Surgery Additional Past Surgical History / Comment(s): both knees total, rotor cuff repair Past Anesthesia/Blood Transfusion Reactions: No Reported Reaction Past Psychological History: No Psychological Hx Reported Smoking Status: Never smoker, Unknown if ever smoked Past Alcohol Use History: Occasional Past Drug Use History: None Reported - Past Family History Son(s) Additional Family Medical History / Comment(s): gout Medications and Allergies Home Medications Medication Instructions Recorded Confirmed Type Gabapentin 600 mg PO BID 01/02/15 10/16/20 History Losartan Potassium 50 mg PO DAILY 01/02/15 10/16/20 History Meloxicam 7.5 mg PO DAILY 01/02/15 10/16/20 History Ascorbic Acid [Vitamin C] 500 mg PO DAILY 01/03/15 10/16/20 History Atorvastatin Calcium [Lipitor] 40 mg PO DAILY #30 tab 01/03/15 10/16/20 Rx Calcium Carbonate/Vitamin D3 1 tab PO DAILY 01/03/15 10/16/20 History [Calcium 600-Vit D3 400 Tablet] Calcium Polycarbophil [Fibercon] 625 mg PO DAILY 01/03/15 10/16/20 History Clopidogrel [Plavix] 75 mg PO DAILY tab 01/03/15 10/16/20 Rx Docusate Sodium [Dulcolax Stool 100 mg PO BID 01/03/15 10/16/20 History Softener] Multivitamins, Thera [Multivitamin 1 tab PO DAILY 01/03/15 10/16/20 History (formulary)] [place]-3 Fatty Acids/Fish Oil [Fish 1 cap PO DAILY 01/03/15 10/16/20 History Oil 1,000 mg Softgel] metFORMIN HCL [Glucophage] 500 mg PO BID 07/06/18 10/16/20 History Biotin 5 mg PO DAILY 10/12/20 10/16/20 History Turmeric Root Extract [Turmeric] 500 mg PO DAILY 10/12/20 10/16/20 History Metoprolol Tartrate [Lopressor] 25 mg PO BID 10/16/20 10/16/20 History Allergies Allergy/AdvReac Type Severity Reaction Status Date / Time No Known Allergies Allergy Verified 10/16/20 14:18 Physical Examination - Vital Signs Vital Signs: Vital Signs Temp Pulse Resp BP Pulse Ox 10/23/20 08:00 99.0 F 87 18 128/82 93 L 10/23/20 05:35 98.5 F 93 20 143/81 92 L 10/23/20 02:05 97.7 F 96 21 134/82 90 L 10/22/20 22:51 16 10/22/20 22:45 98.6 F 92 20 136/82 91 L 10/22/20 20:00 97.6 F 62 16 156/85 100 10/22/20 16:34 98.8 F 98 20 147/79 91 L 10/22/20 11:47 98.4 F 90 20 155/81 93 L Intake and Output 12/10/23/20 10/23/20 22:59 06:59 14:59 Other: Voiding Method Diaper Diaper Incontinent Incontinent # Voids 2 2 Weight 86 kg On examination patient is an elderly female, who is laying in the bed, comfortably in no significant distress. Patient keeps her eyes closed. He would say some words like "what about". Patient would not speak to her name, does not answer to month, year building or the president. She would say "yes", "no" when some questions are asked, but does not speak any other words besides above. On cranial nerve examination pupils are round and reactive to light, visual de anda could not be tested although she does blink to visual threat bilaterally. Her face is symmetric. Muscles appears intact. Patient did not protrude her tongue. Palate, hearing could not be tested reliably. Her tone is equal in the arms and legs. Neck is supple. Patient moves all 4 extremities. Reflexes are 1+. Plantars are probably upgoing. Patient does grimace, and moans with painful stimuli. However did not interact otherwise. No obvious seizure type activity noted. Bulk of muscles normal. On general examination, there is no obvious bruit, S1 and S2 audible, abdomen soft nontender. Patient has mild peripheral edema. Results - Laboratory Findings CBC and BMP: 10/23/20 13:51 10/22/20 06:59 Abnormal Lab Findings: Abnormal Labs 10/16/20 10/16/20 10/16/20 13:54 13:54 13:54 WBC Plt Count Neutrophils # Lymphocytes # 0.7 L D-Dimer 1.27 H Sodium 146 H Chloride 109 H BUN 30 H Creatinine 1.12 H Glucose 189 H POC Glucose (mg/dL) Ferritin 1858.8 H AST 112 H ALT 64 H Lactate Dehydrogenase 1735 H C-Reactive Protein 189.9 H Albumin Procalcitonin Urine Appearance Ur Specific [place] Urine Protein Urine Blood Urine RBC Urine Bacteria Urine Mucus 10/16/20 10/16/20 10/17/20 13:55 17:15 06:09 WBC Plt Count Neutrophils # Lymphocytes # D-Dimer Sodium Chloride BUN Creatinine Glucose POC Glucose (mg/dL) 300 H Ferritin AST ALT Lactate Dehydrogenase C-Reactive Protein Albumin Procalcitonin 0.20 H Urine Appearance Cloudy H Ur Specific [place] >1.050 H Urine Protein 2+ H Urine Blood Small H Urine RBC 10 H Urine Bacteria Rare H Urine Mucus Rare H 10/17/20 10/17/20 10/17/20 11:58 16:23 20:06 WBC Plt Count Neutrophils # Lymphocytes # D-Dimer Sodium Chloride BUN Creatinine Glucose POC Glucose (mg/dL) 126 H 209 H 322 H Ferritin AST ALT Lactate Dehydrogenase C-Reactive Protein Albumin Procalcitonin Urine Appearance Ur Specific [place] Urine Protein Urine Blood Urine RBC Urine Bacteria Urine Mucus 10/18/20 10/18/20 10/18/20 06:07 07:43 07:43 WBC Plt Count Neutrophils # Lymphocytes # D-Dimer 2.30 H Sodium Chloride BUN Creatinine Glucose POC Glucose (mg/dL) 211 H Ferritin AST ALT Lactate Dehydrogenase C-Reactive Protein 60.6 H Albumin Procalcitonin Urine Appearance Ur Specific [place] Urine Protein Urine Blood Urine RBC Urine Bacteria Urine Mucus 10/18/20 10/18/20 10/18/20 11:46 16:49 20:20 WBC Plt Count Neutrophils # Lymphocytes # D-Dimer Sodium Chloride BUN Creatinine Glucose POC Glucose (mg/dL) 175 H 284 H 304 H Ferritin AST ALT Lactate Dehydrogenase C-Reactive Protein Albumin Procalcitonin Urine Appearance Ur Specific [place] Urine Protein Urine Blood Urine RBC Urine Bacteria Urine Mucus 10/19/20 10/19/20 10/19/20 05:57 09:28 09:28 WBC Plt Count Neutrophils # Lymphocytes # D-Dimer 1.57 H Sodium Chloride BUN Creatinine Glucose POC Glucose (mg/dL) 162 H Ferritin AST ALT Lactate Dehydrogenase C-Reactive Protein 36.8 H Albumin Procalcitonin Urine Appearance Ur Specific [place] Urine Protein Urine Blood Urine RBC Urine Bacteria Urine Mucus 10/19/20 10/19/20 10/19/20 11:47 16:53 20:30 WBC Plt Count Neutrophils # Lymphocytes # D-Dimer Sodium Chloride BUN Creatinine Glucose POC Glucose (mg/dL) 215 H 225 H 309 H Ferritin AST ALT Lactate Dehydrogenase C-Reactive Protein Albumin Procalcitonin Urine Appearance Ur Specific [place] Urine Protein Urine Blood Urine RBC Urine Bacteria Urine Mucus 10/20/20 10/20/20 10/20/20 06:22 10:20 10:20 WBC Plt Count Neutrophils # Lymphocytes # D-Dimer 1.15 H Sodium Chloride BUN Creatinine Glucose POC Glucose (mg/dL) 252 H Ferritin AST ALT Lactate Dehydrogenase C-Reactive Protein 39.1 H Albumin Procalcitonin Urine Appearance Ur Specific [place] Urine Protein Urine Blood Urine RBC Urine Bacteria Urine Mucus 10/20/20 10/20/20 10/20/20 11:44 16:43 20:51 WBC Plt Count Neutrophils # Lymphocytes # D-Dimer Sodium Chloride BUN Creatinine Glucose POC Glucose (mg/dL) 222 H 261 H 237 H Ferritin AST ALT Lactate Dehydrogenase C-Reactive Protein Albumin Procalcitonin Urine Appearance Ur Specific [place] Urine Protein Urine Blood Urine RBC Urine Bacteria Urine Mucus 10/21/20 10/21/20 10/21/20 06:26 11:47 16:27 WBC Plt Count Neutrophils # Lymphocytes # D-Dimer Sodium Chloride BUN Creatinine Glucose POC Glucose (mg/dL) 216 H 195 H 249 H Ferritin AST ALT Lactate Dehydrogenase C-Reactive Protein Albumin Procalcitonin Urine Appearance Ur Specific [place] Urine Protein Urine Blood Urine RBC Urine Bacteria Urine Mucus 10/21/20 10/22/20 10/22/20 20:33 06:29 06:59 WBC 18.1 H Plt Count 505 H Neutrophils # 15.5 H Lymphocytes # D-Dimer Sodium Chloride BUN Creatinine Glucose POC Glucose (mg/dL) 208 H 184 H Ferritin AST ALT Lactate Dehydrogenase C-Reactive Protein Albumin Procalcitonin Urine Appearance Ur Specific [place] Urine Protein Urine Blood Urine RBC Urine Bacteria Urine Mucus 10/22/20 10/22/20 10/22/20 06:59 06:59 11:36 WBC Plt Count Neutrophils # Lymphocytes # D-Dimer 1.04 H Sodium Chloride 111 H BUN 27 H Creatinine Glucose 186 H POC Glucose (mg/dL) 216 H Ferritin 1329.0 H AST 159 H ALT 89 H Lactate Dehydrogenase 1530 H C-Reactive Protein 15.8 H Albumin 3.4 L Procalcitonin Urine Appearance Ur Specific [place] Urine Protein Urine Blood Urine RBC Urine Bacteria Urine Mucus 10/22/20 10/22/20 10/23/20 16:59 19:58 07:06 WBC Plt Count Neutrophils # Lymphocytes # D-Dimer Sodium Chloride BUN Creatinine Glucose POC Glucose (mg/dL) 302 H 189 H 195 H Ferritin AST ALT Lactate Dehydrogenase C-Reactive Protein Albumin Procalcitonin Urine Appearance Ur Specific [place] Urine Protein Urine Blood Urine RBC Urine Bacteria Urine Mucus Assessment and Plan Assessment: * Altered mental status, likely due to toxic metabolic encephalopathy. Patient has COVID-19 related pneumonia, with significant encephalopathy. Limited examination was relatively nonfocal. * Acute hypoxic respiratory failure, currently on 10 L of oxygen by nasal cannula. * History of right thalamic lacunar infarct 12/15/2014. * Diabetes * Hypertension Plan: * Agree with checking EEG and MRI of the brain. * We will follow with you.
[2020-10-23 17:25] LABS: Glucose,Whole Blood 200 mg/dL (75-99)
[2020-10-23 20:16] LABS: African American GFR (CKD) 65.2 (60.0-200.0); C Reactive Protein 3.9 mg/dL (0.0-0.8); Non-African American GFR(CKD) 56.2 (60.0-200.0); Potassium 4.5 mmol/L (3.5-5.5)
--- NOTE | 2020-10-23 20:45 | P.PN ---
Progress Note - Text Progress Note Date: 10/23/20 Chief Complaint: Short of breath, confused History of presenting complaint: This is a 74-year-old patient of . Patient was diagnosed with COVID on Thursday that is 6 days ago. Patient came in today because she was becoming more short of breath also becoming confused. Brought in by the of the ER was also getting symptoms also admitted to the hospital with COVID. Overnight patient has done a bit better. Less short of breath. Less cough. Did eat some food. Tired. Chronic stable medical conditions include diabetes, hyperlipidemia, hypertension, stroke causing some numbness in the hands and arm. Admitted with bilateral COVID 19 pneumonia, acute hypoxic respiratory failure, acute metabolic encephalopathy and delirium. Patient started on dexamethasone, Remdesivir, Lovenox. Oxygen supplementation. Today-. Remains lethargic. Eyes open. On 4 L nasal cannula. Barely following commands. Moving limbs. Computed tomography scan of the brain done earlier unremarkable Review of systems: Attempted for constitutional, cardiovascular, GI, pulmonary. relevant finding as above Active Medications Acetaminophen (Acetaminophen Tab 500 Mg Tab) 500 mg PO Q4HR PRN PRN Reason: Fever and/ or Pain Last Admin: 10/18/20 20:45 Dose: 500 mg Documented by: Ascorbic Acid (Ascorbic Acid 500 Mg Tab) 500 mg PO DAILY [facility] Last Admin: 10/23/20 08:02 Dose: 500 mg Documented by: Atorvastatin Calcium (Atorvastatin 40 Mg Tab) 40 mg PO DAILY [facility] Last Admin: 10/23/20 08:02 Dose: 40 mg Documented by: Calcium Carbonate (Calcium Carb-Vit D 500mg-200un 1 Each Tab) 1 each PO DAILY [facility] Last Admin: 10/23/20 08:01 Dose: 1 each Documented by: Calcium Polycarbophil (Calcium Polycarbophil 625 Mg Tab) 625 mg PO DAILY [facility] Last Admin: 10/23/20 08:01 Dose: 625 mg Documented by: Clopidogrel Bisulfate (Clopidogrel 75 Mg Tab) 75 mg PO DAILY [facility] Last Admin: 10/23/20 08:01 Dose: 75 mg Documented by: Dexamethasone (Dexamethasone 2 Mg Tab) 6 mg PO DAILY [facility] Last Admin: 10/23/20 08:01 Dose: 6 mg Documented by: Enoxaparin Sodium (Enoxaparin 40 Mg/0.4 Ml Syringe) 40 mg SQ Q12HR [facility] Last Admin: 10/23/20 08:00 Dose: 40 mg Documented by: Famotidine (Famotidine 20 Mg Tab) 20 mg PO BID [facility] Last Admin: 10/23/20 08:02 Dose: 20 mg Documented by: Gabapentin (Gabapentin 300 Mg Cap) 300 mg PO [facility] Insulin Aspart (Insulin Aspart (Novolog) 100 Unit/Ml Vial) 0 unit SQ ACHS [facility]; Protocol Last Admin: 10/23/20 17:42 Dose: 2 unit Documented by: Losartan Potassium (Losartan 50 Mg Tab) 50 mg PO DAILY [facility] Last Admin: 10/23/20 08:01 Dose: 50 mg Documented by: Meloxicam (Meloxicam 7.5 Mg Tab) 7.5 mg PO DAILY [facility] Last Admin: 10/23/20 08:01 Dose: 7.5 mg Documented by: Metformin HCl (Metformin 500 Mg Tab) 500 mg PO BID-W/MEALS [facility] Last Admin: 10/23/20 17:42 Dose: Not Given Documented by: Metoprolol Tartrate (Metoprolol Tartrate 25 Mg Tab) 25 mg PO BID [facility] Last Admin: 10/23/20 08:02 Dose: 25 mg Documented by: Multivitamins (Multivitamins, Thera 1 Each Tab) 1 each PO DAILY [facility] Last Admin: 10/23/20 08:02 Dose: 1 each Documented by: Zinc Sulfate (Zinc Sulfate 220 Mg Cap) 220 mg PO DAILY [facility] Last Admin: 10/23/20 08:02 Dose: 220 mg Documented by: Physical examination: VITAL SIGNS: 97.8, 88, 18, 11/28/2073, 94% on 4 L GENERAL: Laying in bed tired, lethargic PSYCH: Not answering questions NEUROLOGICAL: Cranial nerves grossly intact; no facial asymmetry, moving limbs. Not really following commands Rest of exam as per nursing pulmonary INVESTIGATIONS, reviewed in the clinical context: October 23: White count 10.3 hemoglobin 14.7 4146 potassium 4.5 creatinine 1.0 CRP 3.9 October 22: White count 18.1 hemoglobin 15.1 potassium 3.9 creatinine 0.82 CRP 15.8 October 20: D-dimer 1.15 CRP 39.1 Accu-Cheks to October 19: D-dimer 1.57 CRP 36.8. Accu-Cheks to October 18: D-dimer 2.3 CRP 60.6. Chest x-ray film, personally reviewed by me- worsening infiltrate White count 7.6 hemoglobin 15.1 lymphocyte 0.7 D-dimer 1.27 potassium 4.0 bun 30 creatinine 1.12 CRP 189 pro-calcitonin 0.20 glucose 189 300 Influenza type A and type B both negative EKG tracing personally reviewed by me-normal sinus rhythm Chest x-ray film personally reviewed by me-portable bilateral infiltrates CT chest no obvious PE. Peripheral and basilar infiltrates Assessment: -Diagnosed with Coronavirus 6 days prior to admission. admitted with bilateral COVID 19 pneumonia -Acute hypoxic respiratory failure from down to 4 L -Acute metabolic encephalopathy and acute delirium-worsening -Diabetes mellitus type 2 uncontrolled with hyperglycemia -Essential hypertension -Hyperlipidemia -Obesity BMI 31.8 Plan: Remdesivir-completed. On Decadron 6 mg. Subcu Lovenox. Will start the patient on saline strongly clinically and the dry side. Neurology consulted.
[2020-10-23 20:52] LABS: Glucose,Whole Blood 176 mg/dL (75-99)
[2020-10-23] MEDS: SODIUM CHLORIDE 0.9% 1,000 ML IV SCH (21:38)
[2020-10-23] MEDS: GABAPENTIN 300 MG CAP PO SCH (22:17)
--- NOTE | 2020-10-23 22:46 | PN ---
PROGRESS NOTE DATE OF SERVICE: 10/23/2020 REASON FOR FOLLOWUP: COVID-19 infection. INTERVAL HISTORY: The patient was seen on rounds early this afternoon. The patient has been afebrile. She was noted to have slight mental status changes, slightly lethargic and not responding or answering questions appropriately. No vomiting or diarrhea or other changes reported by nursing staff. PHYSICAL EXAMINATION: Blood pressure 123/72 with a pulse of 88, temperature 98.5. She is 94% on 4 L nasal cannula. General description is an elderly female lying in bed in no distress. RESPIRATORY SYSTEM: Unlabored breathing with a few basal crackles. No wheeze. HEART: S1, S2. Regular rate and rhythm. ABDOMEN: Soft. No tenderness. EXTREMITIES: No edema of the feet. LABS: Hemoglobin is 14.7, white count 10.3, creatinine 1.0. CRP is 3.9. DIAGNOSTIC IMPRESSION AND PLAN: Patient with acute COVID-19 infection in this patient who completed her remdesivir therapy. She is currently on dexamethasone, Lovenox and zinc; to continue along with supportive care and monitor her clinical course closely. MMODL / IJN: [id number] /
[2020-10-24] MEDS: SODIUM CHLORIDE 0.9% 1,000 ML IV SCH ×2 (00:15→11:08)
--- NOTE | 2020-10-24 07:29 | MR ---
EXAMINATION TYPE: MR brain wo con DATE OF EXAM: 10/24/2020 COMPARISON: Prior MRI brain December 15, 2014. CT brain from yesterday. HISTORY: Decreased sensorium TECHNIQUE: Multiplanar, multisequence imaging of the brain and brainstem is performed without IV cont rast. FINDINGS: Slightly suboptimal due to motion artifact degradation. Diffusion weighted images demonstrate no evidence of a recent infarct or other diffusion abnormality. There is no worrisome no extra-axial fluid collection. Persistent diffuse ventricular and sulcal prom inence. Persistent scattered foci of T2 hyperintensity throughout the superficial deep and periventri cular white matter. CSF prominence consistent with roughly 3.0 x 2.0 cm arachnoid cyst anterior left middle cranial fossa axial image 12 unchanged from prior studies. Local mass effect is present. Midline structures demonstrate normal morphology. The craniocervical junction appears within normal limits. Normal vascular flow voids are present. The visualized sinuses are clear and the globes are i ntact. IMPRESSION: There is mild to moderate diffuse cerebral atrophy and chronic small vessel ischemic nieves ges redemonstrated. There is left temporal arachnoid cyst redemonstrated. No significant change from prior studies.
[2020-10-24 07:32] LABS: Glucose,Whole Blood 233 mg/dL (75-99)
[2020-10-24] MEDS: ATORVASTATIN 40 MG TAB PO SCH (07:54)
[2020-10-24] MEDS: LOSARTAN 50 MG TAB PO SCH (07:54)
[2020-10-24] MEDS: metFORMIN 500 MG TAB PO SCH ×2 (07:54→16:23)
[2020-10-24] MEDS: METOPROLOL TARTRATE 25 MG TAB PO SCH ×2 (07:54→20:56)
[2020-10-24] MEDS: dexAMETHasone 2 MG TAB PO SCH (07:54)
[2020-10-24] MEDS: INSULIN ASPART (NovoLOG) 100 UNIT/ML VIAL SQ SCH ×4 (07:54→20:55)
[2020-10-24] MEDS: CALCIUM CARB-VIT D 500MG-200UN 1 EACH TAB PO SCH (07:54)
[2020-10-24] MEDS: ASCORBIC ACID 500 MG TAB PO SCH (07:55)
[2020-10-24] MEDS: FAMOTIDINE 20 MG TAB PO SCH ×2 (07:55→20:56)
[2020-10-24] MEDS: CLOPIDOGREL 75 MG TAB PO SCH (07:55)
[2020-10-24] MEDS: ZINC SULFATE 220 MG CAP PO SCH (07:55)
[2020-10-24] MEDS: MULTIVITAMINS, THERA 1 EACH TAB PO SCH (07:55)
[2020-10-24] MEDS: MELOXICAM 7.5 MG TAB PO SCH (07:55)
[2020-10-24] MEDS: ENOXAPARIN 40 MG/0.4 ML SYRINGE SQ SCH ×2 (07:55→20:55)
[2020-10-24 09:59] LABS: African American GFR (CKD) 58.1 (60.0-200.0); Anion Gap 14.1 mmol/L (4.00-12.00); BUN/Creat Ratio 33.64 Ratio (12.00-20.00); Calcium 9.9 mg/dL (8.7-10.3); Carbon Dioxide 25.9 mmol/L (21.6-31.8); Non-African American GFR(CKD) 50.1 (60.0-200.0); Potassium 4.6 mmol/L (3.5-5.5)
[2020-10-24 11:26] LABS: Glucose,Whole Blood 190 mg/dL (75-99)
--- NOTE | 2020-10-24 14:22 | P.PN ---
Subjective Progress Note Date: 10/24/20 Principal diagnosis: CoVID 19 pneumonia 74-year-old female patient, came into the ED with generalized weakness, fatigue, altered mentation, confusion and difficulty breathing. This is not typical for the patient. The patient has been progressively getting sick over this past few days. She was not able to give adequate history in the emergency department. She was hypoxic. She was placed on 5 L of oxygen by nasal cannula and she was brought up to 90%. Apparently her condition was getting worse progressively over the past 3 days. She had diminished oral intake. She had fever. The patient is a known case of coronavirus, COVID 19 infection. The patient was in the burst department on 10/12/2020. At that time, the patient had her positive for the same infection. She was complaining of weakness and fatigue and shortness of breath and cough. She had a chest x-ray that showed bilateral pulmonary infiltrates consistent with Covid 19 related pneumonia. The patient had no significant hypoxemia. The patient was discharged home on oral Decadron and since then her condition decompensated. No focal neurological deficit. During her emergency stay, the patient's mentation was gradually improving and the patient was able to answer questions better. Denied having any headache. She was moving all 4 extremities without any limitation. Note that the repeat chest x-ray was done today in emergency department showed cardiomegaly and persistent bilateral pulmonary infiltrates in the midlung and the basilar opacities consistent with infection. No major significant change compared to the earlier chest x-ray from 10/12/2020. Nevertheless, the patient become more hypoxemic. Computed tomography scan of the chest showed peripheral pulmonary infiltration in the mid and lower lung de anda bilaterally. No evidence of any pulmonary embolism. on 10/17/2020, the patient is still somewhat lethargic and confused. She is still on 5 L of oxygen by nasal cannula. She was started on a combination of Decadron and Remdesivir . She has some limited. No significant sputum production. No chest pain. She is still lethargic and she was oriented to place but she was unable to tell me the year or the day. No nausea. No vomiting. No diarrhea. No focal neurological deficits. Blood work is stable. She is afebrile. On 10/18/2020, the patient reports that she is clinically better. However, her x-ray showing worsening the bilateral pulmonary infiltrates. Her oxygen requirements have also gone up and she is currently on 10 L of oxygen by nasal cannula. She is completing her treatment for now. She is on steroids with Decadron. She is on day #3 for Remdesivir. She is having some loose diarrhea. No nausea. No vomiting. She is tolerating her diet. She is currently on 10 L of oxygen by nasal cannula. On 10/19/2020, the patient is being seen in follow-up in regards to her coronavirus/Covid 19 related pneumonia. The patient remains on Solu-Medrol the patient is on day #4 for Remdesivir. The patient has been doing well. The patient is currently on 10 L of oxygen by nasal cannula. The d-dimer is down to 1.5. The patient's CRP is down to 36.8. The patient is afebrile.Chest x-rays revealing dense bilateral pulmonary infiltrates and consolidation mainly in the lung peripheries more so on the left compared to the right. Lung volumes are small. No nausea. No vomiting. No diarrhea. No worsening in her oxygenation. On 10/20/2020, the patient is completing her treatment with Remdesivir and the patient is also on IV Solu-Medrol. On yesterday's evaluation, the patient was on 10 L of oxygen by nasal cannula. She is weak. She is able to stand up and she is able to move herself the bedside commode. No nausea. No vomiting. No diarrhea. No abdominal pain. She does have some episodic cough. No major change in her condition compared to yesterday. On 10/23/2020 the patient is being seen for a follow-up. She is a case of coronavirus/Covid 19 related pneumonia. The patient is being treated with IV Solu-Medrol and the patient is on day #5 of Remdesivir and she completed treatment yesterday. The patient is currently on 9 L of oxygen by nasal cannula. On today's evaluation, the patient is anxious and restless and she is all over the place. She is squirming. Nausea. No vomiting. No abdominal pain. Overnight, she had to be placed in restraints and she received Haldol 5 mg IM 1.Chest x-ray from yesterday shows bilateral lower lobe and peripheral pulmonary infiltrates, On 10/22/2020 patient seen in follow-up on selective care unit, she completed her Remdesivir course, she remains on IV Decadron, 6 mg daily, she is on therapeutic doses of Lovenox at 100 mg every 12 hours, Pepcid. Patient was still requiring high flow oxygen at 10 L, however this afternoon her FiO2 was weaned down to 4 L and patient is satting about 91%, seems very comfortable resting in bed, she is afebrile, hemodynamically she stable, she appears to be encephalopathic, she is slow to respond, she is confused, she states she still coughing, but appears to be breathing comfortably at the moment, his labs have been reviewed, showing white blood cell count of 18.1, hemoglobin of 15.1, follow d-dimer is trending down, 1.04, sodium is 142, potassium is 3.9, chloride is 111, B1 is 27, creatinine is 0.82, LDH is 1530, and CRP is down to 15.8. Her culture has shown no growth On 10/23/2020 patient seen in follow-up on medical surgical floor, she is currently on 4 L of oxygen with a pulse ox of 93%, she still very sleepy, encephalopathic, but appears to be breathing comfortably, she had a brain CT back on 10/16/2020 which showed no acute intracranial process. She's been afebrile. Repeat. Skin with him, showing atrophy with chronic appearing periventricular white matter ischemic changes. In the neurology consultation was requested, patient continues on oral Decadron, 6 mg daily, she is on the Lovenox at 40 mg every 12 hours, she is on oral Pepcid, vitamin C, zinc supplement. No new blood work today, no new chest x-ray. From a cardiology culture has been reviewed, blood cultures have shown no growth The patient is seen today 10/24/2020 in follow-up on the regular medical floor. She is currently resting comfortable in bed. She still altered. MRI of the brain revealed mild to moderate diffuse cerebral atrophy and chronic small vessel ischemic changes. Left temporal arachnoid cyst redemonstrated. No significant change compared to previous computed tomography scan of the brain. She is maintaining good O2 saturations in the upper 90s on 3 L high flow nasal cannula. She's afebrile. D-dimer 0.84. Sodium 150. Potassium 4.6. Creatinine 1.1. Blood glucose 192. She is complete her course of Remdesivir. She remains on dexamethasone, Lovenox, vitamin supplements. Objective - Vital Signs Vital signs: Vital Signs Temp 98.2 F 10/24/20 09:17 Pulse 80 10/24/20 09:17 Resp 18 10/24/20 09:17 BP 115/74 10/24/20 09:17 Pulse Ox 97 10/24/20 09:17 Intake & Output 10/23/20 10/24/20 10/24/20 18:59 06:59 18:59 Intake Total 1020 Balance 1020 Weight 86 kg Intake: Intake, IV Titration 900 Amount Sodium Chloride 0.9% 1, 900 000 ml @ 130 mls/hr IV . Q7H42M [facility] Rx#:[id number] Oral 120 Other: Voiding Method Diaper Diaper Diaper Incontinent Incontinent Incontinent # Voids 2 1 - Exam GENERAL EXAM: 74-year-old female patient, 3 L oxygen with pulse ox of 97%, appears sleepy, confused, slow to respond, encephalopathic, in no apparent distress. HEAD: Normocephalic/atraumatic. EYES: Normal reaction of pupils, equal size. Conjunctiva pink, sclera white. NOSE: Clear with pink turbinates. THROAT: No erythema or exudates. NECK: No masses, no JVD, no thyroid enlargement, no adenopathy. CHEST: No chest wall deformity. Symmetrical expansion. LUNGS: Equal air entry with bibasilar crackles, no wheeze, rhonchi or dullness. CVS: Regular rate and rhythm, normal S1 and S2, no gallops, no murmurs, no rubs ABDOMEN: Soft, nontender. No hepatosplenomegaly, normal bowel sounds, no guarding or rigidity. EXTREMITIES: No clubbing, no edema, no cyanosis, 2+ pulses and upper and lower extremities. MUSCULOSKELETAL: Muscle strength and tone normal. SPINE: No scoliosis or deformity SKIN: No rashes CENTRAL NERVOUS SYSTEM: Sleepy, but arousable, confused, No focal deficits, tone is normal in all 4 extremities. - Labs CBC & Chem 7: 10/23/20 13:51 10/24/20 05:42 Labs: Abnormal Lab Results - Last 24 Hours (Table) 10/23/20 10/23/20 10/23/20 Range/Units 13:50 17:21 20:49 D-Dimer (<0.60) mg/L FEU Sodium 146 H (135-145) mmol/L Chloride 112 H (96-109) mmol/L Anion Gap (4.00-12.00) mmol/L BUN 37.0 H (9.0-27.0) mg/dL Est GFR (CKD-EPI)AfAm (60.0-200.0) Est GFR (CKD-EPI)NonAf 56.2 L (60.0-200.0) BUN/Creatinine Ratio 37.00 H (12.00-20.00) Ratio Glucose 278 H (70-110) mg/dL POC Glucose (mg/dL) 200 H 176 H (75-99) mg/dL Osmolality (280-301) mosm/kg Lactate Dehydrogenase 448 H (120-246) U/L C-Reactive Protein 3.9 H (0.0-0.8) mg/dL 10/24/20 10/24/20 10/24/20 Range/Units 05:42 05:42 05:42 D-Dimer 0.84 H (<0.60) mg/L FEU Sodium 150 H (135-145) mmol/L Chloride 110 H (96-109) mmol/L Anion Gap 14.10 H (4.00-12.00) mmol/L BUN 37.0 H (9.0-27.0) mg/dL Est GFR (CKD-EPI)AfAm 58.1 L (60.0-200.0) Est GFR (CKD-EPI)NonAf 50.1 L (60.0-200.0) BUN/Creatinine Ratio 33.64 H (12.00-20.00) Ratio Glucose 192 H (70-110) mg/dL POC Glucose (mg/dL) (75-99) mg/dL Osmolality 323 H (280-301) mosm/kg Lactate Dehydrogenase (120-246) U/L C-Reactive Protein (0.0-0.8) mg/dL 10/24/20 10/24/20 Range/Units 07:21 11:24 D-Dimer (<0.60) mg/L FEU Sodium (135-145) mmol/L Chloride (96-109) mmol/L Anion Gap (4.00-12.00) mmol/L BUN (9.0-27.0) mg/dL Est GFR (CKD-EPI)AfAm (60.0-200.0) Est GFR (CKD-EPI)NonAf (60.0-200.0) BUN/Creatinine Ratio (12.00-20.00) Ratio Glucose (70-110) mg/dL POC Glucose (mg/dL) 233 H 190 H (75-99) mg/dL Osmolality (280-301) mosm/kg Lactate Dehydrogenase (120-246) U/L C-Reactive Protein (0.0-0.8) mg/dL Assessment and Plan Assessment: 1 Acute Covid 19 related pneumonia. Diagnosis established on 10/12/2020. The patient has been symptomatic for less than a week. Completed Remdesivir. Currently on 3 L nasal cannula. 2 Acute hypoxic respiratory failure currently on 3 L of oxygen by nasal cannula. CAT scan of the chest shows no evidence of pulmonary embolism and there is quite extensive groundglass changes in lung bases . On examination, she has coarse crackles in the lung bases. 3 Altered mentation, consider encephalopathy secondary to above, MRI revealed mild to moderate diffuse cerebral atrophy and chronic small vessel ischemic changes. Neurologic exam is nonfocal. 4 Previous history of CVA 5 Diabetes mellitus 6 Hypertension 7 Hyperlipidemia. 8 Obesity 9 Hypernatremia, current sodium 150 Plan: The patient was seen and evaluated by Dr. Mouna ZAFAR and labs reviewed Discontinue the 0.9 normal saline Add D5W at 125 ML's per hour We will continue to follow I, the cosigning physician, performed a history & physical examination of the patient. Lungs sounds are coarse bibasilar crackles. Maintaining good O2 saturations in the 90s on 3 L/m per nasal cannula. I discussed the assessment and plan of care with my nurse practitioner, Yessy Guzman. I attest to the above note as dictated by her.
[2020-10-24] MEDS ORDERED: LORazepam 2 MG/ML INJ IV STA (15:00)
--- NOTE | 2020-10-24 16:14 | P.PN ---
Subjective Progress Note Date: 10/24/20 Patient was seen for a follow-up. Patient continues to be very encephalopathic. Patient is almost naked, per nurse does not want any tubing or closed on her. She keeps on taking off her clothes. Patient did answer clearly "no" for headache. Objective - Vital Signs Vital signs: Vital Signs Temp 98.3 F 10/24/20 13:54 Pulse 79 10/24/20 13:54 Resp 18 10/24/20 13:54 BP 138/75 10/24/20 13:54 Pulse Ox 90 L 10/24/20 13:54 Intake & Output 10/23/20 10/24/20 10/24/20 18:59 06:59 18:59 Intake Total 1020 Balance 1020 Weight 86 kg Intake: Intake, IV Titration 900 Amount Sodium Chloride 0.9% 1, 900 000 ml @ 130 mls/hr IV . Q7H42M [facility] Rx#:[id number] Oral 120 Other: Voiding Method Diaper Diaper Diaper Incontinent Incontinent Incontinent # Voids 2 1 - Exam patient appears restless, but appears slightly better than yesterday. patient denies headache. Her neck is supple. Face is symmetric, pupils are round and reacting. Strength of upper extremity appears normal, as patient while holding onto my hand, lifted her body up. She moves her lower extremities very well. Patient has withdrawal for plantar stimulation bilaterally. patient did not cooperate with visual field testing. Chest appears clear, although patient is coughing. Appears slightly tachypneic. No peripheral edema. Abdomen is soft. - Labs CBC & Chem 7: 10/23/20 13:51 10/24/20 05:42 Labs: Abnormal Lab Results - Last 24 Hours (Table) 10/23/20 10/23/20 10/23/20 Range/Units 13:50 17:21 20:49 D-Dimer (<0.60) mg/L FEU Sodium 146 H (135-145) mmol/L Chloride 112 H (96-109) mmol/L Anion Gap (4.00-12.00) mmol/L BUN 37.0 H (9.0-27.0) mg/dL Est GFR (CKD-EPI)AfAm (60.0-200.0) Est GFR (CKD-EPI)NonAf 56.2 L (60.0-200.0) BUN/Creatinine Ratio 37.00 H (12.00-20.00) Ratio Glucose 278 H (70-110) mg/dL POC Glucose (mg/dL) 200 H 176 H (75-99) mg/dL Osmolality (280-301) mosm/kg Lactate Dehydrogenase 448 H (120-246) U/L C-Reactive Protein 3.9 H (0.0-0.8) mg/dL 10/24/20 10/24/20 10/24/20 Range/Units 05:42 05:42 05:42 D-Dimer 0.84 H (<0.60) mg/L FEU Sodium 150 H (135-145) mmol/L Chloride 110 H (96-109) mmol/L Anion Gap 14.10 H (4.00-12.00) mmol/L BUN 37.0 H (9.0-27.0) mg/dL Est GFR (CKD-EPI)AfAm 58.1 L (60.0-200.0) Est GFR (CKD-EPI)NonAf 50.1 L (60.0-200.0) BUN/Creatinine Ratio 33.64 H (12.00-20.00) Ratio Glucose 192 H (70-110) mg/dL POC Glucose (mg/dL) (75-99) mg/dL Osmolality 323 H (280-301) mosm/kg Lactate Dehydrogenase (120-246) U/L C-Reactive Protein (0.0-0.8) mg/dL 10/24/20 10/24/20 Range/Units 07:21 11:24 D-Dimer (<0.60) mg/L FEU Sodium (135-145) mmol/L Chloride (96-109) mmol/L Anion Gap (4.00-12.00) mmol/L BUN (9.0-27.0) mg/dL Est GFR (CKD-EPI)AfAm (60.0-200.0) Est GFR (CKD-EPI)NonAf (60.0-200.0) BUN/Creatinine Ratio (12.00-20.00) Ratio Glucose (70-110) mg/dL POC Glucose (mg/dL) 233 H 190 H (75-99) mg/dL Osmolality (280-301) mosm/kg Lactate Dehydrogenase (120-246) U/L C-Reactive Protein (0.0-0.8) mg/dL Assessment and Plan Assessment: * Altered mental status, likely due to toxic metabolic encephalopathy. Patient has COVID-19 related pneumonia, with significant encephalopathy. Encephalopathy has slightly improved, nonfocal exam. * Acute hypoxic respiratory failure, currently on 10 L of oxygen by nasal cannula. * Abnormal liver functions, slightly worsening. * Hypernatremia with sodium 150. Dehydration * History of right thalamic lacunar infarct 12/15/2014. * Diabetes, with hemoglobin A1c 7.0 on 05/19/2018 * Hypertension Plan: * EEG was attempted, but patient keeps on pulling off on the leads. EEG was canceled. Patient's mentation appears to be better than yesterday. We will continue to watch. * MRI of the brain showed mild to moderate diffuse cerebral atrophy and chronic small vessel ischemic changes. There is left temporal arachnoid cyst redemonstrated. * We will check B12, folate, TSH, ammonia, hemoglobin A1c. Follow-up liver function tests and sodium per IM. * we will follow clinically.
[2020-10-24] MEDS: DEXTROSE 5% IN WATER 1,000 ML IV SCH (16:23)
[2020-10-24 16:33] LABS: Glucose,Whole Blood 242 mg/dL (75-99)
[2020-10-24 20:13] LABS: Glucose,Whole Blood 229 mg/dL (75-99)
[2020-10-24] MEDS: GABAPENTIN 300 MG CAP PO SCH (20:56)
--- NOTE | 2020-10-24 21:04 | P.PN ---
Progress Note - Text Progress Note Date: 10/24/20 Chief Complaint: Short of breath, confused History of presenting complaint: This is a 74-year-old patient of . Patient was diagnosed with COVID on Thursday that is 6 days ago. Patient came in today because she was becoming more short of breath also becoming confused. Brought in by the of the ER was also getting symptoms also admitted to the hospital with COVID. Overnight patient has done a bit better. Less short of breath. Less cough. Did eat some food. Tired. Chronic stable medical conditions include diabetes, hyperlipidemia, hypertension, stroke causing some numbness in the hands and arm. Admitted with bilateral COVID 19 pneumonia, acute hypoxic respiratory failure, acute metabolic encephalopathy and delirium. Patient started on dexamethasone, Remdesivir, Lovenox. Oxygen supplementation. Today-. Remains lethargic. Eyes open. Laying flat in bed. Breathing other comfortable. Keeps pulling off her clothes. Doesn't really answer questions. Does move her limbs. Review of systems: Patient does not answer Active Medications Acetaminophen (Acetaminophen Tab 500 Mg Tab) 500 mg PO Q4HR PRN PRN Reason: Fever and/ or Pain Last Admin: 10/18/20 20:45 Dose: 500 mg Documented by: Ascorbic Acid (Ascorbic Acid 500 Mg Tab) 500 mg PO DAILY [facility] Last Admin: 10/24/20 07:55 Dose: 500 mg Documented by: Atorvastatin Calcium (Atorvastatin 40 Mg Tab) 40 mg PO DAILY [facility] Last Admin: 10/24/20 07:54 Dose: 40 mg Documented by: Calcium Carbonate (Calcium Carb-Vit D 500mg-200un 1 Each Tab) 1 each PO DAILY [facility] Last Admin: 10/24/20 07:54 Dose: 1 each Documented by: Calcium Polycarbophil (Calcium Polycarbophil 625 Mg Tab) 625 mg PO DAILY [facility] Last Admin: 10/24/20 07:56 Dose: 625 mg Documented by: Clopidogrel Bisulfate (Clopidogrel 75 Mg Tab) 75 mg PO DAILY [facility] Last Admin: 10/24/20 07:55 Dose: 75 mg Documented by: Dexamethasone (Dexamethasone 2 Mg Tab) 6 mg PO DAILY [facility] Last Admin: 10/24/20 07:54 Dose: 6 mg Documented by: Enoxaparin Sodium (Enoxaparin 40 Mg/0.4 Ml Syringe) 40 mg SQ Q12HR [facility] Last Admin: 10/24/20 07:55 Dose: 40 mg Documented by: Famotidine (Famotidine 20 Mg Tab) 20 mg PO BID [facility] Last Admin: 10/24/20 07:55 Dose: 20 mg Documented by: Gabapentin (Gabapentin 300 Mg Cap) 300 mg PO HS [facility] Last Admin: 10/23/20 22:17 Dose: Not Given Documented by: Dextrose/Water (Dextrose 5%-Water Iv Soln) 1,000 mls @ 125 mls/hr IV .Q8H [facility] Last Admin: 10/24/20 16:23 Dose: 125 mls/hr Documented by: Insulin Aspart (Insulin Aspart (Novolog) 100 Unit/Ml Vial) 0 unit SQ ACHS [facility]; Protocol Last Admin: 10/24/20 17:24 Dose: 3 unit Documented by: Losartan Potassium (Losartan 50 Mg Tab) 50 mg PO DAILY [facility] Last Admin: 10/24/20 07:54 Dose: 50 mg Documented by: Meloxicam (Meloxicam 7.5 Mg Tab) 7.5 mg PO DAILY [facility] Last Admin: 10/24/20 07:55 Dose: 7.5 mg Documented by: Metformin HCl (Metformin 500 Mg Tab) 500 mg PO BID-W/MEALS [facility] Last Admin: 10/24/20 16:23 Dose: Not Given Documented by: Metoprolol Tartrate (Metoprolol Tartrate 25 Mg Tab) 25 mg PO BID [facility] Last Admin: 10/24/20 07:54 Dose: 25 mg Documented by: Multivitamins (Multivitamins, Thera 1 Each Tab) 1 each PO DAILY [facility] Last Admin: 10/24/20 07:55 Dose: 1 each Documented by: Zinc Sulfate (Zinc Sulfate 220 Mg Cap) 220 mg PO DAILY [facility] Last Admin: 10/24/20 07:55 Dose: 220 mg Documented by: Physical examination: VITAL SIGNS: 98.3, 79, 18, 138 with 75, 90% on room air GENERAL: Laying in bed tired, lethargic PSYCH: Not answering questions NEUROLOGICAL: Cranial nerves grossly intact; no facial asymmetry, moving limbs. Not really following commands Rest of exam as per nursing pulmonary INVESTIGATIONS, reviewed in the clinical context: October 24: Sodium 150 potassium 4.6 chloride 110 creatinine 1.1 glucose 192 serum osmolality 323 MRI brain-no stroke October 23: White count 10.3 hemoglobin 14.7 4 sodium 146 potassium 4.5 creatinine 1.0 CRP 3.9 [place] 14: White count 18.1 hemoglobin 15.1 potassium 3.9 creatinine 0.82 CRP 15.8 October 20: D-dimer 1.15 CRP 39.1 Accu-Cheks to October 19: D-dimer 1.57 CRP 36.8. Accu-Cheks to October 18: D-dimer 2.3 CRP 60.6. Chest x-ray film, personally reviewed by me- worsening infiltrate White count 7.6 hemoglobin 15.1 lymphocyte 0.7 D-dimer 1.27 potassium 4.0 bun 30 creatinine 1.12 CRP 189 pro-calcitonin 0.20 glucose 189 300 Influenza type A and type B both negative EKG tracing personally reviewed by me-normal sinus rhythm Chest x-ray film personally reviewed by me-portable bilateral infiltrates CT chest no obvious PE. Peripheral and basilar infiltrates Assessment: -Diagnosed with Coronavirus 6 days prior to admission. admitted with bilateral COVID 19 pneumonia -Acute hypoxic respiratory failure from down to room air-90% -Acute metabolic encephalopathy and acute delirium-worsening from hypernatremia -Hypernatremia with hyperchloremia from free water deficit-new diagnosis -Diabetes mellitus type 2 uncontrolled with hyperglycemia -Essential hypertension -Hyperlipidemia -Obesity BMI 31.8 Plan: Remdesivir-completed. On Decadron 6 mg. Subcu Lovenox. Patient IV fluids to be changed over to D5W. And repeat lites in the morning.
[2020-10-25 03:11] LABS: Hemoglobin A1C 8.2 % (4.0-6.0)
[2020-10-25 06:45] LABS: Glucose,Whole Blood 196 mg/dL (75-99)
[2020-10-25] MEDS: FAMOTIDINE 20 MG TAB PO SCH ×2 (09:40→20:38)
[2020-10-25] MEDS: METOPROLOL TARTRATE 25 MG TAB PO SCH ×2 (09:40→20:38)
[2020-10-25] MEDS: dexAMETHasone 2 MG TAB PO SCH (09:40)
[2020-10-25] MEDS: metFORMIN 500 MG TAB PO SCH ×2 (09:40→17:16)
[2020-10-25] MEDS: ATORVASTATIN 40 MG TAB PO SCH (09:40)
[2020-10-25] MEDS: MULTIVITAMINS, THERA 1 EACH TAB PO SCH (09:40)
[2020-10-25] MEDS: ZINC SULFATE 220 MG CAP PO SCH (09:40)
[2020-10-25] MEDS: CLOPIDOGREL 75 MG TAB PO SCH (09:40)
[2020-10-25] MEDS: ASCORBIC ACID 500 MG TAB PO SCH (09:40)
[2020-10-25] MEDS: MELOXICAM 7.5 MG TAB PO SCH (09:40)
[2020-10-25] MEDS: LOSARTAN 50 MG TAB PO SCH (09:40)
[2020-10-25] MEDS: CALCIUM CARB-VIT D 500MG-200UN 1 EACH TAB PO SCH (09:40)
[2020-10-25] MEDS: DEXTROSE 5% IN WATER 1,000 ML IV SCH ×3 (09:41→15:54)
[2020-10-25] MEDS: ENOXAPARIN 40 MG/0.4 ML SYRINGE SQ SCH ×2 (09:41→20:35)
[2020-10-25] MEDS: INSULIN ASPART (NovoLOG) 100 UNIT/ML VIAL SQ SCH ×4 (10:06→20:35)
[2020-10-25 11:22] LABS: Glucose,Whole Blood 241 mg/dL (75-99)
[2020-10-25 12:01] LABS: African American GFR (CKD) 65.2 (60.0-200.0); Anion Gap 12.6 mmol/L (4.00-12.00); Calcium 9.4 mg/dL (8.7-10.3); Carbon Dioxide 25.4 mmol/L (21.6-31.8); Non-African American GFR(CKD) 56.2 (60.0-200.0)
[2020-10-25] MEDS ORDERED: LORazepam 0.5 MG TAB PO STA (16:34)
[2020-10-25 16:39] LABS: Glucose,Whole Blood 217 mg/dL (75-99)
[2020-10-25 20:00] LABS: Glucose,Whole Blood 174 mg/dL (75-99)
--- NOTE | 2020-10-25 20:03 | P.PN ---
Subjective Progress Note Date: 10/25/20 Patient was seen for a follow-up. Patient continues to be very encephalopathic. Patient is almost naked, except her diapers are on, per nurse does not want any tubing or closed on her. She keeps on taking off her clothes. Patient did again answer clearly "no" for headache. Objective - Vital Signs Vital signs: Vital Signs Temp 98.1 F 10/25/20 17:21 Pulse 107 H 10/25/20 17:21 Resp 18 10/25/20 17:21 BP 127/86 10/25/20 17:21 Pulse Ox 90 L 10/25/20 17:21 Intake & Output 10/25/20 10/25/20 10/26/20 06:59 18:59 06:59 Intake Total 1500 Balance 1500 Intake: Intake, IV Titration 1500 Amount Dextrose 5% in Water 1, 1500 000 ml @ 125 mls/hr IV . Q8H [facility] Rx#:[id number] Other: Voiding Method Diaper Diaper Incontinent Incontinent # Voids 1 1 - Exam patient appears restless, no better than yesterday. patient denies headache. Her neck is supple. Face is symmetric, pupils are round and reacting. Strength of upper extremity appears normal. She moves her lower extremities very well. Patient has withdrawal for plantar stimulation bilaterally. patient did not cooperate with visual field testing. Chest appears clear, although patient is coughing. No peripheral edema. Abdomen is soft. Patient has evidence of scar in the lumbar spine from previous back surgery. - Labs CBC & Chem 7: 10/23/20 13:51 10/25/20 05:57 Labs: Abnormal Lab Results - Last 24 Hours (Table) 10/24/20 10/24/20 10/24/20 Range/Units 17:22 17:22 20:12 Anion Gap (4.00-12.00) mmol/L BUN (9.0-27.0) mg/dL Est GFR (CKD-EPI)NonAf (60.0-200.0) BUN/Creatinine Ratio (12.00-20.00) Ratio Glucose (70-110) mg/dL POC Glucose (mg/dL) 229 H (75-99) mg/dL Hemoglobin A1c 8.2 H (4.0-6.0) % Vitamin B12 1016.0 H (200.0-944.0) pg/mL 10/25/20 10/25/20 10/25/20 Range/Units 05:57 06:42 11:19 Anion Gap 12.60 H (4.00-12.00) mmol/L BUN 31.0 H (9.0-27.0) mg/dL Est GFR (CKD-EPI)NonAf 56.2 L (60.0-200.0) BUN/Creatinine Ratio 31.00 H (12.00-20.00) Ratio Glucose 238 H (70-110) mg/dL POC Glucose (mg/dL) 196 H 241 H (75-99) mg/dL Hemoglobin A1c (4.0-6.0) % Vitamin B12 (200.0-944.0) pg/mL 10/25/20 Range/Units 16:34 Anion Gap (4.00-12.00) mmol/L BUN (9.0-27.0) mg/dL Est GFR (CKD-EPI)NonAf (60.0-200.0) BUN/Creatinine Ratio (12.00-20.00) Ratio Glucose (70-110) mg/dL POC Glucose (mg/dL) 217 H (75-99) mg/dL Hemoglobin A1c (4.0-6.0) % Vitamin B12 (200.0-944.0) pg/mL Assessment and Plan Assessment: * Altered mental status, likely due to toxic metabolic encephalopathy. Patient has COVID-19 related pneumonia, with significant encephalopathy. Encephalo madison has not improved, nonfocal exam. * Acute hypoxic respiratory failure. * Abnormal liver functions, slightly worsening. * Hypernatremia, improved. Dehydration * History of right thalamic lacunar infarct 12/15/2014. * Diabetes, with hemoglobin A1c 7.0 on 05/19/2018 * Hypertension Plan: * EEG was attempted, but patient keeps on pulling off on the leads. EEG was canceled. * Patient's mentation not significantly improved, continues to be delirious, restless, disinhibited. * MRI of the brain showed mild to moderate diffuse cerebral atrophy and chronic small vessel ischemic changes. There is left temporal arachnoid cyst redemonstrated. * B12 1016, folate 947 normal, TSH 0.59 normal, ammonia <9, hemoglobin A1c 8.2, consistent with not well controlled diabetes. * Follow-up liver function tests per IM. Sodium has normalized. * Consider lumbar puncture, if mentation does not improve. * we will follow clinically.
--- NOTE | 2020-10-25 20:18 | P.PN ---
Progress Note - Text Progress Note Date: 10/25/20 Chief Complaint: Short of breath, confused History of presenting complaint: This is a 74-year-old patient of . Patient was diagnosed with COVID on Thursday that is 6 days ago. Patient came in today because she was becoming more short of breath also becoming confused. Brought in by the of the ER was also getting symptoms also admitted to the hospital with COVID. Overnight patient has done a bit better. Less short of breath. Less cough. Did eat some food. Tired. Chronic stable medical conditions include diabetes, hyperlipidemia, hypertension, stroke causing some numbness in the hands and arm. Admitted with bilateral COVID 19 pneumonia, acute hypoxic respiratory failure, acute metabolic encephalopathy and delirium. Patient started on dexamethasone, Remdesivir, Lovenox. Oxygen supplementation. Because of mental status change and neurology was consulted. MRI was unremarkable. Also been into hyper natremia-sodium 150. Given IV fluids. Decreased Today-. Patient's oxygen requirement has come down. She keeps pulling off her clothes. Laying in bed. Not in respiratory distress. Refusing to eat. To call for IV line. EEG could not be done poorly off all the leads. Review of systems: Patient does not answer Active Medications Acetaminophen (Acetaminophen Tab 500 Mg Tab) 500 mg PO Q4HR PRN PRN Reason: Fever and/ or Pain Last Admin: 10/18/20 20:45 Dose: 500 mg Documented by: Ascorbic Acid (Ascorbic Acid 500 Mg Tab) 500 mg PO DAILY [facility] Last Admin: 10/25/20 09:40 Dose: 500 mg Documented by: Atorvastatin Calcium (Atorvastatin 40 Mg Tab) 40 mg PO DAILY [facility] Last Admin: 10/25/20 09:40 Dose: 40 mg Documented by: Calcium Carbonate (Calcium Carb-Vit D 500mg-200un 1 Each Tab) 1 each PO DAILY [facility] Last Admin: 10/25/20 09:40 Dose: 1 each Documented by: Calcium Polycarbophil (Calcium Polycarbophil 625 Mg Tab) 625 mg PO DAILY [facility] [place] Last Admin: 10/25/20 10:06 Dose: Not Given Documented by: Clopidogrel Bisulfate (Clopidogrel 75 Mg Tab) 75 mg PO DAILY [facility] [place] Last Admin: 10/25/20 09:40 Dose: 75 mg Documented by: Dexamethasone (Dexamethasone 2 Mg Tab) 6 mg PO DAILY [facility] [place] Last Admin: 12/17/20 09:40 Dose: 6 mg Documented by: Enoxaparin Sodium (Enoxaparin 40 Mg/0.4 Ml Syringe) 40 mg SQ Q12HR [facility] Last Admin: 10/25/20 09:41 Dose: 40 mg Documented by: Famotidine (Famotidine 20 Mg Tab) 20 mg PO BID [facility] Last Admin: 10/25/20 09:40 Dose: 20 mg Documented by: Gabapentin (Gabapentin 300 Mg Cap) 300 mg PO HS [facility] [place] Last Admin: 10/24/20 20:56 Dose: Not Given Documented by: Dextrose/Water (Dextrose 5%-Water Iv Soln) 1,000 mls @ 125 mls/hr IV .Q8H [facility] Last Admin: 10/25/20 15:54 Dose: Not Given Documented by: Insulin Aspart (Insulin Aspart (Novolog) 100 Unit/Ml Vial) 0 unit SQ ACHS [facility]; Protocol Last Admin: 10/25/20 17:21 Dose: 3 unit Documented by: Losartan Potassium (Losartan 50 Mg Tab) 50 mg PO DAILY [facility] Last Admin: 10/25/20 09:40 Dose: 50 mg Documented by: Meloxicam (Meloxicam 7.5 Mg Tab) 7.5 mg PO DAILY [facility] Last Admin: 10/25/20 09:40 Dose: 7.5 mg Documented by: Metformin HCl (Metformin 500 Mg Tab) 500 mg PO BID-W/MEALS [facility] Last Admin: 10/25/20 17:16 Dose: Not Given Documented by: Metoprolol Tartrate (Metoprolol Tartrate 25 Mg Tab) 25 mg PO BID [facility] Last Admin: 10/25/20 09:40 Dose: 25 mg Documented by: Multivitamins (Multivitamins, Thera 1 Each Tab) 1 each PO DAILY [facility] Last Admin: 10/25/20 09:40 Dose: 1 each Documented by: Zinc Sulfate (Zinc Sulfate 220 Mg Cap) 220 mg PO DAILY [facility] Last Admin: 10/25/20 09:40 Dose: 220 mg Documented by: Physical examination: VITAL SIGNS: 98.1, 83, 18, 10 6 x 68, 90% on room air GENERAL: Laying in bed tired,, not in distress, laying flat PSYCH: Not answering questions. Does open eyes. Did see her name. NEUROLOGICAL: Cranial nerves grossly intact; no facial asymmetry, moving limbs. Rest of exam as per nursing pulmonary, neurology INVESTIGATIONS, reviewed in the clinical context: October 25: Sodium 143 Potassium 4 BUN 31 and creatinine 1.0 October 24: Sodium 150 potassium 4.6 chloride 110 creatinine 1.1 glucose 192 serum osmolality 323 MRI brain-no stroke October 23: White count 10.3 hemoglobin 14.7 4 sodium 146 potassium 4.5 creatinine 1.0 CRP 3.9 October 22: White count 18.1 hemoglobin 15.1 potassium 3.9 creatinine 0.82 CRP 15.8 October 20: D-dimer 1.15 CRP 39.1 Accu-Cheks to October 19: D-dimer 1.57 CRP 36.8. Accu-Cheks to October 18: D-dimer 2.3 CRP 60.6. Chest x-ray film, personally reviewed by me- worsening infiltrate White count 7.6 hemoglobin 15.1 lymphocyte 0.7 D-dimer 1.27 potassium 4.0 bun 30 creatinine 1.12 CRP 189 pro-calcitonin 0.20 glucose 189 300 Influenza type A and type B both negative EKG tracing personally reviewed by me-normal sinus rhythm Chest x-ray film personally reviewed by me-portable bilateral infiltrates CT chest no obvious PE. Peripheral and basilar infiltrates Assessment: -Diagnosed with Coronavirus 6 days prior to admission. admitted with bilateral COVID 19 pneumonia -Acute hypoxic respiratory failure from down to room air-90% -Acute metabolic encephalopathy and acute delirium-worsening from hypernatremia- slow to improve -Hypernatremia with hyperchloremia from free water deficit-new diagnosis- improved -Diabetes mellitus type 2 uncontrolled with hyperglycemia -Essential hypertension -Hyperlipidemia -Obesity BMI 31.8 Plan: Remdesivir-completed. On Decadron 6 mg. Subcu Lovenox. Patient is put off her IV. EEG could not be done. Encourage oral intake. Patient is refusing food. Follow with consultants
[2020-10-25] MEDS: GABAPENTIN 300 MG CAP PO SCH (20:38)
--- NOTE | 2020-10-25 23:54 | PN ---
PROGRESS NOTE DATE OF SERVICE: 10/25/2020 REASON FOR FOLLOWUP: 1. COVID-19 pneumonia. 2. Encephalopathy. INTERVAL HISTORY: The patient is afebrile. The patient remains to be and not a good historian. No vomiting or diarrhea has been reported. Patient keeps and no other changes reported by the nursing staff. PHYSICAL EXAMINATION: Blood pressure 127/86, pulse of 107, temperature 98.1. She is 90% on room air. General description is an elderly female lying in bed in no distress. RESPIRATORY SYSTEM: Unlabored breathing, decreased intensity of breath sounds. No wheeze. HEART: S1, S2. Regular rate and rhythm. ABDOMEN: Soft, no tenderness. LABS: Kidney function remains to be normal. No inflammatory marker was done today. DIAGNOSTIC IMPRESSION AND PLAN: 1. Patient with acute COVID-19 pneumonia completing her remdesivir therapy. Currently on dexamethasone, Lovenox. 2. Acute mental status changes, encephalopathy. Neurology is following the patient. If LP will benefit the patient will be ordered after discussion with Neurology. Continue with current . Continue supportive care. MMODL / IJN: [id number] /
[2020-10-26] MEDS: DEXTROSE 5% IN WATER 1,000 ML IV SCH ×4 (00:32→19:54)
[2020-10-26 07:16] LABS: Glucose,Whole Blood 176 mg/dL (75-99)
[2020-10-26] MEDS: INSULIN ASPART (NovoLOG) 100 UNIT/ML VIAL SQ SCH ×4 (08:21→21:25)
[2020-10-26] MEDS: LOSARTAN 50 MG TAB PO SCH (08:24)
[2020-10-26] MEDS: ASCORBIC ACID 500 MG TAB PO SCH (08:24)
[2020-10-26] MEDS: FAMOTIDINE 20 MG TAB PO SCH ×2 (08:24→21:52)
[2020-10-26] MEDS: CLOPIDOGREL 75 MG TAB PO SCH (08:24)
[2020-10-26] MEDS: metFORMIN 500 MG TAB PO SCH ×2 (08:24→17:27)
[2020-10-26] MEDS: CALCIUM CARB-VIT D 500MG-200UN 1 EACH TAB PO SCH (08:24)
[2020-10-26] MEDS: ATORVASTATIN 40 MG TAB PO SCH (08:24)
[2020-10-26] MEDS: dexAMETHasone 2 MG TAB PO SCH (08:24)
[2020-10-26] MEDS: ZINC SULFATE 220 MG CAP PO SCH (08:25)
[2020-10-26] MEDS: MELOXICAM 7.5 MG TAB PO SCH (08:25)
[2020-10-26] MEDS: MULTIVITAMINS, THERA 1 EACH TAB PO SCH (08:25)
[2020-10-26] MEDS: METOPROLOL TARTRATE 25 MG TAB PO SCH ×2 (08:25→21:49)
[2020-10-26] MEDS: ENOXAPARIN 40 MG/0.4 ML SYRINGE SQ SCH ×2 (08:46→21:49)
[2020-10-26 09:35] LABS: C Reactive Protein 6.7 mg/dL (0.0-0.8)
[2020-10-26 11:40] LABS: Glucose,Whole Blood 203 mg/dL (75-99)
[2020-10-26] MEDS ORDERED: LORazepam 0.5 MG TAB PO STA (13:58)
[2020-10-26] MEDS ORDERED: LORazepam 2 MG/ML INJ IM STA (14:48)
[2020-10-26 16:40] LABS: Glucose,Whole Blood 197 mg/dL (75-99)
--- NOTE | 2020-10-26 18:00 | P.PN ---
Progress Note - Text Progress Note Date: 10/26/20 Chief Complaint: Short of breath, confused History of presenting complaint: This is a 74-year-old patient of . Patient was diagnosed with COVID on Thursday that is 6 days ago. Patient came in today because she was becoming more short of breath also becoming confused. Brought in by the of the ER was also getting symptoms also admitted to the hospital with COVID. Overnight patient has done a bit better. Less short of breath. Less cough. Did eat some food. Tired. Chronic stable medical conditions include diabetes, hyperlipidemia, hypertension, stroke causing some numbness in the hands and arm. Admitted with bilateral COVID 19 pneumonia, acute hypoxic respiratory failure, acute metabolic encephalopathy and delirium. Patient started on dexamethasone, Remdesivir, Lovenox. Oxygen supplementation. Because of mental status change and neurology was consulted. MRI was unremarkable. Also been into hyper natremia-sodium 150. Given IV fluids. Today-. Some improvement in mental status today. Answering occasional questions. As per the nurse patient did eat something. Not in distress. Still taking off her clothes. Review of systems: Patient does not answer Active Medications Acetaminophen (Acetaminophen Tab 500 Mg Tab) 500 mg PO Q4HR PRN PRN Reason: Fever and/ or Pain Last Admin: 10/18/20 20:45 Dose: 500 mg Documented by: Ascorbic Acid (Ascorbic Acid 500 Mg Tab) 500 mg PO DAILY [facility] Last Admin: 10/26/20 08:24 Dose: Not Given Documented by: Atorvastatin Calcium (Atorvastatin 40 Mg Tab) 40 mg PO DAILY [facility] Last Admin: 10/26/20 08:24 Dose: Not Given Documented by: Calcium Carbonate (Calcium Carb-Vit D 500mg-200un 1 Each Tab) 1 each PO DAILY [facility] Last Admin: 10/26/20 08:24 Dose: Not Given Documented by: Calcium Polycarbophil (Calcium Polycarbophil 625 Mg Tab) 625 mg PO DAILY [facility] Last Admin: 10/26/20 08:24 Dose: Not Given Documented by: Dexamethasone (Dexamethasone 2 Mg Tab) 6 mg PO DAILY [facility] Last Admin: 10/26/20 08:24 Dose: Not Given Documented by: Famotidine (Famotidine 20 Mg Tab) 20 mg PO BID [facility] Last Admin: 10/26/20 08:24 Dose: Not Given Documented by: Gabapentin (Gabapentin 300 Mg Cap) 300 mg PO HS [facility] Last Admin: 12/17/20 20:38 Dose: Not Given Documented by: Dextrose/Water (Dextrose 5%-Water Iv Soln) 1,000 mls @ 125 mls/hr IV .Q8H [facility] Last Admin: 10/26/20 15:06 Dose: Not Given Documented by: Insulin Aspart (Insulin Aspart (Novolog) 100 Unit/Ml Vial) 0 unit SQ ACHS [facility]; Protocol Last Admin: 10/26/20 17:27 Dose: 2 unit Documented by: Losartan Potassium (Losartan 50 Mg Tab) 50 mg PO DAILY [facility] Last Admin: 10/26/20 08:24 Dose: Not Given Documented by: Meloxicam (Meloxicam 7.5 Mg Tab) 7.5 mg PO DAILY [facility] Last Admin: 10/26/20 08:25 Dose: Not Given Documented by: Metformin HCl (Metformin 500 Mg Tab) 500 mg PO BID-W/MEALS [facility] Last Admin: 10/26/20 17:27 Dose: Not Given Documented by: Metoprolol Tartrate (Metoprolol Tartrate 25 Mg Tab) 25 mg PO BID [facility] Last Admin: 10/26/20 08:25 Dose: Not Given Documented by: Multivitamins (Multivitamins, Thera 1 Each Tab) 1 each PO DAILY [facility] Last Admin: 10/26/20 08:25 Dose: Not Given Documented by: Zinc Sulfate (Zinc Sulfate 220 Mg Cap) 220 mg PO DAILY [facility] Last Admin: 10/26/20 08:25 Dose: Not Given Documented by: Physical examination: VITAL SIGNS: 97.6, 100, 16, 120/72, 92% room air GENERAL: Laying in bed bit more awake. We'll answer occasional question. PSYCH: Answering occasional question.. NEUROLOGICAL: Cranial nerves grossly intact; no facial asymmetry, moving about. More awake Rest of exam as per nursing pulmonary, neurology INVESTIGATIONS, reviewed in the clinical context: October 26: CRP 6.7 pro-calcitonin 0.16 October 25: Sodium 143 Potassium 4 BUN 31 and creatinine 1.0 October 24: Sodium 150 potassium 4.6 chloride 110 creatinine 1.1 glucose 192 serum osmolality 323 MRI brain-no stroke October 23: White count 10.3 hemoglobin 14.7 4 sodium 146 potassium 4.5 creatinine 1.0 CRP 3.9 October 22: White count 18.1 hemoglobin 15.1 potassium 3.9 creatinine 0.82 CRP 15.8 October 20: D-dimer 1.15 CRP 39.1 Accu-Cheks to October 19: D-dimer 1.57 CRP 36.8. Accu-Cheks to October 18: D-dimer 2.3 CRP 60.6. Chest x-ray film, personally reviewed by me- worsening infiltrate White count 7.6 hemoglobin 15.1 lymphocyte 0.7 D-dimer 1.27 potassium 4.0 bun 30 creatinine 1.12 CRP 189 pro-calcitonin 0.20 glucose 189 300 Influenza type A and type B both negative EKG tracing personally reviewed by me-normal sinus rhythm Chest x-ray film personally reviewed by me-portable bilateral infiltrates CT chest no obvious PE. Peripheral and basilar infiltrates Assessment: -Diagnosed with Coronavirus 6 days prior to admission. admitted with bilateral COVID 19 pneumonia-improved -Acute hypoxic respiratory failure from down to room air-90% -Acute metabolic encephalopathy and acute delirium-worsening from shows some improvement -Hypernatremia with hyperchloremia from free water deficit-new diagnosis- improved -Diabetes mellitus type 2 uncontrolled with hyperglycemia -Essential hypertension -Hyperlipidemia -Obesity BMI 31.8 Plan: Remdesivir-completed. On Decadron 6 mg. Subcu Lovenox. Patient has pulled off her IV. Some oral intake today as per the nursing. Discussed with neurology. Plavix will have to be held for lumbar puncture. We'll do the same. Encourage oral intake. Discussed with the nurse to make sure oral tolerating is carried out.
[2020-10-26] MEDS ORDERED: ACETAMINOPHEN SUPPOSITORY 650 MG SUPP RECTAL PRN (20:27)
[2020-10-26 20:39] LABS: Glucose,Whole Blood 196 mg/dL (75-99)
[2020-10-26] MEDS: GABAPENTIN 300 MG CAP PO SCH (21:49)
--- NOTE | 2020-10-26 22:08 | EEG ---
ELECTROENCEPHALOGRAM REPORT DATE OF SERVICE: 10/26/2020. PREAMBLE: This is a 74-year-old female with Covid infection, has persistent severe altered mental status. This study is performed to evaluate for any epileptiform activity. Rule out status, rule out herpes encephalitis. EEG FINDINGS: This is a 21 channel portable EEG recording on this patient utilizing 10/20 international system with referential and bipolar montages. The background consists of moderately well-developed, poorly regulated, mixed frequencies of 6 hertz, moderate amplitude, theta, with some intermixed delta activity. Background does not seem to be reactive to eye opening or closing. Different stages of sleep was not seen. No focal or generalized epileptiform activity was seen. IMPRESSION: This is an abnormal EEG due to background slowing of at least moderate degree. This is suggestive of generalized cerebral dysfunction as can be seen with toxic metabolic encephalopathy or due to diffuse structural brain abnormality. No epileptiform activity was seen. No electrographic evidence of herpes encephalitis. Clinical correlation and followup EEG recommended, if clinically indicated. MMODL / ESTEEN: [id number] /
--- NOTE | 2020-10-27 00:20 | PN ---
PROGRESS NOTE DATE OF SERVICE: 10/26/2020 REASON FOR FOLLOWUP: COVID-19 infection. INTERVAL HISTORY: The patient is afebrile. The patient remains to be afebrile. Currently confused no vomiting or diarrhea per the nursing staff. Patient herself was not able to provide any history. PHYSICAL EXAMINATION: Blood pressure is 103/69, pulse of 109. Temperature of 98.4. She is 91% on room air. General description is an elderly female lying in bed in no distress. Respiratory system: Unlabored breathing with decreased intensity of breath sounds. No wheeze. Heart S1, S2. Regular rate and rhythm. Abdomen soft, no tenderness. LABS: The patient did have mildly elevated procalcitonin 0.16. LDH was elevated. DIAGNOSTIC IMPRESSION AND PLAN: Patient admitted to the hospital with acute COVID-19 pneumonia. The patient has completed her treatment with Remdesivir, currently on Lovenox and Dexamethasone. The patient did have a new fever and did have elevated procalcitonin. Blood cultures we will be done. We will empirically add Zosyn to cover for possible pneumonia and monitor clinical course closely. MMODL / IJN: [id number] /
[2020-10-27] MEDS: PIPERACILLIN-TAZOBACTAM 3.375 GM in SODIUM CHLORIDE 0.9% 100 ML IVPB SCH ×4 (01:46→23:40)
[2020-10-27] MEDS: DEXTROSE 5% IN WATER 1,000 ML IV SCH ×3 (02:42→20:15)
[2020-10-27 06:49] LABS: Basophils % (A) 0 %; Eosinophils # (A) 0.1 k/uL (0-0.7); Eosinophils % (A) 0 %; HCT 45.9 % (34.0-46.0); HGB 14.9 gm/dL (11.4-16.0); Lymphocytes # (A) 0.8 k/uL (1.0-4.8); Lymphocytes % (A) 4 %; MCH 30.7 pg (25.0-35.0); MCHC 32.5 g/dL (31.0-37.0); MCV 94.6 fL (80.0-100.0); Mean Platelet Volume 7.5; Monocytes # (A) 0.5 k/uL (0-1.0); Monocytes % (A) 3 %; Neutrophils # (A) 19.4 k/uL (1.3-7.7); Neutrophils % (A) 93 %; Platelet Count 345 k/uL (150-450); RBC 4.85 m/uL (3.80-5.40); RDW 14.1 % (11.5-15.5); WBC 20.9 k/uL (3.8-10.6)
[2020-10-27 07:14] LABS: Glucose,Whole Blood 211 mg/dL (75-99)
--- NOTE | 2020-10-27 07:50 | XR ---
EXAMINATION TYPE: XR chest 1V portable DATE OF EXAM: 10/27/2020 COMPARISON: 10/23/2020 HISTORY: Shortness of breath TECHNIQUE: Single frontal view of the chest is obtained. FINDINGS: Heart size normal. Patchy coarsened interstitial and basilar infiltrates. No pneumothorax. Arthropathy of the shoulder with probable calcific tendinosis on the left. No sizable pneumothorax o r pleural effusion. Hypertrophic change of the spine. IMPRESSION: 1. Mixed alveolar and interstitial infiltrates are stable.
[2020-10-27] MEDS: ENOXAPARIN 40 MG/0.4 ML SYRINGE SQ SCH ×2 (08:09→22:26)
[2020-10-27] MEDS: INSULIN ASPART (NovoLOG) 100 UNIT/ML VIAL SQ SCH ×4 (08:09→22:26)
[2020-10-27] MEDS: METOPROLOL TARTRATE 25 MG TAB PO SCH ×2 (08:12→20:15)
[2020-10-27] MEDS: dexAMETHasone 2 MG TAB PO SCH (08:12)
[2020-10-27] MEDS: LOSARTAN 50 MG TAB PO SCH (08:12)
[2020-10-27] MEDS: ZINC SULFATE 220 MG CAP PO SCH (08:24)
[2020-10-27] MEDS: MULTIVITAMINS, THERA 1 EACH TAB PO SCH (08:24)
[2020-10-27] MEDS: metFORMIN 500 MG TAB PO SCH ×2 (08:24→17:20)
[2020-10-27] MEDS: ASCORBIC ACID 500 MG TAB PO SCH (08:24)
[2020-10-27] MEDS: ATORVASTATIN 40 MG TAB PO SCH (08:25)
[2020-10-27] MEDS: FAMOTIDINE 20 MG TAB PO SCH (08:25)
[2020-10-27] MEDS: MELOXICAM 7.5 MG TAB PO SCH (08:25)
[2020-10-27] MEDS: CALCIUM CARB-VIT D 500MG-200UN 1 EACH TAB PO SCH (08:25)
[2020-10-27 10:01] LABS: African American GFR (CKD) 52.3 (60.0-200.0); Anion Gap 14.9 mmol/L (4.00-12.00); C Reactive Protein 6.5 mg/dL (0.0-0.8); Calcium 9.8 mg/dL (8.7-10.3); Carbon Dioxide 23.1 mmol/L (21.6-31.8); Non-African American GFR(CKD) 45.1 (60.0-200.0); Potassium 4.1 mmol/L (3.5-5.5)
[2020-10-27 11:57] LABS: Glucose,Whole Blood 193 mg/dL (75-99)
[2020-10-27 17:13] LABS: Glucose,Whole Blood 191 mg/dL (75-99)
--- NOTE | 2020-10-27 18:52 | P.PN ---
Subjective Progress Note Date: 10/26/20 Patient was seen for a follow-up. Patient continues to be very encephalopathic. Patient is almost naked, except her diapers are on, per nurse does not want any tubing or clothes on her. She keeps on taking off her clothes. Patient did not speak any sentence or word. Objective - Vital Signs Vital signs: Vital Signs Temp 100.1 F H 10/26/20 18:41 Pulse 109 H 10/26/20 18:41 Resp 16 10/26/20 18:41 BP 103/69 10/26/20 18:41 Pulse Ox 91 L 10/26/20 18:41 Intake & Output 10/26/20 10/26/20 10/27/20 06:59 18:59 06:59 Intake Total 200 Balance 200 Weight 86 kg Intake: Oral 200 Other: Voiding Method Diaper Diaper Incontinent Incontinent # Voids 2 2 - Exam patient appears restless, no better than yesterday. Patient does not follow commands. She makes eye contact, but does not interact or response. She is almost naked, except for diapers on. Her neck is supple. Face is symmetric, pupils are round and reacting. Strength of upper extremity appears normal. She moves her lower extremities very well. Patient has withdrawal for plantar stimulation bilaterally. patient did not cooperate with visual field testing. No peripheral edema. Abdomen is soft. Patient has evidence of scar in the lumbar spine from previous back surgery. - Labs CBC & Chem 7: 10/27/20 05:47 10/27/20 05:47 Labs: Abnormal Lab Results - Last 24 Hours (Table) 10/26/20 10/26/20 10/26/20 Range/Units 05:23 05:23 07:15 POC Glucose (mg/dL) 176 H (75-99) mg/dL Lactate Dehydrogenase 592 H (120-246) U/L C-Reactive Protein 6.7 H (0.0-0.8) mg/dL Procalcitonin 0.16 H (0.02-0.09) ng/mL 10/26/20 10/26/20 10/26/20 Range/Units 11:39 16:38 20:36 POC Glucose (mg/dL) 203 H 197 H 196 H (75-99) mg/dL Lactate Dehydrogenase (120-246) U/L C-Reactive Protein (0.0-0.8) mg/dL Procalcitonin (0.02-0.09) ng/mL Assessment and Plan Assessment: * Altered mental status, likely due to toxic metabolic encephalopathy. Uncertain if delirium related to corticosteroids. * Acute COVID-19 related pneumonia, with significant encephalopathy. Patient has been treated with Remdesivir. Encephalopathy has not improved, nonfocal exam. * Acute hypoxic respiratory failure. * Abnormal liver functions, slightly worsening. * Hypernatremia, improved. Dehydration * History of right thalamic lacunar infarct 12/15/2014. * Diabetes, with hemoglobin A1c 7.0 on 05/19/2018 * Hypertension Plan: * EEG was performed after given Ativan, which showed moderate background slowing consistent with encephalopathy. No epileptiform activity was seen. No electrographic evidence of herpes encephalitis. * Patient's mentation not significantly improved, continues to be delirious, restless, disinhibited. Patient almost mute. * MRI of the brain (10/24/2020) showed mild to moderate diffuse cerebral atrophy and chronic small vessel ischemic changes. There is left temporal arachnoid cyst redemonstrated. Exam is relatively nonfocal. * B12 1016, folate 947 normal, TSH 0.59 normal, ammonia <9, hemoglobin A1c 8.2, consistent with not well controlled diabetes. * Follow-up liver function tests per IM. Sodium has normalized. * Lumbar puncture was ordered to be performed by interventional radiology to rule out encephalitis. Apparently patient has been taking Plavix, and she has to be off Plavix for 5 days before. On discussing with the nurse it appears patient's last dose of Plavix was on Thursday morning, 10/24/2020. Patient has refused to take Plavix yesterday or today. We will keep on holding Plavix over the weekend and patient should be able to have lumbar puncture on Thursday. As EEG did not reveal any evidence of PLEDs (that may raise concern about herpes encephalitis), we will hold off on acyclovir. Patient does not have IV site either, as she keeps on ripping off IV lines and other tubes. * Neurology coverage not available over the weekend. Dr. David Manley Will resume neurology service on Thursday. * Case discussed in detail with Dr. Carlson, Dr Loya (ID) and all agreed with the management as above.
[2020-10-27] MEDS: GABAPENTIN 300 MG CAP PO SCH (20:15)
[2020-10-27 21:43] LABS: Glucose,Whole Blood 173 mg/dL (75-99)
--- NOTE | 2020-10-27 22:40 | PN ---
PROGRESS NOTE DATE OF SERVICE: 10/27/2020 REASON FOR FOLLOWUP: COVID-19 infection. INTERVAL HISTORY: Patient is currently afebrile. The patient is slightly more awake and alert today. He is breathing comfortably. Denies any chest pain. No headache. No abdominal pain. No diarrhea. PHYSICAL EXAMINATION: Blood pressure 99/65, pulse 102, temp 97.9. She is 90% on room air. General description is an elderly female lying in bed in no distress. Respiratory system: Unlabored breathing with decreased intensity of breath sounds. No wheeze. Heart S1, S2. Regular rate and rhythm. Abdomen soft, no tenderness. LABS: BUN of 48, creatinine 1.2. CRP 6.5, white count 20.9. DIAGNOSTIC IMPRESSION AND PLAN: Patient with COVID-19 pneumonia in this patient who completed her treatment now with low-grade fever and some worsening infiltrate and concern for possible aspiration pneumonia. Zosyn was added to continue and monitor clinical course closely. MMODL / IJN: [id number] /
--- NOTE | 2020-10-27 22:44 | P.PN ---
Subjective Progress Note Date: 10/27/20 Principal diagnosis: -Diagnosed with Coronavirus 6 days prior to admission. admitted with bilateral COVID 19 pneumonia-improved -Acute hypoxic respiratory failure from down to room air-90% -Acute metabolic encephalopathy and acute delirium-worsening from shows some improvement -Hypernatremia with hyperchloremia from free water deficit-new diagnosis- improved -Diabetes mellitus type 2 uncontrolled with hyperglycemia -Essential hypertension -Hyperlipidemia -Obesity BMI 31.8 10/27/2020, patient seen eval examined labs reviewed medications reviewed, patient has been on Decadron and subcu Lovenox, neurology has been following patient remains very agitated encephalopathic, continued to be restless This is a 74-year-old patient of . Patient was diagnosed with COVID on Thursday that is 6 days ago. Patient came in today because she was becoming more short of breath also becoming confused. Brought in by the of the ER was also getting symptoms also admitted to the hospital with COVID. Overnight patient has done a bit better. Less short of breath. Less cough. Did eat some food. Tired. Chronic stable medical conditions include diabetes, hyperlipidemia, hypertension, stroke causing some numbness in the hands and arm. Admitted with bilateral COVID 19 pneumonia, acute hypoxic respiratory failure, acute metabolic encephalopathy and delirium. Patient started on dexamethasone, Remdesivir, Lovenox. Oxygen supplementation. Because of mental status change and neurology was consulted. MRI was unremarkable. Also been into hyper natremia-sodium 150. Given IV fluids. Objective - Vital Signs Vital signs: Vital Signs Temp 97.9 F 10/27/20 18:26 Pulse 102 H 10/27/20 18:26 Resp 16 10/27/20 18:26 BP 99/65 10/27/20 18:26 Pulse Ox 90 L 10/27/20 18:26 Intake & Output 10/27/20 10/27/20 10/28/20 06:59 18:59 06:59 Intake Total 0 0 Balance 0 0 Intake: Oral 0 0 Other: Voiding Method Diaper Diaper Incontinent Incontinent # Voids 2 - Exam GENERAL: Laying in bed bit more awake. We'll answer occasional question. PSYCH: Answering occasional question.. NEUROLOGICAL: Cranial nerves grossly intact; no facial asymmetry, moving about. More awake Rest of exam as per nursing pulmonary, neurology - Labs CBC & Chem 7: 10/27/20 05:47 10/27/20 05:47 Labs: Abnormal Lab Results - Last 24 Hours (Table) 10/27/20 10/27/20 10/27/20 Range/Units 05:47 05:47 07:11 WBC 20.9 H (3.8-10.6) k/uL Neutrophils # 19.4 H (1.3-7.7) k/uL Lymphocytes # 0.8 L (1.0-4.8) k/uL Sodium 149 H (135-145) mmol/L Chloride 111 H (96-109) mmol/L Anion Gap 14.90 H (4.00-12.00) mmol/L BUN 48.0 H (9.0-27.0) mg/dL Est GFR (CKD-EPI)AfAm 52.3 L (60.0-200.0) Est GFR (CKD-EPI)NonAf 45.1 L (60.0-200.0) BUN/Creatinine Ratio 40.00 H (12.00-20.00) Ratio Glucose 209 H (70-110) mg/dL POC Glucose (mg/dL) 211 H (75-99) mg/dL C-Reactive Protein 6.5 H (0.0-0.8) mg/dL 10/27/20 10/27/20 10/27/20 Range/Units 11:53 17:12 21:42 WBC (3.8-10.6) k/uL Neutrophils # (1.3-7.7) k/uL Lymphocytes # (1.0-4.8) k/uL Sodium (135-145) mmol/L Chloride (96-109) mmol/L Anion Gap (4.00-12.00) mmol/L BUN (9.0-27.0) mg/dL Est GFR (CKD-EPI)AfAm (60.0-200.0) Est GFR (CKD-EPI)NonAf (60.0-200.0) BUN/Creatinine Ratio (12.00-20.00) Ratio Glucose (70-110) mg/dL POC Glucose (mg/dL) 193 H 191 H 173 H (75-99) mg/dL C-Reactive Protein (0.0-0.8) mg/dL Assessment and Plan Assessment: Metabolic encephalopathy with agitated delirium -Diagnosed with Coronavirus 6 days prior to admission. admitted with bilateral COVID 19 pneumonia-improved -Acute hypoxic respiratory failure from down to room air-90% -Acute metabolic encephalopathy and acute delirium-worsening from shows some improvement -Hypernatremia with hyperchloremia from free water deficit-new diagnosis- improved -Diabetes mellitus type 2 uncontrolled with hyperglycemia -Essential hypertension -Hyperlipidemia -Obesity BMI 31.8 Plan: Remdesivir-completed. On Decadron 6 mg. Subcu Lovenox. Plavix on hold for anticipated LP Time with Patient: Greater than 30
[2020-10-28] MEDS: DEXTROSE 5% IN WATER 1,000 ML IV SCH ×3 (05:04→20:10)
[2020-10-28 06:33] LABS: Basophils % (A) 0 %; Eosinophils # (A) 0.1 k/uL (0-0.7); Eosinophils % (A) 1 %; HCT 45.4 % (34.0-46.0); HGB 14.9 gm/dL (11.4-16.0); Lymphocytes # (A) 0.9 k/uL (1.0-4.8); Lymphocytes % (A) 7 %; MCH 31.1 pg (25.0-35.0); MCHC 32.9 g/dL (31.0-37.0); MCV 94.7 fL (80.0-100.0); Mean Platelet Volume 7.6; Monocytes # (A) 0.6 k/uL (0-1.0); Monocytes % (A) 4 %; Neutrophils # (A) 11.9 k/uL (1.3-7.7); Neutrophils % (A) 87 %; Platelet Count 317 k/uL (150-450); WBC 13.6 k/uL (3.8-10.6)
[2020-10-28 07:22] LABS: Glucose,Whole Blood 187 mg/dL (75-99)
[2020-10-28] MEDS: INSULIN ASPART (NovoLOG) 100 UNIT/ML VIAL SQ SCH ×4 (07:46→20:28)
[2020-10-28] MEDS: ENOXAPARIN 40 MG/0.4 ML SYRINGE SQ SCH ×2 (07:46→20:28)
[2020-10-28] MEDS: PIPERACILLIN-TAZOBACTAM 3.375 GM in SODIUM CHLORIDE 0.9% 100 ML IVPB SCH ×3 (10:36→22:20)
[2020-10-28] MEDS: metFORMIN 500 MG TAB PO SCH ×2 (10:38→17:54)
[2020-10-28] MEDS: ATORVASTATIN 40 MG TAB PO SCH (10:38)
[2020-10-28] MEDS: CALCIUM CARB-VIT D 500MG-200UN 1 EACH TAB PO SCH (10:38)
[2020-10-28] MEDS: ASCORBIC ACID 500 MG TAB PO SCH (10:38)
[2020-10-28] MEDS: dexAMETHasone 2 MG TAB PO SCH (10:39)
[2020-10-28] MEDS: ZINC SULFATE 220 MG CAP PO SCH (10:39)
[2020-10-28] MEDS: LOSARTAN 50 MG TAB PO SCH (10:39)
[2020-10-28] MEDS: FAMOTIDINE 20 MG TAB PO SCH (10:39)
[2020-10-28] MEDS: MULTIVITAMINS, THERA 1 EACH TAB PO SCH (10:39)
[2020-10-28] MEDS: MELOXICAM 7.5 MG TAB PO SCH (10:39)
[2020-10-28] MEDS: METOPROLOL TARTRATE 25 MG TAB PO SCH ×2 (10:39→20:10)
[2020-10-28 11:49] LABS: Glucose,Whole Blood 193 mg/dL (75-99)
[2020-10-28 13:17] LABS: African American GFR (CKD) 52.3 (60.0-200.0); Albumin 4.2 g/dL (3.80-4.90); Albumin/Globulin Ratio 1.62 (1.60-3.17); Anion Gap 12.3 mmol/L (4.00-12.00); BUN/Creat Ratio 45.83 Ratio (12.00-20.00); Bilirubin, Conjugated 0.6 mg/dL (0.20-0.40); Bilirubin,Unconjugated 1.1 mg/dL; Carbon Dioxide 23.7 mmol/L (21.6-31.8); Globulin 2.6 g/dL (1.6-3.3); Non-African American GFR(CKD) 45.1 (60.0-200.0); Potassium 3.9 mmol/L (3.5-5.5); Total Bilirubin 1.7 mg/dL (0.3-1.2); Total Protein 6.8 g/dL (6.2-8.2)
[2020-10-28 16:36] LABS: Glucose,Whole Blood 169 mg/dL (75-99)
[2020-10-28 19:59] LABS: Glucose,Whole Blood 183 mg/dL (75-99)
[2020-10-28] MEDS: GABAPENTIN 300 MG CAP PO SCH (20:10)
--- NOTE | 2020-10-28 22:44 | P.PN ---
Subjective Progress Note Date: 10/28/20 Principal diagnosis: -Diagnosed with Coronavirus 6 days prior to admission. admitted with bilateral COVID 19 pneumonia-improved -Acute hypoxic respiratory failure from down to room air-90% -Acute metabolic encephalopathy and acute delirium-worsening from shows some improvement -Hypernatremia with hyperchloremia from free water deficit-new diagnosis- improved -Diabetes mellitus type 2 uncontrolled with hyperglycemia -Essential hypertension -Hyperlipidemia -Obesity BMI 31.8 10/28/2020, overall mental status remains poor, Plavix is on hold, patient is being considered for spinal tap, overall no significant change today compared to yesterday exam, neurology is following, 10/27/2020, patient seen eval examined labs reviewed medications reviewed, patient has been on Decadron and subcu Lovenox, neurology has been following patient remains very agitated encephalopathic, continued to be restless This is a 74-year-old patient of . Patient was diagnosed with COVID on Thursday that is 6 days ago. Patient came in today because she was becoming more short of breath also becoming confused. Brought in by the of the ER was also getting symptoms also admitted to the hospital with COVID. Overnight patient has done a bit better. Less short of breath. Less cough. Did eat some food. Tired. Chronic stable medical conditions include diabetes, hyperlipidemia, hypertension, stroke causing some numbness in the hands and arm. Admitted with bilateral COVID 19 pneumonia, acute hypoxic respiratory failure, acute metabolic encephalopathy and delirium. Patient started on dexamethasone, Remdesivir, Lovenox. Oxygen supplementation. Because of mental status change and neurology was consulted. MRI was unremarkable. Also been into hyper natremia-sodium 150. Given IV fluids. Objective - Vital Signs Vital signs: Vital Signs Temp 98.1 F 10/28/20 21:51 Pulse 96 10/28/20 21:51 Resp 15 10/28/20 21:51 BP 119/74 10/28/20 21:51 Pulse Ox 90 L 10/28/20 21:51 Intake & Output 10/28/20 10/28/20 10/29/20 06:59 18:59 06:59 Intake Total 20 Balance 20 Intake: Oral 20 Other: Voiding Method Diaper Diaper Diaper Incontinent Incontinent Incontinent # Voids 5 3 - Exam GENERAL: Laying in bed bit more awake. We'll answer occasional question. PSYCH: Answering occasional question.. NEUROLOGICAL: Cranial nerves grossly intact; no facial asymmetry, moving about. More awake Rest of exam as per nursing pulmonary, neurology - Labs CBC & Chem 7: 10/28/20 05:37 10/28/20 05:37 Labs: Abnormal Lab Results - Last 24 Hours (Table) 10/28/20 10/28/20 10/28/20 Range/Units 05:37 05:37 07:20 WBC 13.6 H (3.8-10.6) k/uL Neutrophils # 11.9 H (1.3-7.7) k/uL Lymphocytes # 0.9 L (1.0-4.8) k/uL Sodium 153 H (135-145) mmol/L Chloride 117 H (96-109) mmol/L Anion Gap 12.30 H (4.00-12.00) mmol/L BUN 55.0 H (9.0-27.0) mg/dL Est GFR (CKD-EPI)AfAm 52.3 L (60.0-200.0) Est GFR (CKD-EPI)NonAf 45.1 L (60.0-200.0) BUN/Creatinine Ratio 45.83 H (12.00-20.00) Ratio Glucose 205 H (70-110) mg/dL POC Glucose (mg/dL) 187 H (75-99) mg/dL Total Bilirubin 1.7 H (0.3-1.2) mg/dL Conjugated Bilirubin 0.60 H (0.20-0.40) mg/dL AST 41 H (13-35) U/L ALT 54 H (8-44) U/L 10/28/20 10/28/20 10/28/20 Range/Units 11:45 16:34 19:57 WBC (3.8-10.6) k/uL Neutrophils # (1.3-7.7) k/uL Lymphocytes # (1.0-4.8) k/uL Sodium (135-145) mmol/L Chloride (96-109) mmol/L Anion Gap (4.00-12.00) mmol/L BUN (9.0-27.0) mg/dL Est GFR (CKD-EPI)AfAm (60.0-200.0) Est GFR (CKD-EPI)NonAf (60.0-200.0) BUN/Creatinine Ratio (12.00-20.00) Ratio Glucose (70-110) mg/dL POC Glucose (mg/dL) 193 H 169 H 183 H (75-99) mg/dL Total Bilirubin (0.3-1.2) mg/dL Conjugated Bilirubin (0.20-0.40) mg/dL AST (13-35) U/L ALT (8-44) U/L Microbiology - Last 24 Hours (Table) 10/26/20 22:26 Blood Culture - Preliminary Blood No Growth after 24 hours Assessment and Plan Assessment: Metabolic encephalopathy with agitated delirium -Diagnosed with Coronavirus 6 days prior to admission. admitted with bilateral COVID 19 pneumonia-improved -Acute hypoxic respiratory failure from down to room air-90% -Acute metabolic encephalopathy and acute delirium-worsening from shows some im provement -Hypernatremia with hyperchloremia from free water deficit-new diagnosis- improved -Diabetes mellitus type 2 uncontrolled with hyperglycemia -Essential hypertension -Hyperlipidemia -Obesity BMI 31.8 Plan: Remdesivir-completed. On Decadron 6 mg. Subcu Lovenox. Plavix on hold for anticipated LP Time with Patient: Greater than 30
--- NOTE | 2020-10-29 01:42 | PN ---
PROGRESS NOTE DATE OF SERVICE: 10/28/2020 REASON FOR FOLLOWUP: Pneumonia. INTERVAL HISTORY: The patient is currently afebrile. The patient remains to be slightly encephalopathic. The patient did have . She is currently on room air. Denies having any chest pain when asked specifically. Minimal cough. No abdominal pain or diarrhea has been reported by nursing staff. PHYSICAL EXAMINATION: Blood pressure 117/72 with a pulse of 101, temperature 98.2. She is 91% on room air. General description is an elderly female lying in bed in no distress. RESPIRATORY SYSTEM: Unlabored breathing, with decreased intensity of breath sounds. No wheeze. HEART: S1, S2. Regular rate and rhythm. ABDOMEN: Soft, no tenderness. LABS: Hemoglobin is 14.9, white count 13.6, BUN 55, creatinine is 1.2. DIAGNOSTIC IMPRESSION AND PLAN: Patient with COVID-19 pneumonia, adequately treated, now with concern for possible aspiration pneumonia, covered with Zosyn. Try to obtain a sputum. Await LP possibly Thursday. Continue with supportive care. MMODL / IJN: [id number] /
[2020-10-29] MEDS: DEXTROSE 5% IN WATER 1,000 ML IV SCH ×4 (02:59→21:00)
[2020-10-29 06:49] LABS: Glucose,Whole Blood 184 mg/dL (75-99)
[2020-10-29] MEDS: ASCORBIC ACID 500 MG TAB PO SCH (09:17)
[2020-10-29] MEDS: FAMOTIDINE 20 MG TAB PO SCH (09:18)
[2020-10-29] MEDS: MELOXICAM 7.5 MG TAB PO SCH ×2 (09:18→10:37)
[2020-10-29] MEDS: METOPROLOL TARTRATE 25 MG TAB PO SCH ×2 (09:18→20:31)
[2020-10-29] MEDS: LOSARTAN 50 MG TAB PO SCH (09:18)
[2020-10-29] MEDS: ZINC SULFATE 220 MG CAP PO SCH (09:18)
[2020-10-29] MEDS: MULTIVITAMINS, THERA 1 EACH TAB PO SCH (09:18)
[2020-10-29] MEDS: dexAMETHasone 2 MG TAB PO SCH (09:19)
[2020-10-29] MEDS: ATORVASTATIN 40 MG TAB PO SCH (09:19)
[2020-10-29] MEDS: metFORMIN 500 MG TAB PO SCH ×2 (09:19→17:05)
[2020-10-29] MEDS: CALCIUM CARB-VIT D 500MG-200UN 1 EACH TAB PO SCH (09:19)
[2020-10-29] MEDS: INSULIN ASPART (NovoLOG) 100 UNIT/ML VIAL SQ SCH ×4 (09:20→20:58)
[2020-10-29] MEDS: PIPERACILLIN-TAZOBACTAM 3.375 GM in SODIUM CHLORIDE 0.9% 100 ML IVPB SCH ×3 (09:21→21:00)
[2020-10-29] MEDS: ENOXAPARIN 40 MG/0.4 ML SYRINGE SQ SCH ×2 (09:22→20:58)
[2020-10-29 11:56] LABS: Glucose,Whole Blood 195 mg/dL (75-99)
--- NOTE | 2020-10-29 13:22 | P.PN ---
Subjective Progress Note Date: 10/29/20 Principal diagnosis: -Diagnosed with Coronavirus 6 days prior to admission. admitted with bilateral COVID 19 pneumonia-improved -Acute hypoxic respiratory failure from down to room air-90% -Acute metabolic encephalopathy and acute delirium-worsening from shows some improvement -Hypernatremia with hyperchloremia from free water deficit-new diagnosis- improved -Diabetes mellitus type 2 uncontrolled with hyperglycemia -Essential hypertension -Hyperlipidemia -Obesity BMI 31.8 10/29/2020, patient seen eval examined during the rounds labs reviewed medications reviewed care plan discussed, overall respiratory status remains stable mental status remained marginal, noted recommendation from dietitian, awaiting spinal tap 10/28/2020, overall mental status remains poor, Plavix is on hold, patient is being considered for spinal tap, overall no significant change today compared to yesterday exam, neurology is following, 10/27/2020, patient seen eval examined labs reviewed medications reviewed, patient has been on Decadron and subcu Lovenox, neurology has been following patient remains very agitated encephalopathic, continued to be restless This is a 74-year-old patient of . Patient was diagnosed with COVID on Thursday that is 6 days ago. Patient came in today because she was becoming more short of breath also becoming confused. Brought in by the of the ER was also getting symptoms also admitted to the hospital with COVID. Overnight patient has done a bit better. Less short of breath. Less cough. Did eat some food. Tired. Chronic stable medical conditions include diabetes, hyperlipidemia, hypertension, stroke causing some numbness in the hands and arm. Admitted with bilateral COVID 19 pneumonia, acute hypoxic respiratory failure, acute metabolic encephalopathy and delirium. Patient started on dexamethasone, Remdesivir, Lovenox. Oxygen supplementation. Because of mental status change and neurology was consulted. MRI was unremarkable. Also been into hyper natremia-sodium 150. Given IV fluids. Objective - Vital Signs Vital signs: Vital Signs Temp 97.8 F 10/29/20 08:00 Pulse 91 10/29/20 08:00 Resp 17 10/29/20 08:00 BP 116/66 10/29/20 08:00 Pulse Ox 92 L 10/29/20 08:00 Intake & Output 10/28/20 10/29/20 10/29/20 18:59 06:59 18:59 Other: Voiding Method Diaper Diaper Diaper Incontinent Incontinent Incontinent # Voids 3 1 - Exam GENERAL: Laying in bed bit more awake. We'll answer occasional question. PSYCH: Answering occasional question.. NEUROLOGICAL: Cranial nerves grossly intact; no facial asymmetry, moving about. More awake Rest of exam as per nursing pulmonary, neurology - Labs CBC & Chem 7: 10/28/20 05:37 10/28/20 05:37 Labs: Abnormal Lab Results - Last 24 Hours (Table) 10/28/20 10/28/20 10/29/20 Range/Units 16:34 19:57 06:48 POC Glucose (mg/dL) 169 H 183 H 184 H (75-99) mg/dL 10/29/20 Range/Units 11:55 POC Glucose (mg/dL) 195 H (75-99) mg/dL Microbiology - Last 24 Hours (Table) 10/26/20 22:26 Blood Culture - Preliminary Blood No Growth after 48 hours Assessment and Plan Assessment: Metabolic encephalopathy with agitated delirium -Diagnosed with Coronavirus 6 days prior to admission. admitted with bilateral COVID 19 pneumonia-improved -Acute hypoxic respiratory failure from down to room air-90% -Acute metabolic encephalopathy and acute delirium-worsening from shows some improvement -Hypernatremia with hyperchloremia from free water deficit-new diagnosis- improved -Diabetes mellitus type 2 uncontrolled with hyperglycemia -Essential hypertension -Hyperlipidemia -Obesity BMI 31.8 Plan: Remdesivir-completed. On Decadron 6 mg. Subcu Lovenox. Plavix on hold for anticipated LP Time with Patient: Greater than 30
--- NOTE | 2020-10-29 16:33 | P.PN ---
Subjective Progress Note Date: 10/29/20 Patient was seen at bedside and the per the patient nurse the she continues to be agitated the prone goral her IV the lines and has not been eating. She has not got lumbar puncture since unable to cooperative with exam. Objective - Vital Signs Vital signs: Vital Signs Temp 97.8 F 10/29/20 14:00 Pulse 92 10/29/20 14:00 Resp 19 10/29/20 14:00 BP 119/68 10/29/20 14:00 Pulse Ox 91 L 10/29/20 14:00 Intake & Output 10/28/20 10/29/20 10/29/20 18:59 06:59 18:59 Weight 86 kg Other: Voiding Method Diaper Diaper Diaper Incontinent Incontinent Incontinent # Voids 3 1 1 - Exam patient appears mildly restless, seems better than 12/27/[address] Perez last exam. Her neck is supple. No nuchal rigidity. Patient has evidence of scar in the lumbar spine from previous back surgery. She is awake, oriented to self. Otherwise does not follow commands or verbali zes. She makes eye contact for the most part the does not follow commands. Pupils are round, equal and reactive to light bilaterally. patient did not cooperate with visual field testing. Face is symmetric bilaterally. Rest of the cranial nerve exam is limited that because of the patient cooperatio n. Motor: Gait is deferred because of patient cooperation. The strength she is able to lift up upper and lower extremities above gravity to painful stimuli but could not test individual muscle because of the patient's cooperation. Normal tone and bulk Sensory examination: With painful stimuli she withdraws all extremities throughout. Could not assess the light touch because of her cooperation. Patient has withdrawal for plantar stimulation bilaterally. - Labs CBC & Chem 7: 10/28/20 05:37 10/28/20 05:37 Labs: Abnormal Lab Results - Last 24 Hours (Table) 10/28/20 10/28/20 10/29/20 Range/Units 16:34 19:57 06:48 POC Glucose (mg/dL) 169 H 183 H 184 H (75-99) mg/dL 10/29/20 Range/Units 11:55 POC Glucose (mg/dL) 195 H (75-99) mg/dL Microbiology - Last 24 Hours (Table) 10/26/20 22:26 Blood Culture - Preliminary Blood No Growth after 48 hours Assessment and Plan Assessment: * Altered mental status, likely due to toxic metabolic encephalopathy. I think patient has component of delirium and possibly related to corticosteroids. * Acute COVID-19 related pneumonia, with significant encephalopathy. Patient monsivais s been treated with Remdesivir. Encephalopathy has not improved, nonfocal exam. * Acute hypoxic respiratory failure. * Abnormal liver functions, slightly worsening. * Hypernatremia, improved. Dehydration * History of right thalamic lacunar infarct 12/15/2014. * Diabetes, with hemoglobin A1c 7.0 on 05/19/2018 * Hypertension Plan: * EEG was performed after given Ativan, which showed moderate background slowing consistent with encephalopathy. No epileptiform activity was seen. No electrographic evidence of herpes encephalitis. * Patient's mentation not significantly improved, continues to be delirious, restless, disinhibited. Patient almost mute. * MRI of the brain (10/24/2020) showed mild to moderate diffuse cerebral atrophy and chronic small vessel ischemic changes. There is left temporal arachnoid cyst redemonstrated. Exam is relatively nonfocal. * B12 1016, folate 947 normal, TSH 0.59 normal, ammonia <9, hemoglobin A1c 8.2, consistent with not well controlled diabetes. * Follow-up liver function tests per IM. Sodium has normalized. * Lumbar puncture was ordered to be performed by interventional radiology to rule out encephalitis. Apparently patient has been taking Plavix, and she has to be off Plavix for 5 days before (last dose was 10/24/20). Per Dr. Perez it was safe to pursue with Lumbar puncture today. As EEG did not reveal any evidence of PLEDs (that may raise concern about herpes encephalitis), we will hold off on acyclovir. Patient does not have IV site either, as she keeps on ripping off IV lines and other tubes. * CONSULT ANESTHESIOLOGY FOR LUMBAR PUNCTURE. PATIENT TO BE NOTHING BY MOUTH FOR LUMBAR PUNCTURE AT MIDNIGHT TODAY. * The patient's nurse was notified that to have the lights on during the day and for her to have a sitter at bedside social further some interaction and during the night I have recommended the fourth to be dark quiet. * Infection disease team is on board. The plan was discussed with the patient nurse. Time with Patient: Less than 30
[2020-10-29 17:01] LABS: Glucose,Whole Blood 224 mg/dL (75-99)
[2020-10-29 20:27] LABS: Glucose,Whole Blood 171 mg/dL (75-99)
[2020-10-29] MEDS: GABAPENTIN 300 MG CAP PO SCH (20:31)
--- NOTE | 2020-10-29 23:24 | PN ---
PROGRESS NOTE DATE OF SERVICE: 10/29/2020 REASON FOR FOLLOW UP: Covid-19 infection. INTERVAL HISTORY: The patient is currently afebrile. The patient remains to be encephalopathic and unable to provide any history. When asked specifically, denies having any chest pain or cough. Currently on room air. No vomiting or diarrhea has been reported. Oral intake remains to be poor. PHYSICAL EXAMINATION: Blood pressure 121/73 with a pulse of 99, temperature 98.1. She is 93%. General description is an elderly female lying in bed in no distress. Respiratory system: Unlabored breathing with decreased breath sounds. No wheeze. Heart S1, S2. Regular rate and rhythm. Abdomen soft, no tenderness. LABS: No new labs have been obtained today. DIAGNOSTIC IMPRESSION AND PLAN: Patient with COVID-19 pneumonia completed her Remdesivir therapy. Subsequently with low grade fever, concern for possible aspiration pneumonia is covered with Zosyn, possible LP tomorrow and continue supportive care. MMODL / IJN: [id number] /
[2020-10-30 07:03] LABS: Glucose,Whole Blood 195 mg/dL (75-99)
[2020-10-30] MEDS: ENOXAPARIN 40 MG/0.4 ML SYRINGE SQ SCH ×2 (07:12→20:31)
[2020-10-30 08:44] LABS: Prothrombin Time 10.6 sec (9.0-12.0)
[2020-10-30] MEDS: INSULIN ASPART (NovoLOG) 100 UNIT/ML VIAL SQ SCH ×4 (10:18→20:31)
[2020-10-30] MEDS: metFORMIN 500 MG TAB PO SCH ×2 (10:25→17:20)
[2020-10-30] MEDS: ASCORBIC ACID 500 MG TAB PO SCH (10:25)
[2020-10-30] MEDS: dexAMETHasone 2 MG TAB PO SCH (10:25)
[2020-10-30] MEDS: CALCIUM CARB-VIT D 500MG-200UN 1 EACH TAB PO SCH (10:25)
[2020-10-30] MEDS: ATORVASTATIN 40 MG TAB PO SCH (10:25)
[2020-10-30] MEDS: FAMOTIDINE 20 MG TAB PO SCH (10:25)
[2020-10-30] MEDS: PIPERACILLIN-TAZOBACTAM 3.375 GM in SODIUM CHLORIDE 0.9% 100 ML IVPB SCH ×3 (10:25→15:48)
[2020-10-30] MEDS: METOPROLOL TARTRATE 25 MG TAB PO SCH ×2 (10:26→20:21)
[2020-10-30] MEDS: MELOXICAM 7.5 MG TAB PO SCH (10:26)
[2020-10-30] MEDS: ZINC SULFATE 220 MG CAP PO SCH (10:26)
[2020-10-30] MEDS: MULTIVITAMINS, THERA 1 EACH TAB PO SCH (10:26)
[2020-10-30] MEDS: LOSARTAN 50 MG TAB PO SCH (10:26)
[2020-10-30 11:39] LABS: Glucose,Whole Blood 215 mg/dL (75-99)
[2020-10-30] MEDS ORDERED: LORazepam 2 MG/ML INJ IM STA (12:09)
[2020-10-30] MEDS ORDERED: HYDROmorphone 0.5 MG/0.5 ML SYRINGE IVP STA (12:09)
[2020-10-30] MEDS ORDERED: LORazepam 2 MG/ML INJ IV STA (12:16)
[2020-10-30] MEDS: DEXTROSE 5% IN WATER 1,000 ML IV SCH ×2 (12:35→17:41)
--- NOTE | 2020-10-30 12:54 | P.PN ---
Subjective Progress Note Date: 10/30/20 Principal diagnosis: -Diagnosed with Coronavirus 6 days prior to admission. admitted with bilateral COVID 19 pneumonia-improved -Acute hypoxic respiratory failure from down to room air-90% -Acute metabolic encephalopathy and acute delirium-worsening from shows some improvement -Hypernatremia with hyperchloremia from free water deficit-new diagnosis- improved -Diabetes mellitus type 2 uncontrolled with hyperglycemia -Essential hypertension -Hyperlipidemia -Obesity BMI 31.8 10/30/2020, patient seen eval examined during the rounds is awake however mostly noncommunicative, patient is scheduled for spinal tap later on today, discussed with the dietitian about the nutritional issues, patient at times becomes agitated has pulled IVs before likelihood is that she will pull out the NG tube high risk of aspiration related complications neurology following 10/29/2020, patient seen eval examined during the rounds labs reviewed medications reviewed care plan discussed, overall respiratory status remains stable mental status remained marginal, noted recommendation from dietitian, awaiting spinal tap 10/28/2020, overall mental status remains poor, Plavix is on hold, patient is being considered for spinal tap, overall no significant change today compared to yesterday exam, neurology is following, 10/27/2020, patient seen eval examined labs reviewed medications reviewed, patient has been on Decadron and subcu Lovenox, neurology has been following patient remains very agitated encephalopathic, continued to be restless This is a 74-year-old patient of . Patient was diagnosed with COVID on Thursday that is 6 days ago. Patient came in today because she was becoming more short of breath also becoming confused. Brought in by the of the ER was also getting symptoms also admitted to the hospital with COVID. Overnight patient has done a bit better. Less short of breath. Less cough. Did eat some food. Tired. Chronic stable medical conditions include diabetes, hyperlipidemia, hypertension, stroke causing some numbness in the hands and arm. Admitted with bilateral COVID 19 pneumonia, acute hypoxic respiratory failure, acute metabolic encephalopathy and delirium. Patient started on dexamethasone, Remdesivir, Lovenox. Oxygen supplementation. Because of mental status change and neurology was consulted. MRI was unremarkable. Also been into hyper natremia-sodium 150. Given IV fluids. Objective - Vital Signs Vital signs: Vital Signs Temp 97.3 F L 10/30/20 08:00 Pulse 106 H 10/30/20 08:00 Resp 18 10/30/20 08:00 BP 88/59 10/30/20 08:00 Pulse Ox 94 L 10/30/20 08:00 Intake & Output 10/29/20 10/30/20 10/30/20 18:59 06:59 18:59 Weight 86 kg Other: Voiding Method Diaper Diaper Diaper Incontinent Incontinent Incontinent # Voids 3 4 - Exam GENERAL: Laying in bed bit more awake. We'll answer occasional question. PSYCH: Answering occasional question.. NEUROLOGICAL: Cranial nerves grossly intact; no facial asymmetry, moving about. More awake Rest of exam as per nursing pulmonary, neurology - Labs CBC & Chem 7: 10/28/20 05:37 10/28/20 05:37 Labs: Abnormal Lab Results - Last 24 Hours (Table) 10/29/20 10/29/20 10/30/20 Range/Units 16:58 20:20 07:00 POC Glucose (mg/dL) 224 H 171 H 195 H (75-99) mg/dL 10/30/20 Range/Units 11:36 POC Glucose (mg/dL) 215 H (75-99) mg/dL Microbiology - Last 24 Hours (Table) 10/26/20 22:26 Blood Culture - Preliminary Blood No Growth after 72 hours Assessment and Plan Assessment: Metabolic encephalopathy with agitated delirium -Diagnosed with Coronavirus 6 days prior to admission. admitted with bilateral COVID 19 pneumonia-improved -Acute hypoxic respiratory failure from down to room air-90% -Acute metabolic encephalopathy and acute delirium-worsening from shows some improvement -Hypernatremia with hyperchloremia from free water deficit-new diagnosis- improved -Diabetes mellitus type 2 uncontrolled with hyperglycemia -Essential hypertension -Hyperlipidemia -Obesity BMI 31.8 Plan: Remdesivir-completed. On Decadron 6 mg. Subcu Lovenox. Plavix on hold for anticipated LP Time with Patient: Greater than 30
--- NOTE | 2020-10-30 12:59 | P.PCN ---
Date of Procedure: 10/30/20 Description of Procedure: Procedure: Lumbar Puncture . Preoperative Diagnoses: Encephalitis Postoperative Diagnosis: Encephalitis Anesthesia: Local with 0.5 mg of Dilaudid and 1 mg of Ativan Condition: stable. Complications: none. Description of the procedure: Patient was identified. Patient's is COVID positive so we did the procedure in the room. Vitals are noted, IV was placed. IV pain medicatinn were given. Patient was placed in the right lateral decubitus position and the iliac crests were identified. The area was cleansed with iodine. The L3-L4 interspace was palpated. A 25-gauge 1-1/2 inch needle was used to infiltrate the skin and soft tissue with 1% lidocaine. At that time a 21-gauge needle was placed through the skin wheal. The needle was advanced until CSF was free flowing. The opening pressure was 10. The CSF was clear. 3 ML's of CSF were obtained in each bile. The vials are sent off to the lab. The patient did very well. Her postoperative lateral signs were stable. Sign out was given to the RN.
[2020-10-30 15:02] LABS: Glucose,CSF 115 mg/dL (40-70); Total Protein,CSF 95 mg/dL (12-60)
[2020-10-30 15:04] LABS: Appearance,CSF Clear; CSF Tube Number 3; CSF Tube Volume 2.5; Nucleated Cells, CSF 1 u/L (0-5); Red Blood Cell,CSF 1 u/L (0-10)
[2020-10-30 16:53] LABS: Glucose,Whole Blood 245 mg/dL (75-99)
[2020-10-30] MEDS: SODIUM CHLORIDE 0.9% 1,000 ML IV SCH (17:46)
--- NOTE | 2020-10-30 18:03 | P.PN ---
Subjective Progress Note Date: 10/30/20 The patient was seen at bedside and she continues to be altered until status. She is noncommunicative. She continues to be somewhat naked. She's not getting her medication since uncooperative. He is also not being fed since uncooperative. She pulled her NG tube and pulls her lines. She is not getting any oral medication. Today patient had Lumbar Puncture performed: The CSF appears clear, colorless, r ed blood cell is 1, total nuclear cells is 1, the glucose is 115 (normal is 40- 70), the CSF protein is 95 (normal is 12-60). Objective - Vital Signs Vital signs: Vital Signs Temp 97.8 F 10/30/20 14:00 Pulse 92 10/30/20 14:00 Resp 18 10/30/20 14:00 BP 110/73 10/30/20 14:00 Pulse Ox 97 10/30/20 14:00 Intake & Output 10/29/20 10/30/20 10/30/20 18:59 06:59 18:59 Intake Total 100 Balance 100 Weight 86 kg Intake: Intake, IV Titration 100 Amount Piperacillin-Tazobactam 3 100 .375 gm In Sodium Chloride 0.9% 100 ml @ 25 mls/hr IVPB Q8HR [facility] Rx# :[id number] Other: Voiding Method Diaper Diaper Diaper Incontinent Incontinent Incontinent # Voids 3 4 - Exam patient appears mildly restless. Her neck is supple. No nuchal rigidity. Patient has evidence of scar in the lumbar spine from previous back surgery. Neurological examination: Higher mental function: She is awake but non-communicative. She would only say, to leave me alone with painful stimuli. She does not follow commands. Cranial Nerves: Pupils are round, equal and reactive to light bilaterally. Gaze is center bilaterally. Could not assess visual filed to confrontation because of cooperation. No facial weakness noted bilaterally. Otherwise rest of cranial nerves could not be assessed because of her condition. Motor: Gait is deferred. Strength seems could throughout and moving all extremities above gravity (there does not seem any focallity noted). Sensory examination: With painful stimuli she withdraws all extremities throughout. Could not assess the light touch because of her cooperation. Plantars: Are downgoing bilaterally. - Labs CBC & Chem 7: 10/28/20 05:37 12/22/20 15:17 Labs: Abnormal Lab Results - Last 24 Hours (Table) 10/29/20 10/30/20 10/30/20 Range/Units 20:20 07:00 11:36 Glucose (74-99) mg/dL POC Glucose (mg/dL) 171 H 195 H 215 H (75-99) mg/dL CSF Glucose (40-70) mg/dL CSF Total Protein (12-60) mg/dL 10/30/20 10/30/20 10/30/20 Range/Units 12:15 15:17 16:52 Glucose 294 H (74-99) mg/dL POC Glucose (mg/dL) 245 H (75-99) mg/dL CSF Glucose 115 H (40-70) mg/dL CSF Total Protein 95 H (12-60) mg/dL Microbiology - Last 24 Hours (Table) 10/26/20 22:26 Blood Culture - Preliminary Blood No Growth after 72 hours Assessment and Plan Assessment: * Altered mental status, likely due to toxic metabolic encephalopathy (hypernatremia, hyperglycemia, elvated LFT's). I think patient has component of delirium (it was tought maybe due to steroids but has not been getting it for past couple days). Also encephalopathy due to underlying infection (Pneumonia) and hospital stay. Does not seem meningoencephalitis from CSF study. * Acute COVID-19 related pneumonia, with significant encephalopathy. Patient has been treated with Remdesivir. Encephalopathy has not improved, nonfocal exam. * Acute hypoxic respiratory failure. * Abnormal liver functions, improving * Hypernatremia--worsening-likely due to dehydration * Uncontrolled sugar * History of right thalamic lacunar infarct 12/15/2014. * Diabetes, with hemoglobin A1c 7.0 on 05/19/2018 * Hypertension Plan: * EEG (10/26/2020): Was performed after given Ativan, which was reported as moderate background slowing consistent with encephalopathy. No epileptiform activity was seen. No electrographic evidence of herpes encephalitis. * Patient's mentation not significantly improved, continues to be delirious, restless, disinhibited. Patient almost mute. * MRI of the brain (10/24/2020) showed mild to moderate diffuse cerebral atrophy and chronic small vessel ischemic changes. There is left temporal arachnoid cyst redemonstrated. Exam is relatively nonfocal. * B12 1016, folate 947 normal, TSH 0.59 normal, ammonia <9, hemoglobin A1c 8.2, consistent with not well controlled diabetes. * Follow-up liver function tests per IM. * From the CSF study doesn't look like meningeal encephalitis. The elevated routine and the the glucose level on the CSF is possibly due to uncontrolled diabetes. * Ordered a repeat CT of the head, repeat EEG and an ammonia level. * We'll defer the management of the uncontrolled sugar and hypernatremia to the primary team. * Recommend repeating patient the CBC and BMP if possible. * The patient's nurse was notified that to have the lights on during the day and for her to have a sitter at bedside social further some interaction and during the night I have recommended the fourth to be dark quiet. * Infection disease team is on board. The plan was discussed with the patient nurse. David Manley MD Neuro-hospitalist. Time with Patient: Greater than 30
--- NOTE | 2020-10-30 19:32 | CT ---
EXAMINATION TYPE: CT brain wo con DATE OF EXAM: 10/30/2020 COMPARISON: 10/23/2020 HISTORY: Altered mental status CT DLP: 1172.4 mGycm Automated exposure control for dose reduction was used. There is cerebral cortical atrophy. There is no mass effect nor midline shift. There is no sign of in tracranial hemorrhage. The calvarium is intact. There is some prominence of the ventricles. There is more noticeable atrophy in the left temporal lobe. IMPRESSION: Cerebral atrophy. No acute intracranial abnormality. No change.
[2020-10-30] MEDS: GABAPENTIN 300 MG CAP PO SCH (20:21)
[2020-10-30 20:22] LABS: Glucose,Whole Blood 185 mg/dL (75-99)
--- NOTE | 2020-10-30 23:02 | PN ---
PROGRESS NOTE DATE OF SERVICE: 10/30/2020 REASON FOR FOLLOWUP: COVID-19 infection and encephalopathy. INTERVAL HISTORY: The patient remains afebrile. The patient remains encephalopathic. Currently on room air. She is not able to provide a reliable history, though. When asked specifically, denies any chest pain or cough. No diarrhea reported. PHYSICAL EXAMINATION: Blood pressure 97/63 with a pulse of 88, temperature 98.1. She is 90% on room air. General description is an elderly female lying in bed in no distress. RESPIRATORY SYSTEM: Unlabored breathing with decreased intensity of breath sounds. No wheeze. HEART: S1, S2. Regular rate and rhythm. ABDOMEN: Soft. No tenderness. LABS: CSF examination shows glucose of 115 with protein of 95. White count normal. DIAGNOSTIC IMPRESSION AND PLAN: Patient with COVID-19 infection who completed her remdesivir therapy followed by an episode of mental status changes, possible aspiration pneumonitis. She was started on Zosyn. Unable to get today, as the patient does not have any IV. She did have a CSF examination and it does not look infected. Blood cultures will be followed. Continue Zosyn and monitor clinical course closely. MMODL / IJN: [id number] /
[2020-10-31] MEDS: SODIUM CHLORIDE 0.9% 1,000 ML IV SCH ×3 (00:55→15:39)
[2020-10-31 06:55] LABS: Glucose,Whole Blood 198 mg/dL (75-99)
[2020-10-31] MEDS: ENOXAPARIN 40 MG/0.4 ML SYRINGE SQ SCH ×2 (07:55→20:48)
[2020-10-31] MEDS: PIPERACILLIN-TAZOBACTAM 3.375 GM in SODIUM CHLORIDE 0.9% 100 ML IVPB SCH ×3 (07:55→23:51)
[2020-10-31] MEDS: INSULIN ASPART (NovoLOG) 100 UNIT/ML VIAL SQ SCH ×4 (07:55→20:47)
[2020-10-31] MEDS: metFORMIN 500 MG TAB PO SCH ×2 (08:05→16:33)
[2020-10-31] MEDS: ZINC SULFATE 220 MG CAP PO SCH (08:06)
[2020-10-31] MEDS: MULTIVITAMINS, THERA 1 EACH TAB PO SCH (08:06)
[2020-10-31] MEDS: FAMOTIDINE 20 MG TAB PO SCH (08:06)
[2020-10-31] MEDS: LOSARTAN 50 MG TAB PO SCH (08:06)
[2020-10-31] MEDS: ASCORBIC ACID 500 MG TAB PO SCH (08:06)
[2020-10-31] MEDS: CALCIUM CARB-VIT D 500MG-200UN 1 EACH TAB PO SCH (08:06)
[2020-10-31] MEDS: MELOXICAM 7.5 MG TAB PO SCH (08:06)
[2020-10-31] MEDS: ATORVASTATIN 40 MG TAB PO SCH (08:06)
[2020-10-31] MEDS: METOPROLOL TARTRATE 25 MG TAB PO SCH ×2 (08:07→20:48)
--- NOTE | 2020-10-31 10:25 | P.PN ---
Subjective Progress Note Date: 10/31/20 The patient was seen at bedside and per the patient nurse the patient the continues to have altered mental status. There is no jerk in the of any of the extremities or seizure-like activity. For the most part she is unresponsive. Objective - Vital Signs Vital signs: Vital Signs Temp 97.9 F 10/31/20 09:46 Pulse 60 10/31/20 09:46 Resp 18 10/31/20 09:46 BP 107/70 10/31/20 09:46 Pulse Ox 94 L 10/31/20 09:46 Intake & Output 10/30/20 10/31/20 10/31/20 18:59 06:59 18:59 Intake Total 500 Balance 500 Intake: Intake, IV Titration 500 Amount Dextrose 5% in Water 1, 400 000 ml @ 125 mls/hr IV . Q8H [facility] Rx#:[id number] Piperacillin-Tazobactam 3 100 .375 gm In Sodium Chloride 0.9% 100 ml @ 25 mls/hr IVPB Q8HR [facility] Rx# :[id number] Other: Voiding Method Diaper Diaper Incontinent Incontinent # Voids 2 - Exam General: Patient is an morbidly obsese patient and does not seem to be in distress. Her neck is supple. No nuchal rigidity. Patient has evidence of scar in the lumbar spine from previous back surgery. Neurological examination: Higher mental function: She is drowsy but awakeable to voice. She is oriented to self only. Otherwise she is non-communicative. She does not follow commands. Cranial Nerves: Pupils are round (5mm bilaterally), equal and reactive to light bilaterally. Gaze is center bilaterally and does not track. Could not assess visual filed to confrontation because of her cooperation but to threat is intact. No facial weakness noted bilaterally. Otherwise rest of cranial nerves could not be assessed because of her condition. Motor: Gait is deferred. Strength: Was moving all extremities above gravity to painful stimuli and no focality is appreciated. Sensory examination: With painful stimuli she withdraws all extremities through out. Could not assess the light touch because of her cooperation. Plantars: Are downgoing bilaterally. - Labs CBC & Chem 7: 10/28/20 05:37 10/30/20 15:17 Labs: Abnormal Lab Results - Last 24 Hours (Table) 10/30/20 10/30/20 10/30/20 Range/Units 11:36 12:15 15:17 Glucose 294 H (74-99) mg/dL POC Glucose (mg/dL) 215 H (75-99) mg/dL CSF Glucose 115 H (40-70) mg/dL CSF Total Protein 95 H (12-60) mg/dL 10/30/20 10/30/20 10/31/20 Range/Units 16:52 20:20 06:52 Glucose (74-99) mg/dL POC Glucose (mg/dL) 245 H 185 H 198 H (75-99) mg/dL CSF Glucose (40-70) mg/dL CSF Total Protein (12-60) mg/dL Microbiology - Last 24 Hours (Table) 10/26/20 22:26 Blood Culture - Preliminary Blood No Growth after 96 hours 10/30/20 12:15 CSF Gram Stain - Preliminary Cerebral Spinal Fluid CSF Culture - Preliminary Assessment and Plan Assessment: * Altered mental status, likely due to toxic metabolic encephalopathy (hypernatremia, hyperglycemia, elvated LFT's). I think patient has component of delirium (it was tought maybe due to steroids but has not been getting it for past couple days). Also encephalopathy due to underlying infection (Aspiration Pneumonitis) and hospital stay. Does not seem meningoencephalitis from CSF study. * Acute COVID-19 related pneumonia, with significant encephalopathy. Patient has been treated with Remdesivir. Encephalopathy has not improved, nonfocal exam. * Acute hypoxic respiratory failure. * Abnormal liver functions, improving * Hypernatremia--worsening-likely due to dehydration * Uncontrolled sugar * History of right thalamic lacunar infarct 12/15/2014. * Diabetes, with hemoglobin A1c 7.0 on 05/19/2018 * Hypertension Plan: * EEG (10/26/2020): Was performed after given Ativan, which was reported as moderate background slowing consistent with encephalopathy. No epileptiform activity was seen. No electrographic evidence of herpes encephalitis. * Patient's mentation not significantly improved, continues to be delirious, restless, disinhibited. Patient almost mute. * MRI of the brain (10/24/2020) showed mild to moderate diffuse cerebral atrophy and chronic small vessel ischemic changes. There is left temporal arachnoid cyst redemonstrated. Exam is relatively nonfocal. * Repeat CT head (10/30/2020): Cerebral atrophy. No acute intracranial abnormality. No change. * Vitamin B12 1016, folate 947 normal, TSH 0.59 normal, ammonia <9, hemoglobin A1c 8.2, consistent with not well controlled diabetes. * Repeat Ammonia (10/30/2020): <9 (normal). * Follow-up liver function tests per IM. * From the CSF study doesn't look like meningeal encephalitis. The elevated routine and the the glucose level on the CSF is possibly due to uncontrolled diabetes. * Pending EEG study later today. * Ordered CBC and BMP. * We'll defer the management of the uncontrolled sugar and hypernatremia to the primary team. * The patient's nurse was notified that to have the lights on during the day, and have someone to interact as much as possible and opposite during the night. * Infection disease team is on board and they feels she currently has aspiration pneumonitis. The plan was discussed with the patient's nurse. David Manley MD Neuro-hospitalist. Time with Patient: Greater than 30
[2020-10-31 10:50] LABS: Basophils % (A) 0 %; Eosinophils # (A) 0.1 k/uL (0-0.7); Eosinophils % (A) 1 %; HCT 45.9 % (34.0-46.0); HGB 14.8 gm/dL (11.4-16.0); Hypochromasia Slight; Lymphocytes # (A) 1.1 k/uL (1.0-4.8); Lymphocytes % (A) 8 %; MCH 31.5 pg (25.0-35.0); MCHC 32.3 g/dL (31.0-37.0); MCV 97.3 fL (80.0-100.0); Mean Platelet Volume 7.6; Monocytes # (A) 0.5 k/uL (0-1.0); Monocytes % (A) 4 %; Neutrophils % (A) 86 %; Platelet Count 250 k/uL (150-450); RBC 4.71 m/uL (3.80-5.40); RDW 14.5 % (11.5-15.5)
[2020-10-31 10:56] LABS: ALT 42 U/L (4-34); AST 30 U/L (14-36); African American GFR (CKD) 39 (>60 ml/min/1.73 sqM); Albumin 3.6 g/dL (3.5-5.0); Albumin/Globulin Ratio 1.1; Alkaline Phosphatase 59 U/L (38-126); Anion Gap 10 mmol/L; Blood Urea Nitrogen 79 mg/dL (7-17); Calcium 9.5 mg/dL (8.4-10.2); Carbon Dioxide 22 mmol/L (22-30); Chloride 127 mmol/L (98-107); Globulin 3.3 g/dL; Glucose 208 mg/dL (74-99); Non-African American GFR(CKD) 34 (>60 ml/min/1.73 sqM); Potassium 3.9 mmol/L (3.5-5.1); Sodium 159 mmol/L (137-145); Total Bilirubin 1.9 mg/dL (0.2-1.3); Total Protein 6.9 g/dL (6.3-8.2)
[2020-10-31 11:24] LABS: Glucose,Whole Blood 195 mg/dL (75-99)
--- NOTE | 2020-10-31 13:04 | P.PN ---
Subjective Progress Note Date: 10/31/20 Principal diagnosis: -Diagnosed with Coronavirus 6 days prior to admission. admitted with bilateral COVID 19 pneumonia-improved -Acute hypoxic respiratory failure from down to room air-90% -Acute metabolic encephalopathy and acute delirium-worsening from shows some improvement -Hypernatremia with hyperchloremia from free water deficit-new diagnosis- improved -Diabetes mellitus type 2 uncontrolled with hyperglycemia -Essential hypertension -Hyperlipidemia -Obesity BMI 31.8 10/31/2020, patient seen and evaluated examined oriented 1 mental status not been changed, status post spinal tap, neurology following patient likely will go to [facility] for placement 10/30/2020, patient seen eval examined during the rounds is awake however mostly noncommunicative, patient is scheduled for spinal tap later on today, discussed with the dietitian about the nutritional issues, patient at times becomes agitated has pulled IVs before likelihood is that she will pull out the NG tube high risk of aspiration related complications neurology following 10/29/2020, patient seen eval examined during the rounds labs reviewed medications reviewed care plan discussed, overall respiratory status remains stable mental status remained marginal, noted recommendation from dietitian, awaiting spinal tap 10/28/2020, overall mental status remains poor, Plavix is on hold, patient is being considered for spinal tap, overall no significant change today compared to yesterday exam, neurology is following, 10/27/2020, patient seen eval examined labs reviewed medications reviewed, patient has been on Decadron and subcu Lovenox, neurology has been following patient remains very agitated encephalopathic, continued to be restless This is a 74-year-old patient of . Patient was diagnosed with COVID on Thursday that is 6 days ago. Patient came in today because she was becoming more short of breath also becoming confused. Brought in by the of the ER was also getting symptoms also admitted to the hospital with COVID. Overnight patient has done a bit better. Less short of breath. Less cough. Did eat some food. Tired. Chronic stable medical conditions include diabetes, hyperlipidemia, hypertension, stroke causing some numbness in the hands and arm. Admitted with bilateral COVID 19 pneumonia, acute hypoxic respiratory failure, acute metabolic encephalopathy and delirium. Patient started on dexamethasone, Remdesivir, Lovenox. Oxygen supplementation. Because of mental status change and neurology was consulted. MRI was unremarkable. Also been into hyper natremia-sodium 150. Given IV fluids. Objective - Vital Signs Vital signs: Vital Signs Temp 97.9 F 10/31/20 09:46 Pulse 60 10/31/20 09:46 Resp 18 10/31/20 09:46 BP 107/70 10/31/20 09:46 Pulse Ox 94 L 10/31/20 09:46 Intake & Output 10/30/20 10/31/20 10/31/20 18:59 06:59 18:59 Intake Total 500 Balance 500 Intake: Intake, IV Titration 500 Amount Dextrose 5% in Water 1, 400 000 ml @ 125 mls/hr IV . Q8H [facility]AL Rx#:[id number] Piperacillin-Tazobactam 3 100 .375 gm In Sodium Chloride 0.9% 100 ml @ 25 mls/hr IVPB Q8HR [facility] Rx# :[id number] Other: Voiding Method Diaper Diaper Diaper Incontinent Incontinent Incontinent # Voids 2 - Exam GENERAL: Laying in bed bit more awake. We'll answer occasional question. PSYCH: Answering occasional question.. NEUROLOGICAL: Cranial nerves grossly intact; no facial asymmetry, moving about. More awake Rest of exam as per nursing pulmonary, neurology - Labs CBC & Chem 7: 10/31/20 10:33 10/31/20 10:33 Labs: Abnormal Lab Results - Last 24 Hours (Table) 10/30/20 10/30/20 10/30/20 Range/Units 12:15 15:17 16:52 WBC (3.8-10.6) k/uL Neutrophils # (1.3-7.7) k/uL Sodium (137-145) mmol/L Chloride (98-107) mmol/L BUN (7-17) mg/dL Creatinine (0.52-1.04) mg/dL Glucose 294 H (74-99) mg/dL POC Glucose (mg/dL) 245 H (75-99) mg/dL Total Bilirubin (0.2-1.3) mg/dL ALT (4-34) U/L CSF Glucose 115 H (40-70) mg/dL CSF Total Protein 95 H (12-60) mg/dL 10/30/20 10/31/20 10/31/20 Range/Units 20:20 06:52 10:33 WBC 14.0 H (3.8-10.6) k/uL Neutrophils # 12.0 H (1.3-7.7) k/uL Sodium (137-145) mmol/L Chloride (98-107) mmol/L BUN (7-17) mg/dL Creatinine (0.52-1.04) mg/dL Glucose (74-99) mg/dL POC Glucose (mg/dL) 185 H 198 H (75-99) mg/dL Total Bilirubin (0.2-1.3) mg/dL ALT (4-34) U/L CSF Glucose (40-70) mg/dL CSF Total Protein (12-60) mg/dL 10/31/20 10/31/20 Range/Units 10:33 11:21 WBC (3.8-10.6) k/uL Neutrophils # (1.3-7.7) k/uL Sodium 159 H (137-145) mmol/L Chloride 127 H (98-107) mmol/L BUN 79 H (7-17) mg/dL Creatinine 1.53 H (0.52-1.04) mg/dL Glucose 208 H (74-99) mg/dL POC Glucose (mg/dL) 195 H (75-99) mg/dL Total Bilirubin 1.9 H (0.2-1.3) mg/dL ALT 42 H (4-34) U/L CSF Glucose (40-70) mg/dL CSF Total Protein (12-60) mg/dL Microbiology - Last 24 Hours (Table) 10/30/20 12:15 CSF Gram Stain - Preliminary Cerebral Spinal Fluid CSF Culture - Preliminary 10/26/20 22:26 Blood Culture - Preliminary Blood No Growth after 96 hours Assessment and Plan Assessment: Metabolic encephalopathy with agitated delirium -Diagnosed with Coronavirus 6 days prior to admission. admitted with bilateral COVID 19 pneumonia-improved -Acute hypoxic respiratory failure from down to room air-90% -Acute metabolic encephalopathy and acute delirium-worsening from shows some improvement -Hypernatremia with hyperchloremia from free water deficit-new diagnosis- improved -Diabetes mellitus type 2 uncontrolled with hyperglycemia -Essential hypertension -Hyperlipidemia -Obesity BMI 31.8 Plan: Remdesivir-completed. On Decadron 6 mg. Subcu Lovenox. Plavix on hold for anticipated LP status post LP CSF finding reviewed, culture results pending Time with Patient: Greater than 30
[2020-10-31] MEDS ORDERED: OLANZapine 10 MG VIAL IM PRN (13:31)
--- NOTE | 2020-10-31 13:34 | P.CN ---
Psychiatric Consult - . Consult date: 10/31/20 Consult:: IDENTIFYING DATA: This patient is 74 year-old female admitted for Covid Pneumonia and confusion. HISTORY OF PRESENT ILLNESS: The patient presented to the hospital on 10/17/2020 with a chief complaint of shortness of breath and increasing confusion in the context of COVID pneumonia. During the course of the hospital stay, the patient has been started on a regimen which included dexamethasone, Remdesmivir, and Lovenox as well as oxygen supplementation. The patient continues to have significant alteration in her mental status and neurology was consulted. Diagnostic workup of the patient's altered mental status included EEG, MRI, and CT of the head which revealed no acute processes that may contribute to the patient's current presentation. Working diagnosis of altered mental status likely due to toxic metabolic encephalopathy (hypernatremia, hyperglycemia, elevated LFTs ) as well as delirium secondary to dexamethasone. Furthermore her presentation may also be due to her underlying infection (aspiration pneumonitis). Combined with all these exacerbating factors is also her prolonged hospital stay. Psychiatry has been consulted for management of agitation. Currently at this time, the patient is a very poor historian. She does not respond appropriately to any questioning. She remains mute during the interview. As per discussion with patient's nurse, she is alert and oriented to self only. Collateral information was provided by the patient's Uzair Malave, who reported that prior to this admission, the patient has been very independent and capable. 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 He also denies any significant history of dementia symptoms. He reports that the patient has not had any issues with this placing objects in the home, getting lost, or forgetting names. He does report that she occasionally has some word finding difficulty which she notices had worsened in the beginning of October when she was first diagnosed with COVID. In regards to psychiatric history, the patient's reports that the patient has no significant history of depression, anxiety, or psychosis. He reports that the patient has never had any auditory or visual hallucinations that he knows of. He reports that the patient had an episode where she was also agitated when she was recovering from her stroke back in 2014. He reports other than that episode, the patient has been mentally stable. The patient's reports that the patient has not engaged in any tobacco or recreational drug use. He reports that she would occasionally imbibing alcohol but very rarely. PAST PSYCHIATRIC HISTORY: The patient's denies that the patient has had any significant history of psychiatric treatment. Reports that she was never inpatient and is not currently open to any outpatient psychiatric services. He denies any prior medication trials. He reports that she had no prior attempts at suicide. PAST MEDICAL HISTORY: CVA, diabetes mellitus, hypertension, hyperlipidemia ALLERGIES: NO KNOWN DRUG ALLERGIES CHEMICAL DEPENDENCY HISTORY: Never smoker. Occasionally alcohol. No recreational drug use. FAMILY PSYCHIATRIC/SUBSTANCE USE HISTORY: Brother - unspecified mental illness. SOCIAL HISTORY: Patient has been for 54 years with her current Uzair. She lives with her and dog. She has 2 adult children ages 46 and 50. 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 She was born in [place], [place] and raised in the [facility]. MENTAL STATUS EXAM: General Appearance: Patient appears to be stated age, disheveled, obese body habitus, and is naked. Behavior: Patient is lying down calmly in bed without any agitated behavior. Psychomotor activity appears slow. Eye contact is poor. Speech: Patient is mute during the whole entire assessment. Mood/Affect: Unable to assess. Suicidality/Homicidality: Unable to assess. Perceptions: Unable to assess. Though content/process: Unable to assess. Memory and concentration: As per discussion with her nurse, the patient is alert and oriented to self only. Concentration is grossly poor. Judgment and insight: Very poor. IMPRESSIONS: Altered mental status Likely secondary to: -Toxic metabolic encephalopathy (hypernatremia, hyperglycemia, elevated LFTs) -Delirium (secondary to dexamethasone, COVID infection) Collateral information from her reveals no underlying psychiatric pathology or neurocognitive disorder. PLAN: -At this time patient DOES NOT meet criteria for inpatient psychiatric admission. -Patient DOES NOT have decision making capacity at this time and is unable to reason through and communicate/appreciate the risks, benefits and alternatives to treatment. -Delirium precautions recommended with patient including - avoiding use of narcotics and SUPERVISOR DEHYDROGENATION sedatives, limit anticholinergic medications when possible, frequent re-orientation, minimize use of restraints, open window shades during the day and close them at night -Would recommend the following medication changes/additions: We will not schedule any antipsychotic medication at this time. We will place when necessary orders for agitation: Zyprexa 2.5 mg IM BID when necessary. -Will continue to loosely follow along 10/31/20 13:06
--- NOTE | 2020-10-31 15:36 | EEG ---
ELECTROENCEPHALOGRAM REPORT DATE OF SERVICE: 10/31/2020 CLINICAL HISTORY: This is a 74-year-old woman who had COVID in the beginning of October 2020 and continues to have altered mental status. This video EEG was obtained to evaluate for seizure and epileptiform activity. RELEVANT MEDICATION: The patient is not on any antiepileptic drug or any sedation. EEG TYPE: This is a routine EEG per ACNS guideline is performed using the 10/20 electrode placement system. DESCRIPTION: Wakefulness is only obtained. There was no posterior dominant rhythm seen on bilateral hemisphere. During awake state, the background consists of [id number] voltage of 5.5-6.5, nonrhythmic hertz theta activity intermixed with delta activity over the bilateral hemisphere. There is no physiological stage 2 sleep seen. There are occasional to frequent myogenic artifact especially over the last half of the study. INTERICTAL AND ICTAL: None. ACTIVATION PROCEDURE: Hyperventilation and photic stimulation are not performed. CLINICAL INTERPRETATION: This is an abnormal routine EEG. The background slowing is suggestive of moderate encephalopathy. There are no focal slowing, epileptiform discharges or seizure during this EEG. Clinical correlation is recommended. MMODL / IJN: [id number] / [id number]
[2020-10-31 16:26] LABS: Glucose,Whole Blood 158 mg/dL (75-99)
[2020-10-31 20:25] LABS: Glucose,Whole Blood 245 mg/dL (75-99)
[2020-10-31] MEDS: GABAPENTIN 300 MG CAP PO SCH (20:48)
[2020-10-31] MEDS ORDERED: OLANZapine 10 MG VIAL IM SCH (21:00)
--- NOTE | 2020-10-31 22:52 | PN ---
PROGRESS NOTE DATE OF SERVICE: 10/31/2020 REASON FOR FOLLOWUP: Pneumonia. INTERVAL HISTORY: The patient is currently afebrile. The patient remains to be encephalopathic. The patient is not a very good historian and did not answer any questions. She was awake and alert. Per the nursing staff, no vomiting or diarrhea has been reported. PHYSICAL EXAMINATION: Blood pressure is 99/63, pulse of 97, temperature 98.2. She is 94% on 2 L nasal cannula. General description is an elderly female lying in bed in no distress. Respiratory system: Unlabored breathing with decreased breath sounds in the base, with no wheeze. Heart S1, S2. Regular rate and rhythm. ABDOMEN: Soft, no tenderness. LAB: Hemoglobin 14, white count 14,000. BUN of 29 and creatinine 1.59. DIAGNOSTIC IMPRESSION AND PLAN: Patient initially admitted to the hospital with acute Covid 19 pneumonia, has been treated with Remdesivir therapy along with steroids and Lovenox in this patient subsequently with encephalopathy and concern for possible aspiration pneumonia. The patient did have elevated procalcitonin. Patient is covered with Zosyn. White count elevated, will monitor closely and continue supportive care. MMODL / IJN: [id number] /
[2020-11-01] MEDS: SODIUM CHLORIDE 0.9% 1,000 ML IV SCH ×2 (03:27→10:06)
[2020-11-01] MEDS: INSULIN ASPART (NovoLOG) 100 UNIT/ML VIAL SQ SCH ×4 (08:11→21:15)
[2020-11-01] MEDS: ENOXAPARIN 40 MG/0.4 ML SYRINGE SQ SCH ×2 (08:11→21:16)
[2020-11-01] MEDS: MELOXICAM 7.5 MG TAB PO SCH (08:12)
[2020-11-01] MEDS: ATORVASTATIN 40 MG TAB PO SCH ×2 (08:12→11:05)
[2020-11-01] MEDS: ASCORBIC ACID 500 MG TAB PO SCH ×2 (08:12→11:05)
[2020-11-01] MEDS: FAMOTIDINE 20 MG TAB PO SCH ×2 (08:12→11:06)
[2020-11-01] MEDS: METOPROLOL TARTRATE 25 MG TAB PO SCH ×3 (08:12→21:12)
[2020-11-01] MEDS: MULTIVITAMINS, THERA 1 EACH TAB PO SCH ×2 (08:12→11:06)
[2020-11-01] MEDS: metFORMIN 500 MG TAB PO SCH ×3 (08:12→16:20)
[2020-11-01] MEDS: CALCIUM CARB-VIT D 500MG-200UN 1 EACH TAB PO SCH ×2 (08:12→11:06)
[2020-11-01] MEDS: LOSARTAN 50 MG TAB PO SCH ×2 (08:12→11:06)
[2020-11-01] MEDS: ZINC SULFATE 220 MG CAP PO SCH ×2 (08:12→11:06)
[2020-11-01] MEDS: PIPERACILLIN-TAZOBACTAM 3.375 GM in SODIUM CHLORIDE 0.9% 100 ML IVPB SCH ×2 (10:02→16:19)
[2020-11-01] MEDS: DEXTROSE 5% IN WATER 1,000 ML IV SCH (11:48)
--- NOTE | 2020-11-01 11:50 | P.PN ---
Progress Note - Text Progress Note Date: 11/01/20 INTERVAL HISTORY: Patient was seen resting in bed and was intermittently cooperative. Patient was able to respond with her name when inquired. She does report that her son and were able to drop by. She refuses to answer any further questioning. She refuses to make eye contact with this provider. History is currently limited at this time. MENTAL STATUS EXAM: General Appearance: Patient appears to be stated age, disheveled, obese body habitus, and is barely covered. Behavior: Patient is lying down calmly in bed without any agitated behavior. Psychomotor activity appears slow. Eye contact is poor. Speech: Patient responds in 1 word responses. Mood/Affect: Unable to assess. Suicidality/Homicidality: Unable to assess. Perceptions: Unable to assess. Though content/process: Unable to assess. Memory and concentration: Patient is alert and oriented to self only. Concentration is grossly poor. Judgment and insight: Very poor. IMPRESSIONS: Altered mental status Likely secondary to: -Toxic metabolic encephalopathy (hypernatremia, hyperglycemia, elevated LFTs) -Delirium (secondary to dexamethasone, COVID infection) PLAN: -At this time patient DOES NOT meet criteria for inpatient psychiatric admission. -Patient DOES NOT have decision making capacity at this time and is unable to reason through and communicate/appreciate the risks, benefits and alternatives to treatment. -Delirium precautions recommended with patient including - avoiding use of narcotics and FILM DEVELOPER sedatives, limit anticholinergic medications when possible, frequent re-orientation, minimize use of restraints, open window shades during the day and close them at night -Would recommend the following medication changes/additions: For agitation: Zyprexa 2.5 mg IM BID when necessary. We will not schedule any antipsychotic medication at this time for concern of further cognitive impairment. -Will continue to loosely follow along
--- NOTE | 2020-11-01 13:11 | P.PN ---
Subjective Progress Note Date: 11/01/20 The patient was seen at bedside and she continues to be nonverbal. No seizure- like activity of jerk in of any of the extremities, gaze deviation. Patient sugar level remains to be uncontrolled it's ranging between 150s to 245. Sodium repeat yesterday was 159 and her creatinine is elevated the BUN is 79 and a creatinine is 153 The viral test: There is no virus detected Objective - Vital Signs Vital signs: Vital Signs Temp 97.7 F 11/01/20 10:00 Pulse 82 11/01/20 10:00 Resp 18 11/01/20 10:00 BP 116/76 11/01/20 10:00 Pulse Ox 95 11/01/20 10:00 Intake & Output 10/31/20 11/01/20 11/01/20 18:59 06:59 18:59 Intake Total 1200 1500 Balance 1200 1500 Intake: IV 1200 Piperacillin-Tazobactam 3 200 .375 gm In Sodium Chloride 0.9% 100 ml @ 25 mls/hr IVPB Q8HR [facility] Rx# :[id number] Sodium Chloride 0.9% 1, 1000 000 ml @ 125 mls/hr IV . Q8H NEAL Rx#:[id number] Intake, IV Titration 1500 Amount Sodium Chloride 0.9% 1, 1500 000 ml @ 125 mls/hr IV . Q8H NEAL Rx#:[id number] Other: Voiding Method Diaper Diaper Diaper Incontinent Incontinent Incontinent # Voids 2 # Bowel Movements 1 - Exam General: Patient is an morbidly obsese patient and does not seem to be in distress. Her neck is supple. No nuchal rigidity. Patient has evidence of scar in the lumbar spine from previous back surgery. Neurological examination: Higher mental function: She is drowsy but awakeable to voice. She is nonverbal or following command. She says "Ouch" with painful stimuli. Cranial Nerves: Pupils are round (5mm bilaterally), equal and reactive to light bilaterally. Gaze is center bilaterally and does not track. Could not assess visual filed to confrontation because of her cooperation but to threat is intact. No facial weakness noted bilaterally. Otherwise rest of cranial nerves could not be assessed because of her condition. Motor: Gait is deferred. Strength: Was moving all extremities above gravity to painful stimuli and no focality is appreciated. Sensory examination: With painful stimuli she withdraws all extremities throughout. Could not assess the light touch because of her cooperation. Plantars: Are downgoing bilaterally. - Labs CBC & Chem 7: 10/31/20 10:33 10/31/20 10:33 Labs: Abnormal Lab Results - Last 24 Hours (Table) 10/31/20 10/31/20 Range/Units 16:23 20:13 POC Glucose (mg/dL) 158 H 245 H (75-99) mg/dL Microbiology - Last 24 Hours (Table) 10/30/20 12:15 CSF Gram Stain - Preliminary Cerebral Spinal Fluid CSF Culture - Preliminary 10/26/20 22:26 Blood Culture - Preliminary Blood No Growth after 120 hours Assessment and Plan Assessment: * Altered mental status, likely due to toxic metabolic encephalopathy (hypernatremia, hyperglycemia, THEO elvated LFT's). I think patient has component of delirium (it was tought maybe due to steroids but has not been getting it for withing last one week). Also encephalopathy due to underlying infection (Aspiration Pneumonitis) and hospital stay. Does not seem meningoencephalitis from CSF study. * Acute COVID-19 related pneumonia, with significant encephalopathy. Patient has been treated with Remdesivir. Encephalopathy has not improved, nonfocal exam. * Acute Kidney insuffiency * Acute hypoxic respiratory failure. * Abnormal liver functions, improving * Hypernatremia--worsening---likely due to dehydration * Brittle diabetes * History of right thalamic lacunar infarct 12/15/2014. * Diabetes, with hemoglobin A1c 7.0 on 05/19/2018 * Hypertension Plan: * EEG (10/26/2020): Was performed after given Ativan, which was reported as moderate background slowing consistent with encephalopathy. No epileptiform activity was seen. No electrographic evidence of herpes encephalitis. * Repeat EEG (10/31/2020): Is an abnormal routine EEG. The back was slowing to suggest off from moderate encephalopathy. There are no focal slowing, epileptiform discharges or seizure. * MRI of the brain (10/24/2020) showed mild to moderate diffuse cerebral atrophy and chronic small vessel ischemic changes. There is left temporal arachnoid cyst redemonstrated. Exam is relatively nonfocal. * Repeat CT head (10/30/2020): Cerebral atrophy. No acute intracranial abnormality. No change. * Vitamin B12 1016, folate 947 normal, TSH 0.59 normal, ammonia <9, hemoglobin A1c 8.2, consistent with not well controlled diabetes. * Repeat Ammonia (10/30/2020): <9 (normal). * From the CSF study doesn't look like meningeal encephalitis. The elevated routine and the the glucose level on the CSF is possibly due to uncontrolled diabetes. * I Started the patient on amantadine 50 mg every morning, reason for low doses because of her kidney insufficiency. Once her kidney improves I'll increase the amantadine. * Also started the patient on melatonin 6 mg daily at bedtime. * Psychiatry is on board. * We'll defer the management of the uncontrolled sugar, hypernatremia, THEO and slight LFT to the primary team. * The patient's nurse was notified that to have the lights on during the day, and have someone to interact as much as possible and opposite during the ni ght. * Infection disease team is on board and they feels she currently has aspiration pneumonitis. The plan was discussed with the patient's nurse. David Manley MD Neuro-hospitalist. Time with Patient: Less than 30
[2020-11-01 13:12] LABS: VDRL, Qualitative CSF Nonreactive (Nonreactive)
--- NOTE | 2020-11-01 13:34 | P.PN ---
Subjective Progress Note Date: 11/01/20 Principal diagnosis: -Diagnosed with Coronavirus 6 days prior to admission. admitted with bilateral COVID 19 pneumonia-improved -Acute hypoxic respiratory failure from down to room air-90% -Acute metabolic encephalopathy and acute delirium-worsening from shows some improvement -Hypernatremia with hyperchloremia from free water deficit-new diagnosis- improved -Diabetes mellitus type 2 uncontrolled with hyperglycemia -Essential hypertension -Hyperlipidemia -Obesity BMI 31.8 11/01/2020, patient oriented 1 becomes intermittently restless, hemodynamically stable oxygen saturation have been a stable, his duration is 95% on 2 L oxygen, extensive workup by neurology so far has been negative the recommended to start amantadine him a noted BUN/creatinine is up, sodium is also noted to be up, we'll gently rehydrate the patient with D5 10/31/2020, patient seen and evaluated examined oriented 1 mental status not been changed, status post spinal tap, neurology following patient likely will go to ECF for placement 10/30/2020, patient seen eval examined during the rounds is awake however mostly noncommunicative, patient is scheduled for spinal tap later on today, discussed with the dietitian about the nutritional issues, patient at times becomes agitated has pulled IVs before likelihood is that she will pull out the NG tube high risk of aspiration related complications neurology following 10/29/2020, patient seen eval examined during the rounds labs reviewed medicati ons reviewed care plan discussed, overall respiratory status remains stable mental status remained marginal, noted recommendation from dietitian, awaiting spinal tap 10/28/2020, overall mental status remains poor, Plavix is on hold, patient is being considered for spinal tap, overall no significant change today compared to yesterday exam, neurology is following, 10/27/2020, patient seen eval examined labs reviewed medications reviewed, patient has been on Decadron and subcu Lovenox, neurology has been following patient remains very agitated encephalopathic, continued to be restless This is a 74-year-old patient of . Patient was diagnosed with COVID on Thursday that is 6 days ago. Patient came in today because she was becoming more short of breath also becoming confused. Brought in by the of the ER was also getting symptoms also admitted to the hospital with COVID. Overnight patient has done a bit better. Less short of breath. Less cough. Did eat some food. Tired. Chronic stable medical conditions include diabetes, hyperlipidemia, hypertension, stroke causing some numbness in the hands and arm. Admitted with bilateral COVID 19 pneumonia, acute hypoxic respiratory failure, acute metabolic encephalopathy and delirium. Patient started on dexamethasone, Remdesivir, Lovenox. Oxygen supplementation. Because of mental status change and neurology was consulted. MRI was unremarkable. Also been into hyper natremia-sodium 150. Given IV fluids. Objective - Vital Signs Vital signs: Vital Signs Temp 97.7 F 11/01/20 10:00 Pulse 82 11/01/20 10:00 Resp 18 11/01/20 10:00 BP 116/76 11/01/20 10:00 Pulse Ox 95 11/01/20 10:00 Intake & Output 10/31/20 11/01/20 11/01/20 18:59 06:59 18:59 Intake Total 1200 1500 Balance 1200 1500 Intake: IV 1200 Piperacillin-Tazobactam 3 200 .375 gm In Sodium Chloride 0.9% 100 ml @ 25 mls/hr IVPB Q8HR NEAL Rx# :[id number] Sodium Chloride 0.9% 1, 1000 000 ml @ 125 mls/hr IV . Q8H NEAL Rx#:[id number] Intake, IV Titration 1500 Amount Sodium Chloride 0.9% 1, 1500 000 ml @ 125 mls/hr IV . Q8H NEAL Rx#:[id number] Other: Voiding Method Diaper Diaper Diaper Incontinent Incontinent Incontinent # Voids 2 # Bowel Movements 1 - Exam GENERAL: Laying in bed bit more awake. We'll answer occasional question. PSYCH: Answering occasional question.. NEUROLOGICAL: Cranial nerves grossly intact; no facial asymmetry, moving about. More awake Rest of exam as per nursing pulmonary, neurology - Labs CBC & Chem 7: 10/31/20 10:33 10/31/20 10:33 Labs: Abnormal Lab Results - Last 24 Hours (Table) 10/31/20 10/31/20 Range/Units 16:23 20:13 POC Glucose (mg/dL) 158 H 245 H (75-99) mg/dL Microbiology - Last 24 Hours (Table) 10/30/20 12:15 CSF Gram Stain - Preliminary Cerebral Spinal Fluid CSF Culture - Preliminary 10/26/20 22:26 Blood Culture - Preliminary Blood No Growth after 120 hours Assessment and Plan Assessment: Metabolic encephalopathy with agitated delirium Hypernatremia Acute kidney injury -Diagnosed with Coronavirus 6 days prior to admission. admitted with bilateral COVID 19 pneumonia-improved -Acute hypoxic respiratory failure from down to room air-90% -Acute metabolic encephalopathy and acute delirium-worsening from shows some improvement -Hypernatremia with hyperchloremia from free water deficit-new diagnosis- improved -Diabetes mellitus type 2 uncontrolled with hyperglycemia -Essential hypertension -Hyperlipidemia -Obesity BMI 31.8 Plan: Continue D5, monitor labs closely including sodium and renal functions, neurology has started amantadine, Remdesivir-completed. On Decadron 6 mg. Subcu Lovenox. Plavix on hold for anticipated LP status post LP CSF finding reviewed, culture results pending Time with Patient: Greater than 30
[2020-11-01 14:54] LABS: Amorphous Sediment,Urine Rare /hpf; Appearance,Urine Cloudy (Clear); Bacteria,Urine Rare /hpf; Bilirubin,Urine Negative (Negative); Blood,Urine Negative (Negative); Color,Urine Yellow; Glucose,Urine (UA) Negative (Negative); Ketones,Urine Negative (Negative); Leukocyte Esterase,Urine Negative (Negative); Mucus,Urine Rare /hpf; Nitrite,Urine Negative (Negative); Protein,Urine Negative (Negative); RBC,Urine <1 /hpf (0-5); Specific Gravity,Urine 1.018 (1.001-1.035); Uric Acid Crystals,Urine Few /hpf; Urobilinogen,Urine <2.0 mg/dL (<2.0); WBC,Urine 1 /hpf (0-5)
[2020-11-01] MEDS: MELATONIN 3 MG TABLET PO SCH (21:12)
[2020-11-01] MEDS: GABAPENTIN 300 MG CAP PO SCH (21:12)
--- NOTE | 2020-11-01 23:11 | PN ---
PROGRESS NOTE DATE OF SERVICE: 11/01/2020 REASON FOR FOLLOWUP: Pneumonia. INTERVAL HISTORY: The patient is currently afebrile. The patient remains encephalopathic, though awake, but unable to answer any questions. No vomiting, diarrhea or any other changes reported by the nursing staff. PHYSICAL EXAMINATION: Blood pressure 112/69, pulse of 61, temperature 97.6. She is 93% on 2 L nasal cannula. General description is an elderly female lying in bed in no distress. RESPIRATORY SYSTEM: Unlabored breathing with decreased intensity of breath sounds. No wheeze. HEART: S1, S2. Regular rate and rhythm. ABDOMEN: Soft. No tenderness. LABS: White count DIAGNOSTIC IMPRESSION AND PLAN: Patient with COVID-19 pneumonia in this patient who did complete her remdesivir therapy, subsequently with mental status changes, decreased level of responsiveness and a concern for possible aspiration pneumonitis, for which the patient is currently covered with Zosyn. That will be continued while monitoring clinical course closely. Continue with supportive care. MMODL / IJN: [id number] /
[2020-11-02] MEDS: PIPERACILLIN-TAZOBACTAM 3.375 GM in SODIUM CHLORIDE 0.9% 100 ML IVPB SCH ×3 (00:06→15:45)
[2020-11-02 06:38] LABS: Basophils % (A) 0 %; Eosinophils # (A) 0.1 k/uL (0-0.7); Eosinophils % (A) 2 %; HCT 37.8 % (34.0-46.0); HGB 11.9 gm/dL (11.4-16.0); Hypochromasia Slight; Lymphocytes # (A) 1.3 k/uL (1.0-4.8); Lymphocytes % (A) 18 %; MCHC 31.5 g/dL (31.0-37.0); MCV 98.6 fL (80.0-100.0); Macrocytosis Slight; Monocytes # (A) 0.2 k/uL (0-1.0); Monocytes % (A) 3 %; Neutrophils # (A) 5.3 k/uL (1.3-7.7); Neutrophils % (A) 75 %; Platelet Count 173 k/uL (150-450); RBC 3.83 m/uL (3.80-5.40); RDW 15.4 % (11.5-15.5); WBC 7.1 k/uL (3.8-10.6)
[2020-11-02] MEDS: DEXTROSE 5% IN WATER 1,000 ML IV SCH (09:36)
[2020-11-02] MEDS: INSULIN ASPART (NovoLOG) 100 UNIT/ML VIAL SQ SCH ×4 (09:36→21:23)
[2020-11-02] MEDS: ATORVASTATIN 40 MG TAB PO SCH (09:37)
[2020-11-02] MEDS: CALCIUM CARB-VIT D 500MG-200UN 1 EACH TAB PO SCH (09:37)
[2020-11-02] MEDS: ENOXAPARIN 40 MG/0.4 ML SYRINGE SQ SCH ×2 (09:37→21:22)
[2020-11-02] MEDS: metFORMIN 500 MG TAB PO SCH ×2 (09:37→17:10)
[2020-11-02] MEDS: MELOXICAM 7.5 MG TAB PO SCH (09:37)
[2020-11-02] MEDS: FAMOTIDINE 20 MG TAB PO SCH (09:37)
[2020-11-02] MEDS: ASCORBIC ACID 500 MG TAB PO SCH (09:37)
[2020-11-02] MEDS: LOSARTAN 50 MG TAB PO SCH (09:37)
[2020-11-02] MEDS: METOPROLOL TARTRATE 25 MG TAB PO SCH ×2 (09:37→21:22)
[2020-11-02] MEDS: ZINC SULFATE 220 MG CAP PO SCH (09:38)
[2020-11-02] MEDS: MULTIVITAMINS, THERA 1 EACH TAB PO SCH (09:38)
[2020-11-02 10:59] LABS: African American GFR (CKD) 65.2 (60.0-200.0); Albumin 3.3 g/dL (3.80-4.90); Albumin/Globulin Ratio 1.65 (1.60-3.17); Calcium 8.8 mg/dL (8.7-10.3); Carbon Dioxide 23.8 mmol/L (21.6-31.8); Non-African American GFR(CKD) 56.2 (60.0-200.0); Potassium 3.9 mmol/L (3.5-5.5); Total Bilirubin 1.2 mg/dL (0.2-1.2); Total Protein 5.3 g/dL (6.2-8.2)
--- NOTE | 2020-11-02 12:49 | XR ---
EXAMINATION TYPE: XR abdomen 1V DATE OF EXAM: 11/02/2020 Comparison: None Clinical History: 74-year-old female NG Placement Findings: NG tube is satisfactory. Lung bases are inadequately visualized but there may be some patchy densitie s. Overall nonobstructive bowel gas pattern. Degenerative changes throughout the lumbar spine. Impression: Satisfactory NG tube. There may be some patchy areas of atelectasis or infiltrates at the lung bases. They are incompletely visualized.
--- NOTE | 2020-11-02 15:06 | P.PN ---
Subjective Progress Note Date: 11/02/20 The patient was seen at bedside and the she is more awake and cooperating with the nurse. The nurse that she is still altered but she smoked communicative and responsive today compared to other days. Objective - Vital Signs Vital signs: Vital Signs Temp 97.9 F 11/02/20 14:16 Pulse 87 11/02/20 14:16 Resp 17 11/02/20 14:16 BP 127/81 11/02/20 14:16 Pulse Ox 93 L 11/02/20 14:16 Intake & Output 11/01/20 11/02/20 11/02/20 18:59 06:59 18:59 Output Total 350 350 Balance -350 -350 Weight 86 kg 89.5 kg Output: Urine 350 350 Other: Voiding Method Diaper Diaper Diaper Incontinent Incontinent Incontinent # Voids 2 1 1 # Bowel Movements 1 1 1 - Exam General: Patient is an morbidly obsese patient and does not seem to be in distress. Her neck is supple. No nuchal rigidity. Patient has evidence of scar in the lumbar spine from previous back surgery. Neurological examination: Higher mental function: The patient is awake, alert, oriented to self. But did not respond to place or time. She followed some few simple commands (giving thumbs up and closing eyes). She was saying what happened during the examination. S Cranial Nerves: Pupils are round (5mm bilaterally), equal and reactive to light bilaterally. Gaze is center bilaterally and was tracking throughout the room. Visual field are full to threat throughout. No facial weakness noted bilaterally. No dysarthria. Rest of the continuous could not be assessed because of her cooperation. Motor: Gait is deferred. Strength: Was moving all extremities above gravity to painful stimuli and no focality is appreciated. Sensory examination: Could not assess sensory examination because of cooperation but has intact to painful semi-throughout. Plantars: Are downgoing bilaterally. - Labs CBC & Chem 7: 11/02/20 06:19 11/02/20 06:19 Labs: Abnormal Lab Results - Last 24 Hours (Table) 11/02/20 Range/Units 06:19 Sodium 167 H* (135-145) mmol/L Chloride 137 H* (96-109) mmol/L BUN 37.0 H (9.0-27.0) mg/dL Est GFR (CKD-EPI)NonAf 56.2 L (60.0-200.0) BUN/Creatinine Ratio 37.00 H (12.00-20.00) Ratio Glucose 150 H (70-110) mg/dL Total Protein 5.3 L (6.2-8.2) g/dL Albumin 3.30 L (3.80-4.90) g/dL Microbiology - Last 24 Hours (Table) 10/30/20 12:15 CSF Gram Stain - Preliminary Cerebral Spinal Fluid CSF Culture - Preliminary 10/26/20 22:26 Blood Culture - Final Blood No Growth after 144 hours 11/01/20 14:29 Urine Culture - Preliminary Urine,Catheterized Assessment and Plan Assessment: * Altered mental status, likely due to toxic metabolic encephalopathy (hypernatr emia, hyperglycemia, THEO elvated LFT's). I think patient has component of delirium (it was tought maybe due to steroids but has not been getting it for withing last one week). Also encephalopathy due to underlying infection (Aspiration Pneumonitis) and hospital stay. Does not seem meningoencephalitis from CSF study--->mentation is improving today compared to yesterday. * Acute COVID-19 related pneumonia, with significant encephalopathy. Patient has been treated with Remdesivir. Encephalopathy has not improved, nonfocal exam. * Acute Kidney insuffiency-->improving * Acute hypoxic respiratory failure. * Abnormal liver functions, improving * Hypernatremia--worsening---likely due to dehydration * Brittle diabetes * History of right thalamic lacunar infarct 12/15/2014. * Diabetes, with hemoglobin A1c 7.0 on 05/19/2018 * Hypertension Plan: * EEG (10/26/2020): Was performed after given Ativan, which was reported as moderate background slowing consistent with encephalopathy. No epileptiform activity was seen. No electrographic evidence of herpes encephalitis. * Repeat EEG (10/31/2020): Is an abnormal routine EEG. The back was slowing to suggest off from moderate encephalopathy. There are no focal slowing, epileptiform discharges or seizure. * MRI of the brain (10/24/2020) showed mild to moderate diffuse cerebral atrophy and chronic small vessel ischemic changes. There is left temporal arachnoid cyst redemonstrated. Exam is relatively nonfocal. * Repeat CT head (10/30/2020): Cerebral atrophy. No acute intracranial abnormality. No change. * Vitamin B12 1016, folate 947 normal, TSH 0.59 normal, ammonia <9, hemoglobin A1c 8.2, consistent with not well controlled diabetes. * Repeat Ammonia (10/30/2020): <9 (normal). * From the CSF study doesn't look like meningeal encephalitis. The elevated routine and the the glucose level on the CSF is possibly due to uncontrolled diabetes. * Continue amantadine 50 mg every morning, reason for low doses because of her kidney insufficiency, which resolved. Currently her mentation is improving so I will continue with the same dose for now. O * Continue melatonin 6 mg daily at bedtime. * Psychiatry is on board. * We'll defer the management of the uncontrolled sugar, hypernatremia and slight LFT to the primary team. * The patient's nurse was notified that to have the lights on during the day, and have someone to interact as much as possible and opposite during the night. * Infection disease team is on board and they feels she currently has aspiration pneumonitis. The plan was discussed with the patient's nurse. David Manley MD Neuro-hospitalist. Time with Patient: Less than 30
[2020-11-02] MEDS: GABAPENTIN 300 MG CAP PO SCH (21:22)
[2020-11-02] MEDS: MELATONIN 3 MG TABLET PO SCH (21:22)
--- NOTE | 2020-11-02 22:27 | PN ---
PROGRESS NOTE DATE OF SERVICE: 11/02/2020 REASON FOR FOLLOWUP: A pneumonia. The patient is currently afebrile. The patient did have NG and has received some of her medication. She was slightly more appropriate today. Did have her gown on though did not answer any questions and specifically, no vomiting or diarrhea reported by nursing staff. PHYSICAL EXAMINATION: Blood pressure 125/65, pulse of 74. Temperature 97.9. She is 93% on room air. General description is an elderly female lying in bed in no distress. Respiratory system: Unlabored breathing clear to auscultation anteriorly heart S1, S2. Regular rate and rhythm. ABDOMEN: Soft, no tenderness. LABS: Hemoglobin 11.8, white count 7.1, BUN of 37, creatinine 1.0. DIAGNOSTIC IMPRESSION AND PLAN: Patient with acute COVID-19 pneumonia in this patient completed her antibiotic therapy subsequently with evidence of mental status changes for this patient extensive workup in the LP that was negative. The patient did have a possible aspiration pneumonitis and covered with Zosyn to continue and monitor clinical course closely. MMODL / IJN: [id number] /
[2020-11-03] MEDS: PIPERACILLIN-TAZOBACTAM 3.375 GM in SODIUM CHLORIDE 0.9% 100 ML IVPB SCH ×3 (00:14→15:59)
[2020-11-03] MEDS: DEXTROSE 5% IN WATER 1,000 ML IV SCH (05:05)
[2020-11-03 06:33] LABS: Basophils % (A) 0 %; Eosinophils # (A) 0.2 k/uL (0-0.7); Eosinophils % (A) 3 %; HCT 34.5 % (34.0-46.0); HGB 10.9 gm/dL (11.4-16.0); Hypochromasia Slight; Lymphocytes # (A) 1.3 k/uL (1.0-4.8); Lymphocytes % (A) 20 %; MCH 31.6 pg (25.0-35.0); MCHC 31.7 g/dL (31.0-37.0); MCV 99.5 fL (80.0-100.0); Macrocytosis Slight; Mean Platelet Volume 7.7; Monocytes # (A) 0.2 k/uL (0-1.0); Monocytes % (A) 4 %; Neutrophils # (A) 4.5 k/uL (1.3-7.7); Neutrophils % (A) 71 %; Platelet Count 141 k/uL (150-450); RBC 3.46 m/uL (3.80-5.40); RDW 15.5 % (11.5-15.5); WBC 6.2 k/uL (3.8-10.6)
[2020-11-03] MEDS: INSULIN ASPART (NovoLOG) 100 UNIT/ML VIAL SQ SCH ×4 (08:31→21:33)
[2020-11-03] MEDS: ENOXAPARIN 40 MG/0.4 ML SYRINGE SQ SCH ×2 (08:31→20:00)
[2020-11-03] MEDS: ZINC SULFATE 220 MG CAP PO SCH (08:32)
[2020-11-03] MEDS: METOPROLOL TARTRATE 25 MG TAB PO SCH ×2 (08:32→20:16)
[2020-11-03] MEDS: metFORMIN 500 MG TAB PO SCH ×2 (08:32→17:17)
[2020-11-03] MEDS: FAMOTIDINE 20 MG TAB PO SCH (08:32)
[2020-11-03] MEDS: LOSARTAN 50 MG TAB PO SCH (08:32)
[2020-11-03] MEDS: ASCORBIC ACID 500 MG TAB PO SCH (08:32)
[2020-11-03] MEDS: MELOXICAM 7.5 MG TAB PO SCH (08:32)
[2020-11-03] MEDS: MULTIVITAMINS, THERA 1 EACH TAB PO SCH (08:32)
[2020-11-03] MEDS: CALCIUM CARB-VIT D 500MG-200UN 1 EACH TAB PO SCH (08:32)
[2020-11-03] MEDS: ATORVASTATIN 40 MG TAB PO SCH (08:32)
[2020-11-03 10:12] LABS: African American GFR (CKD) 58.1 (60.0-200.0); Anion Gap 6.2 mmol/L (4.00-12.00); BUN/Creat Ratio 25.45 Ratio (12.00-20.00); Calcium 8.5 mg/dL (8.7-10.3); Carbon Dioxide 25.8 mmol/L (21.6-31.8); Non-African American GFR(CKD) 50.1 (60.0-200.0); Potassium 3.5 mmol/L (3.5-5.5)
[2020-11-03] MEDS ORDERED: DEXTROSE 5% IN WATER 1,000 ML IV ONE (11:50)
--- NOTE | 2020-11-03 14:11 | P.GSCN ---
History of Present Illness Consult date: 11/03/20 History of present illness: v CHIEF COMPLAINT: Inadequate protein malnutrition HISTORY OF PRESENT ILLNESS: The patient is a 74-year-old female admitted due to Covid pneumonia. She had developed encephalopathy. Most history is obtained by medical records including nurse. Nurse reports that patient has troubles with swallowing. No formal swallow study was performed. Patient usually pulls out her nasogastric tube. She has a one-to-one sitter. General surgery is consulted for placement of a feeding tube. PAST MEDICAL HISTORY: See list and reviewed PAST SURGICAL HISTORY: See list and reviewed MEDICATIONS: See list and reviewed ALLERGIES: See list and reviewed SOCIAL HISTORY: See list and reviewed FAMILY HISTORY: See list and reviewed REVIEW OF ORGAN SYSTEMS: CONSTITUTIONAL: No fevers or chills. Overweight 60+ pounds. EYES: Denies any trouble with vision. HEENT: No difficulties with hearing. RESPIRATORY: Recent Covid pneumonia CARDIOVASCULAR: Has hypertensive heart disease GASTROINTESTINAL: Decreased oral intake. NEUROLOGICAL: Has metabolic encephalopathy. Past history of stroke. MUSCULOSKELETAL: Denies any back pain, stiffness or joint arthritis. SKIN: No current skin cancer. No rash. PSYCHIATRIC: Denies current depression or suicidal thoughts. ENDOCRINE: Denies current thyroid disorders. Has blood sugar glucose intoleran ce. HEME/LYMPHATIC: Denies any lumps and bumps around the neck. No recent deep venous thrombosis. PHYSICAL EXAM: VITALS: Reviewed CONSTITUTIONAL: Well developed and in no acute distress. EYES: Conjuctivae without sclera icterus. Extraocular movements grossly intact. HEAD, EARS, NOSE, THROAT: Head is atraumatic, normocephalic. Hears conversational speech. Has nasogastric tube NECK: Supple. No thyroidomegaly. RESPIRATORY: Non-labored respirations and equal bilateral excursions. No gross wheezes. CARDIOVASCULAR: Extremities without moderate edema. ABDOMEN: Soft. Non-tender. Nondistended. MUSCULOSKELETALNail and fingers with good capillary refill. SKIN: Warm and well perfused with good skin turgor. NEUROLOGIC: Cranial nerves II through XII grossly intact. Sensation upper and ex tremities intact. No focal or lateralizing signs. PSYCH: Alert to person CLINCAL LABS: Reviewed. Sodium 163, elevated ASSESSMENT: 1. Covid 19 pneumonia 2. Metabolic encephalopathy with hypernatremia PLAN: 1. Recommend speech pathology to assess level of dysphagia 2. Patient high risk for complications due to pre-existing history of pulling nasogastric tube and likely pulling gastrostomy tube. 3. Additional recommendations pending esophagram and/or speech pathology assessment Thank you for this kind consultation. Past Medical History Past Medical History: CVA/TIA, Diabetes Mellitus, Hyperlipidemia, Hypertension Additional Past Medical History / Comment(s): CVA 2012 = numbness in hand and arm History of Any Multi-Drug Resistant Organisms: None Reported Past Surgical History: Back Surgery, Orthopedic Surgery Additional Past Surgical History / Comment(s): both knees total, rotor cuff repair Past Anesthesia/Blood Transfusion Reactions: No Reported Reaction Past Psychological History: No Psychological Hx Reported Smoking Status: Never smoker, Unknown if ever smoked Past Alcohol Use History: Occasional Past Drug Use History: None Reported - Past Family History Son(s) Additional Family Medical History / Comment(s): gout Medications and Allergies Home Medications Medication Instructions Recorded Confirmed Type Gabapentin 600 mg PO BID 01/02/15 10/16/20 History Losartan Potassium 50 mg PO DAILY 01/02/15 10/16/20 History Meloxicam 7.5 mg PO DAILY 01/02/15 10/16/20 History Ascorbic Acid [Vitamin C] 500 mg PO DAILY 01/03/15 10/16/20 History Atorvastatin Calcium [Lipitor] 40 mg PO DAILY #30 tab 01/03/15 10/16/20 Rx Calcium Carbonate/Vitamin D3 1 tab PO DAILY 01/03/15 10/16/20 History [Calcium 600-Vit D3 400 Tablet] Calcium Polycarbophil [Fibercon] 625 mg PO DAILY 01/03/15 10/16/20 History Clopidogrel [Plavix] 75 mg PO DAILY tab 01/03/15 10/16/20 Rx Docusate Sodium [Dulcolax Stool 100 mg PO BID 01/03/15 10/16/20 History Softener] Multivitamins, Thera [Multivitamin 1 tab PO DAILY 01/03/15 10/16/20 History (formulary)] Condon-3 Fatty Acids/Fish Oil [Fish 1 cap PO DAILY 01/03/15 10/16/20 History Oil 1,000 mg Softgel] metFORMIN HCL [Glucophage] 500 mg PO BID 07/06/18 10/16/20 History Biotin 5 mg PO DAILY 10/12/20 10/16/20 History Turmeric Root Extract [Turmeric] 500 mg PO DAILY 10/12/20 10/16/20 History Metoprolol Tartrate [Lopressor] 25 mg PO BID 10/16/20 10/16/20 History Allergies Allergy/AdvReac Type Severity Reaction Status Date / Time No Known Allergies Allergy Verified 10/16/20 14:18 Surgical - Exam Vital Signs Temp Pulse Resp BP Pulse Ox 101.8 F H 97 18 136/82 91 L 10/16/20 13:36 10/16/20 13:36 10/16/20 13:36 10/16/20 13:36 10/16/20 13:36 Results - Labs 11/03/20 05:36 11/03/20 05:36 Abnormal Lab Results - Last 24 Hours (Table) 11/03/20 11/03/20 Range/Units 05:36 05:36 RBC 3.46 L (3.80-5.40) m/uL Hgb 10.9 L (11.4-16.0) gm/dL Plt Count 141 L (150-450) k/uL Sodium 163 H* (135-145) mmol/L Chloride 131 H* (96-109) mmol/L BUN 28.0 H (9.0-27.0) mg/dL Est GFR (CKD-EPI)AfAm 58.1 L (60.0-200.0) Est GFR (CKD-EPI)NonAf 50.1 L (60.0-200.0) BUN/Creatinine Ratio 25.45 H (12.00-20.00) Ratio Glucose 167 H (70-110) mg/dL Calcium 8.5 L (8.7-10.3) mg/dL Microbiology - Last 24 Hours (Table) 10/30/20 12:15 CSF Gram Stain - Final Cerebral Spinal Fluid CSF Culture - Final 11/01/20 14:29 Urine Culture - Final Urine,Catheterized Diabetes panel 11/03/20 Range/Units 05:36 Sodium 163 H* (135-145) mmol/L Potassium 3.5 (3.5-5.5) mmol/L Chloride 131 H* (96-109) mmol/L Carbon Dioxide 25.8 (21.6-31.8) mmol/L BUN 28.0 H (9.0-27.0) mg/dL Creatinine 1.1 (0.6-1.5) mg/dL Glucose 167 H (70-110) mg/dL Calcium 8.5 L (8.7-10.3) mg/dL Calcium panel 11/03/20 Range/Units 05:36 Calcium 8.5 L (8.7-10.3) mg/dL Pituitary panel 11/03/20 Range/Units 05:36 Sodium 163 H* (135-145) mmol/L Potassium 3.5 (3.5-5.5) mmol/L Chloride 131 H* (96-109) mmol/L Carbon Dioxide 25.8 (21.6-31.8) mmol/L BUN 28.0 H (9.0-27.0) mg/dL Creatinine 1.1 (0.6-1.5) mg/dL Glucose 167 H (70-110) mg/dL Calcium 8.5 L (8.7-10.3) mg/dL Adrenal panel 11/03/20 Range/Units 05:36 Sodium 163 H* (135-145) mmol/L Potassium 3.5 (3.5-5.5) mmol/L Chloride 131 H* (96-109) mmol/L Carbon Dioxide 25.8 (21.6-31.8) mmol/L BUN 28.0 H (9.0-27.0) mg/dL Creatinine 1.1 (0.6-1.5) mg/dL Glucose 167 H (70-110) mg/dL Calcium 8.5 L (8.7-10.3) mg/dL
[2020-11-03] MEDS: MELATONIN 3 MG TABLET PO SCH (19:59)
[2020-11-03] MEDS: GABAPENTIN 300 MG CAP PO SCH (19:59)
[2020-11-04] MEDS: PIPERACILLIN-TAZOBACTAM 3.375 GM in SODIUM CHLORIDE 0.9% 100 ML IVPB SCH ×3 (00:17→16:45)
--- NOTE | 2020-11-04 01:08 | PN ---
PROGRESS NOTE DATE OF SERVICE: 11/03/2020 REASON FOR FOLLOWUP: Pneumonia. INTERVAL HISTORY: The patient is currently afebrile. The patient is breathing comfortably. He remains to be pleasantly confused but no agitation has been noticed. No vomiting or diarrhea reported per the nursing staff. Patient herself unable to provide any history. PHYSICAL EXAMINATION: Blood pressure 94/57, pulse of 70. Temperature 97.7. She is 94% on room air. General description is an elderly female lying in bed in no distress. Respiratory system: Unlabored breathing, decreased intensity of breath sounds. No wheeze. Heart S1, S2. Regular rate and rhythm. Abdomen soft. No tenderness. LABORATORY DATA: Hemoglobin 10.1, white count 6.2, BUN of 28, creatinine 1.1. DIAGNOSTIC IMPRESSION AND PLAN: Patient with acute COVID-19 pneumonia to continue now with concern of possible aspiration, covered with Zosyn to continue and monitor clinical course closely. MMODL / IJN: [id number] /
[2020-11-04 06:57] LABS: Basophils % (A) 0 %; Eosinophils # (A) 0.2 k/uL (0-0.7); Eosinophils % (A) 3 %; HCT 33.5 % (34.0-46.0); Hypochromasia Slight; Lymphocytes # (A) 1.4 k/uL (1.0-4.8); Lymphocytes % (A) 22 %; MCH 32.4 pg (25.0-35.0); MCHC 32.7 g/dL (31.0-37.0); MCV 99.1 fL (80.0-100.0); Macrocytosis Slight; Mean Platelet Volume 7.8; Monocytes # (A) 0.2 k/uL (0-1.0); Monocytes % (A) 4 %; Neutrophils # (A) 4.1 k/uL (1.3-7.7); Neutrophils % (A) 68 %; Platelet Count 121 k/uL (150-450); RBC 3.38 m/uL (3.80-5.40); RDW 15.3 % (11.5-15.5)
--- NOTE | 2020-11-04 08:25 | XR ---
EXAMINATION TYPE: XR chest 1V portable DATE OF EXAM: 11/04/2020 Comparison: 10/27/2020 Clinical History: 74-year-old female check NG tube placement Findings: NG tube is satisfactory. The patient was previously rotated towards the right. Patient is now rotated towards the left. Heart appears upper limits of normal in size. Persistent patchy peripheral opaciti es. Impression: Rotated exam. Continued bilateral patchy peripheral infiltrates.
[2020-11-04] MEDS: ENOXAPARIN 40 MG/0.4 ML SYRINGE SQ SCH ×2 (09:23→20:48)
[2020-11-04] MEDS: INSULIN ASPART (NovoLOG) 100 UNIT/ML VIAL SQ SCH ×4 (09:23→20:47)
[2020-11-04] MEDS: FAMOTIDINE 20 MG TAB PO SCH (09:24)
[2020-11-04] MEDS: CALCIUM CARB-VIT D 500MG-200UN 1 EACH TAB PO SCH (09:24)
[2020-11-04] MEDS: LOSARTAN 50 MG TAB PO SCH (09:24)
[2020-11-04] MEDS: MELOXICAM 7.5 MG TAB PO SCH (09:24)
[2020-11-04] MEDS: ASCORBIC ACID 500 MG TAB PO SCH (09:24)
[2020-11-04] MEDS: METOPROLOL TARTRATE 25 MG TAB PO SCH ×2 (09:24→20:50)
[2020-11-04 09:25] LABS: Glucose,Whole Blood 175 mg/dL (75-99)
[2020-11-04 09:25] LABS: Glucose,Whole Blood 193 mg/dL (75-99)
[2020-11-04 09:25] LABS: Glucose,Whole Blood 145 mg/dL (75-99)
[2020-11-04] MEDS: MULTIVITAMINS, THERA 1 EACH TAB PO SCH (09:25)
[2020-11-04] MEDS: metFORMIN 500 MG TAB PO SCH ×2 (09:25→19:07)
[2020-11-04] MEDS: ATORVASTATIN 40 MG TAB PO SCH (09:25)
[2020-11-04] MEDS: ZINC SULFATE 220 MG CAP PO SCH (09:26)
--- NOTE | 2020-11-04 09:32 | P.PN ---
Subjective Progress Note Date: 11/04/20 CHIEF COMPLAINT: Inadequate protein malnutrition HISTORY OF PRESENT ILLNESS: The patient is a 74-year-old female admitted due to Covid pneumonia. She has encephalopathy. She has a tube feeds. She is resting comfortably. She still has a diet order. PHYSICAL EXAM: VITALS: Reviewed CONSTITUTIONAL: Well developed and in no acute distress. EYES: Conjuctivae without sclera icterus. Extraocular movements grossly intact. HEAD, EARS, NOSE, THROAT: Head is atraumatic, normocephalic. Hears conversational speech. Has nasogastric tube NECK: Supple. No thyroidomegaly. RESPIRATORY: Non-labored respirations and equal bilateral excursions. No gross wheezes. CARDIOVASCULAR: Extremities without moderate edema. ABDOMEN: Soft. Non-tender. Nondistended. MUSCULOSKELETALNail and fingers with good capillary refill. SKIN: Warm and well perfused with good skin turgor. NEUROLOGIC: Cranial nerves II through XII grossly intact. Sensation upper and extremities intact. No focal or lateralizing signs. PSYCH: Alert to person CLINCAL LABS: Reviewed. Labs pending. ASSESSMENT: 1. Covid 19 pneumonia 2. Metabolic encephalopathy with hypernatremia PLAN: 1. Speech pathology ordered to access for severity of dysphagia 2. Correction of severe hypernatremia. 3. Hold diet pending dysphagia assessment. Objective - Vital Signs Vital signs: Vital Signs Temp 98.8 F 11/04/20 05:23 Pulse 65 11/04/20 07:25 Resp 15 11/04/20 07:25 BP 101/55 11/04/20 05:23 Pulse Ox 95 11/04/20 05:23 Intake & Output 11/03/20 11/04/20 11/04/20 18:59 06:59 18:59 Intake Total 592 Output Total 350 350 Balance -350 592 -350 Weight 88 kg Intake: Oral 100 Tube Feeding 402 Other 90 Output: Urine 350 350 Other: Voiding Method Diaper Bedpan Bedpan Incontinent Diaper Diaper Incontinent Incontinent # Voids 1 1 1 # Bowel Movements 1 1 1 - Labs CBC & Chem 7: 11/04/20 05:33 11/03/20 05:36 Labs: Abnormal Lab Results - Last 24 Hours (Table) 11/01/20 11/01/20 11/02/20 Range/Units 06:59 11:29 07:03 RBC (3.80-5.40) m/uL Hgb (11.4-16.0) gm/dL Hct (34.0-46.0) % Plt Count (150-450) k/uL Sodium (135-145) mmol/L Chloride (96-109) mmol/L BUN (9.0-27.0) mg/dL Est GFR (CKD-EPI)AfAm (60.0-200.0) Est GFR (CKD-EPI)NonAf (60.0-200.0) BUN/Creatinine Ratio (12.00-20.00) Ratio Glucose (70-110) mg/dL POC Glucose (mg/dL) 193 H 175 H 145 H (75-99) mg/dL Calcium (8.7-10.3) mg/dL 11/03/20 11/04/20 Range/Units 05:36 05:33 RBC 3.38 L (3.80-5.40) m/uL Hgb 11.0 L (11.4-16.0) gm/dL Hct 33.5 L (34.0-46.0) % Plt Count 121 L (150-450) k/uL Sodium 163 H* (135-145) mmol/L Chloride 131 H* (96-109) mmol/L BUN 28.0 H (9.0-27.0) mg/dL Est GFR (CKD-EPI)AfAm 58.1 L (60.0-200.0) Est GFR (CKD-EPI)NonAf 50.1 L (60.0-200.0) BUN/Creatinine Ratio 25.45 H (12.00-20.00) Ratio Glucose 167 H (70-110) mg/dL POC Glucose (mg/dL) (75-99) mg/dL Calcium 8.5 L (8.7-10.3) mg/dL Microbiology - Last 24 Hours (Table) 10/30/20 12:15 CSF Gram Stain - Final Cerebral Spinal Fluid CSF Culture - Final
[2020-11-04 09:41] LABS: Glucose,Whole Blood 158 mg/dL (75-99)
[2020-11-04 09:41] LABS: Glucose,Whole Blood 159 mg/dL (75-99)
[2020-11-04 09:42] LABS: Glucose,Whole Blood 157 mg/dL (75-99)
[2020-11-04 09:42] LABS: Glucose,Whole Blood 216 mg/dL (75-99)
[2020-11-04 09:42] LABS: Glucose,Whole Blood 178 mg/dL (75-99)
[2020-11-04 09:42] LABS: Glucose,Whole Blood 179 mg/dL (75-99)
[2020-11-04 09:42] LABS: Glucose,Whole Blood 158 mg/dL (75-99)
[2020-11-04 09:42] LABS: Glucose,Whole Blood 193 mg/dL (75-99)
[2020-11-04 09:42] LABS: African American GFR (CKD) 58.1 (60.0-200.0); Anion Gap 6.7 mmol/L (4.00-12.00); BUN/Creat Ratio 22.73 Ratio (12.00-20.00); Calcium 8.5 mg/dL (8.7-10.3); Carbon Dioxide 25.3 mmol/L (21.6-31.8); Non-African American GFR(CKD) 50.1 (60.0-200.0); Potassium 3.3 mmol/L (3.5-5.5)
[2020-11-04 09:43] LABS: Glucose,Whole Blood 190 mg/dL (75-99)
[2020-11-04 09:43] LABS: Glucose,Whole Blood 125 mg/dL (75-99)
[2020-11-04 11:40] LABS: Glucose,Whole Blood 167 mg/dL (75-99)
[2020-11-04 17:14] LABS: Glucose,Whole Blood 156 mg/dL (75-99)
[2020-11-04 20:23] LABS: Glucose,Whole Blood 174 mg/dL (75-99)
[2020-11-04] MEDS: MELATONIN 3 MG TABLET PO SCH (20:47)
[2020-11-04] MEDS: GABAPENTIN 300 MG CAP PO SCH (20:47)
[2020-11-04] MEDS ORDERED: POTASSIUM CHLORIDE ER 20 MEQ TAB.ER PO ONE (21:00)
--- NOTE | 2020-11-04 23:17 | PN ---
PROGRESS NOTE DATE OF SERVICE: 11/04/2020 REASON FOR FOLLOWUP: Aspiration pneumonia. INTERVAL HISTORY: Patient is currently afebrile. Patient is more awake, alert, appropriate. She still has the NG for drainage. No vomiting or any diarrhea has been reported by the nursing staff. PHYSICAL EXAMINATION: Blood pressure 104/57 with a pulse of 66, temperature 97.8. She is 96% on room air. General description: The patient is an elderly female lying in bed in no distress. Respiratory system: Unlabored breathing, decreased breath sounds in the bases. No wheeze. Heart S1, S2. Regular rate and rhythm. ABDOMEN: Soft, no tenderness. LABS: Hemoglobin 11, white count 6.0, BUN of 25, creatinine 1.1. DIAGNOSTIC IMPRESSION AND PLAN: Patient with acute respiratory failure, multifactorial in this patient who did have a component of acute COVID-19 pneumonia, completed her treatment. Subsequently, concern for possible aspiration pneumonitis and covered with Zosyn. The patient seemed to have shown overall clinical improvement and mentation seems to be improving as well. Continue with current treatment protocol and monitor clinical course closely. MMODL / IJN: [id number] /
[2020-11-05] MEDS: PIPERACILLIN-TAZOBACTAM 3.375 GM in SODIUM CHLORIDE 0.9% 100 ML IVPB SCH ×3 (00:30→17:53)
[2020-11-05] MEDS ORDERED: POTASSIUM CHLORIDE ER 20 MEQ TAB.ER PO ONE ×2 (01:00)
[2020-11-05 06:43] LABS: Glucose,Whole Blood 171 mg/dL (75-99)
[2020-11-05 07:57] LABS: Anion Gap 6.2 mmol/L (4.00-12.00)
[2020-11-05] MEDS: INSULIN ASPART (NovoLOG) 100 UNIT/ML VIAL SQ SCH ×3 (09:58→17:30)
[2020-11-05] MEDS: ENOXAPARIN 40 MG/0.4 ML SYRINGE SQ SCH ×2 (09:58→23:08)
[2020-11-05] MEDS: ASCORBIC ACID 500 MG TAB PO SCH (09:59)
[2020-11-05] MEDS: MULTIVITAMINS, THERA 1 EACH TAB PO SCH (09:59)
[2020-11-05] MEDS: METOPROLOL TARTRATE 25 MG TAB PO SCH (09:59)
[2020-11-05] MEDS: FAMOTIDINE 20 MG TAB PO SCH (09:59)
[2020-11-05] MEDS: LOSARTAN 50 MG TAB PO SCH (09:59)
[2020-11-05] MEDS: CALCIUM CARB-VIT D 500MG-200UN 1 EACH TAB PO SCH (09:59)
[2020-11-05] MEDS: ATORVASTATIN 40 MG TAB PO SCH (09:59)
[2020-11-05] MEDS: ZINC SULFATE 220 MG CAP PO SCH (09:59)
[2020-11-05] MEDS: MELOXICAM 7.5 MG TAB PO SCH (09:59)
[2020-11-05] MEDS: metFORMIN 500 MG TAB PO SCH ×2 (10:01→17:50)
[2020-11-05 11:34] LABS: Glucose,Whole Blood 179 mg/dL (75-99)
--- NOTE | 2020-11-05 14:02 | P.PN ---
Progress Note - Text Progress Note Date: 11/05/20 The patient will be scheduled for PEG tube placement tomorrow. She has undergone a barium esophagram this morning.
--- NOTE | 2020-11-05 14:19 | FL ---
EXAMINATION TYPE: FL barium swallow DATE OF EXAM: 11/05/2020 CLINICAL HISTORY: This patient. TECHNIQUE: A limited single contrast esophagram is performed utilizing barium. A total of 13 second s of fluoroscopic time was utilized during procedure and 108 images obtained. COMPARISON: None CTA chest October 16, 2020 FINDINGS: Exam noted suboptimal due to patient's altered mental status and inability to drink more th an a few sips in semiupright supine positioning. Nasogastric tube is present. A few sips of contrast show some abnormal secondary and tertiary contractions consistent with mild to moderate underlying dy smotility. Small sliding hiatal hernia is present. No obstructing mass or stricture identified. IMPRESSION: As above.
[2020-11-05 15:16] VITALS: BMI 29.5
[2020-11-05 16:54] LABS: Glucose,Whole Blood 143 mg/dL (75-99)
--- NOTE | 2020-11-05 19:55 | P.PN ---
Subjective Progress Note Date: 11/02/20 Principal diagnosis: Encephalopathy related to Covid 19 infection -Diagnosed with Coronavirus 6 days prior to admission. admitted with bilateral COVID 19 pneumonia-improved -Acute hypoxic respiratory failure from down to room air-90% -Acute metabolic encephalopathy and acute delirium-worsening from shows some improvement -Hypernatremia with hyperchloremia from free water deficit-new diagnosis- improved -Diabetes mellitus type 2 uncontrolled with hyperglycemia -Essential hypertension -Hyperlipidemia -Obesity BMI 31.8 11/02/2020, patient seen eval examined during the rounds, mental status remains marginal, noted that sodium level continue to go up it's 161 today, she has p ulled out the NG tube so freewater cannot be given discussed with dietitian staff nurses social work 11/01/2020, patient oriented 1 becomes intermittently restless, hemodynamically stable oxygen saturation have been a stable, his duration is 95% on 2 L oxygen, extensive workup by neurology so far has been negative the recommended to start amantadine him a noted BUN/creatinine is up, sodium is also noted to be up, we'll gently rehydrate the patient with D5 10/31/2020, patient seen and evaluated examined oriented 1 mental status not been changed, status post spinal tap, neurology following patient likely will go to ECF for placement 10/30/2020, patient seen eval examined during the rounds is awake however mostly noncommunicative, patient is scheduled for spinal tap later on today, discussed with the dietitian about the nutritional issues, patient at times becomes agitated has pulled IVs before likelihood is that she will pull out the NG tube high risk of aspiration related complications neurology following 10/29/2020, patient seen eval examined during the rounds labs reviewed [facility] care plan discussed, overall respiratory status remains stable mental status remained marginal, noted recommendation from dietitian, awaiting spinal tap 10/28/2020, overall mental status remains poor, Plavix is on hold, patient is being considered for spinal tap, overall no significant change today compared to yesterday exam, neurology is following, 10/27/2020, patient seen eval examined labs reviewed medications reviewed, patient has been on Decadron and subcu Lovenox, neurology has been following patient remains very agitated encephalopathic, continued to be restless This is a 74-year-old patient of . Patient was diagnosed with COVID on Thursday that is 6 days ago. Patient came in today because she was becoming more short of breath also becoming confused. Brought in by the of the ER was also getting symptoms also admitted to the hospital with COVID. Overnight patient has done a bit better. Less short of breath. Less cough. Did eat some food. Tired. Chronic stable medical conditions include diabetes, hyperlipidemia, hypertension, stroke causing some numbness in the hands and arm. Admitted with bilateral COVID 19 pneumonia, acute hypoxic respiratory failure, acute metabolic encephalopathy and delirium. Patient started on dexamethasone, Remdesivir, Lovenox. Oxygen supplementation. Because of mental status change and neurology was consulted. MRI was unremarkable. Also been into hyper natremia-sodium 150. Given IV fluids. Objective - Vital Signs Vital signs: Vital Signs Temp 97.9 F 11/02/20 14:16 Pulse 87 11/02/20 14:16 Resp 17 11/02/20 14:16 BP 127/81 11/02/20 14:16 Pulse Ox 93 L 11/02/20 14:16 Intake & Output 11/01/20 11/02/20 11/02/20 18:59 06:59 18:59 Output Total 350 350 Balance -350 -350 Weight 86 kg 89.5 kg Output: Urine 350 350 Other: Voiding Method Diaper Diaper Diaper Incontinent Incontinent Incontinent # Voids 2 1 1 # Bowel Movements 1 1 1 - Exam GENERAL: Laying in bed bit more awake. We'll answer occasional question. PSYCH: Answering occasional question.. NEUROLOGICAL: Cranial nerves grossly intact; no facial asymmetry, moving about. More awake Rest of exam as per nursing pulmonary, neurology - Labs CBC & Chem 7: 11/04/20 05:33 11/05/20 02:22 Labs: Abnormal Lab Results - Last 24 Hours (Table) 11/02/20 Range/Units 06:19 Sodium 167 H* (135-145) mmol/L Chloride 137 H* (96-109) mmol/L BUN 37.0 H (9.0-27.0) mg/dL Est GFR (CKD-EPI)NonAf 56.2 L (60.0-200.0) BUN/Creatinine Ratio 37.00 H (12.00-20.00) Ratio Glucose 150 H (70-110) mg/dL Total Protein 5.3 L (6.2-8.2) g/dL Albumin 3.30 L (3.80-4.90) g/dL Microbiology - Last 24 Hours (Table) 10/30/20 12:15 CSF Gram Stain - Preliminary Cerebral Spinal Fluid CSF Culture - Preliminary 10/26/20 22:26 Blood Culture - Final Blood No Growth after 144 hours 11/01/20 14:29 Urine Culture - Preliminary Urine,Catheterized Assessment and Plan Assessment: Metabolic encephalopathy with agitated delirium Hypernatremia Acute kidney injury -Diagnosed with Coronavirus 6 days prior to admission. admitted with bilateral COVID 19 pneumonia-improved -Acute hypoxic respiratory failure from down to room air-90% -Acute metabolic encephalopathy and acute delirium-worsening from shows some improvement -Hypernatremia with hyperchloremia from free water deficit-new diagnosis-impro holley -Diabetes mellitus type 2 uncontrolled with hyperglycemia -Essential hypertension -Hyperlipidemia -Obesity BMI 31.8 Plan: Replace NG tube, free water, Continue D5, monitor labs closely including sodium and renal functions, neurology has started amantadine, Remdesivir-completed. On Decadron 6 mg. Subcu Lovenox. Plavix on hold for anticipated LP status post LP CSF finding reviewed, culture results pending Time with Patient: Greater than 30
--- NOTE | 2020-11-05 19:59 | P.PN ---
Subjective Progress Note Date: 11/03/20 Principal diagnosis: Severe hypernatremia Encephalopathy associated with covid 19 infection -Diagnosed with Coronavirus 6 days prior to admission. admitted with bilateral COVID 19 pneumonia-improved -Acute hypoxic respiratory failure from down to room air-90% -Acute metabolic encephalopathy and acute delirium-worsening from shows some improvement -Hypernatremia with hyperchloremia from free water deficit-new diagnosis- improved -Diabetes mellitus type 2 uncontrolled with hyperglycemia -Essential hypertension -Hyperlipidemia -Obesity BMI 31.8 11/03/2020, patient seen and evaluated examined during the rounds, sodium level improved to 163 from 157, hyponatremia still present along with elevated chloride, we'll increase the free water continue D5 sodium level slowly respon ding to therapy, will consult surgery for PEG tube placement 11/02/2020, patient seen eval examined during the rounds, mental status remains marginal, noted that sodium level continue to go up it's 161 today, she has pulled out the NG tube so freewater cannot be given discussed with dietitian staff nurses social work 11/01/2020, patient oriented 1 becomes intermittently restless, hemodynamically stable oxygen saturation have been a stable, his duration is 95% on 2 L oxygen, extensive workup by neurology so far has been negative the recommended to start amantadine him a noted BUN/creatinine is up, sodium is also noted to be up, we'll gently rehydrate the patient with D5 10/31/2020, patient seen and evaluated examined oriented 1 mental status not been changed, status post spinal tap, neurology following patient likely will go to ECF for placement 10/30/2020, patient seen eval examined during the rounds is awake however mostly noncommunicative, patient is scheduled for spinal tap later on today, discussed with the dietitian about the nutritional issues, patient at times becomes ag itated has pulled IVs before likelihood is that she will pull out the NG tube high risk of aspiration related complications neurology following 10/29/2020, patient seen eval examined during the rounds labs reviewed medications reviewed care plan discussed, overall respiratory status remains stable mental status remained marginal, noted recommendation from dietitian, awaiting spinal tap 10/28/2020, overall mental status remains poor, Plavix is on hold, patient is being considered for spinal tap, overall no significant change today compared to yesterday exam, neurology is following, 10/27/2020, patient seen eval examined labs reviewed medications reviewed, patient has been on Decadron and subcu Lovenox, neurology has been following patient remains very agitated encephalopathic, continued to be restless This is a 74-year-old patient of . Patient was diagnosed with COVID on Thursday that is 6 days ago. Patient came in today because she was becoming more short of breath also becoming confused. Brought in by the of the ER was also getting symptoms also admitted to the hospital with COVID. Overnight patient has done a bit better. Less short of breath. Less cough. Did eat some food. Tired. Chronic stable medical conditions include diabetes, hyperlipidemia, hypertension, stroke causing some numbness in the hands and arm. Admitted with bilateral COVID 19 pneumonia, acute hypoxic respiratory failure, acute metabolic encephalopathy and delirium. Patient started on dexamethasone, Remdesivir, Lovenox. Oxygen supplementation. Because of mental status change and neurology was consulted. MRI was unremarkable. Also been into hyper natremia-sodium 150. Given IV fluids. Objective - Vital Signs Vital signs: Vital Signs Temp 97.7 F 11/03/20 10:00 Pulse 66 11/03/20 10:00 Resp 20 11/03/20 10:00 BP 103/63 11/03/20 10:00 Pulse Ox 99 11/03/20 10:00 Intake & Output 11/02/20 11/03/20 11/03/20 18:59 06:59 18:59 Intake Total 444 291 Output Total 350 350 Balance 94 291 -350 Weight 89.5 kg Intake: Tube Feeding 134 201 Other 310 90 Output: Urine 350 350 Other: Voiding Method Diaper Diaper Diaper Incontinent Incontinent Incontinent # Voids 1 1 1 # Bowel Movements 1 1 1 - Exam GENERAL: Laying in bed bit more awake. We'll answer occasional question. PSYCH: Answering occasional question.. NEUROLOGICAL: Cranial nerves grossly intact; no facial asymmetry, moving about. More awake Rest of exam as per nursing pulmonary, neurology - Labs CBC & Chem 7: 11/04/20 05:33 11/05/20 02:22 Labs: Abnormal Lab Results - Last 24 Hours (Table) 11/03/20 11/03/20 Range/Units 05:36 05:36 RBC 3.46 L (3.80-5.40) m/uL Hgb 10.9 L (11.4-16.0) gm/dL Plt Count 141 L (150-450) k/uL Sodium 163 H* (135-145) mmol/L Chloride 131 H* (96-109) mmol/L BUN 28.0 H (9.0-27.0) mg/dL Est GFR (CKD-EPI)AfAm 58.1 L (60.0-200.0) Est GFR (CKD-EPI)NonAf 50.1 L (60.0-200.0) BUN/Creatinine Ratio 25.45 H (12.00-20.00) Ratio Glucose 167 H (70-110) mg/dL Calcium 8.5 L (8.7-10.3) mg/dL Microbiology - Last 24 Hours (Table) 10/30/20 12:15 CSF Gram Stain - Final Cerebral Spinal Fluid CSF Culture - Final 11/01/20 14:29 Urine Culture - Final Urine,Catheterized Assessment and Plan Assessment: Metabolic encephalopathy with agitated delirium Hypernatremia Acute kidney injury -Diagnosed with Coronavirus 6 days prior to admission. admitted with bilateral COVID 19 pneumonia-improved -Acute hypoxic respiratory failure from down to room air-90% -Acute metabolic encephalopathy and acute delirium-worsening from shows some improvement -Hypernatremia with hyperchloremia from free water deficit-new diagnosis- improved -Diabetes mellitus type 2 uncontrolled with hyperglycemia -Essential hypertension -Hyperlipidemia -Obesity BMI 31.8 Plan: Consults surgery for PEG tube placement, Continue D5, monitor labs closely including sodium and renal functions, neurology has started amantadine, Remdesivir-completed. On Decadron 6 mg. Subcu Lovenox. Plavix on hold for anticipated LP status post LP CSF finding reviewed, culture results pending Time with Patient: Greater than 30
--- NOTE | 2020-11-05 20:03 | P.PN ---
Subjective Progress Note Date: 11/04/20 Principal diagnosis: Severe hypernatremia Encephalopathy associated with covid 19 infection -Diagnosed with Coronavirus 6 days prior to admission. admitted with bilateral COVID 19 pneumonia-improved -Acute hypoxic respiratory failure from down to room air-90% -Acute metabolic encephalopathy and acute delirium-worsening from shows some improvement -Hypernatremia with hyperchloremia from free water deficit-new diagnosis- improved -Diabetes mellitus type 2 uncontrolled with hyperglycemia -Essential hypertension -Hyperlipidemia -Obesity BMI 31.8 11/04/2020, overall respiratory status remains stable it appears that mental status slightly improved now, patient is keeping NG tube, free water as well as D5 continuously being given sodium continued to improve slowly, now down to 156 now, 11/03/2020, patient seen and evaluated examined during the rounds, sodium level improved to 163 from 157, hyponatremia still present along with elevated chloride, we'll increase the free water continue D5 sodium level slowly responding to therapy, will consult surgery for PEG tube placement 11/02/2020, patient seen eval examined during the rounds, mental status remains marginal, noted that sodium level continue to go up it's 161 today, she has pulled out the NG tube so freewater cannot be given discussed with dietitian staff nurses social work 11/01/2020, patient oriented 1 becomes intermittently restless, hemodynamically stable oxygen saturation have been a stable, his duration is 95% on 2 L oxygen, extensive workup by neurology so far has been negative the recommended to start amantadine him a noted BUN/creatinine is up, sodium is also noted to be up, we'll gently rehydrate the patient with D5 10/31/2020, patient seen and evaluated examined oriented 1 mental status not been changed, status post spinal tap, neurology following patient likely will go to F for placement 10/30/2020, patient seen eval examined during the rounds is awake however mostly noncommunicative, patient is scheduled for spinal tap later on today, discussed with the dietitian about the nutritional issues, patient at times becomes agitated has pulled IVs before likelihood is that she will pull out the NG tube high risk of aspiration related complications neurology following 10/29/2020, patient seen eval examined during the rounds labs reviewed medications reviewed care plan discussed, overall respiratory status remains stable mental status remained marginal, noted recommendation from dietitian, awaiting spinal tap 10/28/2020, overall mental status remains poor, Plavix is on hold, patient is being considered for spinal tap, overall no significant change today compared to yesterday exam, neurology is following, 10/27/2020, patient seen eval examined labs reviewed medications reviewed, patient has been on Decadron and subcu Lovenox, neurology has been following patient remains very agitated encephalopathic, continued to be restless This is a 74-year-old patient of . Patient was diagnosed with COVID on Thursday that is 6 days ago. Patient came in today because she was becoming more short of breath also becoming confused. Brought in by the of the ER was also getting symptoms also admitted to the hospital with COVID. Overnight patient has done a bit better. Less short of breath. Less cough. Did eat some food. Tired. Chronic stable medical conditions include diabetes, hyperlipidemia, hypertension, stroke causing some numbness in the hands and arm. Admitted with bilateral COVID 19 pneumonia, acute hypoxic respiratory failure, acute metabolic encephalopathy and delirium. Patient started on dexamethasone, Remdesivir, Lovenox. Oxygen supplementation. Because of mental status change and neurology was consulted. MRI was unremarkable. Also been into hyper natremia-sodium 150. Given IV fluids. Objective - Vital Signs Vital signs: Vital Signs Temp 98.8 F 11/04/20 14:00 Pulse 56 L 11/04/20 14:00 Resp 20 11/04/20 14:00 BP 114/72 11/04/20 14:00 Pulse Ox 95 11/04/20 14:00 Intake & Output 11/03/20 11/04/20 11/04/20 18:59 06:59 18:59 Intake Total 592 Output Total 350 350 Balance -350 592 -350 Weight 88 kg Intake: Oral 100 Tube Feeding 402 Other 90 Output: Urine 350 350 Other: Voiding Method Diaper Bedpan Bedpan Incontinent Diaper Diaper Incontinent Incontinent # Voids 1 1 1 # Bowel Movements 1 1 1 - Exam GENERAL: Laying in bed bit more awake, compared to yesterday exam. We'll answer occasional question. Neck supple Lungs clear to auscultation Heart regular rate rhythm S1 and S2 audible Abdomen soft nontender positive bowel sounds PSYCH: Answering occasional question.. NEUROLOGICAL: Cranial nerves grossly intact; no facial asymmetry, moving about. More awake - Labs CBC & Chem 7: 11/04/20 05:33 11/05/20 02:22 Labs: Abnormal Lab Results - Last 24 Hours (Table) 11/01/20 11/01/20 11/01/20 Range/Units 06:59 11:29 17:04 RBC (3.80-5.40) m/uL Hgb (11.4-16.0) gm/dL Hct (34.0-46.0) % Plt Count (150-450) k/uL Sodium (135-145) mmol/L Potassium (3.5-5.5) mmol/L Chloride (96-109) mmol/L Est GFR (CKD-EPI)AfAm (60.0-200.0) Est GFR (CKD-EPI)NonAf (60.0-200.0) BUN/Creatinine Ratio (.00-.) Ratio Glucose (70-110) mg/dL POC Glucose (mg/dL) 193 H 175 H 157 H (75-99) mg/dL Calcium (8.7-10.3) mg/dL 11/01/20 11/02/20 11/02/20 Range/Units 20:19 07:03 11:44 RBC (3.80-5.40) m/uL Hgb (11.4-16.0) gm/dL Hct (34.0-46.0) % Plt Count (150-450) k/uL Sodium (135-145) mmol/L Potassium (3.5-5.5) mmol/L Chloride (96-109) mmol/L Est GFR (CKD-EPI)AfAm (60.0-200.0) Est GFR (CKD-EPI)NonAf (60.0-200.0) BUN/Creatinine Ratio (.00-.) Ratio Glucose (70-110) mg/dL POC Glucose (mg/dL) 193 H 145 H 158 H (75-99) mg/dL Calcium (8.7-10.3) mg/dL 11/02/20 11/02/20 11/03/20 Range/Units 16:17 20:35 06:47 RBC (3.80-5.40) m/uL Hgb (11.4-16.0) gm/dL Hct (34.0-46.0) % Plt Count (150-450) k/uL Sodium (135-145) mmol/L Potassium (3.5-5.5) mmol/L Chloride (96-109) mmol/L Est GFR (CKD-EPI)AfAm (60.0-200.0) Est GFR (CKD-EPI)NonAf (60.0-200.0) BUN/Creatinine Ratio (12.00-20.00) Ratio Glucose (70-110) mg/dL POC Glucose (mg/dL) 216 H 178 H 179 H (75-99) mg/dL Calcium (8.7-10.3) mg/dL 11/03/20 11/03/20 11/03/20 Range/Units 11:38 16:53 20:53 RBC (3.80-5.40) m/uL Hgb (11.4-16.0) gm/dL Hct (34.0-46.0) % Plt Count (150-450) k/uL Sodium (135-145) mmol/L Potassium (3.5-5.5) mmol/L Chloride (96-109) mmol/L Est GFR (CKD-EPI)AfAm (60.0-200.0) Est GFR (CKD-EPI)NonAf (60.0-200.0) BUN/Creatinine Ratio (.00-.00) Ratio Glucose (70-110) mg/dL POC Glucose (mg/dL) 125 H 190 H 158 H (75-99) mg/dL Calcium (8.7-10.3) mg/dL 11/04/20 11/04/20 11/04/20 Range/Units 05:33 05:33 06:38 RBC 3.38 L (3.80-5.40) m/uL Hgb 11.0 L (11.4-16.0) gm/dL Hct 33.5 L (34.0-46.0) % Plt Count 121 L (150-450) k/uL Sodium 156 H (135-145) mmol/L Potassium 3.3 L (3.5-5.5) mmol/L Chloride 124 H (96-109) mmol/L Est GFR (CKD-EPI)AfAm 58.1 L (60.0-200.0) Est GFR (CKD-EPI)NonAf 50.1 L (60.0-200.0) BUN/Creatinine Ratio 22.73 H (12.00-20.00) Ratio Glucose 162 H (70-110) mg/dL POC Glucose (mg/dL) 159 H (75-99) mg/dL Calcium 8.5 L (8.7-10.3) mg/dL 11/04/20 Range/Units 11:31 RBC (3.80-5.40) m/uL Hgb (11.4-16.0) gm/dL Hct (34.0-46.0) % Plt Count (150-450) k/uL Sodium (135-145) mmol/L Potassium (3.5-5.5) mmol/L Chloride (96-109) mmol/L Est GFR (CKD-EPI)AfAm (60.0-200.0) Est GFR (CKD-EPI)NonAf (60.0-200.0) BUN/Creatinine Ratio (12.00-20.00) Ratio Glucose (70-110) mg/dL POC Glucose (mg/dL) 167 H (75-99) mg/dL Calcium (8.7-10.3) mg/dL Assessment and Plan Assessment: Metabolic encephalopathy with agitated delirium Hypernatremia Acute kidney injury -Diagnosed with Coronavirus 6 days prior to admission. admitted with bilateral COVID 19 pneumonia-improved -Acute hypoxic respiratory failure from down to room air-90% -Acute metabolic encephalopathy and acute delirium-worsening from shows some improvement -Hypernatremia with hyperchloremia from free water deficit-new diagnosis- improved -Diabetes mellitus type 2 uncontrolled with hyperglycemia -Essential hypertension -Hyperlipidemia -Obesity BMI 31.8 Plan: Surgical services evaluated the patient, Continue D5, monitor labs closely including sodium and renal functions, neurology has started amantadine, Remdesivir-completed. On Decadron 6 mg. Subcu Lovenox. status post LP CSF fi nding reviewed, culture results pending Time with Patient: Greater than 30
--- NOTE | 2020-11-05 20:05 | P.PN ---
Subjective Progress Note Date: 11/05/20 Principal diagnosis: Severe hypernatremia Encephalopathy associated with covid 19 infection -Diagnosed with Coronavirus 6 days prior to admission. admitted with bilateral COVID 19 pneumonia-improved -Acute hypoxic respiratory failure from down to room air-90% -Acute metabolic encephalopathy and acute delirium-worsening from shows some improvement -Hypernatremia with hyperchloremia from free water deficit-new diagnosis- improved -Diabetes mellitus type 2 uncontrolled with hyperglycemia -Essential hypertension -Hyperlipidemia -Obesity BMI 31.8 11/05/2020, patient seen eval examined during the rounds labs reviewed medications reviewed, mental status significantly improved, is present at bedside, denies any chest pain cough complain of dryness in the mouth patient is still keeping NG tube, surgical services have evaluated the patient being planned for PEG tube placement tomorrow 11/04/2020, overall respiratory status remains stable it appears that mental status slightly improved now, patient is keeping NG tube, free water as well as D5 continuously being given sodium continued to improve slowly, now down to 156 now, 11/03/2020, patient seen and evaluated examined during the rounds, sodium level improved to 163 from 157, hyponatremia still present along with elevated chloride, we'll increase the free water continue D5 sodium level slowly responding to therapy, will consult surgery for PEG tube placement 11/02/2020, patient seen eval examined during the rounds, mental status remains marginal, noted that sodium level continue to go up it's 161 today, she has pulled out the NG tube so freewater cannot be given discussed with dietitian staff nurses social work 11/01/2020, patient oriented 1 becomes intermittently restless, hemodynamically stable oxygen saturation have been a stable, his duration is 95% on 2 L oxygen, extensive workup by neurology so far has been negative the recommended to start amantadine him a noted BUN/creatinine is up, sodium is also noted to be up, we'll gently rehydrate the patient with D5 10/31/2020, patient seen and evaluated examined oriented 1 mental status not been changed, status post spinal tap, neurology following patient likely will go to F for placement 10/30/2020, patient seen eval examined during the rounds is awake however mostly noncommunicative, patient is scheduled for spinal tap later on today, discussed with the dietitian about the nutritional issues, patient at times becomes agitated has pulled IVs before likelihood is that she will pull out the NG tube high risk of aspiration related complications neurology following 10/29/2020, patient seen evcasey examined during the rounds labs reviewed medications reviewed care plan discussed, overall respiratory status remains stable mental status remained marginal, noted recommendation from dietitian, awaiting spinal tap 10/28/2020, overall mental status remains poor, Plavix is on hold, patient is being considered for spinal tap, overall no significant change today compared to yesterday exam, neurology is following, 10/27/2020, patient seen eval examined labs reviewed medications reviewed, patient has been on Decadron and subcu Lovenox, neurology has been following patient remains very agitated encephalopathic, continued to be restless This is a 74-year-old patient of . Patient was diagnosed with COVID on Thursday that is 6 days ago. Patient came in today because she was becoming more short of breath also becoming confused. Brought in by the of the ER was also getting symptoms also admitted to the hospital with COVID. Overnight patient has done a bit better. Less short of breath. Less cough. Did eat some food. Tired. Chronic stable medical conditions include diabetes, hyperlipidemia, hypertens ion, stroke causing some numbness in the hands and arm. Admitted with bilateral COVID 19 pneumonia, acute hypoxic respiratory failure, acute metabolic encephalopathy and delirium. Patient started on dexamethasone, Remdesivir, Lovenox. Oxygen supplementation. Because of mental status change and neurology was consulted. MRI was unremarkable. Also been into hyper natremia-sodium 150. Given IV fluids. Objective - Vital Signs Vital signs: Vital Signs Temp 98.9 F 11/05/20 17:35 Pulse 55 L 11/05/20 17:35 Resp 18 11/05/20 17:35 BP 124/62 11/05/20 17:35 Pulse Ox 94 L 11/05/20 17:35 Intake & Output 11/05/20 11/05/20 11/06/20 06:59 18:59 06:59 Intake Total 690 520 Balance 690 520 Weight 88 kg Intake: Tube Feeding 600 400 Other 90 120 Other: Voiding Method Toilet Toilet Bedpan Bedpan Diaper Diaper Incontinent Incontinent # Voids 2 5 # Bowel Movements 2 - Exam GENERAL: Laying in bed bit more awake, compared to yesterday exam. We'll answer occasional question. Neck supple Lungs clear to auscultation Heart regular rate rhythm S1 and S2 audible Abdomen soft nontender positive bowel sounds PSYCH: Answering occasional question.. NEUROLOGICAL: Cranial nerves grossly intact; no facial asymmetry, moving about. More awake - Labs CBC & Chem 7: 11/04/20 05:33 11/05/20 02:22 Labs: Abnormal Lab Results - Last 24 Hours (Table) 11/02/20 11/04/20 11/05/20 Range/Units 06:19 20:19 06:41 Sodium 167 H* (135-145) mmol/L Chloride 137 H* (96-109) mmol/L POC Glucose (mg/dL) 174 H 171 H (75-99) mg/dL 11/05/20 11/05/20 Range/Units 11:32 16:42 Sodium (135-145) mmol/L Chloride (96-109) mmol/L POC Glucose (mg/dL) 179 H 143 H (75-99) mg/dL Assessment and Plan Assessment: Metabolic encephalopathy with agitated delirium Hypernatremia Acute kidney injury -Diagnosed with Coronavirus 6 days prior to admission. admitted with bilateral COVID 19 pneumonia-improved -Acute hypoxic respiratory failure from down to room air-90% -Acute metabolic encephalopathy and acute delirium-worsening from shows some improvement -Hypernatremia with hyperchloremia from free water deficit-new diagnosis- improved -Diabetes mellitus type 2 uncontrolled with hyperglycemia -Essential hypertension -Hyperlipidemia -Obesity BMI 31.8 Plan: Surgical services evaluated the patient, for PEG tube placement tomorrow, will check the labs as well, Continue D5, monitor labs closely including sodium and renal functions, neurology has started amantadine, Remdesivir-completed. On Decadron 6 mg. Subcu Lovenox. status post LP CSF finding reviewed, culture results pending Time with Patient: Greater than 30
[2020-11-05 20:22] LABS: Glucose,Whole Blood 145 mg/dL (75-99)
[2020-11-05 21:54] LABS: Glucose,Whole Blood 134 mg/dL (75-99)
--- NOTE | 2020-11-05 23:03 | PN ---
PROGRESS NOTE DATE OF SERVICE: 11/05/2020 REASON FOR FOLLOWUP: Aspiration pneumonia. INTERVAL HISTORY: The patient is currently afebrile. The patient is breathing comfortably. She seems to be slightly more awake and alert. Still has the NG in. No vomiting or diarrhea has been reported. PHYSICAL EXAMINATION: Blood pressure 115/57 with a pulse of 56, temperature 98.8. She is 95% on room air. General description is an elderly female lying in bed in no distress. RESPIRATORY SYSTEM: Unlabored breathing. Clear to auscultation anteriorly. HEART: S1, S2. Regular rate and rhythm. ABDOMEN: Soft. No tenderness. LABS: No new labs have been obtained today. DIAGNOSTIC IMPRESSION AND PLAN: Patient with a component of pneumonia, possible aspiration in this patient who did have mental status changes, some response and is covered with Zosyn. Waiting for the swallow evaluation and may transition to a short course of oral Augmentin on discharge. Continue with supportive care. MMODL / IJN: [id number] /
[2020-11-06] MEDS: PIPERACILLIN-TAZOBACTAM 3.375 GM in SODIUM CHLORIDE 0.9% 100 ML IVPB SCH ×3 (00:20→17:23)
--- NOTE | 2020-11-06 00:34 | CONS ---
CONSULTATION DATE OF SERVICE: 11/04/2020 PURPOSE FOR CONSULTATION: Evaluate for agitation. The patient is admitted for code related encephalopathy. INTERVAL HISTORY: Patient was seen previously by Dr. Burks. I refer to his note of 11/01/2020 for details. His diagnosis was altered mental status and encephalopathy. Psychiatry got a call from nursing because the patient was having some problems with agitation. When I went to see the patient, she was with her . Apparently, they had called in to see if he could help with orientation. Patient was doing fairly well throughout the day today. Nursing stated that the patient was not having any problems with difficult behavior and was improved in terms of orientation and I talked to the patient and . said that the patient seemed to be more alert and was somewhat clearer in her thinking. For the patient's part, she did not say much. She did answer a few questions with vague responses. When I asked about orientation questions, she was not able to tell me the month. She was able to make some comment about light outside and then she was able to understand that the lights were for Ning and then she could tell me that she was in October. She was resting comfortably. She smiled a little. Mostly she had a quiet manner. ASSESSMENT: I will continue current diagnosis of encephalopathy. The patient appears to be improving. At this point, there is not indication for any change in treatment in regard to the psychiatric issues or psychotropic medications. Please notify Psychiatry at any point with further questions or concerns. MMODL / IJN: [id number] /
[2020-11-06] MEDS: INSULIN ASPART (NovoLOG) 100 UNIT/ML VIAL SQ SCH ×5 (00:37→20:58)
[2020-11-06] MEDS: MELATONIN 3 MG TABLET PO SCH ×2 (01:11→20:24)
[2020-11-06] MEDS: GABAPENTIN 300 MG CAP PO SCH ×2 (01:11→20:25)
[2020-11-06] MEDS: METOPROLOL TARTRATE 25 MG TAB PO SCH ×3 (01:11→20:25)
[2020-11-06 06:38] LABS: Basophils % (A) 0 %; Eosinophils # (A) 0.3 k/uL (0-0.7); Eosinophils % (A) 5 %; HCT 30.7 % (34.0-46.0); HGB 10.1 gm/dL (11.4-16.0); Lymphocytes # (A) 1.3 k/uL (1.0-4.8); Lymphocytes % (A) 27 %; MCV 96.8 fL (80.0-100.0); Macrocytosis Slight; Mean Platelet Volume 7.9; Monocytes # (A) 0.2 k/uL (0-1.0); Monocytes % (A) 5 %; Neutrophils % (A) 61 %; Platelet Count 126 k/uL (150-450); RBC 3.17 m/uL (3.80-5.40); RDW 15.6 % (11.5-15.5)
[2020-11-06 07:18] LABS: Glucose,Whole Blood 142 mg/dL (75-99)
[2020-11-06] MEDS: CALCIUM CARB-VIT D 500MG-200UN 1 EACH TAB PO SCH (07:31)
[2020-11-06] MEDS: ATORVASTATIN 40 MG TAB PO SCH (07:31)
[2020-11-06] MEDS: metFORMIN 500 MG TAB PO SCH ×2 (07:31→17:23)
[2020-11-06] MEDS: ASCORBIC ACID 500 MG TAB PO SCH (07:31)
[2020-11-06] MEDS: MULTIVITAMINS, THERA 1 EACH TAB PO SCH (07:32)
[2020-11-06] MEDS: FAMOTIDINE 20 MG TAB PO SCH (07:32)
[2020-11-06] MEDS: ZINC SULFATE 220 MG CAP PO SCH (07:32)
[2020-11-06 10:32] VITALS: RESP 20
[2020-11-06] MEDS: LOSARTAN 50 MG TAB PO SCH (10:39)
[2020-11-06] MEDS: MELOXICAM 7.5 MG TAB PO SCH (10:40)
[2020-11-06 11:29] LABS: African American GFR (CKD) 100.3 (60.0-200.0); Albumin 2.9 g/dL (3.80-4.90); Albumin/Globulin Ratio 1.71 (1.60-3.17); Anion Gap 3.2 mmol/L (4.00-12.00); BUN/Creat Ratio 18.57 Ratio (12.00-20.00); Calcium 8.3 mg/dL (8.7-10.3); Carbon Dioxide 28.8 mmol/L (21.6-31.8); Globulin 1.7 g/dL (1.6-3.3); Non-African American GFR(CKD) 86.6 (60.0-200.0); Potassium 3.6 mmol/L (3.5-5.5); Total Bilirubin 0.7 mg/dL (0.3-1.2); Total Protein 4.6 g/dL (6.2-8.2)
[2020-11-06 11:35] LABS: Glucose,Whole Blood 149 mg/dL (75-99)
--- NOTE | 2020-11-06 12:58 | P.PN ---
Progress Note - Text Progress Note Date: 11/06/20 Patient's mentation has improved. She was evaluated by the neurologist.. Due to her improved mentation she is able to eat orally. We will cancel her PEG tube placement for today.
--- NOTE | 2020-11-06 13:14 | P.PN ---
Subjective Progress Note Date: 11/05/20 Patient was seen for a follow-up. Patient has much improved as compared to the examination one week ago. Patient is alert awake, dressed in a down, makes eye contact, speech is clear, but some perseveration. Denies headache or any focal symptoms. Objective - Vital Signs Vital signs: Vital Signs Temp 98.6 F 11/05/20 14:12 Pulse 57 L 11/05/20 14:12 Resp 17 11/05/20 14:12 BP 105/58 11/05/20 14:12 Pulse Ox 95 11/05/20 14:12 Intake & Output 11/04/20 11/05/20 11/05/20 18:59 06:59 18:59 Intake Total 690 520 Output Total 350 Balance -350 690 520 Weight 88 kg Intake: Tube Feeding 600 400 Other 90 120 Output: Urine 350 Other: Voiding Method Bedpan Toilet Toilet Diaper Bedpan Bedpan Incontinent Diaper Diaper Incontinent Incontinent # Voids 1 2 # Bowel Movements 1 2 - Exam On examination patient is much alert and awake, speaks in sentences, patient knows her name, states is November or December. She has some perseveration. Patient able to name knuckles. Could not tell the name of the hospital. Her pupils are round and reacting, visual de anda are full, extraocular muscles are intact, face is symmetric and tongue protrudes the midline. Muscle strength is normal in the arms. Her ankle dorsiflexion is slightly weak 5- on the left as compared to right. Plantars are withdrawal. - Labs CBC & Chem 7: 11/06/20 05:30 11/06/20 05:30 Labs: Abnormal Lab Results - Last 24 Hours (Table) 11/02/20 11/04/20 11/04/20 Range/Units 06:19 17:06 20:19 Sodium 167 H* (135-145) mmol/L Chloride 137 H* (96-109) mmol/L POC Glucose (mg/dL) 156 H 174 H (75-99) mg/dL 11/05/20 11/05/20 11/05/20 Range/Units 06:41 11:32 16:42 Sodium (135-145) mmol/L Chloride (96-109) mmol/L POC Glucose (mg/dL) 171 H 179 H 143 H (75-99) mg/dL Assessment and Plan Assessment: * Altered mental status, likely due to toxic metabolic encephalopathy. Encephalopathy much improved. * Acute COVID-19 related pneumonia, with significant encephalopathy. Patient monsivais s been treated with Remdesivir. * Acute hypoxic respiratory failure. * Abnormal liver functions, normal now. * Hypernatremia, improving. * History of right thalamic lacunar infarct 12/15/2014. * Diabetes, with hemoglobin A1c 7.0 on 05/19/2018 * Hypertension Plan: * Patient's mentation, and encephalopathy his much improved. Patient is fully alert and awake, speaking, still slightly confused, mildly encephalopathic. * Lumbar puncture on 10/30/2020 showed WBC 1, RBC 1, glucose 115, total protein elevated 95. RPR negative. Lyme titer negative, viral cultures negative. * EEG 10/26/2020 showed moderate background slowing consistent with encephalopathy. No epileptiform activity was seen. No electrographic evidence of herpes encephalitis. Repeat EEG on 10/31/2020 also showed background slowing consistent with encephalopathy. * MRI of the brain (10/24/2020) showed mild to moderate diffuse cerebral atrophy and chronic small vessel ischemic changes. There is left temporal arachnoid cyst redemonstrated. Exam is relatively nonfocal. * B12 1016, folate 947 normal, TSH 0.59 normal, ammonia <9, hemoglobin A1c 8.2, consistent with not well controlled diabetes. * Patient's LFTs have normalized. Sodium also improved. * We will follow.
--- NOTE | 2020-11-06 13:21 | P.PN ---
Subjective Progress Note Date: 11/06/20 Patient is doing even better than yesterday. According to the nurse, patient walked to the bathroom, appeared fairly steady, with minimal assist. She wants to get up and walk around. Denies headache or any focal symptoms. Objective - Vital Signs Vital signs: Vital Signs Temp 98.0 F 11/06/20 10:00 Pulse 60 11/06/20 10:00 Resp 20 11/06/20 10:00 BP 122/66 11/06/20 10:00 Pulse Ox 94 L 11/06/20 10:00 Intake & Output 11/05/20 11/06/20 11/06/20 18:59 06:59 18:59 Intake Total 520 100 Balance 520 100 Weight 88 kg 91.5 kg Intake: IV 100 Piperacillin-Tazobactam 3 100 .375 gm In Sodium Chloride 0.9% 100 ml @ 25 mls/hr IVPB Q8HR [facility] Rx# :[id number] Oral 0 Tube Feeding 400 Other 120 Other: Voiding Method Toilet Toilet Toilet Bedpan Diaper Incontinent # Voids 5 2 - Exam On examination patient is fully alert and awake, sitting in the recliner, speaking full sentences. Patient states it's October 23, could not tell name of the hospital. She can name objects like knuckles, can repeat. She has some perseveration. On cranial nerve examination pupils are round and reacting, visual de anda appears full, face is symmetric and tongue protrudes to the midline. Muscle strength is normal in the arms. Her strength is improved today with ankle dorsiflexion 5 bilaterally. Hip flexion is about 4-4-on either side. Reflexes are symmetric and plantars are withdrawal. Sensory touch is equal. No ataxia for [id number] testing. - Labs CBC & Chem 7: 11/06/20 05:30 11/06/20 05:30 Labs: Abnormal Lab Results - Last 24 Hours (Table) 11/05/20 11/05/20 11/05/20 Range/Units 16:42 20:20 21:53 RBC (3.80-5.40) m/uL Hgb (11.4-16.0) gm/dL Hct (34.0-46.0) % RDW (11.5-15.5) % Plt Count (150-450) k/uL Sodium (135-145) mmol/L Chloride (96-109) mmol/L Anion Gap (4.00-12.00) mmol/L Glucose (70-110) mg/dL POC Glucose (mg/dL) 143 H 145 H 134 H (75-99) mg/dL Calcium (8.7-10.3) mg/dL Total Protein (6.2-8.2) g/dL Albumin (3.80-4.90) g/dL 11/06/20 11/06/20 11/06/20 Range/Units 05:30 05:30 07:14 RBC 3.17 L (3.80-5.40) m/uL Hgb 10.1 L (11.4-16.0) gm/dL Hct 30.7 L (34.0-46.0) % RDW 15.6 H (11.5-15.5) % Plt Count 126 L (150-450) k/uL Sodium 154 H (135-145) mmol/L Chloride 122 H (96-109) mmol/L Anion Gap 3.20 L (4.00-12.00) mmol/L Glucose 145 H (70-110) mg/dL POC Glucose (mg/dL) 142 H (75-99) mg/dL Calcium 8.3 L (8.7-10.3) mg/dL Total Protein 4.6 L (6.2-8.2) g/dL Albumin 2.90 L (3.80-4.90) g/dL 11/06/20 Range/Units 11:31 RBC (3.80-5.40) m/uL Hgb (11.4-16.0) gm/dL Hct (34.0-46.0) % RDW (11.5-15.5) % Plt Count (150-450) k/uL Sodium (135-145) mmol/L Chloride (96-109) mmol/L Anion Gap (4.00-12.00) mmol/L Glucose (70-110) mg/dL POC Glucose (mg/dL) 149 H (75-99) mg/dL Calcium (8.7-10.3) mg/dL Total Protein (6.2-8.2) g/dL Albumin (3.80-4.90) g/dL Assessment and Plan Assessment: * Altered mental status, likely due to toxic metabolic encephalopathy. Encephalopathy much improved, although still slightly present. * Acute COVID-19 related pneumonia, with significant encephalopathy. Patient has been treated with Remdesivir. * Acute hypoxic respiratory failure, resolved. * Dysphagia, likely due to encephalopathy * Abnormal liver functions, resolved. * Hypernatremia, improving. * History of right thalamic lacunar infarct 12/15/2014. * Diabetes, with hemoglobin A1c 7.0 on 05/19/2018 * Hypertension Plan: * Patient's mentation, and encephalopathy his much improved. She is even better than yesterday. Patient is fully alert and awake, speaking in full sentences, still slightly confused, mildly encephalopathic, mild perseveration. * Lumbar puncture on 10/30/2020 showed WBC 1, RBC 1, glucose 115, total protein elevated 95. RPR negative. Lyme titer negative, viral cultures negative. * EEG 10/26/2020 showed moderate background slowing consistent with ence phalopathy. No epileptiform activity was seen. No electrographic evidence of herpes encephalitis. Repeat EEG on 10/31/2020 also showed background slowing consistent with encephalopathy. * MRI of the brain (10/24/2020) showed mild to moderate diffuse cerebral atrophy and chronic small vessel ischemic changes. There is left temporal arachnoid cyst redemonstrated. Exam is relatively nonfocal. * B12 1016, folate 947 normal, TSH 0.59 normal, ammonia <9, hemoglobin A1c 8.2, consistent with not well controlled diabetes. * Patient's LFTs have normalized. Sodium also improved. * Patient to undergo PEG placement today. We will have speech therapist reassess her swallowing. May pass swallow study today, given her normal level of her alertness. * Resume Plavix 75 mg when medically cleared. Continue Lipitor 40 mg.
--- NOTE | 2020-11-06 14:17 | P.PN ---
Subjective Progress Note Date: 11/06/20 Principal diagnosis: Severe hypernatremia Encephalopathy associated with covid 19 infection -Diagnosed with Coronavirus 6 days prior to admission. admitted with bilateral COVID 19 pneumonia-improved -Acute hypoxic respiratory failure from down to room air-90% -Acute metabolic encephalopathy and acute delirium-worsening from shows some improvement -Hypernatremia with hyperchloremia from free water deficit-new diagnosis- improved -Diabetes mellitus type 2 uncontrolled with hyperglycemia -Essential hypertension -Hyperlipidemia -Obesity BMI 31.8 November 06 2020, patient seen eval examined mental status significantly improved, his speech has reevaluated the patient patient is considered and clear for by mouth patient tolerated the large fairly well, PEG tube placement has b een canceled 11/05/2020, patient seen eval examined during the rounds labs reviewed medications reviewed, mental status significantly improved, is present at bedside, denies any chest pain cough complain of dryness in the mouth patient is still keeping NG tube, surgical services have evaluated the patient being planned for PEG tube placement tomorrow 11/04/2020, overall respiratory status remains stable it appears that mental status slightly improved now, patient is keeping NG tube, free water as well as D5 continuously being given sodium continued to improve slowly, now down to 156 now, 11/03/2020, patient seen and evaluated examined during the rounds, sodium level improved to 163 from 157, hyponatremia still present along with elevated chloride, we'll increase the free water continue D5 sodium level slowly responding to therapy, will consult surgery for PEG tube placement 11/02/2020, patient seen eval examined during the rounds, mental status remains marginal, noted that sodium level continue to go up it's 161 today, she has pulled out the NG tube so freewater cannot be given discussed with dietitian staff nurses social work 11/01/2020, patient oriented 1 becomes intermittently restless, hemodynamically stable oxygen saturation have been a stable, his duration is 95% on 2 L oxygen, extensive workup by neurology so far has been negative the recommended to start amantadine him a noted BUN/creatinine is up, sodium is also noted to be up, we'll gently rehydrate the patient with D5 10/31/2020, patient seen and evaluated examined oriented 1 mental status not been changed, status post spinal tap, neurology following patient likely will go to [facility] for placement 10/30/2020, patient seen eval examined during the rounds is awake however mostly noncommunicative, patient is scheduled for spinal tap later on today, discussed with the dietitian about the nutritional issues, patient at times becomes agitated has pulled IVs before likelihood is that she will pull out the NG tube high risk of aspiration related complications neurology following 10/29/2020, patient seen eval examined during the rounds labs reviewed medications reviewed care plan discussed, overall respiratory status remains stable mental status remained marginal, noted recommendation from dietitian, awaiting spinal tap 10/28/2020, overall mental status remains poor, Plavix is on hold, patient is being considered for spinal tap, overall no significant change today compared to yesterday exam, neurology is following, 10/27/2020, patient seen eval examined labs reviewed medications reviewed, patient has been on Decadron and subcu Lovenox, neurology has been following patient remains very agitated encephalopathic, continued to be restless This is a 74-year-old patient of . Patient was diagnosed with COVID on Thursday that is 6 days ago. Patient came in today because she was becoming more short of breath also becoming confused. Brought in by the of the ER was also getting symptoms also admitted to the hospital with COVID. Overnight patient has done a bit better. Less short of breath. Less cough. Did eat some food. Tired. Chronic stable medical conditions include diabetes, hyperlipidemia, hypertension, stroke causing some numbness in the hands and arm. Admitted with bilateral COVID 19 pneumonia, acute hypoxic respiratory failure, acute metabolic encephalopathy and delirium. Patient started on dexamethasone, Remdesivir, Lovenox. Oxygen supplementation. Because of mental status change and neurology was consulted. MRI was unremarkable. Also been into hyper natremia-sodium 150. Given IV fluids. Objective - Vital Signs Vital signs: Vital Signs Temp 98.0 F 11/06/20 10:00 Pulse 60 11/06/20 10:00 Resp 20 11/06/20 10:00 BP 122/66 11/06/20 10:00 Pulse Ox 94 L 11/06/20 10:00 Intake & Output 11/05/20 11/06/20 11/06/20 18:59 06:59 18:59 Intake Total 520 100 Balance 520 100 Weight 88 kg 91.5 kg Intake: IV 100 Piperacillin-Tazobactam 3 100 .375 gm In Sodium Chloride 0.9% 100 ml @ 25 mls/hr IVPB Q8HR [facility] Rx# :[id number] Oral 0 Tube Feeding 400 Other 120 Other: Voiding Method Toilet Toilet Toilet Bedpan Diaper Incontinent # Voids 5 2 - Exam GENERAL: Laying in bed bit more awake, compared to yesterday exam. We'll answer occasional question. Neck supple Lungs clear to auscultation Heart regular rate rhythm S1 and S2 audible Abdomen soft nontender positive bowel sounds PSYCH: Answering occasional question.. NEUROLOGICAL: Cranial nerves grossly intact; no facial asymmetry, moving about. More awake - Labs CBC & Chem 7: 11/06/20 05:30 11/06/20 05:30 Labs: Abnormal Lab Results - Last 24 Hours (Table) 11/05/20 11/05/20 11/05/20 Range/Units 16:42 20:20 21:53 RBC (3.80-5.40) m/uL Hgb (11.4-16.0) gm/dL Hct (34.0-46.0) % RDW (11.5-15.5) % Plt Count (150-450) k/uL Sodium (135-145) mmol/L Chloride (96-109) mmol/L Anion Gap (4.00-12.00) mmol/L Glucose (70-110) mg/dL POC Glucose (mg/dL) 143 H 145 H 134 H (75-99) mg/dL Calcium (8.7-10.3) mg/dL Total Protein (6.2-8.2) g/dL Albumin (3.80-4.90) g/dL 11/06/20 11/06/20 11/06/20 Range/Units 05:30 05:30 07:14 RBC 3.17 L (3.80-5.40) m/uL Hgb 10.1 L (11.4-16.0) gm/dL Hct 30.7 L (34.0-46.0) % RDW 15.6 H (11.5-15.5) % Plt Count 126 L (150-450) k/uL Sodium 154 H (135-145) mmol/L Chloride 122 H (96-109) mmol/L Anion Gap 3.20 L (4.00-12.00) mmol/L Glucose 145 H (70-110) mg/dL POC Glucose (mg/dL) 142 H (75-99) mg/dL Calcium 8.3 L (8.7-10.3) mg/dL Total Protein 4.6 L (6.2-8.2) g/dL Albumin 2.90 L (3.80-4.90) g/dL 11/06/20 Range/Units 11:31 RBC (3.80-5.40) m/uL Hgb (11.4-16.0) gm/dL Hct (34.0-46.0) % RDW (11.5-15.5) % Plt Count (150-450) k/uL Sodium (135-145) mmol/L Chloride (96-109) mmol/L Anion Gap (4.00-12.00) mmol/L Glucose (70-110) mg/dL POC Glucose (mg/dL) 149 H (75-99) mg/dL Calcium (8.7-10.3) mg/dL Total Protein (6.2-8.2) g/dL Albumin (3.80-4.90) g/dL Assessment and Plan Assessment: Metabolic encephalopathy with agitated delirium continued to improve progr essively Hypernatremia Acute kidney injury -Diagnosed with Coronavirus 6 days prior to admission. admitted with bilateral COVID 19 pneumonia-improved -Acute hypoxic respiratory failure from down to room air-90% -Acute metabolic encephalopathy and acute delirium-worsening from shows some improvement -Hypernatremia with hyperchloremia from free water deficit-new diagnosis- improved -Diabetes mellitus type 2 uncontrolled with hyperglycemia -Essential hypertension -Hyperlipidemia -Obesity BMI 31.8 Plan: Observe and follow clinical course closely, canceled PEG tube placement,, Continue D5, monitor labs closely including sodium and renal functions, neurology has started amantadine, Remdesivir-completed. On Decadron 6 mg. Subcu Lovenox. status post LP CSF finding reviewed, culture results pending Time with Patient: Greater than 30
[2020-11-06] MEDS: ENOXAPARIN 40 MG/0.4 ML SYRINGE SQ SCH ×2 (16:12→20:24)
[2020-11-06 17:06] LABS: Glucose,Whole Blood 124 mg/dL (75-99)
[2020-11-06 20:45] LABS: Glucose,Whole Blood 150 mg/dL (75-99)
--- NOTE | 2020-11-06 22:45 | PN ---
PROGRESS NOTE DATE OF SERVICE: 11/06/2020 REASON FOR FOLLOWUP: Pneumonia. INTERVAL HISTORY: The patient is currently afebrile. The patient is more awake, alert, currently on room air. Has been taking her medication. No choking on the food has been reported, and no vomiting or any diarrhea. PHYSICAL EXAMINATION: Blood pressure 132/75 with a pulse of 80, temperature 97.7. She is 94% on room air. General description is an elderly female lying in bed in no distress. RESPIRATORY SYSTEM: Unlabored breathing with decreased intensity of breath sounds. No wheeze. HEART: S1, S2. Regular rate and rhythm. ABDOMEN: Soft. No tenderness. LABS: Hemoglobin 10.9, white count 5.0, BUN of 13, creatinine 0.7. DIAGNOSTIC IMPRESSION AND PLAN: Patient with acute COVID-19 pneumonia that has been adequately treated with subsequent concern for possible aspiration pneumonia. In view of the patient's overall oral intake, antibiotic was switched to a short course of oral Augmentin and continue supportive care. MMODL / IJN: [id number] /
[2020-11-07 05:58] LABS: Anisocytosis Slight; Basophils % (A) 0 %; Eosinophils # (A) 0.2 k/uL (0-0.7); Eosinophils % (A) 5 %; HGB 9.9 gm/dL (11.4-16.0); Lymphocytes # (A) 1.7 k/uL (1.0-4.8); Lymphocytes % (A) 36 %; MCH 31.3 pg (25.0-35.0); MCHC 32.1 g/dL (31.0-37.0); MCV 97.6 fL (80.0-100.0); Macrocytosis Slight; Mean Platelet Volume 8.1; Monocytes # (A) 0.2 k/uL (0-1.0); Monocytes % (A) 5 %; Neutrophils # (A) 2.4 k/uL (1.3-7.7); Neutrophils % (A) 51 %; Platelet Count 131 k/uL (150-450); RBC 3.17 m/uL (3.80-5.40); RDW 16.2 % (11.5-15.5); WBC 4.7 k/uL (3.8-10.6)
[2020-11-07 07:01] LABS: Glucose,Whole Blood 113 mg/dL (75-99)
[2020-11-07] MEDS: INSULIN ASPART (NovoLOG) 100 UNIT/ML VIAL SQ SCH ×2 (08:14→12:33)
[2020-11-07] MEDS: ZINC SULFATE 220 MG CAP PO SCH (08:31)
[2020-11-07] MEDS: metFORMIN 500 MG TAB PO SCH (08:32)
[2020-11-07] MEDS: LOSARTAN 50 MG TAB PO SCH (08:32)
[2020-11-07] MEDS: MELOXICAM 7.5 MG TAB PO SCH (08:32)
[2020-11-07] MEDS: MULTIVITAMINS, THERA 1 EACH TAB PO SCH (08:32)
[2020-11-07] MEDS: METOPROLOL TARTRATE 25 MG TAB PO SCH (08:32)
[2020-11-07] MEDS: ENOXAPARIN 40 MG/0.4 ML SYRINGE SQ SCH (08:33)
[2020-11-07] MEDS: CALCIUM CARB-VIT D 500MG-200UN 1 EACH TAB PO SCH (08:33)
[2020-11-07] MEDS: ATORVASTATIN 40 MG TAB PO SCH (08:33)
[2020-11-07] MEDS: ASCORBIC ACID 500 MG TAB PO SCH (08:33)
[2020-11-07] MEDS: FAMOTIDINE 20 MG TAB PO SCH (08:34)
[2020-11-07 10:08] LABS: African American GFR (CKD) 100.3 (60.0-200.0); Albumin 2.8 g/dL (3.80-4.90); Albumin/Globulin Ratio 1.65 (1.60-3.17); Anion Gap 11.2 mmol/L (4.00-12.00); BUN/Creat Ratio 14.29 Ratio (12.00-20.00); Calcium 8.2 mg/dL (8.7-10.3); Carbon Dioxide 21.8 mmol/L (21.6-31.8); Globulin 1.7 g/dL (1.6-3.3); Non-African American GFR(CKD) 86.6 (60.0-200.0); Potassium 3.5 mmol/L (3.5-5.5); Total Bilirubin 0.6 mg/dL (0.2-1.2); Total Protein 4.5 g/dL (6.2-8.2)
[2020-11-07 11:43] LABS: Glucose,Whole Blood 114 mg/dL (75-99)
[2020-11-07] MEDS: PIPERACILLIN-TAZOBACTAM 3.375 GM in SODIUM CHLORIDE 0.9% 100 ML IVPB SCH ×4 (11:49→15:43)
--- NOTE | 2020-11-07 14:23 | P.DS ---
Providers Date of admission: 10/16/20 17:03 Expected date of discharge: 11/07/20 Attending physician: Cedrick Carlson Consults: 10/16/20 17:02 Consult Physician Urgent Consulting Provider: Vinicius Mejia Consult Reason/Comments: COVID pneumonia Do you want consulting provider notified?: Yes Consult Physician Urgent Consulting Provider: Africa Loya Consult Reason/Comments: COVID Pneumonia Do you want consulting provider notified?: Yes 10/23/20 11:15 Consult Physician Routine Consulting Provider: Jenny Perez Consult Reason/Comments: encephalopathy Do you want consulting provider notified?: Yes 10/29/20 16:31 Consult to Anesthesia Routine Consulting Provider: Anesthesia,Services Consult Reason/Comments: lumbar puncture. 10/31/20 10:11 Consult Physician Routine Consulting Provider: Psychiatry - [facility] Consult Reason/Comments: agitation Do you want consulting provider notified?: Yes 11/02/20 15:32 Consult Physician Routine Consulting Provider: Jerman Avelar Consult Reason/Comments: Peg tube placement Do you want consulting provider notified?: Yes Primary care physician: Marcin Marx [facility] Course: 11/07/2020, patient is little bit more awake and confused however oriented 1-2 with assistance can get up, patient is suffering with covert encephalopathy slowly recovering, patient is being placed at [facility], November 06 2020, patient seen eval examined mental status significantly improved, his speech has reevaluated the patient patient is considered and clear for by mouth patient tolerated the large fairly well, PEG tube placement has been canceled 11/05/2020, patient seen eval examined during the rounds labs reviewed medications reviewed, mental status significantly improved, is present at bedside, denies any chest pain cough complain of dryness in the mouth patient is still keeping NG tube, surgical services have evaluated the patient being planned for PEG tube placement tomorrow 11/04/2020, overall respiratory status remains stable it appears that mental status slightly improved now, patient is keeping NG tube, free water as well as D5 continuously being given sodium continued to improve slowly, now down to 156 now, 11/03/2020, patient seen and evaluated examined during the rounds, sodium level improved to 163 from 157, hyponatremia still present along with elevated chloride, we'll increase the free water continue D5 sodium level slowly responding to therapy, will consult surgery for PEG tube placement 11/02/2020, patient seen eval examined during the rounds, mental status remains marginal, noted that sodium level continue to go up it's 161 today, she has pulled out the NG tube so freewater cannot be given discussed with dietitian staff nurses social work 11/01/2020, patient oriented 1 becomes intermittently restless, hemodynamically stable oxygen saturation have been a stable, his duration is 95% on 2 L oxygen, extensive workup by neurology so far has been negative the recommended to start amantadine him a noted BUN/creatinine is up, sodium is also noted to be up, we'll gently rehydrate the patient with D5 10/31/2020, patient seen and evaluated examined oriented 1 mental status not been changed, status post spinal tap, neurology following patient likely will go to [facility] for placement 10/30/2020, patient seen eval examined during the rounds is awake however mostly noncommunicative, patient is scheduled for spinal tap later on today, discussed with the dietitian about the nutritional issues, patient at times becomes agitated has pulled IVs before likelihood is that she will pull out the NG tube high risk of aspiration related complications neurology following 10/29/2020, patient seen eval examined during the rounds labs reviewed medications reviewed care plan discussed, overall respiratory status remains stable mental status remained marginal, noted recommendation from dietitian, awaiting spinal tap 10/28/2020, overall mental status remains poor, Plavix is on hold, patient is being considered for spinal tap, overall no significant change today compared to yesterday exam, neurology is following, 10/27/2020, patient seen eval examined labs reviewed medications reviewed, patient has been on Decadron and subcu Lovenox, neurology has been following patient remains very agitated encephalopathic, continued to be restless This is a 74-year-old patient of . Patient was diagnosed with COVID on Thursday that is 6 days ago. Patient came in today because she was becoming more short of breath also becoming confused. Brought in by the of the ER was also getting symptoms also admitted to the hospital with COVID. Overnight patient has done a bit better. Less short of breath. Less cough. Did eat some food. Tired. Chronic stable medical conditions include diabetes, hyperlipidemia, hypertension, stroke causing some numbness in the hands and arm. Admitted with bilateral COVID 19 pneumonia, acute hypoxic respiratory failure, acute metabolic encephalopathy and delirium. Patient started on dexamethasone, Remdesivir, Lovenox. Oxygen supplementation. Because of mental status change and neurology was consulted. MRI was unremarkable. Also been into hyper natremia-sodium 150. Given IV fluids. - Vital Signs Vital signs: Vital Signs Temp 98.0 F 11/06/20 10:00 Pulse 60 11/06/20 10:00 Resp 20 11/06/20 10:00 BP 122/66 11/06/20 10:00 Pulse Ox 94 L 11/06/20 10:00 Intake & Output 11/05/20 11/06/20 11/06/20 18:59 06:59 18:59 Intake Total 520 100 Balance 520 100 Weight 88 kg 91.5 kg Intake: IV 100 Piperacillin-Tazobactam 3 100 .375 gm In Sodium Chloride 0.9% 100 ml @ 25 mls/hr IVPB Q8HR [facility] Rx# :[id number] Oral 0 Tube Feeding 400 Other 120 Other: Voiding Method Toilet Toilet Toilet Bedpan Diaper Incontinent # Voids 5 2 - Exam GENERAL: Laying in bed bit more awake, compared to yesterday exam. We'll answer occasional question. Neck supple Lungs clear to auscultation Heart regular rate rhythm S1 and S2 audible Abdomen soft nontender positive bowel sounds PSYCH: Answering occasional question.. NEUROLOGICAL: Cranial nerves grossly intact; no facial asymmetry, moving about. More awake CBC & Chem 7: 11/06/20 05:30 11/06/20 05:30 Labs: Abnormal Lab Results - Last 24 Hours (Table) 11/05/20 11/05/20 11/05/20 Range/Units 16:42 20:20 21:53 RBC (3.80-5.40) m/uL Hgb (11.4-16.0) gm/dL Hct (34.0-46.0) % RDW (11.5-15.5) % Plt Count (150-450) k/uL Sodium (135-145) mmol/L Chloride (96-109) mmol/L Anion Gap (4.00-12.00) mmol/L Glucose (70-110) mg/dL POC Glucose (mg/dL) 143 H 145 H 134 H (75-99) mg/dL Calcium (8.7-10.3) mg/dL Total Protein (6.2-8.2) g/dL Albumin (3.80-4.90) g/dL 11/06/20 11/06/20 11/06/20 Range/Units 05:30 05:30 07:14 RBC 3.17 L (3.80-5.40) m/uL Hgb 10.1 L (11.4-16.0) gm/dL Hct 30.7 L (34.0-46.0) % RDW 15.6 H (11.5-15.5) % Plt Count 126 L (150-450) k/uL Sodium 154 H (135-145) mmol/L Chloride 122 H (96-109) mmol/L Anion Gap 3.20 L (4.00-12.00) mmol/L Glucose 145 H (70-110) mg/dL POC Glucose (mg/dL) 142 H (75-99) mg/dL Calcium 8.3 L (8.7-10.3) mg/dL Total Protein 4.6 L (6.2-8.2) g/dL Albumin 2.90 L (3.80-4.90) g/dL 11/06/20 Range/Units 11:31 RBC (3.80-5.40) m/uL Hgb (11.4-16.0) gm/dL Hct (34.0-46.0) % RDW (11.5-15.5) % Plt Count (150-450) k/uL Sodium (135-145) mmol/L Chloride (96-109) mmol/L Anion Gap (4.00-12.00) mmol/L Glucose (70-110) mg/dL POC Glucose (mg/dL) 149 H (75-99) mg/dL Calcium (8.7-10.3) mg/dL Total Protein (6.2-8.2) g/dL Albumin (3.80-4.90) g/dL Assessment: Covid 19-induced encephalopathy Metabolic encephalopathy with agitated delirium continued to improve progressively Hypernatremia Acute kidney injury -Diagnosed with Coronavirus 6 days prior to admission. admitted with bilateral COVID 19 pneumonia-improved -Acute hypoxic respiratory failure from down to room air-90% -Acute metabolic encephalopathy and acute delirium-worsening from shows some improvement -Hypernatremia with hyperchloremia from free water deficit-new diagnosis- improved -Diabetes mellitus type 2 uncontrolled with hyperglycemia -Essential hypertension -Hyperlipidemia -Obesity BMI 31.8 Procedures: Please review Hospital course Patient Condition at Discharge: Fair Plan - Discharge Summary Discharge Rx Participant: No New Discharge Prescriptions: New Melatonin 6 mg PO HS tablet INSULIN ASPART (NovoLOG) [NovoLOG (formulary)] 0 unit SQ ACHS vial Zinc Sulfate [Orazinc] 220 mg PO DAILY #0 cap Continue Meloxicam 7.5 mg PO DAILY Losartan Potassium 50 mg PO DAILY Gabapentin 600 mg PO BID [place]-3 Fatty Acids/Fish Oil [Fish Oil 1,000 mg Softgel] 1 cap PO DAILY Calcium Carbonate/Vitamin D3 [Calcium 600-Vit D3 400 Tablet] 1 tab PO DAILY Multivitamins, Thera [Multivitamin (formulary)] 1 tab PO DAILY Ascorbic Acid [Vitamin C] 500 mg PO DAILY Calcium Polycarbophil [Fibercon] 625 mg PO DAILY Docusate Sodium [Dulcolax Stool Softener] 100 mg PO BID Atorvastatin Calcium [Lipitor] 40 mg PO DAILY #30 tab Clopidogrel [Plavix] 75 mg PO DAILY tab metFORMIN HCL [Glucophage] 500 mg PO BID Biotin 5 mg PO DAILY Turmeric Root Extract [Turmeric] 500 mg PO DAILY Metoprolol Tartrate [Lopressor] 25 mg PO BID Discharge Medication List Gabapentin 600 mg PO BID 01/02/15 [History] Losartan Potassium 50 mg PO DAILY 01/02/15 [History] Meloxicam 7.5 mg PO DAILY 01/02/15 [History] Ascorbic Acid [Vitamin C] 500 mg PO DAILY 01/03/15 [History] Atorvastatin Calcium [Lipitor] 40 mg PO DAILY #30 tab 01/03/15 [Rx] Calcium Carbonate/Vitamin D3 [Calcium 600-Vit D3 400 Tablet] 1 tab PO DAILY 01/03/15 [History] Calcium Polycarbophil [Fibercon] 625 mg PO DAILY 01/03/15 [History] Clopidogrel [Plavix] 75 mg PO DAILY tab 01/03/15 [Rx] Docusate Sodium [Dulcolax Stool Softener] 100 mg PO BID 01/03/15 [History] Multivitamins, Thera [Multivitamin (formulary)] 1 tab PO DAILY 01/03/15 [History] [place]-3 Fatty Acids/Fish Oil [Fish Oil 1,000 mg Softgel] 1 cap PO DAILY 01/03/15 [History] metFORMIN HCL [Glucophage] 500 mg PO BID 07/06/18 [History] Biotin 5 mg PO DAILY 10/12/20 [History] Turmeric Root Extract [Turmeric] 500 mg PO DAILY 10/12/20 [History] Metoprolol Tartrate [Lopressor] 25 mg PO BID 10/16/20 [History] INSULIN ASPART (NovoLOG) [NovoLOG (formulary)] 0 unit SQ ACHS vial 11/07/20 [Rx] Melatonin 6 mg PO HS tablet 11/07/20 [Rx] Zinc Sulfate [Orazinc] 220 mg PO DAILY #0 cap 11/07/20 [Rx] Follow up Appointment(s)/Referral(s): Marcin Reynoso DO [Primary Care Provider] - 1-2 days Discharge Disposition: TRANSFER TO SNF/ECF
[2020-11-07 14:27] VITALS: BP 128/73; PULSE 73; TEMP 97.6
--- NOTE | 2020-11-07 17:50 | P.PN ---
Subjective Progress Note Date: 11/07/20 Late entry. Patient was seen earlier before she was discharged. Patient is doing even better than yesterday. Patient is sitting in her bed, having her lunch. Patient denies headache, denies any symptoms. Patient remembers me from seeing yesterday. Objective - Vital Signs Vital signs: Vital Signs Temp 97.6 F 11/07/20 14:00 Pulse 73 11/07/20 14:00 Resp 20 11/07/20 14:00 BP 128/73 11/07/20 14:00 Pulse Ox 95 11/07/20 14:00 Intake & Output 11/06/20 11/07/20 11/07/20 18:59 06:59 18:59 Intake Total 100 Balance 100 Weight 91.5 kg Intake: Oral 100 Other: Voiding Method Toilet Toilet Toilet Diaper Incontinent Incontinent # Voids 2 3 # Bowel Movements 1 1 - Exam On examination patient is alert and awake, in no distress. Speech and language functions are normal. She still slightly disoriented, as she thinks it's November and the year she states is December. She knows she is in the hospital could not tell the name. Could not tell name of the current president although when I prompted, she was able to tell the previous in the next president. No paraphasic errors noted while speaking. - Labs CBC & Chem 7: 11/07/20 05:26 11/07/20 05:26 Labs: Abnormal Lab Results - Last 24 Hours (Table) 11/06/20 11/07/20 11/07/20 Range/Units 20:12 05:26 05:26 RBC 3.17 L (3.80-5.40) m/uL Hgb 9.9 L (11.4-16.0) gm/dL Hct 31.0 L (34.0-46.0) % RDW 16.2 H (11.5-15.5) % Plt Count 131 L (150-450) k/uL Sodium 148 H (135-145) mmol/L Chloride 115 H (96-109) mmol/L POC Glucose (mg/dL) 150 H (75-99) mg/dL Calcium 8.2 L (8.7-10.3) mg/dL Alkaline Phosphatase 40 L (41-126) U/L Total Protein 4.5 L (6.2-8.2) g/dL Albumin 2.80 L (3.80-4.90) g/dL 11/07/20 11/07/20 Range/Units 07:00 11:36 RBC (3.80-5.40) m/uL Hgb (11.4-16.0) gm/dL Hct (34.0-46.0) % RDW (11.5-15.5) % Plt Count (150-450) k/uL Sodium (135-145) mmol/L Chloride (96-109) mmol/L POC Glucose (mg/dL) 113 H 114 H (75-99) mg/dL Calcium (8.7-10.3) mg/dL Alkaline Phosphatase (41-126) U/L Total Protein (6.2-8.2) g/dL Albumin (3.80-4.90) g/dL Assessment and Plan Assessment: * Altered mental status, likely due to toxic metabolic encephalopathy. Encephalopathy much improved. Patient still slightly disoriented although overall mentation much improved. * Acute COVID-19 related pneumonia, with significant encephalopathy. Patient has been treated with Remdesivir. * Acute hypoxic respiratory failure, resolved. * Dysphagia, likely due to encephalopathy, now completely resolved. Patient eating meals. * Abnormal liver functions, resolved. * Hypernatremia, improving, sodium 148. * History of right thalamic lacunar infarct 12/15/2014. * Diabetes, with hemoglobin A1c 7.0 on 05/19/2018 * Hypertension Plan: * Patient is doing very well. Neurologically clear for discharge. * Lumbar puncture on 10/30/2020 showed WBC 1, RBC 1, glucose 115, total protein elevated 95. RPR negative. Lyme titer negative, viral cultures negative. * EEG 10/26/2020 showed moderate background slowing consistent with encephalopathy. No epileptiform activity was seen. No electrographic evidence of herpes encephalitis. Repeat EEG on 10/31/2020 also showed background slowing consistent with encephalopathy. * MRI of the brain (10/24/2020) showed mild to moderate diffuse cerebral atrophy and chronic small vessel ischemic changes. There is left temporal arachnoid cyst redemonstrated. Exam is relatively nonfocal. * B12 1016, folate 947 normal, TSH 0.59 normal, ammonia <9, hemoglobin A1c 8.2, consistent with not well controlled diabetes. * Patient's LFTs have normalized. Sodium also improved, now 148. * Resume Plavix 75 mg when medically cleared. Continue Lipitor 40 mg.
[2020-11-07] MEDS ORDERED: FAMOTIDINE 20 MG TAB PO SCH (21:00)
== END 2020-11-07 16:28 | DRG 177 ==
LOC: EC 13:33 → 3SCARD 17:03 → 4SSUR 10-22 22:38
PROVIDERS: ADMIT Hospitalist; ATTEND Hospitalist
PROC: XW033E5 Introduction of Remdesivir Anti-infective into Peripheral Vein, Percutaneous Approach, New Technology Group 5 (ICD-10-PCS; principal; 2020-10-16)
PROC: 5A0955A Assistance with Respiratory Ventilation, Greater than 96 Consecutive Hours, High Flow/Velocity Cannula (ICD-10-PCS; 2020-10-18)
PROC: 009U3ZX Drainage of Spinal Canal, Percutaneous Approach, Diagnostic (ICD-10-PCS; 2020-10-30)
PROC: 0DH67UZ Insertion of Feeding Device into Stomach, Via Natural or Artificial Opening (ICD-10-PCS; 2020-11-02)
DX: U07.1 COVID-19 (principal); J12.89 Other viral pneumonia; J69.0 Pneumonitis due to inhalation of food and vomit; G92 Toxic encephalopathy; J96.01 Acute respiratory failure with hypoxia; E87.0 Hyperosmolality and hypernatremia; N17.9 Acute kidney failure, unspecified; E87.8 Other disorders of electrolyte and fluid balance, not elsewhere classified; I11.9 Hypertensive heart disease without heart failure; E11.65 Type 2 diabetes mellitus with hyperglycemia; E66.01 Morbid (severe) obesity due to excess calories; E78.5 Hyperlipidemia, unspecified; E86.0 Dehydration; R13.10 Dysphagia, unspecified; R19.7 Diarrhea, unspecified; R41.0 Disorientation, unspecified; R32 Unspecified urinary incontinence; I69.398 Other sequelae of cerebral infarction; R79.89 Other specified abnormal findings of blood chemistry; Z68.31 Body mass index [BMI] 31.0-31.9, adult; Z78.1 Physical restraint status; Z79.02 Long term (current) use of antithrombotics/antiplatelets; Z79.1 Long term (current) use of non-steroidal anti-inflammatories (NSAID); Z79.84 Long term (current) use of oral hypoglycemic drugs; Z79.899 Other long term (current) drug therapy; Z96.653 Presence of artificial knee joint, bilateral; Z98.890 Other specified postprocedural states; Z84.89 Family history of other specified conditions
CPT/HCPCS: 36415; 62270; 70450; 70551; 71045; 71275; 74018; 74220; 80048; 80053; 80076; 81001; 82140; 82607; 82728; 82746; 82945; 82947; 83036; 83605; 83615; 83735; 83930; 84132; 84145; 84157; 84443; 85025; 85027; 85379; 85610; 85730; 86140; 86592; 87040; 87070; 87086; 87205; 87252; 87496; 87498; 87502; 87529; 87798; 89050; 93005; 94640; 95816; 95819; 96365; 96366; 99291

== ENCOUNTER → 2022-02-21 | Outpatient (CLI) | payer MEDICARE ==
--- NOTE | 2022-02-26 09:55 | MM ---
Reason for exam: screening (asymptomatic). Last mammogram was performed 1 year and 9 months ago. History: Patient is postmenopausal. Benign excisional biopsy of the left breast, August 15, 2005. Left Mammotome Panel of the left breast, August 13, 2005. Benign excisional biopsy of the right breast, January 25, 1998. Took hormonal contraceptives for 8 years. Physical Findings: A clinical breast exam by your physician is recommended on an annual basis and results should be correlated with mammographic findings. MG 3D Screening Mammo W/Cad Bilateral CC and MLO view(s) were taken. XCCL view(s) were taken of the left breast. Prior study comparison: January 26, 2019, bilateral MG 3d screening mammo w/cad. January 06, 2018, bilateral MG 3d screening mammo w/cad. There are scattered fibroglandular densities. No significant changes when compared with prior studies. ASSESSMENT: Benign, BI-RAD 2 RECOMMENDATION: Routine screening mammogram of both breasts in 1 year.
== END | disposition home or self-care (01) ==
LOC: RADMAMWWP 13:59
PROVIDERS: ATTEND Family Medicine
DX: Z12.31 Encounter for screening mammogram for malignant neoplasm of breast (principal); Z78.0 Asymptomatic menopausal state
CPT/HCPCS: 77063; 77067

== ENCOUNTER → 2023-02-23 | Outpatient (CLI) | payer MEDICARE ==
--- NOTE | 2023-02-24 06:21 | MM ---
Reason for Exam: Screening (asymptomatic). Last screening mammogram was performed 12 month(s) ago. Patient History: Menarche at age 14. First Full-Term at age 25. Postmenopausal. Patient used Hormonal Contraceptives for 8 years. 08/15/2005, Benign Excisional Biopsy on the left side. 08/13/2005, Core Biopsy on the Left side. 01/25/1998, Benign Excisional Biopsy on the right side. Risk Values: Venecia 5 year model risk: 2.4%. NCI Lifetime model risk: 5.1%. Prior Study Comparison: 01/26/2019 Bilateral Screening Mammogram, [facility]. 05/09/2020 Bilateral Screening Mammogram, [facility]. 02/21/2022 Bilateral Screening Mammogram, [facility]. Tissue Density: The breast tissue is heterogeneously dense. This may lower the sensitivity of mammography. Findings: Analyzed By CAD. There are stable scattered and loosely grouped tiny benign-appearing round calcifications bilaterally redemonstrated. There are stable small circumscribed round masses bilaterally redemonstrated. Benign-appearing bilateral axillary lymph nodes are again seen. There is no suspicious new group of microcalcifications or new or enlarging suspicious mass in either breast. Overall Assessment: Benign, BI-RAD 2 Management: Screening Mammogram of both breasts in 1 year. A clinical breast exam by your physician is recommended on an annual basis and results should be correlated with mammographic findings. Electronically signed and approved by: Eh Daniel M.D.
== END | disposition home or self-care (01) ==
LOC: RADMAMWWP 13:08
PROVIDERS: ATTEND Family Medicine
DX: Z12.31 Encounter for screening mammogram for malignant neoplasm of breast (principal); Z78.0 Asymptomatic menopausal state
CPT/HCPCS: 77063; 77067

== ENCOUNTER 2023-10-25 13:52 | Observation (INO) | payer MEDICARE ==
--- NOTE | 2023-10-25 14:21 | ED ---
General Adult HPI - General Chief complaint: Altered Mental Status Stated complaint: AMS Time Seen by Provider: 10/25/23 14:14 Source: patient, family, RN notes reviewed Mode of arrival: ambulatory Limitations: altered mental status - History of Present Illness Initial comments: Patient is a pleasant 77-year-old female presenting to the emergency department with concern for change in mental status. Majority of history is taken from . Patient is a poor historian. Patient has no complaints. Onset of symptoms was yesterday. Patient only got out of bed one time yesterday to eat. Patient is able to ambulate. Patient did not get out of bed prior to coming to the hospital today. Patient has been somewhat drowsy. Patient has been confuse d. - Related Data Home Medications Medication Instructions Recorded Confirmed Gabapentin 600 mg PO TID 01/02/15 10/25/23 Meloxicam 7.5 mg PO DAILY 01/02/15 10/25/23 Multivitamins, Thera [Multivitamin 1 tab PO DAILY 01/03/15 10/25/23 (formulary)] Cephalexin [Keflex] 500 mg PO Q8HR 10/25/23 10/25/23 Losartan Potassium [Cozaar] 100 mg PO DAILY 10/25/23 10/25/23 Metoprolol Tartrate [Lopressor] 50 mg PO BID 10/25/23 10/25/23 Semaglutide [Rybelsus] 14 mg PO DAILY 10/25/23 10/25/23 fluocinolone acetonide oiL 2 drops BOTH EARS HS PRN 10/25/23 10/25/23 [fluocinolone acetonide oiL 0.01% (Otic)] metFORMIN HCL [Glucophage] 1,000 mg PO BID 10/25/23 10/25/23 traMADol HCL 50 mg PO Q6H PRN 10/25/23 10/25/23 Previous Rx's Medication Instructions Recorded Atorvastatin Calcium [Lipitor] 40 mg PO DAILY #30 tab 01/03/15 Clopidogrel [Plavix] 75 mg PO DAILY tab 01/03/15 Allergies Allergy/AdvReac Type Severity Reaction Status Date / Time No Known Allergies Allergy Verified 10/25/23 15:15 Review of Systems ROS Statement: Those systems with pertinent positive or pertinent negative responses have been documented in the HPI. ROS Other: All systems not noted in ROS Statement are negative. Constitutional: Denies: fever Eyes: Denies: eye pain ENT: Denies: ear pain Respiratory: Denies: cough Cardiovascular: Denies: chest pain Endocrine: Reports: fatigue Gastrointestinal: Denies: abdominal pain Genitourinary: Denies: dysuria Neurological: Reports: as per HPI, confusion. 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 History of Any Multi-Drug Resistant Organisms: None Reported Past Surgical History: Back Surgery, Orthopedic Surgery Additional Past Surgical History / Comment(s): both knees total, rotor cuff repair Past Anesthesia/Blood Transfusion Reactions: No Reported Reaction Past Psychological History: No Psychological Hx Reported Smoking Status: Never smoker, Unknown if ever smoked Past Alcohol Use History: Occasional Past Drug Use History: None Reported - Past Family History Son(s) Additional Family Medical History / Comment(s): gout General Exam Limitations: altered mental status General appearance: alert, in no apparent distress Head exam: Present: atraumatic, normocephalic Eye exam: Present: normal appearance, PERRL, EOMI ENT exam: Present: normal oropharynx Neck exam: Present: normal inspection. Absent: tenderness, meningismus Respiratory exam: Present: normal lung sounds bilaterally Cardiovascular Exam: Present: regular rate, normal rhythm GI/Abdominal exam: Present: soft. Absent: tenderness Extremities exam: Present: normal inspection, full ROM. Absent: tenderness Neurological exam: Present: alert, altered, CN II-XII intact. Absent: motor sensory deficit Expanded Neurological exam: Present: protecting the airway Patient oriented to: Present: person. Absent: place, time Speech: Present: fluid speech Cranial nerves: EOM's Intact: Normal Motor strength exam: RUE: 5, LUE: 5, RLE: 5, LLE: 5 Eye Response: (4) open spontaneously Motor Response: (6) obeys commands Verbal Response: (4) confused conversation Psychiatric exam: Present: normal affect, normal mood Skin exam: Present: normal color Course Vital Signs 10/25/23 10/25/23 14:15 16:35 Temperature 98.3 F Pulse Rate 91 86 Respiratory 18 18 Rate Blood Pressure 157/92 146/74 O2 Sat by Pulse 95 95 Oximetry EKG Findings - EKG Results: EKG: interpreted by ERMD (For screening AV block. Left axis.), sinus rhythm, normal QRS, normal ST/T Medical Decision Making - Medical Decision Making Was pt. sent in by a medical professional or institution (NURA Ross, CONSTRUCTION COORDINATOR, urgent care, hospital, or shelter...) When possible be specific @ -No Did you speak to anyone other than the patient for history (EMS, parent, family, police, friend...)? What history was obtained from this source @ - (history as patient is a poor historian. Did you review nursing and triage notes (agree or disagree)? Why? @ -I reviewed and agree with nursing and triage notes Were old charts reviewed (outside hosp., previous admission, EMS record, old E KG, old radiological studies, urgent care reports/EKG's, shelter records)? Report findings @ -No old charts were reviewed Differential Diagnosis (chest pain, altered mental status, abdominal pain women, abdominal pain men, vaginal bleeding, weakness, fever, dyspnea, syncope, headache, dizziness, GI bleed, back pain, seizure, CVA, palpatations, mental hea lth, musculoskeletal)? @ -Differential Altered Mental Status: Hypoglycemia, DKA, hypercapnia, ETOH, overdose, CO poisoning, trauma, myxedema coma, HTN encephalopathy, infection, encephalitis, psychosis, intercranial hemorrhage, hepatic encephalopathy, meningitis, CVA, this is not meant to be an all-inclusive list EKG interpreted by me (3pts min.). @ -As above X-rays interpreted by me (1pt min.). @ -Chest x-ray shows no acute process. CT interpreted by me (1pt min.). @ -CT brain without acute obvious abnormality U/S interpreted by me (1pt. min.). @ -None done What testing was considered but not performed or refused? (CT, X-rays, U/S, labs)? Why? @ -None What meds were considered but not given or refused? Why? @ -None Did you discuss the management of the patient with other professionals (professionals i.e. NURA Ross, CONSTRUCTION COORDINATOR, lab, RT, psych nurse, director social welfare, poultry service technician, teacher, botanical technical officer, pillowcase cleaner)? Give summary @ -[facility] will admit covering for Dr. Gross, who admits for Dr. Lewis door Was smoking cessation discussed for >3mins.? @ -No Was critical care preformed (if so, how long)? @ -No Were there social determinants of health that impacted care today? How? (Homelessness, low income, unemployed, alcoholism, drug addiction, transportation, low edu. Level, literacy, decrease access to med. care, fdc, rehab)? @ -No Was there de-escalation of care discussed even if they declined (Discuss DNR or withdrawal of care, Hospice)? DNR status @ -No What co-morbidities impacted this encounter? (DM, HTN, Smoking, COPD, CAD, Cance r, CVA, ARF, Chemo, Hep., AIDS, mental health diagnosis, sleep apnea, morbid obesity)? @ -None Was patient admitted / discharged? Hospital course, mention meds given and route, prescriptions, significant lab abnormalities, going to OR and other pertinent info. @ -Patient reevaluated and unchanged. Etiology of change in mental status unclear. Patient will be admitted with neuro consult. Admission orders written. Undiagnosed new problem with uncertain prognosis? @ -No Drug Therapy requiring intensive monitoring for toxicity (Heparin, Nitro, Insulin, Cardizem)? @ -No Were any procedures done? @ -No Diagnosis/symptom? @ -Altered mental status Acute, or Chronic, or Acute on Chronic? @ -Acute Uncomplicated (without systemic symptoms) or Complicated (systemic symptoms)? @ -default Side effects of treatment? @ -No Exacerbation, Progression, or Severe Exacerbation? @ -No Poses a threat to life or bodily function? How? (Chest pain, USA, NM, pneumonia, PE, COPD, DKA, ARF, appy, cholecystitis, CVA, Diverticulitis, Homicidal, Suicidal, threat to staff... and all critical care pts) @ -No Dr. ford was notified of admission. - Lab Data Result diagrams: 10/25/23 14:33 10/25/23 14:33 Lab Results 10/25/23 10/25/23 10/25/23 Range/Units 14:33 14:33 14:33 WBC 8.2 (3.8-10.6) k/uL RBC 4.51 (3.80-5.40) m/uL Hgb 14.0 (11.4-16.0) gm/dL Hct 41.6 (34.0-46.0) % MCV 92.2 (80.0-100.0) fL MCH 31.0 (25.0-35.0) pg MCHC 33.6 (31.0-37.0) g/dL RDW 12.8 (11.5-15.5) % Plt Count 272 (150-450) k/uL MPV 7.5 Neutrophils % 72 % Lymphocytes % 20 % Monocytes % 5 % Eosinophils % 1 % Basophils % 0 % Neutrophils # 5.9 (1.3-7.7) k/uL Lymphocytes # 1.6 (1.0-4.8) k/uL Monocytes # 0.4 (0-1.0) k/uL Eosinophils # 0.1 (0-0.7) k/uL Basophils # 0.0 (0-0.2) k/uL PT 10.6 (10.0-12.5) sec INR 1.0 (<1.2) APTT 22.2 (22.0-30.0) sec Sodium (137-145) mmol/L Potassium (3.5-5.1) mmol/L Chloride (98-107) mmol/L Carbon Dioxide (22-30) mmol/L Anion Gap mmol/L BUN (7-17) mg/dL Creatinine (0.52-1.04) mg/dL Est GFR (CKD-EPI)AfAm (>60 ml/min/1.73 sqM) Est GFR (CKD-EPI)NonAf (>60 ml/min/1.73 sqM) Glucose (74-99) mg/dL POC Glucose (mg/dL) (70-110) mg/dL POC Glu Taste Tester ID Calcium (8.4-10.2) mg/dL Total Bilirubin (0.2-1.3) mg/dL AST (14-36) U/L ALT (4-34) U/L Alkaline Phosphatase (38-126) U/L Troponin I (0.000-0.034) ng/mL Total Protein (6.3-8.2) g/dL Albumin (3.5-5.0) g/dL Urine Color Light Yellow Urine Appearance Clear (Clear) Urine pH 5.5 (5.0-8.0) Ur Specific [place] 1.016 (1.001-1.035) Urine Protein 1+ H (Negative) Urine Glucose (UA) Negative (Negative) Urine Ketones Negative (Negative) Urine Blood Trace H (Negative) Urine Nitrite Negative (Negative) Urine Bilirubin Negative (Negative) Urine Urobilinogen <2.0 (<2.0) mg/dL Ur Leukocyte Esterase Negative (Negative) Urine RBC 6 H (0-5) /hpf Urine WBC 5 (0-5) /hpf Ur Squamous Epith Cells <1 (0-4) /hpf Urine Mucus Rare H (None) /hpf Serum Alcohol mg/dL 10/25/23 10/25/23 10/25/23 Range/Units 14:33 14:33 15:00 WBC (3.8-10.6) k/uL RBC (3.80-5.40) m/uL Hgb (11.4-16.0) gm/dL Hct (34.0-46.0) % MCV (80.0-100.0) fL MCH (25.0-35.0) pg MCHC (31.0-37.0) g/dL RDW (11.5-15.5) % Plt Count (150-450) k/uL MPV Neutrophils % % Lymphocytes % % Monocytes % % Eosinophils % % Basophils % % Neutrophils # (1.3-7.7) k/uL Lymphocytes # (1.0-4.8) k/uL Monocytes # (0-1.0) k/uL Eosinophils # (0-0.7) k/uL Basophils # (0-0.2) k/uL PT (10.0-12.5) sec INR (<1.2) APTT (22.0-30.0) sec Sodium 140 (137-145) mmol/L Potassium 4.6 (3.5-5.1) mmol/L Chloride 103 (98-107) mmol/L Carbon Dioxide 23 (22-30) mmol/L Anion Gap 14 mmol/L BUN 15 (7-17) mg/dL Creatinine 0.73 (0.52-1.04) mg/dL Est GFR (CKD-EPI)AfAm >90 (>60 ml/min/1.73 sqM) Est GFR (CKD-EPI)NonAf 81 (>60 ml/min/1.73 sqM) Glucose 166 H (74-99) mg/dL POC Glucose (mg/dL) 142 H (70-110) mg/dL POC Glu Taste Tester ID Mary Good Calcium 10.4 H (8.4-10.2) mg/dL Total Bilirubin 1.2 (0.2-1.3) mg/dL AST 66 H (14-36) U/L ALT 42 H (4-34) U/L Alkaline Phosphatase 59 (38-126) U/L Troponin I <0.012 (0.000-0.034) ng/mL Total Protein 8.1 (6.3-8.2) g/dL Albumin 4.7 (3.5-5.0) g/dL Urine Color Urine Appearance (Clear) Urine pH (5.0-8.0) Ur Specific [place] (1.001-1.035) Urine Protein (Negative) Urine Glucose (UA) (Negative) Urine Ketones (Negative) Urine Blood (Negative) Urine Nitrite (Negative) Urine Bilirubin (Negative) Urine Urobilinogen (<2.0) mg/dL Ur Leukocyte Esterase (Negative) Urine RBC (0-5) /hpf Urine WBC (0-5) /hpf Ur Squamous Epith Cells (0-4) /hpf Urine Mucus (None) /hpf Serum Alcohol <10 mg/dL Disposition Clinical Impression: Altered mental status Disposition: ADMITTED IP TO THIS HOSP Is patient prescribed a controlled substance at d/c from ED?: No Time of Disposition: 16:04
[2023-10-25 14:55] LABS: Basophils % (A) 0 %; Eosinophils # (A) 0.1 k/uL (0-0.7); Eosinophils % (A) 1 %; HCT 41.6 % (34.0-46.0); Lymphocytes # (A) 1.6 k/uL (1.0-4.8); Lymphocytes % (A) 20 %; MCHC 33.6 g/dL (31.0-37.0); MCV 92.2 fL (80.0-100.0); Mean Platelet Volume 7.5; Monocytes # (A) 0.4 k/uL (0-1.0); Monocytes % (A) 5 %; Neutrophils # (A) 5.9 k/uL (1.3-7.7); Neutrophils % (A) 72 %; Platelet Count 272 k/uL (150-450); RBC 4.51 m/uL (3.80-5.40); RDW 12.8 % (11.5-15.5); WBC 8.2 k/uL (3.8-10.6)
[2023-10-25 15:01] LABS: Appearance,Urine Clear (Clear); Bilirubin,Urine Negative (Negative); Blood,Urine Trace (Negative); Color,Urine Light Yellow; Glucose,Urine (UA) Negative (Negative); Ketones,Urine Negative (Negative); Leukocyte Esterase,Urine Negative (Negative); Mucus,Urine Rare /hpf; Nitrite,Urine Negative (Negative); PH, Urine 5.5 (5.0-8.0); Protein,Urine 1+ (Negative); RBC,Urine 6 /hpf (0-5); Specific Gravity,Urine 1.016 (1.001-1.035); Squamous Epithelial Cell,Urine <1 /hpf (0-4); Urobilinogen,Urine <2.0 mg/dL (<2.0); WBC,Urine 5 /hpf (0-5)
[2023-10-25 15:02] LABS: Glucose,Whole Blood 142 mg/dL (70-110)
[2023-10-25 15:05] LABS: Partial Thromboplastin Time 22.2 sec (22.0-30.0); Prothrombin Time 10.6 sec (10.0-12.5)
[2023-10-25 15:07] LABS: ALT 42 U/L (4-34); AST 66 U/L (14-36); African American GFR (CKD) >90 (>60 ml/min/1.73 sqM); Albumin 4.7 g/dL (3.5-5.0); Alcohol <10 mg/dL; Alkaline Phosphatase 59 U/L (38-126); Anion Gap 14 mmol/L; Blood Urea Nitrogen 15 mg/dL (7-17); Calcium 10.4 mg/dL (8.4-10.2); Carbon Dioxide 23 mmol/L (22-30); Chloride 103 mmol/L (98-107); Glucose 166 mg/dL (74-99); Non-African American GFR(CKD) 81 (>60 ml/min/1.73 sqM); Sodium 140 mmol/L (137-145); Total Bilirubin 1.2 mg/dL (0.2-1.3); Total Protein 8.1 g/dL (6.3-8.2)
--- NOTE | 2023-10-25 15:22 | CT ---
EXAMINATION TYPE: CT brain wo con DATE OF EXAM: 10/25/2023 COMPARISON: 10/30/2020 HISTORY: AMS, Confusion CT DLP: 1164.4 mGycm Automated exposure control for dose reduction was used. FINDINGS: The ventricles, basal cisterns and sulci over convexities are moderately enlarged consistent with mod erate generalized atrophy but appropriate for the patient's age. There is mild diffuse decreased density in the white matter both cerebral hemispheres consistent with mild ischemic white matter demyelination. There is no mass effect or shift of midline structures. There is no acute intra or extra-axial hemorrhage. Posterior fossa is grossly normal. The intraorbital contents appear normal and symmetric. Visualized paranasal sinuses and mastoid air cells are well aerated IMPRESSION: 1. MODERATE AGE-APPROPRIATE ATROPHY AND ISCHEMIC WHITE MATTER DEMYELINATION. 2. NO ACUTE BLEED OR MASS EFFECT.
--- NOTE | 2023-10-25 15:39 | XR ---
EXAMINATION TYPE: XR chest 2V DATE OF EXAM: 10/25/2023 COMPARISON: 04/17/2015 HISTORY: Altered mental status. TECHNIQUE: Frontal and lateral views of the chest are obtained. FINDINGS: There is no focal air space opacity, pleural effusion, or pneumothorax seen. The cardiac silhouette size is within normal limits. The osseous structures are intact. IMPRESSION: No acute cardiopulmonary process.
[2023-10-25 15:43] LABS: Potassium 4.6 mmol/L (3.5-5.1)
[2023-10-25] MEDS ORDERED: NALOXONE 0.4 MG/ML 1 ML VIAL IV PRN (16:05)
[2023-10-25] MEDS: SODIUM CHLORIDE 0.9% 1,000 ML IV SCH (16:37)
[2023-10-26] MEDS: SODIUM CHLORIDE 0.9% 1,000 ML IV SCH ×2 (06:09→16:45)
[2023-10-26 09:29] LABS: Basophils # (A) 0.03 X 10*3/uL (0.00-0.10); Basophils % (A) 0.4 %; Eosinophils # (A) 0.16 X 10*3/uL (0.04-0.35); Eosinophils % (A) 2.2 %; HCT 39.2 % (37.2-46.3); HGB 12.9 g/dL (12.0-15.0); Lymphocytes # (A) 2.13 X 10*3/uL (0.90-5.00); Lymphocytes % (A) 29.3 %; MCH 30.6 pg (27.0-32.0); MCHC 32.9 g/dL (32.0-37.0); MCV 93.1 FL (80.0-97.0); Mean Platelet Volume 9.3 FL (9.5-12.2); Monocytes # (A) 0.71 X 10*3/uL (0.20-1.00); Monocytes % (A) 9.8 %; NRBC Per 100 WBC 0 X 10*3/uL (0.00-0.01); Neutrophils # (A) 4.22 X 10*3/uL (1.80-7.70); Platelet Count 244 X 10*3/uL (140-440); RBC 4.21 X 10*6/uL (4.10-5.20); RDW 12.5 % (11.5-14.5); WBC 7.27 X 10*3/uL (4.50-10.00)
[2023-10-26 09:33] LABS: BUN/Creat Ratio 14.89 Ratio (12.00-20.00); Blood Urea Nitrogen 13.4 mg/dL (9.0-27.0); Chloride 104 mmol/L (96-109); Glucose 155 mg/dL (70-110); Potassium 4.2 mmol/L (3.5-5.5); Sodium 143 mmol/L (135-145)
[2023-10-26 09:34] LABS: ALT 33 U/L (8-44); AST 36 U/L (13-35); Albumin 4.2 g/dL (3.8-4.9); Albumin/Globulin Ratio 1.83 Ratio (1.60-3.17); Alkaline Phosphatase 49 U/L (41-126); Calcium 10.4 mg/dL (8.7-10.3); Carbon Dioxide 25.6 mmol/L (21.6-31.8); Globulin 2.3 g/dL (1.6-3.3); Total Bilirubin 0.7 mg/dL (0.3-1.2); Total Protein 6.5 g/dL (6.2-8.2)
[2023-10-26] MEDS ORDERED: FLUOCINOLONE ACETONIDE OIL BOTH EARS PRN (12:41)
[2023-10-26] MEDS ORDERED: QUEtiapine 25 MG TAB PO PRN (12:44)
[2023-10-26] MEDS ORDERED: polyethylene glycoL 3350 17 GM POWD.PACK PO PRN (12:44)
--- NOTE | 2023-10-26 12:53 | P.HPIM ---
History of Present Illness 77-year-old female is admitted for mental status changes. Patient has memory issues going on for a long time but since August the have been much worse and past couple days patient is getting bit agitated and doesn't eat or drink be cause of which brought her to the hospital. CT of the head did not show any significant abnormality. Patient doesn't have any evidence of infection or UTI patient is not dehydrated the only medications that can affect her memory at home are gabapentin tramadol. Patient is oriented 1. Neurology was consulted and neurology is obtaining EEG, MRI. REVIEW OF SYSTEMS: Unable to obtain history PHYSICAL EXAMINATION: GENERAL: The patient is alert and oriented x1-2, not in any acute distress. Well developed, well nourished. HEENT: Pupils are round and equally reacting to light. EOMI. No scleral icterus. No conjunctival pallor. Normocephalic, atraumatic. No pharyngeal erythema. No thyromegaly. CARDIOVASCULAR: S1 and S2 present. No murmurs, rubs, or gallops. PULMONARY: Chest is clear to auscultation, no wheezing or crackles. ABDOMEN: Soft, nontender, nondistended, normoactive bowel sounds. No palpable organomegaly. MUSCULOSKELETAL: No joint swelling or deformity. EXTREMITIES: No cyanosis, clubbing, or pedal edema. NEUROLOGICAL: Gross neurological examination did not reveal any focal deficits. SKIN: No rashes. Assessment and plan -Altered mental status mostly worsening dementia, patient may have either vascular dementia or dementia of Alzheimer's type patient is undergoing MRI, EEG. Patient to may have some delirium from her medications it is about 19 and tramadol and hopefully that will improve by tomorrow. Physical therapy outpatient therapy evaluation -Type 2 diabetes mellitus patient was started on sliding scale hold off on her home regimen -VAT/CVA in the past -Hypertension -Hyperlipidemia DVT prophylaxis: Lovenox Past Medical History Past Medical History: CVA/TIA, Diabetes Mellitus, Hyperlipidemia, Hypertension Additional Past Medical History / Comment(s): CVA 2012 = numbness in hand and arm covid History of Any Multi-Drug Resistant Organisms: None Reported Past Surgical History: Back Surgery, Orthopedic Surgery Additional Past Surgical History / Comment(s): both knees total, rotor cuff repair Past Anesthesia/Blood Transfusion Reactions: No Reported Reaction Past Psychological History: No Psychological Hx Reported Smoking Status: Never smoker, Unknown if ever smoked Past Alcohol Use History: None Reported, Occasional Past Drug Use History: None Reported - Past Family History Son(s) Additional Family Medical History / Comment(s): gout Medications and Allergies Home Medications Medication Instructions Recorded Confirmed Type Gabapentin 600 mg PO TID 01/02/15 10/25/23 History Meloxicam 7.5 mg PO DAILY 01/02/15 10/25/23 History Atorvastatin Calcium [Lipitor] 40 mg PO DAILY #30 tab 01/03/15 10/25/23 Rx Clopidogrel [Plavix] 75 mg PO DAILY tab 01/03/15 10/25/23 Rx Multivitamins, Thera [Multivitamin 1 tab PO DAILY 01/03/15 10/25/23 History (formulary)] Cephalexin [Keflex] 500 mg PO Q8HR 10/25/23 10/25/23 History Losartan Potassium [Cozaar] 100 mg PO DAILY 10/25/23 10/25/23 History Metoprolol Tartrate [Lopressor] 50 mg PO BID 10/25/23 10/25/23 History Semaglutide [Rybelsus] 14 mg PO DAILY 10/25/23 10/25/23 History fluocinolone acetonide oiL 2 drops BOTH EARS HS PRN 10/25/23 10/25/23 History [fluocinolone acetonide oiL 0.01% (Otic)] metFORMIN HCL [Glucophage] 1,000 mg PO BID 10/25/23 10/25/23 History traMADol HCL 50 mg PO Q6H PRN 10/25/23 10/25/23 History Allergies Allergy/AdvReac Type Severity Reaction Status Date / Time No Known Allergies Allergy Verified 10/25/23 15:15 Physical Exam Vitals: Vital Signs Temp Pulse Pulse Resp BP BP BP 10/26/23 08:25 98.2 F 72 16 118/70 10/25/23 20:00 98.0 F 94 16 127/72 10/25/23 18:19 97.4 F L 85 16 186/84 10/25/23 16:35 86 18 146/74 10/25/23 14:15 98.3 F 91 18 157/92 Pulse Ox 10/26/23 08:25 93 L 10/25/23 20:00 93 L 10/25/23 18:19 95 10/25/23 16:35 95 10/25/23 14:15 95 Intake and Output 10/25/23 10/26/23 10/26/23 22:59 06:59 14:59 Intake Total 118 Balance 118 Intake: Oral 118 Other: # Voids 1 3 1 # Bowel Movements 1 1 Weight 93.44 kg Results CBC & Chem 7: 10/26/23 05:47 10/26/23 05:47 Labs: Abnormal Lab Results - Last 24 Hours (Table) 10/25/23 10/25/23 10/25/23 Range/Units 14:33 14:33 15:00 MPV (9.5-12.2) FL Anion Gap (4.00-12.00) mmol/L Glucose 166 H (74-99) mg/dL POC Glucose (mg/dL) 142 H (70-110) mg/dL Calcium 10.4 H (8.4-10.2) mg/dL AST 66 H (14-36) U/L ALT 42 H (4-34) U/L Urine Protein 1+ H (Negative) Urine Blood Trace H (Negative) Urine RBC 6 H (0-5) /hpf Urine Mucus Rare H (None) /hpf 10/26/23 10/26/23 Range/Units 05:47 05:47 MPV 9.3 L (9.5-12.2) FL Anion Gap 13.40 H (4.00-12.00) mmol/L Glucose 155 H (74-99) mg/dL POC Glucose (mg/dL) (70-110) mg/dL Calcium 10.4 H (8.4-10.2) mg/dL AST 36 H (14-36) U/L ALT (4-34) U/L Urine Protein (Negative) Urine Blood (Negative) Urine RBC (0-5) /hpf Urine Mucus (None) /hpf Thrombosis Risk Factor Assmnt - Choose All That Apply Any of the Below Risk Factors Present?: No Other Risk Factors: Yes Each Risk Factor Represents 3 Points: Age 75 years or older Other congenital or acquired thrombophilia - If yes, enter type in comment: No Thrombosis Risk Factor Assessment Total Risk Factor Score: 3 Thrombosis Risk Factor Assessment Level: Moderate Risk
--- NOTE | 2023-10-26 13:21 | P.CNNES ---
History of Present Illness Consult date: 10/26/23 Requesting physician: Jean-Paul Lopez Reason for Consult: ams History of Present Illness: This is a 77-year-old woman who presented to the hospital because of confusion. History is obtained predominantly from the was at bedside. 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 Ever since her posterior vaccine the patient has been confused, irritable. The example of her confusion is is regarding things given as a red than talking that Thanksgiving was tomorrow she is talking about as if it's today. Another example was when they are going up the 2 there've Been in [facility], patient was saying to her that it they needed to go right now to [place] to the cabin rather than the planned was a day or a day to half from the trip. She has not been having any headache according to the , no nausea no vomiting. No jerking of extremities. She's been having lower back pain. No focal weakness. No fevers. No sick contacts. No history of seizures in the past. Never she had a bolster for the [place] it she would get episodes of confusion but not to this extent and this duration. She's been sleeping more than usual. Also according the she was diagnosed with acute UTI in the beginning of October of this year but according to him there were not notified that exactly about it and she did not start taking the medication until October 15 2023 Some of the workup during this hospital visit consisted of: Patient is afebrile so far CBC with differential is unremarkable Consider panels AST is 66 ALT of 42. Calcium 7.4. Otherwise rest of the canister panels unremarkable. Serum alcohol was less than 10 Urinary seems negative for UTI. CT of the head is reported as moderate age appropriate atrophy in the ischemic white matter demyelination. No acute bleed or mass effect. I personally reviewed the CT and I agreed there is no acute subacute ischemia. There is no mass effect. Review of Systems Somewhat limited but the positive and negative as per HPI. Past Medical History Past Medical History: CVA/TIA, Diabetes Mellitus, Hyperlipidemia, Hypertension Additional Past Medical History / Comment(s): CVA 2012 = numbness in hand and arm covid History of Any Multi-Drug Resistant Organisms: None Reported Past Surgical History: Back Surgery, Orthopedic Surgery Additional Past Surgical History / Comment(s): both knees total, rotor cuff repair Past Anesthesia/Blood Transfusion Reactions: No Reported Reaction Past Psychological History: No Psychological Hx Reported Smoking Status: Never smoker, Unknown if ever smoked Past Alcohol Use History: None Reported, Occasional Past Drug Use History: None Reported - Past Family History Son(s) Additional Family Medical History / Comment(s): gout Medications and Allergies Home Medications Medication Instructions Recorded Confirmed Type Gabapentin 600 mg PO TID 01/02/15 10/25/23 History Meloxicam 7.5 mg PO DAILY 01/02/15 10/25/23 History Atorvastatin Calcium [Lipitor] 40 mg PO DAILY #30 tab 01/03/15 10/25/23 Rx Clopidogrel [Plavix] 75 mg PO DAILY tab 01/03/15 10/25/23 Rx Multivitamins, Thera [Multivitamin 1 tab PO DAILY 01/03/15 10/25/23 History (formulary)] Cephalexin [Keflex] 500 mg PO Q8HR 10/25/23 10/25/23 History Losartan Potassium [Cozaar] 100 mg PO DAILY 10/25/23 10/25/23 History Metoprolol Tartrate [Lopressor] 50 mg PO BID 10/25/23 10/25/23 History Semaglutide [Rybelsus] 14 mg PO DAILY 10/25/23 10/25/23 History fluocinolone acetonide oiL 2 drops BOTH EARS HS PRN 10/25/23 10/25/23 History [fluocinolone acetonide oiL 0.01% (Otic)] metFORMIN HCL [Glucophage] 1,000 mg PO BID 10/25/23 10/25/23 History traMADol HCL 50 mg PO Q6H PRN 10/25/23 10/25/23 History Allergies Allergy/AdvReac Type Severity Reaction Status Date / Time No Known Allergies Allergy Verified 10/25/23 15:15 Physical Examination - Vital Signs Vital Signs: Vital Signs Temp Pulse Pulse Resp BP BP BP 10/26/23 08:25 98.2 F 72 16 118/70 10/25/23 20:00 98.0 F 94 16 127/72 10/25/23 18:19 97.4 F L 85 16 186/84 10/25/23 16:35 86 18 146/74 10/25/23 14:15 98.3 F 91 18 157/92 Pulse Ox 10/26/23 08:25 93 L 10/25/23 20:00 93 L 10/25/23 18:19 95 10/25/23 16:35 95 10/25/23 14:15 95 Intake and Output 10/25/23 10/26/23 10/26/23 22:59 06:59 14:59 Intake Total 118 Balance 118 Intake: Oral 118 Other: # Voids 1 3 1 # Bowel Movements 1 1 Weight 93.44 kg GENERAL: The patient is lying in bed and is not in acute distress. NEUROLOGICAL: Somewhat limited. Higher mental function: The patient is drowsy but is awakeable to voice. She is oriented to self and she is able to name her the correctly. She chose the wrong year and the month with options. She correctly stated that she is in the hospital with options. She seems confused just examining the patient. Language is limited. Cranial nerves: The pupils are round, equal and reactive to light. Visual de anda are full to confrontation throughout. Extraocular movement is tracking to right and left without any nystagmus. . Facial sensation is normal to touch throughout. The facial strength is normal throughout. Tongue is midline and moved [id number] without any difficulty. No dysarthria is noted. Shoulder shrug is normal bilaterally. Motor: The strength is hard to assess individual muscle strength because of her cooperation but she is "all extremities above gravity and seems a equal throughout. 5Normal tone and bulk. Cerebellum: Hard to assess because of her cooperation upon asking the patient to touch finger to nose she was touching her tip of the lips bilaterally. There not appear to be any dysmetria or ataxia with the limitation the examination Reflexes (right/left): Somewhat limited because of her cooperation Plantars are downgoing bilaterally. Results - Laboratory Findings CBC and BMP: 10/26/23 05:47 10/26/23 05:47 Abnormal Lab Findings: Abnormal Labs 10/25/23 10/25/23 10/25/23 14:33 14:33 15:00 MPV Anion Gap Glucose 166 H POC Glucose (mg/dL) 142 H Calcium 10.4 H AST 66 H ALT 42 H Urine Protein 1+ H Urine Blood Trace H Urine RBC 6 H Urine Mucus Rare H 10/26/23 10/26/23 05:47 05:47 MPV 9.3 L Anion Gap 13.40 H Glucose 155 H POC Glucose (mg/dL) Calcium 10.4 H AST 36 H ALT Urine Protein Urine Blood Urine RBC Urine Mucus Assessment and Plan Assessment: This is a 77-year-old woman who received COVID-19 posterior on 09/04/2023 and ever since patient has been having confusion, irritable sleepy. No sick contacts. No focal weakness. No nausea vomiting or fevers. Encephalopathy of unknown etiology. I would not expect the vaccine posterior to cause this duration of confusion. Plan: I ordered a routine EEG I ordered MRI of the brain with and without I ordered TSH, folate, vitamin B12 She is on Plavix 75 mg daily, Lipitor 40 mg daily She is on Seroquel 25 mg when necessary for agitation if needed that can go up to 25 twice a day. Continue neuro checks We'll defer the rest of the medical management to primary team Plan discussed with the patient's who was at bedside and nurse. Thank you for the consultation UPDATE: The EEG showed left temporal sharps. No seizures. I started the patient on Keppra. I updated patient and her . I notified of side-effects of Keppra that it can cause mood/irritability. Time with Patient: Greater than 30
--- NOTE | 2023-10-26 16:08 | MR ---
EXAMINATION TYPE: MR brain wo/w con DATE OF EXAM: 10/26/2023 COMPARISON: CT brain 10/25/2023 HISTORY: AMS unknown etiology. CONTRAST: Performed utilizing 9.5 mL intravenous Gadavist gadolinium contrast. TECHNIQUE: Multiplanar, multiecho imaging on a 3.0 Lorie magnet is performed through the brain. Stud y is performed within 24 hours of arrival to the hospital. The craniovertebral junction is normal. The pituitary is normal. Diffusion-weighted imaging is performed. There is a punctate 0.6 cm hyperintensity within the left c entrum semiovale, series 303 image 216. This could be an acute ischemic area. Periventricular white matter hyperintensities are present, likely on the basis of chronic white matte r ischemic change Ventricles and sulci are prominent for the patient age. No suspicious enhancement is evident. IMPRESSION: 1. Punctate diffusion hyperintensity could be related to an acute ischemic change left frontal white matter centrum semiovale. 2. There is diffuse chronic appearing periventricular white matter ischemic-type changes with atrophy .
[2023-10-26] MEDS: CLOPIDOGREL 75 MG TAB PO SCH (16:35)
[2023-10-26] MEDS: levETIRAcetam 500 MG TAB PO SCH ×2 (16:44→20:52)
[2023-10-26 17:24] LABS: Glucose,Whole Blood 217 mg/dL (70-110)
[2023-10-26] MEDS: INSULIN ASPART (NovoLOG) 100 UNIT/ML VIAL SQ SCH ×2 (17:47→20:53)
[2023-10-26] MEDS: METOPROLOL TARTRATE 50 MG TAB PO SCH (20:52)
[2023-10-26 20:55] LABS: Glucose,Whole Blood 233 mg/dL (70-110)
--- NOTE | 2023-10-27 02:56 | EEG ---
ELECTROENCEPHALOGRAM REPORT CLINICAL HISTORY: This is a 77-year-old woman with altered mental status. The video EEG is obtained to evaluate for seizure epileptiform activity. RELEVANT MEDICATIONS: Gabapentin and tramadol. EEG TYPE: Routine 21-channel EEG with video using the 10/20 electrode placement system. DESCRIPTION: Wakefulness is only obtained. During the awake state, the posterior-dominant rhythm consists of [id number] voltage of 7 to 7.5 hertz activity that is well modulated, well sustained. There is no physiological stage II sleep architecture. There is delta slowing over the left temporal region. Interictal and ictal are none. There is a spike and slow waves over the left temporal and is seen over the T5 lead. No seizures noted. ACTIVATION PROCEDURES: Photic stimulation did not evoke a posterior driving response. There is no abnormality during the photic stimulation. Hyperventilation is not performed. CLINICAL INTERPRETATION: This is an abnormal routine EEG. The background slowing is suggestive of mild encephalopathy. The epileptiform discharges over the left temporal region could increase risk for focal seizure as well status epilepticus. The focal slowing as stated above is suggestive of focal cerebral dysfunction in the involved lesion. There is no seizure noted during this study. Clinical correlation is recommended. MMODL / IJN: [id number] / KINDRA
[2023-10-27 04:20] LABS: Chol/HDL Ratio 7.52 Ratio; HDL Cholesterol 38.7 mg/dL (40.00-60.00); VLDL Calculation 87.6 mg/dL (5.00-40.00)
[2023-10-27 06:46] LABS: Glucose,Whole Blood 153 mg/dL (70-110)
--- NOTE | 2023-10-27 08:54 | US ---
EXAMINATION TYPE: US carotid duplex BILAT DATE OF EXAM: 10/26/2023 COMPARISON: 12/15/14 CLINICAL INDICATION: Female, 77 years old with history of stroke; Hx of stroke TECHNIQUE: Carotid duplex ultrasound examination. Indirect Doppler criteria was utilized. FINDINGS: EXAM MEASUREMENTS: RIGHT: Peak Systolic Velocity (PSV) cm/sec ----- Right CCA: 76.6 ----- Right ICA: 75.4 ----- Right ECA: 152 ICA/CCA ratio: 1.0 RIGHT: End Diastole cm/sec ----- Right CCA: 11.9 ----- Right ICA: 18.4 ----- Right ECA: 12.4 LEFT: Peak Systolic Velocity (PSV) cm/sec ----- Left CCA: 73.7 ----- Left ICA: 101 ----- Left ECA: 155 ICA/CCA ratio: 1.4 LEFT: End Diastole cm/sec ----- Left CCA: 14.1 ----- Left ICA: 25.5 ----- Left ECA: 17.6 VERTEBRALS (direction of flow): Right Vertebral: Antegrade Left Vertebral: Antegrade Rhythm: Normal MEMORIAL DESIGNER NOTES: No plaque seen on right side. Minimal plaque seen in left bulb IMPRESSION: No significant hemodynamic stenosis Criteria for Assigning % of Stenosis / Diameter reduction (Estimation based on the indirect measurements of the internal carotid artery velocities (ICA PSV). 1. Normal (no stenosis)=ICA PSV < 125 cm/s: ratio < 2.0: ICA EDV<40 cm/s. 2. Less than 50% stenosis=ICA PSV < 125 cm/s: ratio < 2.0: ICA EDV<40 cm/s. 3. 50 to 69% stenosis=ICA PSV of 125 to 230 cm/s: ration 2.0 ? 4.0: ICA EDV 40-100 cm/s. 4. Greater than 70% stenosis to near occlusion= ICA PSV > 230 cm/s: ratio > 4.0: ICA EDV > 100 cm/s. 5. Near occlusion= ICA PSV velocities may be low or undetectable: variable ratio and ICA EDV. 6. Total occlusion=unable to detect flow.
[2023-10-27] MEDS: CLOPIDOGREL 75 MG TAB PO SCH (10:40)
[2023-10-27] MEDS: ENOXAPARIN 40 MG/0.4 ML SYRINGE SQ SCH (10:40)
[2023-10-27] MEDS: LOSARTAN 50 MG TAB PO SCH (10:40)
[2023-10-27] MEDS: ATORVASTATIN 40 MG TAB PO SCH (10:40)
[2023-10-27] MEDS: METOPROLOL TARTRATE 50 MG TAB PO SCH ×2 (10:40→20:44)
[2023-10-27] MEDS: levETIRAcetam 500 MG TAB PO SCH ×2 (10:40→20:44)
[2023-10-27] MEDS: INSULIN ASPART (NovoLOG) 100 UNIT/ML VIAL SQ SCH ×4 (10:41→20:44)
[2023-10-27] MEDS: SODIUM CHLORIDE 0.9% 1,000 ML IV SCH ×2 (10:41→23:19)
[2023-10-27 12:07] LABS: Glucose,Whole Blood 156 mg/dL (70-110)
--- NOTE | 2023-10-27 13:27 | P.PN ---
Subjective Progress Note Date: 10/27/23 I am following-up with patient and she is sitting up in a recliner chair and she seems more week according to the nurse and she remembered that I started on Keppra yesterday. The nurse also notified me that the patient remembered her name from yesterday. She continues to have some confusion but seems somewhat better today compared to yesterday. She denies of any headache. Objective - Vital Signs Vital signs: Vital Signs Temp 97.6 F 10/27/23 07:00 Pulse 65 10/27/23 07:00 Resp 16 10/27/23 07:00 BP 140/76 10/27/23 07:00 Pulse Ox 95 10/27/23 07:00 FiO2 Intake & Output 10/26/23 10/27/23 10/27/23 18:59 06:59 18:59 Intake Total 236 Balance 236 Intake: Oral 236 Other: Voiding Method Toilet # Voids 1 1 # Bowel Movements 1 - Exam Gen. as sitting in a recliner chair and is not in acute distress Neuro- She is awake alert oriented to self. She stated she is in the hospital and within 15 seconds she stated at [facility]. Regarding the year and the month it took her a little bit more time but she eventually stated the current year correctly. She is able to name objects correctly such as pen, glasses and wants. Upon examiner her friend came by and she is able to name her friend correctly. Upon asking her what states she was in with often she correctly stated [place]. She still somewhat slow responding to questions and has somewhat confusion but I feel she seems mildly better today compared to yesterday. No aphasia. The pupils are round equal reactive to light. Visual de anda are full to confrontation. Extraocular movement is intact. No facial weakness. No dysarthria Motor is less than EXTREMITIES above gravity equally. Cerebellar: With a finger to nose she still having difficulty doing the tasks possibly but I feel today she is a little bit more quicker and performing the task compared to yesterday. Some of the workup during this hospital visit consisted of: Patient is afebrile so far CBC with differential is unremarkable Consider panels AST is 66 ALT of 42. Calcium 7.4. Otherwise rest of the canister panels unremarkable. The panel is triglyceride is a 43, cholesterol is 291, LDLs 200, HDL is 338. Vitamin B12 is 432 Serum folate is more than 20 TSH is 1.160 Ammonia is less than 9. Sugar has been in the range of the 150s to 230s Serum alcohol was less than 10 Urinary seems negative for UTI. CT of the head is reported as moderate age appropriate atrophy in the ischemic white matter demyelination. No acute bleed or mass effect. I personally reviewed the CT and I agreed there is no acute subacute ischemia. There is no mass effect. R the brain is reported as punctate diffusion hyper intensity could be related to acute ischemia change left frontal white matter centrum semiovale old valve. There is diffusion chronic appearing. Ventricle white matter ischemic type changes with atrophy. I personally reviewed the MRI and its very small focus over the left frontal region suggestive of stroke. Routine EEG is abnormal. The background slowing is suggestive of mild encephalopathy the epileptiform discharges over the left temporal region could increased risk for focal seizure as well as status epilepticus. The focal slowing as stated above suggestive of focal cerebral dysfunction in the involved region. There is no seizure noted during the study. Carotid duplex is reported as no significant hemodynamic stenosis. - Labs CBC & Chem 7: 10/26/23 05:47 10/26/23 05:47 Labs: Abnormal Lab Results - Last 24 Hours (Table) 10/26/23 10/26/23 10/26/23 Range/Units 17:02 17:21 20:53 POC Glucose (mg/dL) 217 H 233 H (70-110) mg/dL Triglycerides 438.00 H (0.00-149.00) mg/dL Cholesterol 291.00 H (0.00-200.00) mg/dL LDL Cholesterol Direct 200.00 H (0.00-129.00) mg/dL VLDL Cholesterol, Calc 87.60 H (5.00-40.00) mg/dL HDL Cholesterol 38.70 L (40.00-60.00) mg/dL 10/27/23 10/27/23 Range/Units 06:44 12:06 POC Glucose (mg/dL) 153 H 156 H (70-110) mg/dL Triglycerides (0.00-149.00) mg/dL Cholesterol (0.00-200.00) mg/dL LDL Cholesterol Direct (0.00-129.00) mg/dL VLDL Cholesterol, Calc (5.00-40.00) mg/dL HDL Cholesterol (40.00-60.00) mg/dL Assessment and Plan Assessment: This is a 77-year-old woman who received COVID-19 posterior on 09/04/2023 and ever since patient has been having confusion, irritable sleepy. No sick contacts. No focal weakness. No nausea vomiting or fevers. Encephalopathy: Could be due to multifactorial- one is patient has epileptiform discharges over the left temporal which can increase risk for seizure. Another is the patient has a small focal stroke over left frontal but I doubt this was the cause especially that her confusion has been going on for 1 month. Another possibility is uncontrolled sugar and her sugar has been in the range of 100 to 230s and into a metabolic encephalopathy. Also it can be also medication contributing to her side effects such as tramadol. I cannot rule out underlying vascular dementia. I feel patient is slightly better today compared to yesterday. Acute left frontal small stroke Epileptiform discharges over the left temporal region on the EEG Dyslipidemia with elevated at the triglyceride in the 400s and the LDL in the 200s Uncontrolled sugar Plan: Álvaro the patient on Keppra 500 mg twice a day and the notified patient and the about side effects of mood irritability and it was started on 10/26/2023 She is on Plavix 75 mg daily. As of her new stroke recommend adding aspirin 81 mg daily. Recommend dual antiplatelets for 21 days and after 21 days. Possible stop Plavix and continue aspirin from a neurologic perspective but if she can't stop Plavix and recommended stopping aspirin instead of Plavix recommend Brilinta 90mg bid. Continue Lipitor 40 mg daily. Recommend starting fibrates because of her hypertriglyceridemia but will defer the management to the primary team. Pending 2-D echo Commend a detailed neuropsych eval she is an outpatient down the line to assess her memory. According to the the she's can be seen Dr. Miller neurologist as an outpatient and we'll defer the management to him. She is on Seroquel 25 mg when necessary for agitation if needed that can go up to 25 twice a day. Continue neuro checks PT and OT are consulted Her tramadol and gabapentin has a been discontinued by the primary attending We'll defer the rest of the medical management to primary team DVT prophylaxis patient is on Enoxaparin. The plan is discussed with the primary attending and her nurse. I also later during the day, I personally saw her who was at bedside and updated him of the plan. Time with Patient: Less than 30
--- NOTE | 2023-10-27 13:28 | P.DS ---
Providers Date of admission: 10/25/23 16:06 Attending physician: Alejandro Carpenter MD Consults: 10/25/23 16:05 Consult Physician Routine Consulting Provider: Jenny Perez Consult Reason/Comments: ams Do you want consulting provider notified?: Yes Primary care physician: Marcin Marx [facility] Course: 77-year-old female is admitted for mental status changes. Patient has memory issues going on for a long time but since August the have been much worse and past couple days patient is getting bit agitated and doesn't eat or drink because of which brought her to the hospital. CT of the head did not show any significant abnormality. Patient doesn't have any evidence of infection or UTI patient is not dehydrated the only medications that can affect her memory at home are gabapentin tramadol. Patient is oriented 1. Neurology was consulted and neurology is obtaining EEG, MRI. 10/27/23 Patient had an MRI of the head which showed a punctate hypodense lesions consistent with the acute ischemic changes in the left frontal white matter. Patient's LDL is about 200 and does take atorvastatin 40 mg at home which is being increased to 80 mg. Patient does take Plavix at home adding aspirin 81 mg patient had an EEG which showed some spikes in the temporal lobes because of which patient was started on Keppra by neurology. Patient is awaiting physical therapy occupational therapy evaluation if cleared for discharge from their perspective and if echocardiogram doesn't show any significant abnormality patient will be discharged today to patient's statin was increased to 80 mg. considering encephalopathic findings and the EEG, will cut down the dose of gabapentin and tramadol are being discontinued. PHYSICAL EXAMINATION: GENERAL: The patient is alert and oriented x1-2, not in any acute distress. Well developed, well nourished. HEENT: Pupils are round and equally reacting to light. EOMI. No scleral icterus. No conjunctival pallor. Normocephalic, atraumatic. No pharyngeal erythema. No thyromegaly. CARDIOVASCULAR: S1 and S2 present. No murmurs, rubs, or gallops. PULMONARY: Chest is clear to auscultation, no wheezing or crackles. ABDOMEN: Soft, nontender, nondistended, normoactive bowel sounds. No palpable organomegaly. MUSCULOSKELETAL: No joint swelling or deformity. EXTREMITIES: No cyanosis, clubbing, or pedal edema. NEUROLOGICAL: Gross neurological examination did not reveal any focal deficits. SKIN: No rashes. Assessment and plan -Altered mental status mostly worsening dementia, patient may have either vascular dementia or dementia of Alzheimer's type patient is undergoing MRI, EEG. Patient to may have some delirium from her medications it is about 19 and tramadol and hopefully that will improve by tomorrow. Physical therapy outpatient therapy evaluation -Type 2 diabetes mellitus -Hypertension -Hyperlipidemia DVT prophylaxis: Lovenox Plan - Discharge Summary New Discharge Prescriptions: New Losartan [Cozaar] 50 mg PO DAILY #30 tab levETIRAcetam [Keppra] 500 mg PO Q12HR #30 tab Atorvastatin [Lipitor] 80 mg PO DAILY #30 tab Clopidogrel [Plavix] 75 mg PO DAILY #20 tab Continue Meloxicam 7.5 mg PO DAILY Multivitamins, Thera [Multivitamin (formulary)] 1 tab PO DAILY Semaglutide [Rybelsus] 14 mg PO DAILY metFORMIN HCL [Glucophage] 1,000 mg PO BID fluocinolone acetonide oiL [fluocinolone acetonide oiL 0.01% (Otic)] 2 drops BOTH EARS HS PRN PRN Reason: Itching Metoprolol Tartrate [Lopressor] 50 mg PO BID Changed Gabapentin 300 mg PO TID #0 Discontinued Atorvastatin Calcium [Lipitor] 40 mg PO DAILY #30 tab Clopidogrel [Plavix] 75 mg PO DAILY tab Losartan Potassium [Cozaar] 100 mg PO DAILY traMADol HCL 50 mg PO Q6H PRN PRN Reason: Pain Cephalexin [Keflex] 500 mg PO Q8HR Discharge Medication List Meloxicam 7.5 mg PO DAILY 01/02/15 [History] Multivitamins, Thera [Multivitamin (formulary)] 1 tab PO DAILY 01/03/15 [History] Metoprolol Tartrate [Lopressor] 50 mg PO BID 10/25/23 [History] Semaglutide [Rybelsus] 14 mg PO DAILY 10/25/23 [History] fluocinolone acetonide oiL [fluocinolone acetonide oiL 0.01% (Otic)] 2 drops BOTH EARS HS PRN 10/25/23 [History] metFORMIN HCL [Glucophage] 1,000 mg PO BID 10/25/23 [History] Atorvastatin [Lipitor] 80 mg PO DAILY #30 tab 10/27/23 [Rx] Clopidogrel [Plavix] 75 mg PO DAILY #20 tab 10/27/23 [Rx] Gabapentin 300 mg PO TID #0 10/27/23 [Rx] Losartan [Cozaar] 50 mg PO DAILY #30 tab 10/27/23 [Rx] levETIRAcetam [Keppra] 500 mg PO Q12HR #30 tab 10/27/23 [Rx] Follow up Appointment(s)/Referral(s): Marcin Reynoso DO [Primary Care Provider] - 3 Days David Salvador MD [STAFF PHYSICIAN] - 1 Week [facility] [NON-STAFF] - 1 Week Discharge Disposition: HOME SELF-CARE
[2023-10-27] MEDS: ASPIRIN 81 MG PO SCH (14:08)
[2023-10-27 17:58] LABS: Glucose,Whole Blood 113 mg/dL (70-110)
[2023-10-27 20:23] LABS: Glucose,Whole Blood 153 mg/dL (70-110)
[2023-10-28 06:29] LABS: Glucose,Whole Blood 136 mg/dL (70-110)
[2023-10-28] MEDS: INSULIN ASPART (NovoLOG) 100 UNIT/ML VIAL SQ SCH (06:30)
--- NOTE | 2023-10-28 07:34 | CA ---
Transthoracic Echo Report Name: Minerva Malave Age: 77 Gender: F : 1945 Exam Date: 10/27/2023 13:59 Exam Location: [place] Echo Ht (in): 66 Wt (lb): 206 Ordering Physician: David Manley MD Attending/Referring Phys: Therapeutic Recreation Leader Lewis Morelos Procedure CPT: Indications: stroke Cardiac Hx: Technical Quality: Fair Contrast 1: Total Dose (mL): Contrast 2: Total Dose (mL): MEASUREMENTS (Male / Female) Normal Values 2D ECHO LV Diastolic Diameter PLAX 5.1 cm 4.2 - 5.9 / 3.9 - 5.3 cm LV Systolic Diameter PLAX 3.4 cm IVS Diastolic Thickness 1.1 cm 0.6 - 1.0 / 0.6 - 0.9 cm LVPW Diastolic Thickness 1.0 cm 0.6 - 1.0 / 0.6 - 0.9 cm LV Relative Wall Thickness 0.4 RV Internal Dim ED PLAX 3.0 cm LVOT Diameter 2.0 cm Aortic Root Diameter 3.3 cm LA Systolic Diameter LX 3.5 cm 3.0 - 4.0 / 2.7 - 3.8 cm LV Diastolic Volume MOD BP 52.6 cm??? 67 - 155 / 56 - 104 cm??? LV Systolic Volume MOD BP 19.3 cm??? 22 - 58 / 19 - 49 cm??? LV Ejection Fraction MOD BP 63.4 % >= 55 % LV Cardiac Index MOD BP 880.3 cm???/min???m??? LV Diastolic Volume MOD 4C 54.6 cm??? LV Systolic Volume MOD 4C 15.8 cm??? LV Ejection Fraction MOD 4C 71.1 % LV Cardiac Index MOD 4C 1024.3 cm???/min???m??? LV Diastolic Length 4C 7.3 cm LV Systolic Length 4C 6.1 cm LV Diastolic Volume MOD 2C 48.6 cm??? LV Systolic Volume MOD 2C 23.5 cm??? LV Ejection Fraction MOD 2C 51.7 % LV Cardiac Index MOD 2C 664.2 cm???/min???m??? LV Diastolic Length 2C 6.9 cm LV Systolic Length 2C 6.2 cm LA Volume 35.4 cm??? 18 - 58 / 22 - 52 cm??? LA Volume Index 16.7 cm???/m??? 16 - 28 cm???/m??? DOPPLER AV Peak Velocity 137.9 cm/s AV Peak Gradient 7.6 mmHg LVOT Peak Velocity 89.1 cm/s LVOT Peak Gradient 3.2 mmHg LVOT Velocity Time Integral 24.5 cm LVOT Stroke Volume 73.4 cm??? LVOT Stroke Volume Index 36.3 ml/m??? LVOT Cardiac Index 1939.5 cm???/min???m??? AV Area Cont Eq pk 1.9 cm??? MV Peak Velocity 141.7 cm/s MV Peak Gradient 8.0 mmHg MV Mean Velocity 66.1 cm/s MV Mean Gradient 2.3 mmHg MV Velocity Time Integral 56.1 cm Mitral E Point Velocity 85.3 cm/s Mitral A Point Velocity 117.7 cm/s Mitral E to A Ratio 0.7 MV Deceleration Time 248.0 ms MV E' Velocity 4.5 cm/s Mitral E to MV E' Ratio 18.8 TR Peak Velocity 169.8 cm/s TR Peak Gradient 11.5 mmHg Right Ventricular Systolic Press 16.5 mmHg PV Peak Velocity 82.7 cm/s PV Peak Gradient 2.7 mmHg FINDINGS Left Ventricle Normal LV size and wall thickness. Left ventricular ejection fraction is estimated at 55-60 %.normal left ventricular wall motion. Grade 2 diastolic dysfunction. Right Ventricle Normal right ventricular size. Right Atrium Normal right atrial size. Left Atrium Normal left atrial size. Mitral Valve Mitral annular calcification. Mild mitral regurgitation. No mitral stenosis. Aortic Valve Trileaflet aortic valve. Mild to moderate AV calcification/sclerosis. No aortic valve stenosis or regurgitation. Tricuspid Valve Structurally normal tricuspid valve. Mild tricuspid regurgitation. Pulmonic Valve Pulmonic valve not well visualized. Trace pulmonic regurgitation. Pericardium Normal pericardium. Aorta Normal size aortic root. CONCLUSIONS 1. Normal left ventricular size and systolic function 2. Mild mitral and tricuspid regurgitation Previewed by: Dr. Artur Brothers MD (Electronically Signed) Final Date: 28 October 2023 07:33
[2023-10-28 09:24] VITALS: BP 130/86; PULSE 74; RESP 15; TEMP 97.9
[2023-10-28] MEDS: levETIRAcetam 500 MG TAB PO SCH (10:48)
[2023-10-28] MEDS: ASPIRIN 81 MG PO SCH (10:48)
[2023-10-28] MEDS: ENOXAPARIN 40 MG/0.4 ML SYRINGE SQ SCH (10:48)
[2023-10-28] MEDS: METOPROLOL TARTRATE 50 MG TAB PO SCH (10:48)
[2023-10-28] MEDS: CLOPIDOGREL 75 MG TAB PO SCH (10:48)
[2023-10-28] MEDS: ATORVASTATIN 40 MG TAB PO SCH (10:48)
[2023-10-28] MEDS: LOSARTAN 50 MG TAB PO SCH (10:48)
--- NOTE | 2023-10-28 23:50 | P.DS ---
Providers Date of admission: 10/25/23 16:06 Attending physician: Alejandro Carpenter MD Consults: 10/25/23 16:05 Consult Physician Routine Consulting Provider: Jenny Perez Consult Reason/Comments: ams Do you want consulting provider notified?: Yes Primary care physician: Marcin Marx [facility] Course: Diagnoses: -Altered mental status mostly worsening dementia, patient may have either vascular dementia or dementia of Alzheimer's type patient is undergoing MRI, EEG. Patient to may have some delirium from her medications and tramadol. Improved and patient back to baseline confirmed by the patient and at bedside. Physical therapy outpatient therapy evaluation -acute frontal small stroke -Epileptiform discharge over her left temporal lobe on EEG and patient was started on seizure medication -Type 2 diabetes mellitus -Hypertension -Hyperlipidemia Hospital course: 77-year-old female is admitted for mental status changes. Patient evaluated by neurologist, she had extensive workup including negative carotid Doppler, MRI of the brain showing acute ischemia of the left frontal lobe with punctate diffusion hyperintensity, because of this she was taken Plavix at home, aspirin 81 mg added by neurologist with recommendation to continue for 21 days and then stop Plavix and continue with aspirin, patient and at bedside are agreeable but they're concerned that Dr. Ball her anode builder might find aspirin not enough, therefore brillinta is suggested as an alternative by Dr. Manley, the neurologist. Both patient and refer to his note on 10/27 for more details when this see Dr. Mandujano and they are agreeable. Risks and benefits of dual antiplatelet therapy are explained for the patient and and they are agreeable Patient mentation is back to baseline and today she was fully awake and oriented, she knows she and a Hospital and she has insight into her illness. She denies any specific neurological symptom, no headache dizziness weakness or numbness in extremities. No blurred vision. Patient is able to walk although slowly at baseline. Patient has been tolerated for her to be discharged home today. They actually been discharged yesterday but echocardiogram was pending so discharge was held for today. Echocardiogram showing preserved ejection fraction at 55-60% patient denies any other new complaints Patient was cleared for discharge by neurologist. Problems and management plan were discussed with the patient and he verbalized understanding and acceptance Patient was found stable and can be discharged home in guarded prognosis however he needs follow-up as an outpatient. Patient was instructed to follow up with PCP Dr. Hartman within one week and patient agrees Patient and were instructed to follow up with the neurologist Dr. madan Miller in 1-2 weeks and they're agreeable. Physical exam Gen: patient is a AAOx3, no distress CVS: S1-S2, RRR, no murmur Lungs: B/L CTA, no wheezing Abdomen: soft, no distention, no tenderness, positive bowel sounds Extremity: no leg edema or induration Time spent more than 35 minutes Patient Condition at Discharge: Fair Plan - Discharge Summary New Discharge Prescriptions: New RX: Losartan [Cozaar] 50 mg PO DAILY #30 tab RX: Atorvastatin [Lipitor] 80 mg PO DAILY #30 tab RX: levETIRAcetam [Keppra] 500 mg PO Q12HR #60 tab RX: Aspirin 81 mg PO DAILY #30 tab RX: Clopidogrel [Plavix] 75 mg PO DAILY #20 tab Continue RX: Multivitamins, Thera [Multivitamin (formulary)] 1 tab PO DAILY RX: Semaglutide [Rybelsus] 14 mg PO DAILY RX: metFORMIN HCL [Glucophage] 1,000 mg PO BID RX: fluocinolone acetonide oiL [fluocinolone acetonide oiL 0.01% (Otic)] 2 drops BOTH EARS HS PRN PRN Reason: Itching RX: Metoprolol Tartrate [Lopressor] 50 mg PO BID Changed RX: Gabapentin 300 mg PO TID #0 Discontinued RX: Meloxicam 7.5 mg PO DAILY RX: Atorvastatin Calcium [Lipitor] 40 mg PO DAILY #30 tab RX: Clopidogrel [Plavix] 75 mg PO DAILY tab Losartan Potassium [Cozaar] 100 mg PO DAILY RX: traMADol HCL 50 mg PO Q6H PRN PRN Reason: Pain Cephalexin [Keflex] 500 mg PO Q8HR Discharge Medication List RX: Multivitamins, Thera [Multivitamin (formulary)] 1 tab PO DAILY 01/03/15 [History] RX: Metoprolol Tartrate [Lopressor] 50 mg PO BID 10/25/23 [History] RX: Semaglutide [Rybelsus] 14 mg PO DAILY 10/25/23 [History] RX: fluocinolone acetonide oiL [fluocinolone acetonide oiL 0.01% (Otic)] 2 drops BOTH EARS HS PRN 10/25/23 [History] RX: metFORMIN HCL [Glucophage] 1,000 mg PO BID 10/25/23 [History] RX: Atorvastatin [Lipitor] 80 mg PO DAILY #30 tab 10/27/23 [Rx] RX: Gabapentin 300 mg PO TID #0 10/27/23 [Rx] RX: Losartan [Cozaar] 50 mg PO DAILY #30 tab 10/27/23 [Rx] RX: Aspirin 81 mg PO DAILY #30 tab 10/28/23 [Rx] RX: Clopidogrel [Plavix] 75 mg PO DAILY #20 tab 10/28/23 [Rx] RX: levETIRAcetam [Keppra] 500 mg PO Q12HR #60 tab 10/28/23 [Rx] Follow up Appointment(s)/Referral(s): Marcin Reynoso DO [Primary Care Provider] - 3 Days David Salvador MD [STAFF PHYSICIAN] - 1 Week (neurologist spoke to PCP they will send referral) Car Miller DO [STAFF PHYSICIAN] - 2 Weeks (you have appointment with on 11/26/2023 as you informed the medical team ) [facility]NON[facility] - 1 Week Patient Instructions/Handouts: Macular Degeneration (GEN), Altered Mental Status (ED) Activity/Diet/Wound Care/Special Instructions: Heart healthy diet Activity is restricted till you see your doctor we recommend dual antiplatelets (with aspirin and palvix) for 21 days and after 21 days Possible stop Plavix and continue aspirin 81 mg daily (please refer to neurologist sony allen note from 08/27/2023 for more details) neurologist recommended a detailed neuropsych eval she is an outpatient down the line to assess her memory. this can be done by your neurologist Dr. Miller neurologist as an outpatient and we'll defer the management to him. Discharge Disposition: HOME SELF-CARE
== END 2023-10-28 13:55 | disposition home or self-care (01) ==
LOC: EC 13:52 → 6NMEDSUR 16:06
PROVIDERS: ADMIT Internal Medicine; ATTEND Internal Medicine
DX: G93.40 Encephalopathy, unspecified (principal); R94.01 Abnormal electroencephalogram [EEG]; E11.9 Type 2 diabetes mellitus without complications; E78.5 Hyperlipidemia, unspecified; I10 Essential (primary) hypertension; Z86.16 Personal history of COVID-19; Z86.73 Personal history of transient ischemic attack (TIA), and cerebral infarction without residual deficits; Z79.1 Long term (current) use of non-steroidal anti-inflammatories (NSAID); Z79.02 Long term (current) use of antithrombotics/antiplatelets; Z79.84 Long term (current) use of oral hypoglycemic drugs; Z79.899 Other long term (current) drug therapy
CPT/HCPCS: 96360; 96361 ×2; 96372 ×3; 99285; 36415; 95816; 93005; 93306; 97530; 97162; 97535; 97166; 80061; 80053 ×2; 84443; 82607; 82140; 82746; 84484; 85025 ×2; 85610; 85730; 81001; 83721; 71046; 93880; 70450; 70553; G0378 ×4; G0480; J1650; A9585; 80320

== ENCOUNTER → 2023-12-21 | Outpatient (CLI) | payer MEDICARE ==
--- NOTE | 2023-12-21 19:59 | MR ---
MRI brain without contrast. HISTORY: Follow-up acute CVA, altered mental status. COMPARISON: 10/24/2020. TECHNIQUE: Multiecho multiplanar images of the brain were obtained without contrast. Phase: The T1-weighted sagittal images the midline structures including the craniovertebral junction relatio nships are normal. The ventricles, basal cisterns and sulci over convexities are markedly enlarged consistent with marke d generalized atrophy. There is moderate multifocal and confluent areas of abnormal signal intensity and no periventricular white matter consistent with chronic ischemic white matter demyelination. There are 2 small remote lacunar infarcts right cerebral hemisphere not seen on the prior study and p ossibly within the right thalamus which was seen on the prior study. Based on diffusion-weighted imaging, there is no acute ischemic event or orbital contents appear norm al and symmetric. Visualized paranasal sinuses and mastoid air cells are well aerated. IMPRESSION: 1. Marked generalized atrophy and mild to moderate ischemic white matter myelination. 2. 2 small remote lacunar infarcts in the right cerebellar hemisphere. 3. No acute ischemic event. 4. No mass effect or shift of midline structures.
--- NOTE | 2023-12-21 20:04 | MR ---
EXAMINATION TYPE: MR angio head wo/neck wo/w con DATE OF EXAM: 12/21/2023 COMPARISON: None HISTORY: Abnormal MRI follow up acute CVA, altered mental status TECHNIQUE: Time of flight images focusing on the [place] of Perez were performed without contrast.. 2-D and 3-D postprocessing imaging is performed. FINDINGS: The brachial cephalic origins are widely patent without significant stenosis. The common and internal carotid arteries within the neck are widely patent without significant stenos is. Intracranially, there is no sizable aneurysm sac, vascular malformation, stenosis or segmental occlus ion IMPRESSION: No significant abnormality of the arterial circulation within the head or neck. There is no evidence of occlusive disease.
== END | disposition home or self-care (01) ==
LOC: RADMRIMAIN 15:50
PROVIDERS: ATTEND Psychiatry & Neurology Neurology
DX: G31.9 Degenerative disease of nervous system, unspecified (principal); I67.82 Cerebral ischemia; I63.89 Other cerebral infarction; R94.02 Abnormal brain scan
CPT/HCPCS: 70544; 70549; 70551; A9585

== ENCOUNTER 2023-12-24 09:56 | Day surgery (SDC) | payer MEDICARE ==
[2023-12-24] MEDS: LACTATED RINGERS 1,000 ML IV SCH (10:51)
[2023-12-24 10:52] LABS: Glucose,Whole Blood 240 mg/dL (70-110)
[2023-12-24 10:53] VITALS: TEMP 98.1
[2023-12-24] MEDS: INSULIN ASPART (NovoLOG) 100 UNIT/ML VIAL SQ ONE (11:01)
--- NOTE | 2023-12-24 11:54 | P.PCN ---
Description of Procedure: Preprocedure diagnosis. Mental status change. Postprocedure diagnosis. As above. Procedure done. Lumbar puncture and collection of cerebrospinal fluid. Anesthesia. Local infiltration with anesthetics. Continuous pulse ox, EKG, blood pressure and verbal communication was maintained with the patient. Blood loss. None. Indication. Discussed the procedure, alternatives, complications which may include infection, nerve damage, paralysis, aggravation of the symptoms especially bleeding in the spine and posterior dural puncture headache with the patient. The patient understands and questions were answered. Discussed with patient's in details about the procedure, complications which may include infection, bleeding, nerve damage, paralysis and headache. Procedure note. After getting concentration in the procedure room in sitting position. Patient has a basic surgical scar following lumbar spinal surgery. Site of needle insertion is above the surgical scar. Back prepped with chlorhexidine and draped in sterile fashion. After injecting 3 mL of 1% lidocaine subcutaneously, a 22-gauge spinal needle was introduced at L 2-3 interspace. Positive CSF, negative blood, negative paresthesia. CSF color was clear. CSF pressure was not measured. CSF was collected in 4 supplied sterol containers in sequence. Spinal needle was taken out and bandage was applied. Disposition. She tolerated the procedure well. No complication. Advised patient to lay flat one-hour postprocedure. The rest of the day today try to lay flat as much as possible. Next 3 days drink lots of fluid especially caffeinated beverages, and avoid constipation cough and doing strenuous physical work. Discharged home in stable condition.
[2023-12-24] MEDS: IV FLUID CONTINUATION 300 ML IV ONE (11:57)
[2023-12-24 12:05] LABS: Glucose,Whole Blood 169 mg/dL (70-110)
[2023-12-24 13:01] LABS: Glucose,CSF 87 mg/dL (40-70); Total Protein,CSF 61 mg/dL (12-60)
[2023-12-24 13:29] VITALS: BP 145/83; PULSE 67; RESP 16
[2023-12-24 13:53] LABS: Appearance,CSF Clear; CSF Tube Number 4; Nucleated Cells, CSF 0 u/L (0-5); Red Blood Cell,CSF 1 u/L (0-10)
== END 2023-12-24 13:24 | disposition home or self-care (01) ==
LOC: ORPAIN 09:56
PROVIDERS: ATTEND Pain Medicine Interventional Pain Medicine
DX: R41.82 Altered mental status, unspecified (principal); F03.90 Unspecified dementia, unspecified severity, without behavioral disturbance, psychotic disturbance, mood disturbance, and anxiety; Z79.82 Long term (current) use of aspirin; Z79.02 Long term (current) use of antithrombotics/antiplatelets; Z79.84 Long term (current) use of oral hypoglycemic drugs; Z79.899 Other long term (current) drug therapy
CPT/HCPCS: 62270; 82945; 84157; 87070; 87205; 89050

== ENCOUNTER → 2025-01-13 | Outpatient (CLI) | payer MEDICARE ==
[2025-01-13 15:34] LABS: ALT 23 U/L (8-44); AST 25 U/L (13-35); Chol/HDL Ratio 2.42 Ratio; LDL Cholesterol,Calculated 29.1 mg/dL (0.0-131.0)
== END | disposition home or self-care (01) ==
LOC: LABWHC1 10:04
PROVIDERS: ATTEND Internal Medicine
DX: E78.2 Mixed hyperlipidemia (principal)
CPT/HCPCS: 36415; 80061; 84450; 84460

== ENCOUNTER → 2025-02-01 | Outpatient (CLI) | payer MEDICARE ==
--- NOTE | 2025-02-01 11:33 | MM ---
Reason for Exam: Screening (asymptomatic). Last mammogram was performed 1 year(s) and 11 month(s) ago. Patient History: Menarche at age 14. First Full-Term at age 25. Postmenopausal. Patient used Hormonal Contraceptives for 8 years. 08/15/2005, Benign Excisional Biopsy on the left side. 08/13/2005, Core Biopsy on the Left side. 01/25/1998, Benign Excisional Biopsy on the right side. Risk Values: Venecia 5 year model risk: 2.3%. NCI Lifetime model risk: 4.5%. Prior Study Comparison: 05/09/2020 Bilateral Screening Mammogram, [facility]. 02/21/2022 Bilateral Screening Mammogram, [facility]. 02/23/2023 Bilateral MG 3D screening mammo w/cad, [facility]. Tissue Density: The breasts are heterogeneously dense, which may obscure small masses. Findings: Analyzed By CAD. There is no suspicious group of microcalcifications or new suspicious mass in either breast. There are benign-appearing calcifications. Stable appearing lymph node left axilla. There is a nodule in the right breast which is increased in size within the right upper outer quadrant. No prior ultrasound available for comparison. Overall Assessment: Incomplete: need additional imaging evaluation, BI-RAD 0 Management: Diagnostic Breast Ultrasound of the right breast. . Patient should continue monthly self-breast exams. A clinical breast exam by your physician is recommended on an annual basis. This exam should not preclude additional follow-up of suspicious palpable abnormalities. Note on Venecia scores and lifetime risk: 1. A Venecia score greater than 3% is considered moderate risk. If this is the case, consider specialist referral to assess eligibility for a risk reducing agent. 2. If overall lifetime risk for the development of breast cancer is 20% or higher, the patient may qualify for future screening with alternating mammogram and breast MRI. [facility], , 02/01/2025 11:31 AM. Electronically signed and approved by: Matheus Real M.D. Radiologis
== END | disposition home or self-care (01) ==
LOC: RADMAMWWP 10:37
PROVIDERS: ATTEND Family Medicine
DX: Z12.31 Encounter for screening mammogram for malignant neoplasm of breast (principal); R92.333 Mammographic heterogeneous density, bilateral breasts; R92.1 Mammographic calcification found on diagnostic imaging of breast; Z78.0 Asymptomatic menopausal state; Z92.0 Personal history of contraception
CPT/HCPCS: 77063; 77067

== ENCOUNTER → 2025-02-06 | Outpatient (CLI) | payer MEDICARE ==
--- NOTE | 2025-02-06 15:55 | USB ---
Reason for Exam: Additional evaluation requested from abnormal screening. Patient History: Menarche at age 14. First Full-Term at age 25. Postmenopausal. Patient used Hormonal Contraceptives for 8 years. 08/15/2005, Benign Excisional Biopsy on the left side. 08/13/2005, Core Biopsy on the Left side. 01/25/1998, Benign Excisional Biopsy on the right side. Risk Values: Venecia 5 year model risk: 2.3%. NCI Lifetime model risk: 4.5%. Technique: Method: Targeted. Prior Study Comparison: 02/21/2022 Bilateral Screening Mammogram, [facility]. 02/23/2023 Bilateral MG 3D screening mammo w/cad, [facility]. 02/01/2025 Bilateral MG 3D screening mammo w/cad, [facility]. Findings: The upper outer quadrant of the right breast, the axilla of the right breast and the retroareolar of the right breast were scanned. Predominantly cystic lesion noted at the right 10:00 position 7 cm from the nipple although there is wall thickening and wall nodularity appreciated. This lesion measures 9 x 7 mm. Overall Assessment: Suspicious, BI-RAD 4 Management: Ultrasound Core Biopsy of the right breast. A clinical breast exam by your physician is recommended on an annual basis and results should be correlated with mammographic findings. This exam should not preclude additional follow-up of suspicious palpable abnormalities. Results were given to the patient verbally at the time of exam. [facility], , 02/06/2025 3:51 PM. Electronically signed and approved by: Raleigh Ngo M.D. Radiologis
== END | disposition home or self-care (01) ==
LOC: RADUSWWP 15:24
PROVIDERS: ATTEND Family Medicine
DX: R92.8 Other abnormal and inconclusive findings on diagnostic imaging of breast (principal); Z78.0 Asymptomatic menopausal state; Z92.0 Personal history of contraception

== ENCOUNTER → 2025-02-23 | Day surgery (SDC) | payer MEDICARE ==
--- NOTE | 2025-03-03 09:23 | USB ---
Risk Values: Venecia 5 year model risk: 2.3%. NCI Lifetime model risk: 4.5%. Prior Study Comparison: 02/21/2022 Bilateral Screening Mammogram, [facility]. 02/23/2023 Bilateral MG 3D screening mammo w/cad, [facility]. 02/01/2025 Bilateral MG 3D screening mammo w/cad, [facility]. Pathology Description: Location: 10 o'clock. Needle Type: Celero Cores: 1 Gauge: 12 The procedure of ultrasound guided core biopsy was explained to the patient. Benefits, alternatives, and risks were discussed. An informed consent was then obtained. The patient was placed in supine positioning for imaging and for the procedure. The overlying skin was prepped and draped in usual sterile fashion. Lidocaine buffered with bicarbonate was used as anesthetic into the skin and subcutaneous tissue up to area of concern in the right 10:00 breast 7 cm from the nipple. Under ultrasound guidance, a 12-gauge vacuum assisted biopsy gun device was used to obtain 1 core sample following which the lesion could no longer be visible. Following this, a biopsy clip was left in lesion. The patient tolerated the procedure well without any immediate complication. The patient was kept in the radiology department for short stay after the procedure and then discharged home in stable condition. Impression: Successful, uncomplicated ultrasound guided core biopsy of area of concern in the right 10:00 breast, full pathology results to follow. [facility], , 02/23/2025 2:47 PM. Pathology Results: Result: Malignant. Pathology and radiology were reviewed. Findings are concordant. 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 Background fibrosis/scar with histiocytes, hemosiderin pigment deposition and calcifications. See note. Notes Sections examined show detached clusters of ductal epithelial cells with low-grade atypia, cribriform architectural features and associated calcifications. There is adjacent stroma with fibrosis/scar, calcifications, hemosiderin and histiocytes. 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 Definitive characterization of the lesion is deferred to excision. [employer] material from this case was also reviewed by Dr. Clemente Thompson, who agrees with the above diagnosis. Overall Assessment: Malignant Management: Surgical Consultation of the right breast. (open biopsy) . Electronically signed and approved by: Raleigh Ngo M.D. Radiologis
== END ==
LOC: RADUSWWP 12:00
PROVIDERS: ATTEND Family Medicine
DX: L90.5 Scar conditions and fibrosis of skin (principal); N60.31 Fibrosclerosis of right breast; R92.8 Other abnormal and inconclusive findings on diagnostic imaging of breast
CPT/HCPCS: 88305; 19083; A4648

== ENCOUNTER → 2025-03-10 | Outpatient (CLI) | payer MEDICARE ==
[2025-03-10 10:22] VITALS: BP 178/69; PULSE 84; RESP 16; TEMP 96.9
--- NOTE | 2025-03-10 10:41 | P.GSCN ---
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 She underwent a bilateral mammogram on 02-01-2025. This revealed continuously dense breast and a lesion noted in the right breast for which ultrasound was recommended. Ultrasound revealed a predominantly cystic lesion noted in the 10 o'clock position 7 cm from the nipple with wall thickening. The lesion measured approximately 9 x 7 mm. An ultrasound-guided core biopsy was performed on 02-23-2025. This revealed atypical epithelium with calcifications suspicious for at least low-grade DCIS. Background fibrosis/scar was noted. The mammogram and ultrasound were personally reviewed with Dr. May from radiology. A clip was left at the biopsy site but there is not appear to be a diagnostic mammogram after the biopsy was done. She missed her mammogram last year secondary to a CVA. Her last mammogram was 2 years ago, this time led to an ultrasound of the right breast and then an ultrasound-guided core biopsy. Do not feel any lumps masses or nodules of concern prior to the biopsy, there is a question of some nodularity now since the biopsy has been done. 2 core biopsies prior to this which were both benign in the remote past 1 in each breast. She is not complaining of any recent trauma or infection in the breast. She is not complaining of any nipple discharge or skin changes. Caffeine: cola daily 12 0z nicotine: none chocolate: occasional BCP: 15 years hormones: none Family History: father: pancreatic cancer Hormonal History: menarche: 14 , breast fed: no, age at first : 24 menopause: 50 Surgical History: back surgery total knee bilateral left shoulder surgery Medical History: CVA two most recent October 2023, reason ? Social History: nicotine: none alcohol: occasional drugs: none Review of Systems - Constitutional Denies fever, Denies weight loss - EENT Eyes: denies blurred vision Ears: deny: decreased hearing (right outer ear infection) Ears, nose, mouth and throat: Denies dysphagia - Breasts bilateral: as per HPI - Cardiovascular Reports shortness of breath, Denies chest pain - Respiratory Denies cough, Denies 7 - Gastrointestinal Gastrointestinal Comment(s): IBS/ constipation Reports as per HPI - Genitourinary Genitourinary: Denies dysuria, Denies hematuria Menstruation: Reports postmenopausal - Musculoskeletal Reports as per HPI - Integumentary Denies rash, Denies unusual bruising - Neurological Neurologic Comment(s): CVA follows with DR. Miller Denies headaches, Denies syncope - Psychiatric Reports as per HPI - Endocrine Endocrine Comment(s): diabetic Reports as per HPI - Hematologic/Lymphatic Denies easy bleeding, Denies easy bruising - Allergic/Immunologic Reports seasonal allergies Past Medical History Past Medical History: CVA/TIA, Dementia, Diabetes Mellitus, Hyperlipidemia, Hypertension, Memory Impairment, Thyroid Disorder Additional Past Medical History / Comment(s): CVA 2012 = numbness in hand and arm covid enlarged thyroid. CVA- History of Any Multi-Drug Resistant Organisms: None Reported Past Surgical History: Back Surgery, Orthopedic Surgery Additional Past Surgical History / Comment(s): both knees total, rotor cuff repair Past Anesthesia/Blood Transfusion Reactions: No Reported Reaction Past Psychological History: No Psychological Hx Reported Smoking Status: Never smoker Past Alcohol Use History: None Reported Past Drug Use History: None Reported - Past Family History Son(s) Additional Family Medical History / Comment(s): gout Medications and Allergies Home Medications Medication Instructions Recorded Confirmed Type Multivitamins, Thera [Multivitamin 1 tab PO DAILY 01/03/15 02/08/25 History (formulary)] Metoprolol Tartrate [Lopressor] 50 mg PO DAILY 10/25/23 02/08/25 History Semaglutide [Rybelsus] 14 mg PO DAILY 10/25/23 02/08/25 History fluocinolone acetonide oiL 2 drops BOTH EARS HS PRN 10/25/23 02/08/25 History [fluocinolone acetonide oiL 0.01% (Otic)] metFORMIN HCL [Glucophage] 1,000 mg PO DAILY 10/25/23 02/08/25 History Atorvastatin [Lipitor] 80 mg PO DAILY #30 tab 10/27/23 02/08/25 Rx Losartan [Cozaar] 50 mg PO DAILY #30 tab 10/27/23 02/08/25 Rx Aspirin 81 mg PO DAILY #30 tab 10/28/23 02/08/25 Rx Clopidogrel [Plavix] 75 mg PO DAILY #20 tab 10/28/23 02/08/25 Rx Gabapentin 300 mg PO TID PRN 12/21/23 02/08/25 History levETIRAcetam [Keppra] 500 mg PO DAILY 12/21/23 02/08/25 History Memantine [Namenda] 10 mg PO BID 02/08/25 02/08/25 History Rosuvastatin [Crestor] 10 mg PO DAILY 02/08/25 02/08/25 History Allergies Allergy/AdvReac Type Severity Reaction Status Date / Time No Known Allergies Allergy Verified 02/08/25 09:44 Surgical - Exam - General no distress - Eyes normal ocular movement - ENT no hearing loss - Neck trachea midline - Respiratory normal respiratory effort, clear to auscultation - Cardiovascular Rhythm: regular Heart Sounds: normal: S1, S2 - Abdomen Abdomen: soft, non tender, no guarding, no rigid, no rebound - Integumentary normal turgor - Neurologic no disoriented, no combative - Musculoskeletal normal gait - Psychiatric oriented to time, oriented to person, oriented to place Breast Exam: BRA: 34C inspection: bilateral grade 2/3 ptosis palpation: right breast: Multi positional exam no discrete dominant masses or nodules of concern, attention to the area where the biopsy was performed does not reveal any discrete lumps or masses at this time Right axilla: No adenopathy of concern Left breast: Multi positional exam no discrete dominant masses or nodules of concern Left axilla: No adenopathy of concern Results Mammogram and ultrasound personally reviewed and discussed with Dr. Daniel from radiology; biopsy suspicious for DCIS Assessment and Plan Assessment: Impression: Biopsy right breast suspicious for DCIS Prior CV A x 2 Plan: Needle localization excisional lumpectomy area of concern right breast Clearance primary care/Dr. Ochoa Clearance neurology Patient is presently on aspirin and Plavix and we will most likely request that she stop the Plavix prior to the procedure CC: Dr. Ochoa
== END ==
LOC: WWCWWP 08:30
PROVIDERS: ATTEND Surgery
DX: N64.89 Other specified disorders of breast (principal)

== ENCOUNTER 2025-04-11 11:45 | Day surgery (SDC) | payer MEDICARE ==
[2025-04-07 13:07] VITALS: BMI 31.3
[~2025-04-11 11:45] MED LIST: HYDROmorphone 0.5 MG/0.5 ML SYRINGE IVP PRN; LIDOCAINE 1% (10MG/ML) FOR IV START INTRADERMA PRN; METHYLENE BLUE 50 MG, DEXTROSE 5% IN WATER 50 ML MISCELLANE ONE; MIDAZOLAM 2 MG/2 ML VIAL IV PRN; fentaNYL (PF) 50 MCG/ML 2 ML AMP IVP PRN
[2025-04-11] MEDS: IV FLUID CONTINUATION 1,000 ML IV ONE (12:56)
[2025-04-11] MEDS: ACETAMINOPHEN TAB 500 MG TAB PO PRN (13:05)
[2025-04-11 13:10] LABS: Glucose,Whole Blood 129 mg/dL (70-110)
[2025-04-11] MEDS: LACTATED RINGERS 1,000 ML IV SCH (13:17)
[2025-04-11] MEDS: ALPRAZolam 0.25 MG TAB PO STA (13:17)
[2025-04-11 13:40] VITALS: RESP 16
[2025-04-11] MEDS: SODIUM BICARB 8.4% 50 ML VIAL (1 MEQ/ML) MISCELLANE ONE (13:53)
[2025-04-11] MEDS: LIDOCAINE 1% INJ 10MG/ML (20 ML MDV) SQ ONE ×3 (13:53→16:25)
[2025-04-11] MEDS: METHYLENE BLUE 50 MG/10 ML VIAL MISCELLANE ONE (13:58)
[2025-04-11] MEDS: HEPARIN SODIUM,PORCINE 5,000 UNIT/ML 1 ML VIAL SQ PRN (14:26)
[2025-04-11] MEDS: DEXAMETHASONE SOD PHOSPHATE 4 MG/ML 1 ML VIAL IV ONE (14:26)
[2025-04-11] MEDS: ONDANSETRON 4 MG/2 ML VIAL IVP ONE (14:26)
--- NOTE | 2025-04-11 14:38 | P.NAPBC ---
NAPBC Queries - NAPBC Queries Was patient's case review presented at [facility] tumor board? If no, comment.: Yes Was patient's pathology reviewed at [facility]? If no, comment.: Yes Was breast conservation surgery offered? If no, comment.: Yes Was sentinel node biopsy offered? If no, comment.: No Was diagnosis confirmed by percutaneous core biopsy? If no, comment.: Yes Is patient mastectomy patient?: No Was a preop referral to reconstructive surgeon offered?: No Clinical Stage: right breast DCIS stage 0
[2025-04-11] MEDS ORDERED: LIDOCAINE 1% INJ 10MG/ML (20 ML MDV) ONE (15:13)
[2025-04-11] MEDS ORDERED: fentaNYL (PF) 50 MCG/ML 2 ML AMP ONE (15:13)
[2025-04-11] MEDS ORDERED: SUCCINYLCHOLINE CHLORIDE 200 MG/10 ML VIAL IV ONE (15:13)
[2025-04-11] MEDS ORDERED: PROPOFOL 10 MG/ML 20 ML VIAL IV ONE (15:13)
[2025-04-11] MEDS: ceFAZolin 2 GM in DEXTROSE 5% IN WATER 50 ML IVPB PRN (15:17)
--- NOTE | 2025-04-11 16:19 | P.BCAON ---
Date of Procedure: 04/11/25 Preoperative Diagnosis: DCIS right breast Postoperative Diagnosis: same Procedure(s) Performed: Needle localization lumpectomy right breast oncoplastic tissue transfer 22 cm Anesthesia: QUITAA Surgeon: Ling Briceno Estimated Blood Loss (ml): 10 IV fluids (ml): 500 Pathology: other (Breast tissue) Indications for Procedure: Biopsy-proven DCIS right breast Operative Findings: Dense breast tissue Description of Procedure: The patient was brought to the operative suite and following induction of anesthesia the right breast was prepped and draped in a sterile fashion. This was following needle localization of area of concern in the radiology department. An incision was made and carried around the skin anteriorly which was resected down around the hook of the needle. Surrounding tissue was excised. All blue stained tissue was excised as well. There appeared to be some small palpable change within the lesion which was excised which was felt to be the lesion of concern. The specimen was painted for orientation. Additional tissue was obtained superior and inferior to assure that the margins would be negative. Anteriorly dissection was removal of the skin. Posteriorly dissection was onto the pectoralis muscle. The lesion was painted for orientation. The specimen was 2 x 3 cm in size. Radiograph of the specimen did not reveal the clip however it was felt that the area of concern had been removed. A new superior margin was obtained as well as a new inferior margin and these were painted for orientation. A superior pillar 4 x 2 cm was developed. An inferior pillar 4 x 2 cm was developed. The tissue was brought into the area of the defect to close the defect. Total oncoplastic tissue transfer 22 cm. Prior to closure of the defect titanium clips were placed in the cavity. Also Surgicel and powder form was placed. The subcutaneous tissues were closed using 3-0 Vicryl suture. The skin was closed using 4-0 Monocryl. The patient tolerated the procedure in stable condition. All instrument and sponge counts were correct at the end of the case. Secondary to the fact that it was felt that the area of concern had been removed we will await pathology and reevaluate secondary to the fact that they clip was not in the specimen.
[2025-04-11 16:43] VITALS: TEMP 96.9
[2025-04-11 17:01] LABS: Glucose,Whole Blood 166 mg/dL (70-110)
[2025-04-11 17:40] VITALS: BP 158/77; PULSE 65
== END 2025-04-11 18:05 | disposition home or self-care (01) ==
LOC: OR 11:45
PROVIDERS: ATTEND Surgery
DX: D05.11 Intraductal carcinoma in situ of right breast (principal); K21.9 Gastro-esophageal reflux disease without esophagitis; I10 Essential (primary) hypertension; E78.5 Hyperlipidemia, unspecified; E11.9 Type 2 diabetes mellitus without complications; F03.90 Unspecified dementia, unspecified severity, without behavioral disturbance, psychotic disturbance, mood disturbance, and anxiety; N28.9 Disorder of kidney and ureter, unspecified; G47.33 Obstructive sleep apnea (adult) (pediatric); Z89.231 Acquired absence of right shoulder; Z86.73 Personal history of transient ischemic attack (TIA), and cerebral infarction without residual deficits; Z79.84 Long term (current) use of oral hypoglycemic drugs; Z79.82 Long term (current) use of aspirin; Z79.02 Long term (current) use of antithrombotics/antiplatelets; Z79.899 Other long term (current) drug therapy
CPT/HCPCS: 88342; 88307; 88341; 19301; 14301; J0330; J1644; J1100; J0690; J2405; J2003; J3010; J2704; Q9968

== ENCOUNTER → 2025-04-21 | Outpatient (CLI) | payer MEDICARE ==
--- NOTE | 2025-04-21 09:00 | P.BCPO ---
Progress Note - Text Progress Note Date: 04/21/25 Minerva is a 79-year-old female status post right breast lumpectomy on 04 12 25. Invasive tumor 4 mm, DCIS 33mm. Her margin is close to DCIS anterior/superior. New superior margin (-). All margins 9-) for invasive tumor. ER+, Pr+ Her2-. Postoperatively she is doing well. Lungs: Clear Heart: Regular rate and rhythm Incision: Clean and dry Impression: Patient doing well postoperatively Plan: Appointment medical oncology Appointment radiation oncology Follow-up here in 4 months Post Op Education - Post Op Education Post Op Education Provided Date: 04/21/25 - Functional Assessment Performed?: Yes (arm abduction passed) Path Report - Was patient given path report? Path Report Date Given: 04/21/25
[2025-04-21 09:04] VITALS: BP 141/72; PULSE 71; RESP 17; TEMP 98.2
== END ==
LOC: WWCWWP 08:43
PROVIDERS: ATTEND Surgery
DX: Z98.890 Other specified postprocedural states (principal)

== ENCOUNTER → 2025-05-29 | Outpatient (CLI) | payer MEDICARE ==
--- NOTE | 2025-05-29 21:07 | BD ---
EXAMINATION TYPE: Axial Bone Density DATE OF EXAM: 05/29/2025 CLINICAL HISTORY: 79 years old Female. ICD-10 CODE: M81.0 OSTEOPOROSIS , Additional History: Height: 64 Weight: 195 FRAX RISK QUESTIONS: Family History (Parent hip fracture): no History of Fracture in Adulthood: no Secondary Osteoporosis: no RISK FACTORS HISTORY OF: Surgery to Spine/Hip(right/left)/Wrist (right/left): no MEDICATIONS: Thyroid Medications: no Osteoporosis Medications: no EXAM MEASUREMENTS: Bone mineral densitometry was performed using the [employer] System. Bone mineral density as measured about the Lumbar spine is: ----- L1-L4(G/cm2): 1.642 T Score Values are as follows: ----- L1: 3.7 ----- L2: 4.2 ----- L3: 4.6 ----- L4: 2.9 ----- L1-L4: 3.9 Z Score Values are as follows: ----- L1: 4.7 ----- L2: 5.2 ----- L3: 5.6 ----- L4: 4.0 ----- L1-L4: 4.9 Bone mineral density has: Increased 4.9% since study of: 08/05/2017 Bone mineral density about the R hip (g/cm2): 1.178 Bone mineral density about the L hip (g/cm2): 1.178 T Score values are as follows: -----R Neck: -0.3 -----L Neck: -0.7 -----R Total: 1.4 -----L Total: 1.4 Z Score values are as follows: -----R Neck: 1.2 -----L Neck: 0.8 -----R Total: 2.7 -----L Total: 2.7 Bone mineral density has: Decreased -0.6% since study of: 08/05/2017 FRAX%s: The graph provided illustrates a 9.2% chance for a major osteoporotic fx and a 1.3% chance fo r the hips probability for fx in 10 years time. IMPRESSION: Normal (Values between +1 and -1 indicate normal bone mass). Consider repeating this study in 5 year s or sooner if there is some new clinical indication. NOTE: T-SCORE=SD OF THE YOUNG ADULT MEAN. [facility], , 05/29/2025 9:05 PM
== END | disposition home or self-care (01) ==
LOC: RADBDWWP 15:30
PROVIDERS: ATTEND Internal Medicine Hematology & Oncology
DX: M81.0 Age-related osteoporosis without current pathological fracture (principal)
CPT/HCPCS: 77080